=== PATIENT | male | born 1930 | race Caucasian/White ===

== ENCOUNTER 2016-07-01 10:09 | Emergency (ER) | payer OTHER ==
[~2016-07-01] VITALS: Ht 172.7 cm; Wt 114.5 kg
[~2016-07-01 10:09] MED LIST: CALCIUM/MAG/ZINC PO; LISI20TA3 PO; LSX10 PO; OXYC-409 PO; POTA20TA16 PO; TAMS0.4C59 PO; VEGETABLE LAXATIVE PO
[2016-07-01 10:15] VITALS: TEMP 36.6; Ht 172.7 cm; Wt 114.5 kg
[2016-07-01] MEDS ORDERED: FRS/40 PO (10:38)
[2016-07-01] MEDS ORDERED: MULT1CAP16 PO (10:38)
[2016-07-01] MEDS ORDERED: POTA20TA16 PO (10:43)
[2016-07-01] MEDS ORDERED: PRSC1 PO (10:44)
[2016-07-01] MEDS ORDERED: XYLOCAINE 1%/SOD BICARB 20 ML VIAL INFIL ONE (11:00)
[2016-07-01] MEDS ORDERED: DIPHTHERIA/TETANUS/PERTUSSIS 0.5 ML SYR/VIAL IM. ONE (11:45)
[2016-07-01] MEDS ORDERED: CEPHALEXIN MONOHYDRATE 250 MG CAP PO ONE (11:45)
[2016-07-01] MEDS ORDERED: CEPH500C PO (11:51)
--- NOTE | 2016-07-01 11:52 | EMERGENCY ROOM VISIT NOTE ---
ED Visit Note First contact with patient: 10:25 Chief Complaint: LEFT Ring and Pinky Finger Lacerations History of Present Illness: This patient is an 85-year-old male who presents to the Emergency Department with his for evaluation of their LEFT ring and little finger lacerations. Patient sustained the laceration while using a sharp knife to pry apart frozen pieces of chicken. They report a moderate amount of bleeding initially. They deny any numbness or tingling into the distal extremity. They report no decreased range of motion of the affected digit. They have tried nothing for the pain. Patient rates his current discomfort as a 3/10. Patient's Tetanus status is not currently up-to-date. Patient was initially seen at his primary care provider's office and directed to urgent care. He was seen at [facility] and subsequently directed to the emergency Department for laceration repair. Patient does not utilize blood thinners. Medications: Reviewed and discussed with the patient. Allergies: No known allergies. PMH: No pertinent past medical history. SHx: Patient is an 85-year-old male who lives at home with family. ROS: All pertinent positive and negative review of systems are appropriately documented in the History of Present Illness. Physical Exam: VITAL SIGNS - Vital signs and nursing notes were reviewed. GENERAL - 85-year-old male appearing his stated age who is in no acute distress. Communicates well with provider and answers questions appropriately. SKIN - There is a 3.5 cm long laceration noted to the proximal surface of the LEFT 5th digit. The edges gape apart with traction. No foreign bodies appreciated. Upon further examination there are no deep structures including vessel, tendon, or bony structures appreciated. There is moderate active bleeding noted. There is a 2.0 cm laceration noted to the proximal palmar surface of the LEFT fourth digit. Edges minimally gape apart with traction. No foreign bodies appreciated. Upon further examination, there are no deep structures including vessels, tendons, or bony structures appreciated. No active bleeding noted. MUSCULOSKELETAL - Laceration as described above. +5/5 strength appreciated of the affected digits. Full range of motion of the affected digit. NEUROLOGIC - Spinothalamic tract was found to be intact with ability to discriminate sharp versus dull sensation. No sensory defects of the dorsal column were appreciated utilizing light touch for evaluation. VASCULAR - Capillary refill was brisk. ED Course: Patient was seen and evaluated by myself. Costs and benefits of performing primary wound closure versus no repair were discussed with the patient who verbalizes understanding. Verbal consent was obtained prior to performing the procedure. 5.0 cc of 1% buffered lidocaine was used to perform anesthetization of the lacerations. The wound was cleansed and prepped in the typical sterile fashion utilizing normal saline and Betadine. The wound was sterilely draped. Once proper anesthetization was established, the wound was further examined and demonstrated a full-thickness lacerations without disruption of underlying bony structures or tendinous processes. The wound was copiously irrigated with normal saline and Betadine. The LEFT 5th digit wound was closed using 2 simple interrupted 6-0 Vicryl sutures and 9 simple, 5-0 nylon sutures with the wound edges being well approximated. The LEFT 4th digit laceration was repaired using 5 simple interrupted 5-0 nylon sutures with the wound edges being well approximated. Patient tolerated the procedure well. No complications were met. The wound was cleansed and dressed with a Bacitracin dressing. A metal splint was applied to the finger for comfort. Patient received their Adacel vaccination. Patient received initial dose of Keflex prophylactically in the emergency department. Patient educated on worrisome symptoms for return visit to the Emergency Department. Patient discharged to home in good condition. Impression: Laceration to the LEFT 4th and 5th Digits Discharge Instructions: You have received 14 sutures on your LEFT 4th and 5th. These sutures are NOT dissolvable and WILL need to be removed by a health care provider in 10-14 days. You can return to the Emergency Department or contact your Primary Care Provider to have the sutures removed. Please wear the splint for comfort until the sutures are removed. Proper wound care is essential for adequate wound healing and infection prevention. You can shower and clean the wound with soap and water. Do not scour over the wound, pat dry with a towel. Do not submerse the wound (i.e. bathe or dish wash) until the sutures have been removed. You can use an antibiotic ointment with a dressing over the wound for the next 3-4 days. After this time you may leave the wound dry and open to the air. If crust develops over the wound you can use a Q-tip to apply a 1:1 peroxide:water solution to clean the wound. Look for signs of infection of the wound including: increased pain, swelling, foul discharge, streaking, or increased temperature. If any of these are noticed you should return to the Emergency Department for further assessment and treatment. As with any laceration you may have received nerve damage to the surrounding tissues. This damage may or may not be permanent. You should keep the area covered with sunscreen for the first 6 months to 1 year when at risk for exposure to help minimize scarring. You can also use scar reducing creams or Vitamin E oil to help minimize scarring. You were prescribed Keflex to be taken as prescribed. This is an antibiotic. All antibiotics have the potential to cause diarrhea. Stop this medication and contact a medical provider if you were to develop any significant adverse side effects including: wheezing, shortness of breath, passing out, vomiting, or a diffuse rash. Always take antibiotics as directed and COMPLETE the ENTIRE course regardless of the improvement of your symptoms. For pain control, you can use the following soad-cvb-jeomswo medicines (if >12 yo): - Regular strength (325mg/tab) Tylenol (acetaminophen) 2 tabs every 4-6 hours as needed. Do not exceed 12 tablets in a 24 hour period. Avoid taking more than 4 grams (4000 mg) of Tylenol per day. This includes any other sources of acetaminophen you may take on a regular basis. - Regular strength (200 mg/tab) Advil (ibuprofen) 1-2 tabs every 4-6 hours as needed. Do not exceed a dose of 3200 mg per day. Return to the emergency department if your symptoms worsen despite treatment course outlined above. Current/Historical Medications Scheduled Finasteride (Propecia ), 1 MG PO DAILY Furosemide (Lasix), 40 MG PO 2XWK Lisinopril (Prinivil), 20 MG PO DAILY Multiple Vitamins W/ Minerals (Multi Complete), 1 TAB PO DAILY Oxycodone Hcl (Oxycontin), 40 MG PO Q8HR Potassium Ext Rel (Klor-Con), 20 MEQ PO DAILY Potassium Ext Rel (Klor-Con), 20 MEQ PO 2XWK Tamsulosin Hcl (Flomax), 0.4 MG PO HS [Vegetable Laxative], PO DHS Allergies Coded Allergies: No Known Allergies (Unverified , 07/01/16) Vital Signs Date Time Temp Pulse Resp B/P Pulse Ox O2 Delivery O2 Flow Rate FiO2 07/01/16 12:05 57 20 162/93 95 07/01/16 10:15 36.6 69 18 129/77 97 Room Air Medications Administered Medications (Trade) Dose Ordered Sig/Ashish Route Start Time Stop Time Status Last Admin Dose Admin Lidocaine HCl (Buffered Lidocaine 1% Inj) 20 ml ONE ONCE INFIL 07/01/16 11:00 07/01/16 11:01 DC 07/01/16 11:00 20 ML Cephalexin Monohydrate (Keflex Cap) 500 mg NOW ONCE PO 07/01/16 11:45 07/01/16 11:46 DC 07/01/16 11:51 500 MG Diphtheria/ Pertussis/Tetanus Vacc (Adacel Inj) 0.5 ml ONCE ONCE IM. 07/01/16 11:45 07/01/16 11:46 DC 07/01/16 11:52 0.5 ML Departure Information Impression Primary Impression: Laceration of finger of left hand Dispostion Home / Self-Care Condition GOOD Referrals Tani Duval M.D. (PCP) Patient Instructions ED Laceration Hand, [facility] Additional Instructions You have received 14 sutures on your LEFT 4th and 5th. These sutures are NOT dissolvable and WILL need to be removed by a health care provider in 10-14 days. You can return to the Emergency Department or contact your Primary Care Provider to have the sutures removed. Please wear the splint for comfort until the sutures are removed. Proper wound care is essential for adequate wound healing and infection prevention. You can shower and clean the wound with soap and water. Do not scour over the wound, pat dry with a towel. Do not submerse the wound (i.e. bathe or dish wash) until the sutures have been removed. You can use an antibiotic ointment with a dressing over the wound for the next 3-4 days. After this time you may leave the wound dry and open to the air. If crust develops over the wound you can use a Q-tip to apply a 1:1 peroxide:water solution to clean the wound. Look for signs of infection of the wound including: increased pain, swelling, foul discharge, streaking, or increased temperature. If any of these are noticed you should return to the Emergency Department for further assessment and treatment. As with any laceration you may have received nerve damage to the surrounding tissues. This damage may or may not be permanent. You should keep the area covered with sunscreen for the first 6 months to 1 year when at risk for exposure to help minimize scarring. You can also use scar reducing creams or Vitamin E oil to help minimize scarring. You were prescribed Keflex to be taken as prescribed. This is an antibiotic. All antibiotics have the potential to cause diarrhea. Stop this medication and contact a medical provider if you were to develop any significant adverse side effects including: wheezing, shortness of breath, passing out, vomiting, or a diffuse rash. Always take antibiotics as directed and COMPLETE the ENTIRE course regardless of the improvement of your symptoms. For pain control, you can use the following jvoe-rai-afneves medicines (if >12 yo): - Regular strength (325mg/tab) Tylenol (acetaminophen) 2 tabs every 4-6 hours as needed. Do not exceed 12 tablets in a 24 hour period. Avoid taking more than 4 grams (4000 mg) of Tylenol per day. This includes any other sources of acetaminophen you may take on a regular basis. - Regular strength (200 mg/tab) Advil (ibuprofen) 1-2 tabs every 4-6 hours as needed. Do not exceed a dose of 3200 mg per day. Return to the emergency department if your symptoms worsen despite treatment course outlined above. Problem Qualifiers Primary Impression: Laceration of finger of left hand Encounter type: initial encounter Qualified Codes: S61.219A - Laceration without foreign body of unspecified finger without damage to nail, initial encounter
--- NOTE | 2016-07-01 11:54 | EMERGENCY ROOM VISIT NOTE ---
ED Visit Note First contact with patient: 10:25 I have seen and examined this patient with Hilario Jorge and generally agree with the treatment plan as discussed. Current/Historical Medications Scheduled Cephalexin Monohydrate (Keflex), 500 MG PO QID Finasteride (Propecia ), 1 MG PO DAILY Furosemide (Lasix), 40 MG PO 2XWK Lisinopril (Prinivil), 20 MG PO DAILY Multiple Vitamins W/ Minerals (Multi Complete), 1 TAB PO DAILY Oxycodone Hcl (Oxycontin), 40 MG PO Q8HR Potassium Ext Rel (Klor-Con), 20 MEQ PO DAILY Potassium Ext Rel (Klor-Con), 20 MEQ PO 2XWK Tamsulosin Hcl (Flomax), 0.4 MG PO HS [Vegetable Laxative], PO DHS Allergies Coded Allergies: No Known Allergies (Unverified , 07/01/16) Vital Signs Date Time Temp Pulse Resp B/P Pulse Ox O2 Delivery O2 Flow Rate FiO2 07/01/16 10:15 36.6 69 18 129/77 97 Room Air Medications Administered Medications (Trade) Dose Ordered Sig/Ashish Route Start Time Stop Time Status Last Admin Dose Admin Lidocaine HCl (Buffered Lidocaine 1% Inj) 20 ml ONE ONCE INFIL 07/01/16 11:00 07/01/16 11:01 DC 07/01/16 11:00 20 ML Cephalexin Monohydrate (Keflex Cap) 500 mg NOW ONCE PO 07/01/16 11:45 07/01/16 11:46 DC 07/01/16 11:51 500 MG Diphtheria/ Pertussis/Tetanus Vacc (Adacel Inj) 0.5 ml ONCE ONCE IM. 07/01/16 11:45 07/01/16 11:46 DC 07/01/16 11:52 0.5 ML Departure Information Impression Primary Impression: Laceration of finger of left hand Dispostion Home / Self-Care Condition GOOD Prescriptions Cephalexin Monohydrate (Keflex) 500 Mg Cap 500 MG PO QID for 5 Days, #20 CAP Prov: Hilario Jorge, PA-C 07/01/16 Referrals Tani Duval M.D. (PCP) Forms HOME CARE DOCUMENTATION FORM, Work Instructions, IMPORTANT VISIT INFORMATION Patient Instructions [facility], ED Laceration Hand Additional Instructions You have received 14 sutures on your LEFT 4th and 5th. These sutures are NOT dissolvable and WILL need to be removed by a health care provider in 10-14 days. You can return to the Emergency Department or contact your Primary Care Provider to have the sutures removed. Please wear the splint for comfort until the sutures are removed. Proper wound care is essential for adequate wound healing and infection prevention. You can shower and clean the wound with soap and water. Do not scour over the wound, pat dry with a towel. Do not submerse the wound (i.e. bathe or dish wash) until the sutures have been removed. You can use an antibiotic ointment with a dressing over the wound for the next 3-4 days. After this time you may leave the wound dry and open to the air. If crust develops over the wound you can use a Q-tip to apply a 1:1 peroxide:water solution to clean the wound. Look for signs of infection of the wound including: increased pain, swelling, foul discharge, streaking, or increased temperature. If any of these are noticed you should return to the Emergency Department for further assessment and treatment. As with any laceration you may have received nerve damage to the surrounding tissues. This damage may or may not be permanent. You should keep the area covered with sunscreen for the first 6 months to 1 year when at risk for exposure to help minimize scarring. You can also use scar reducing creams or Vitamin E oil to help minimize scarring. You were prescribed Keflex to be taken as prescribed. This is an antibiotic. All antibiotics have the potential to cause diarrhea. Stop this medication and contact a medical provider if you were to develop any significant adverse side effects including: wheezing, shortness of breath, passing out, vomiting, or a diffuse rash. Always take antibiotics as directed and COMPLETE the ENTIRE course regardless of the improvement of your symptoms. For pain control, you can use the following [id number]-[id number] medicines (if >12 yo): - Regular strength (325mg/tab) Tylenol (acetaminophen) 2 tabs every 4-6 hours as needed. Do not exceed 12 tablets in a 24 hour period. Avoid taking more than 4 grams (4000 mg) of Tylenol per day. This includes any other sources of acetaminophen you may take on a regular basis. - Regular strength (200 mg/tab) Advil (ibuprofen) 1-2 tabs every 4-6 hours as needed. Do not exceed a dose of 3200 mg per day. Return to the emergency department if your symptoms worsen despite treatment course outlined above. Problem Qualifiers Primary Impression: Laceration of finger of left hand Encounter type: initial encounter Qualified Codes: S61.219A - Laceration without foreign body of unspecified finger without damage to nail, initial encounter
[2016-07-01 12:05] VITALS: BP 162/93; PULSE 57; O2SAT 95
== END 2016-07-01 12:05 | disposition home or self-care (01) ==
LOC: C.EDB 10:10
DX: S61.217A Laceration without foreign body of left little finger without damage to nail, initial encounter (principal); S61.215A Laceration without foreign body of left ring finger without damage to nail, initial encounter; W26.0XXA Contact with knife, initial encounter; Z23 Encounter for immunization

== ENCOUNTER 2017-05-03 10:50 | Emergency (ER) | payer OTHER ==
[~2017-05-03] VITALS: Ht 180.3 cm; Wt 113.8 kg
[~2017-05-03 10:50] MED LIST changes: -CALCIUM/MAG/ZINC PO; +FRS/40 PO; -LSX10 PO; +MULT1CAP16 PO; +PRSC1 PO
[2017-05-03 10:54] VITALS: TEMP 37; Ht 180.3 cm; Wt 113.8 kg
[2017-05-03] MEDS ORDERED: GABA-113 PO (11:20)
[2017-05-03] MEDS ORDERED: LISI-725 PO (11:20)
[2017-05-03] MEDS ORDERED: PRLSR20 PO (11:20)
[2017-05-03] MEDS ORDERED: OXYC60TA8 PO (11:20)
[2017-05-03] MEDS ORDERED: TAMS0.4C38 PO (11:20)
[2017-05-03] MEDS ORDERED: HYDR-4079 PO (11:20)
[2017-05-03] MEDS ORDERED: FINA5TAB PO (11:20)
[2017-05-03] MEDS ORDERED: POTA10CA28 PO (11:20)
[2017-05-03 11:42] VITALS: O2SAT 95
--- NOTE | 2017-05-03 11:44 | EMERGENCY ROOM VISIT NOTE ---
History Report prepared by Shivani: Patti Maxwell Under the Supervision of: Dr. Bhavik Nettles M.D. First contact with patient: 11:25 Chief Complaint: WEAKNESS Stated Complaint: WEAK History of Present Illness The patient is an 86 year old male who presents to the Emergency Room with complaints of constant weakness that began last night. The patient states that he is feeling better, but is still not back to his baseline state. The patient' s states that last night he was shaking in his sleep, noting he was mumbling and unaware of the situation. She states that he is prescribed oxycodone and hydrocodone, which she gave him last night. His notes that he stopped shaking when he took hydrocodone, falling into an immediate deep sleep right after. The patient states that this morning his neck hurt and he was unable to lift his head. The patient denies any leg swelling, abdominal pain , or urinary symptoms. The patient notes that his feet feel cold, but they are not cold when he touches them. He states that he has been taking the same amount of medication he normally takes. The patient notes he has had a back operation and has had trouble walking since. He states that he uses a walker to mobilize. The patient notes that he takes diuretics. Source of History: patient, spouse/significant other () Onset: last night Position: other (global) Quality: other (weakness) Timing: other (constant) Associated Symptoms: No abdominal pain, No urinary symptoms Review of Systems All systems have been listed, reviewed, and are negative other than those previously mentioned. Please see Additional Medical History Sheet. Past Medical & Surgical Medical Problems: (1) Hypertension (2) Skin problem (3) Stomach problems (4) Ulcer (5) Urinary problem Family History Diabetes mellitus Heart disease Hypertension Social History Smoking Status: Former Smoker Smokeless Tobacco Use: No Alcohol Use: none Marital Status: Housing Status: lives with significant other Current/Historical Medications Scheduled Finasteride (Proscar), 5 MG PO DAILY Gabapentin (Neurontin), 300 MG PO TID Lisinopril (Zestril), 20 MG PO DAILY Oxycodone Hcl (Oxycontin), 60 MG PO Q12 Potassium Chloride (Micro-K Ext Rel), 10 MEQ PO DAILY Tamsulosin Hcl (Flomax), 0.8 MG PO HS Scheduled PRN Hydrocodone/Acetaminophen 10MG/325MG ([place] 10MG/325MG), 1 TAB PO Q4H PRN for Pain Omeprazole (Prilosec), 20 MG PO QAM PRN for HEARTBURN Allergies Coded Allergies: Uncoded Nonscreenable Allergen (Unverified Allergy, Unknown, ELASTIC ON PANTS/UNDERWEAR, 05/03/17) Physical Exam Vital Signs Date Time Temp Pulse Resp B/P (MAP) Pulse Ox O2 Delivery O2 Flow Rate FiO2 05/03/17 14:04 69 18 104/67 94 05/03/17 13:25 78 05/03/17 12:40 66 16 129/61 96 Room Air 05/03/17 11:42 95 Room Air 05/03/17 11:21 70 05/03/17 10:54 37.0 85 17 106/68 95 Room Air Physical Exam GENERAL: Patient awake, alert, oriented x 3. Patient follows commands. Patient does not appear toxic. Patient is adequately hydrated and well- nourished. SKIN: No erythema, pallor, cyanosis or rash HEENT: Scar in right tympanic membrane, mucous membranes are dry. Normal head, pupils equal, reactive to light and accommodation. Neck: Without adenopathy, no neck vein distention. LUNGS: Clear to auscultation. No wheezes, no rales, no rhonchi. HEART: No murmurs. No gallops. No rubs ABDOMEN: Obese. No masses, no rebound, no hepatomegaly or splenomegaly. EXTREMITIES: 3+ nonpitting pretibial edema. No signs of trauma. No calf or thigh tenderness. NEUROLOGIC: Cranial nerves II-XII within normal limits. No gross motor sensory function deficits. Medical Decision & Procedures Laboratory Results 05/03/17 11:22 05/03/17 11:22 Test 05/03/17 11:22 Red Blood Count 3.94 M/uL (4.7-6.1) Mean Corpuscular Volume 93.4 fL (80-100) Mean Corpuscular Hemoglobin 32.0 pg (25-34) Mean Corpuscular Hemoglobin Concent 34.2 g/dl (32-36) RDW Standard Deviation 46.7 fL (36.4-46.3) RDW Coefficient of Variation 13.6 % (11.5-14.5) Mean Platelet Volume 9.6 fL (7.4-10.4) Anion Gap 9.0 mmol/L (3-11) Est Creatinine Clear Calc Drug Dose 44.4 ml/min Estimated GFR () 47.0 Estimated GFR (Non- 40.6 BUN/Creatinine Ratio 26.0 (10-20) Calcium Level 8.7 mg/dl (8.5-10.1) Total Bilirubin 0.4 mg/dl (0.2-1) Aspartate Amino Transf (AST/SGOT) 18 U/L (15-37) Alanine Aminotransferase (ALT/SGPT) 21 U/L (12-78) Alkaline Phosphatase 61 U/L (45-117) Troponin I 0.028 ng/ml (0-0.045) Total Protein 7.2 gm/dl (6.4-8.2) Albumin 3.4 gm/dl (3.4-5.0) Globulin 3.8 gm/dl (2.5-4.0) Albumin/Globulin Ratio 0.9 (0.9-2) Thyroid Stimulating Hormone (TSH) 0.330 uIu/ml (0.300-4.500) Laboratory results as stated above per my review. ECG Indication: weakness Rate (beats per minute): 68 Rhythm: sinus rhythm Findings: no acute ischemic change ED Course 1132: Past medical records reviewed. The patient was evaluated in room C7. A complete history and physical examination was performed. 1345: patient is awake alert and oriented. Patient does not feel weak. The patient was ambulatory to the bathroom without any difficulty. I discussed the test results with the patient and his and I discussed the treatment plan. They verbalized complete understanding and agreement. The patient is ready to go home. Medical Decision Differential diagnosis includes narcotic overmedication, reaction to Gabapentin , metabolic disorder, CVA, TIA. Multiple labs, EKG were obtained. Please see above. The patient's white count is mildly elevated. Patient does not appear to be infected. Electrolytes are unremarkable. The patient has been awake and alert since my first examination. The patient may have had an accidental overdose of his pain medications in combination with gabapentin. The patient has no evidence of CVA/TIA. I do not believe he requires any imaging at this time. The patient is safe to return home but will need follow-up by his family physician. Medication Reconcilliation Current Medication List: was personally reviewed by me Blood Pressure Screening Patient's blood pressure: Normal blood pressure Blood pressure disposition: Did not require urgent referral Impression Primary Impression: Altered mental status Scribe Attestation The scribe's documentation has been prepared under my direction and personally reviewed by me in its entirety. I confirm that the note above accurately reflects all work, treatment, procedures, and medical decision making performed by me. Departure Information Dispostion Home / Self-Care Referrals No Doctor, Assigned (PCP) Forms HOME CARE DOCUMENTATION FORM, IMPORTANT VISIT INFORMATION Patient Instructions My [facility] Additional Instructions Continue all of your current medications as prescribed except gabapentin. Hold gabapentin until you follow-up with your family physician. Follow-up with your family physician within the next 7 days.
[2017-05-03 11:48] LABS: HEMATOCRIT 36.8 % (42-52); MEAN CELL VOLUME 93.4 fL (80-100); MEAN CORPUSCULAR HGB CONC 34.2 g/dl (32-36); MEAN PLATELET VOLUME 9.6 fL (7.4-10.4); PLATELET COUNT 193 K/uL (130-400); RED BLOOD COUNT 3.94 M/uL (4.7-6.1); WHITE BLOOD COUNT 16.34 K/uL (4.8-10.8)
[2017-05-03 11:57] LABS: CALCIUM 8.7 mg/dl (8.5-10.1); CREATININE 1.53 mg/dl (0.60-1.40); POTASSIUM 4.5 mmol/L (3.5-5.1)
[2017-05-03 12:08] LABS: ALB/GLOB RATIO 0.9 (0.9-2); THYROID STIMULATING HORMONE 0.33 uIu/ml (0.300-4.500)
[2017-05-03 14:04] VITALS: BP 104/67; PULSE 69; O2SAT 94
== END 2017-05-03 14:06 | disposition home or self-care (01) ==
LOC: C.EDB 10:51 → C.EDC 14:06
DX: R41.82 Altered mental status, unspecified (principal); I10 Essential (primary) hypertension; Z87.440 Personal history of urinary (tract) infections; Z87.2 Personal history of diseases of the skin and subcutaneous tissue; Z79.899 Other long term (current) drug therapy; Z87.891 Personal history of nicotine dependence; Z83.3 Family history of diabetes mellitus; Z82.49 Family history of ischemic heart disease and other diseases of the circulatory system

== ENCOUNTER 2017-09-28 21:57 | Emergency (ER) | payer OTHER ==
[~2017-09-28] VITALS: Ht 172.7 cm; Wt 111.5 kg
[~2017-09-28 21:57] MED LIST changes: +FINA5TAB PO; -FRS/40 PO; +GABA-113 PO; +HYDR-4079 PO; +LISI-725 PO; -LISI20TA3 PO; -MULT1CAP16 PO; -OXYC-409 PO; +OXYC60TA8 PO; +POTA10CA28 PO; -POTA20TA16 PO; +PRLSR20 PO; -PRSC1 PO; +TAMS0.4C38 PO; -TAMS0.4C59 PO; -VEGETABLE LAXATIVE PO
[2017-09-28 22:02] VITALS: TEMP 36.7; Ht 172.7 cm; Wt 111.5 kg
[2017-09-28] MEDS ORDERED: SODIUM CHLORIDE 0.9% 500ML 500 ML IV STA (22:35)
[2017-09-28] MEDS ORDERED: HYDROmorphone INJ 0.5 MG/0.5 ML SYR IV STA (22:35)
[2017-09-28] MEDS ORDERED: ONDANSETRON INJ 2 MG/ML 2 ML VIAL IV STA (22:35)
--- NOTE | 2017-09-28 22:59 | EMERGENCY ROOM VISIT NOTE ---
History Report prepared by Shivani: Patrizia Moreira Under the Supervision of: Dr. Sharan Fry M.D. First contact with patient: 22:14 Chief Complaint: FLANK PAIN Stated Complaint: R FLANK PAIN History of Present Illness The patient is an 86 year old male who presents to the Emergency Room with complaints of worsening right flank pain starting a few hours ago. The patient states that he was reaching over the counter to grab something and it hit him. He describes the pain as a knife stabbing him in his side. He reports that he could not even stand because the pain was so bad. He currently rates his pain as a 3/10 in severity. The patient denies blood thinners, nausea, vomiting, and diarrhea. Source of History: patient Onset: a few hours ago Position: other (right flank) Symptom Intensity: 3/10 Quality: stabbing (knife) Timing: worsening Associated Symptoms: No nausea, No vomiting, No diarrhea Review of Systems See HPI for pertinent positives & negatives. A total of 10 systems reviewed and were otherwise negative. Past Medical & Surgical Medical Problems: (1) Hypertension (2) Skin problem (3) Stomach problems (4) Ulcer (5) Urinary problem Family History Diabetes mellitus Heart disease Hypertension Social History Smoking Status: Former Smoker Alcohol Use: none Marital Status: Housing Status: lives with significant other Current/Historical Medications Scheduled Cholecalciferol (Vitamin D3), 1,000 UNITS PO DAILY Finasteride (Proscar), 5 MG PO DAILY Furosemide (Lasix), 40 MG PO QAM Lidocaine (Lidocaine), 5 % TD DAILY Lisinopril (Zestril), 20 MG PO DAILY Multivitamin (Multivitamin), 1 TAB PO DAILY Oxycodone Hcl (Oxycontin), 60 MG PO Q12 Potassium Chloride (Micro-K Ext Rel), 10 MEQ PO DAILY Senna (Senokot), 3-4 TAB PO HS Tamsulosin Hcl (Flomax), 0.8 MG PO HS Triamcinolone Acet (Triamcinolone Acetonide), 1 APPLN TOP BID Scheduled PRN Hydrocodone/Acetaminophen 10MG/325MG ([place] 10MG/325MG), 1 TAB PO Q4H PRN for Pain Nystatin (Topical) (Nystatin), 1 APPLN TD TID PRN for AFFECTED AREAS Omeprazole (Prilosec), 20 MG PO QAM PRN for HEARTBURN Oxycodone Immediate Rel Tab (Roxicodone Ir), 1-2 TAB PO Q4H PRN for Severe Pain Allergies Coded Allergies: Uncoded Nonscreenable Allergen (Verified Allergy, Unknown, ELASTIC ON PANTS/UNDERWEAR, 09/28/17) Physical Exam Vital Signs Date Time Temp Pulse Resp B/P (MAP) Pulse Ox O2 Delivery O2 Flow Rate FiO2 09/29/17 03:15 82 18 128/70 98 09/29/17 02:20 58 18 146/76 98 Room Air 09/29/17 00:43 64 20 150/76 98 Room Air 09/28/17 23:20 60 09/28/17 23:18 63 20 156/65 97 Room Air 09/28/17 22:02 36.7 65 20 128/71 96 Room Air Physical Exam GENERAL: Awake, alert, well-appearing, in no acute distress HENT: Normocephalic, atraumatic. Oropharynx unremarkable. EYES: Normal conjunctiva. Sclera non-icteric. NECK: Supple. No nuchal rigidity. FROM. No JVD. RESPIRATORY: Clear to auscultation. CARDIAC: Regular rate, normal rhythm. Extremities warm and well perfused. Pulses equal. ABDOMEN: Soft, non-distended. RLQ tenderness to palpation. No rebound or guarding. No masses. RECTAL: Deferred. MUSCULOSKELETAL: Chest examination reveals no tenderness. The back is symmetrical on inspection without obvious abnormality. There is no CVA tenderness to palpation. No joint edema. LOWER EXTREMITIES: Calves are equal size bilaterally and non-tender. No edema. No discoloration. NEURO: Normal sensorium. No sensory or motor deficits noted. SKIN: No rash or jaundice noted. Medical Decision & Procedures ER Provider Diagnostic Interpretation: Radiology results as stated below per my review and radiologist interpretation: CT ABDOMEN & PELVIS Without Contrast: Irregular lesion at the right and left lower lobe. Consider infectious infiltrates. Tumor is less likely but not exclude. Follow to resolution as these are incompletely imaged. Renal cysts. No obstructive uropathy. Tiny calcified granuloma the spleen. No appendicitis, colitis, diverticulitis, or bowel obstruction. No free air or free fluid. No other acute disease. Radiologist: Kyler Lazar MD Study ready at 23:18 and initial results transmitted at 00:10. Laboratory Results 09/28/17 22:55 Red Blood Count 3.58, Mean Corpuscular Volume 93.0, Mean Corpuscular Hemoglobin 30.4, Mean Corpuscular Hemoglobin Concent 32.7, Mean Platelet Volume 9.4, Neutrophils (%) (Auto) 55.9, Lymphocytes (%) (Auto) 28.2, Monocytes (%) (Auto) 9.1, Eosinophils (%) (Auto) 5.6, Basophils (%) (Auto) 1.0, Neutrophils # (Auto) 2.77, Lymphocytes # (Auto) 1.40, Monocytes # (Auto) 0.45, Eosinophils # (Auto) 0.28, Basophils # (Auto) 0.05 09/28/17 22:55 Test 09/28/17 22:53 09/28/17 22:55 09/28/17 23:30 Bedside Hemoglobin 10.2 g/dl (14.0-18.0) Bedside Hematocrit 30 % (42-52) Bedside Sodium 142 mEq/L (135-144) Bedside Potassium 4.5 mEq/L (3.3-5.0) Bedside Chloride 107 mEq/L (101-112) Bedside Total CO2 24 mEq/l (24-31) Bedside Blood Urea Nitrogen 32 mg/dl (7-18) Bedside Creatinine 1.4 mg/dl (0.6-1.3) Bedside Glucose (other) 119 mg/dl (70-99) Bedside Ionized Calcium (Be) 1.19 mmol/l (1.12-1.32) White Blood Count 4.96 K/uL (4.8-10.8) Red Blood Count 3.58 M/uL (4.7-6.1) Hemoglobin 10.9 g/dL (14.0-18.0) Hematocrit 33.3 % (42-52) Mean Corpuscular Volume 93.0 fL (80-100) Mean Corpuscular Hemoglobin 30.4 pg (25-34) Mean Corpuscular Hemoglobin Concent 32.7 g/dl (32-36) Platelet Count 190 K/uL (130-400) Mean Platelet Volume 9.4 fL (7.4-10.4) Neutrophils (%) (Auto) 55.9 % Lymphocytes (%) (Auto) 28.2 % Monocytes (%) (Auto) 9.1 % Eosinophils (%) (Auto) 5.6 % Basophils (%) (Auto) 1.0 % Neutrophils # (Auto) 2.77 K/uL (1.4-6.5) Lymphocytes # (Auto) 1.40 K/uL (1.2-3.4) Monocytes # (Auto) 0.45 K/uL (0.11-0.59) Eosinophils # (Auto) 0.28 K/uL (0-0.5) Basophils # (Auto) 0.05 K/uL (0-0.2) RDW Standard Deviation 49.7 fL (36.4-46.3) RDW Coefficient of Variation 14.6 % (11.5-14.5) Immature Granulocyte % (Auto) 0.2 % Immature Granulocyte # (Auto) 0.01 K/uL (0.00-0.02) Anion Gap 5.0 mmol/L (3-11) Est Creatinine Clear Calc Drug Dose 48.7 ml/min Estimated GFR () 56.2 Estimated GFR (Non- 48.5 BUN/Creatinine Ratio 24.5 (10-20) Calcium Level 8.6 mg/dl (8.5-10.1) Total Bilirubin 0.2 mg/dl (0.2-1) Direct Bilirubin < 0.1 mg/dl (0-0.2) Aspartate Amino Transf (AST/SGOT) 17 U/L (15-37) Alanine Aminotransferase (ALT/SGPT) 17 U/L (12-78) Alkaline Phosphatase 62 U/L (45-117) Total Protein 7.0 gm/dl (6.4-8.2) Albumin 3.1 gm/dl (3.4-5.0) Lipase 91 U/L (73-393) Urine Color YELLOW Urine Appearance CLEAR (CLEAR) Urine pH 5.0 (4.5-7.5) Urine Specific [place] 1.021 (1.000-1.030) Urine Protein NEG (NEG) Urine Glucose (UA) NEG (NEG) Urine Ketones NEG (NEG) Urine Occult Blood TRACE (NEG) Urine Nitrite NEG (NEG) Urine Bilirubin NEG (NEG) Urine Urobilinogen NEG (NEG) Urine Leukocyte Esterase LARGE (NEG) Urine WBC (Auto) 10-30 /hpf (0-5) Urine RBC (Auto) 0-4 /hpf (0-4) Urine Hyaline Casts (Auto) 1-5 /lpf (0-5) Urine Epithelial Cells (Auto) >30 /lpf (0-5) Urine Bacteria (Auto) NEG (NEG) Labs reviewed by ED physician. Medications Administered Medications (Trade) Dose Ordered Sig/Ashish Route Start Time Stop Time Status Last Admin Dose Admin Sodium Chloride 500 ml @ 999 mls/hr Q31M STAT IV 09/28/17 22:35 09/28/17 23:05 DC 09/28/17 22:35 999 MLS/HR Hydromorphone HCl (Dilaudid Inj) 0.5 mg NOW STAT IV 09/28/17 22:35 09/28/17 22:38 DC 09/28/17 22:54 0.5 MG Ondansetron HCl (Zofran Inj) 4 mg NOW STAT IV 09/28/17 22:35 09/28/17 22:38 DC 09/28/17 22:54 4 MG Hydromorphone HCl (Dilaudid Inj) 0.5 mg NOW STAT IV 09/29/17 00:30 09/29/17 00:32 DC 09/29/17 00:39 0.5 MG Lidocaine (Lidoderm Patch 5%) 1 patch NOW STAT TD 09/29/17 00:30 09/29/17 00:32 DC 09/29/17 00:40 1 PATCH Ketorolac Tromethamine (Toradol Inj) 30 mg NOW STAT IV 09/29/17 00:30 09/29/17 00:32 DC 09/29/17 00:40 30 MG Oxycodone HCl (Roxicodone Immediate Rel 5MG Home Pack) 1 homepack UD STAT PO 09/29/17 03:00 09/29/17 03:01 DC 09/29/17 03:00 1 HOMEPACK ED Course 2232: Past medical records reviewed. The patient was evaluated in room B12B. A complete history and physical examination was performed. 2235: Ordered Zofran Inj 4 mg IV, Dilaudid Inj 0.5 mg IV, NSS 500 ml @ 999 mls/ hr IV. 0025: I reevaluated the patient and he is still in pain. 0030: Ordered Toradol Inj 30 mg IV, Lidocaine 1 patch TD, Dilaudid Inj 0.5 mg IV. 0037: I reevaluated the patient and updated him on his test results. 0111: I reevaluated the patient and he is doing well. Medical Decision Differential diagnosis: Etiologies such as appendicitis, diverticulitis, PUD, biliary pathology, UTI, pancreatitis, obstruction, mesenteric ischemia, aortic pathology, infections, inflammatory bowel disease, renal colic, as well as others were entertained. This is an 86-year-old male who presents emergency department complaining of right-sided flank pain. The pain appears to be muscle skeletal in nature and I will note that it started after the patient was twisting. He is able to reproduce the pain by twisting however he is nontender on examination. Using shared medical decision making with the patient I recommended a CAT scan of the abdomen and pelvis along with laboratory work including CBC renal profile liver profile and lipase. These were all found to be within normal limits. The patient does have a small amount of white blood cells in his urine which will be sent for culture. The patient was made much more comfortable using Dilaudid a Lidoderm patch and Tylenol. Repeat examination revealed improvement the patient's symptoms. the patient was complaining of pain and wanted me to look closer at his back because he felt the pain was radiating from his back. Unfortunately due to a unscheduled CAT scan downtime the patient had a weight an additional 90 minutes to get his lumbar spine images. The patient was made comfortable. I do not see an acute process going on in his lumbar spine I feel he can be safely discharged home. Patient was in agreement with treatment plan. Medication Reconcilliation Current Medication List: was personally reviewed by me Impression Primary Impression: Right flank pain Scribe Attestation The scribe's documentation has been prepared under my direction and personally reviewed by me in its entirety. I confirm that the note above accurately reflects all work, treatment, procedures, and medical decision making performed by me. Departure Information Dispostion Home / Self-Care Prescriptions Lidocaine (Lidocaine) 1 Patch Tdsy 5 % TD DAILY for 30 Days, #30 PATCH Prov: Sharan Fry MD 09/29/17 Oxycodone Immediate Rel Tab (ROXICODONE IR) 5 Mg Tab 1-2 TAB PO Q4H Y for Severe Pain, #14 TAB Prov: Sharan Fry MD 09/29/17 Referrals Tani Duval M.D. (PCP) Patient Instructions [facility]
[2017-09-28] MEDS ORDERED: FRS/40 PO (23:03)
[2017-09-28] MEDS ORDERED: SENN-61 PO (23:03)
[2017-09-28] MEDS ORDERED: CHOL1000 PO (23:03)
[2017-09-28] MEDS ORDERED: MULT-506 PO (23:03)
[2017-09-28] MEDS ORDERED: NYST100033 TD (23:03)
[2017-09-28] MEDS ORDERED: TRMCR515 TOP (23:03)
[2017-09-28 23:06] LABS: ISTAT CREATININE 1.4 mg/dl (0.6-1.3); ISTAT IONIZED CALCIUM 1.19 mmol/l (1.12-1.32); ISTAT POTASSIUM 4.5 mEq/L (3.3-5.0)
[2017-09-28 23:08] LABS: BASO ABS # 0.05 K/uL (0-0.2); EOS % 5.6 %; EOS ABS # 0.28 K/uL (0-0.5); HEMATOCRIT 33.3 % (42-52); HEMOGLOBIN 10.9 g/dL (14.0-18.0); IG# 0.01 K/uL (0.00-0.02); LYMPH % 28.2 %; MEAN CORPUSCULAR HEMOGLOBIN 30.4 pg (25-34); MEAN CORPUSCULAR HGB CONC 32.7 g/dl (32-36); MEAN PLATELET VOLUME 9.4 fL (7.4-10.4); MONO % 9.1 %; MONO ABS # 0.45 K/uL (0.11-0.59); NEUT % 55.9 %; NEUT ABS # 2.77 K/uL (1.4-6.5); PLATELET COUNT 190 K/uL (130-400); RED CELL DISTRIBUTION WIDTH CV 14.6 % (11.5-14.5); RED CELL DISTRIBUTION WIDTH SD 49.7 fL (36.4-46.3); WHITE BLOOD COUNT 4.96 K/uL (4.8-10.8)
[2017-09-28 23:25] LABS: ALBUMIN 3.1 gm/dl (3.4-5.0); ALT/SGPT 17 U/L (12-78); AST/SGOT 17 U/L (15-37); BLOOD UREA NITROGEN 32 mg/dl (7-18); CALCIUM 8.6 mg/dl (8.5-10.1); CARBON DIOXIDE 26 mmol/L (21-32); CREATININE 1.32 mg/dl (0.60-1.40); GLUCOSE 113 mg/dl (70-99); LIPASE 91 U/L (73-393); POTASSIUM 4.5 mmol/L (3.5-5.1); SODIUM 142 mmol/L (136-145)
[2017-09-28 23:28] LABS: ALKALINE PHOSPHATASE 62 U/L (45-117)
[2017-09-29] MEDS ORDERED: HYDROmorphone INJ 0.5 MG/0.5 ML SYR IV STA (00:30)
[2017-09-29] MEDS ORDERED: KETOROLAC TROMETHAMINE 30 MG/ML VIAL IV STA (00:30)
[2017-09-29] MEDS ORDERED: LIDODERM (LIDOCAINE) PATCH 5% TD STA (00:30)
[2017-09-29] MEDS ORDERED: OXYC1TAB3 PO (02:57)
[2017-09-29] MEDS ORDERED: LDDP5 TD (02:57)
[2017-09-29] MEDS ORDERED: OXYCODONE IR HOME PACK PO STA (03:00)
[2017-09-29 03:15] VITALS: BP 128/70; PULSE 82; O2SAT 98
--- NOTE | 2017-09-29 07:08 | DIAGNOSTIC IMAGING REPORT ---
LUMBAR SPINE CT CT DOSE: HISTORY: Pt c/o Rt flank pain TECHNIQUE: Multiaxial CT images of the lumbar spine were performed and reformatted in the sagittal and coronal plane without the use of contrast. A dose lowering technique was utilized adhering to the principles of ALARA. COMPARISON: None. FINDINGS: No fractures within the lumbar spine. Posterior decompression and fusion from L1 through L5. L5 is demonstrated to be a transitional vertebra with partial sacralization on the left. The hardware is intact. Mild periprosthetic lucency surrounding the right L5 pedicle screw. There is a millimeters of anterolisthesis of L4 and L5. Moderate disc space narrowing at T12-L1 and mild disc space narrowing at T11-T12 with associated endplate osteophytes. The visualized sacrum appears intact. Evaluation of the central canal is limited due to the CT technique and metallic artifact. Paraspinal soft tissues are unremarkable. Multilevel bilateral neural foraminal narrowing most pronounced at the L4-L5 level where there is severe neural foraminal narrowing. IMPRESSION: 1. No fractures within the lumbar spine. 2. Posterior decompression and fusion from L1 through L5. The hardware appears intact. Mild periprosthetic lucency surrounding the right L5 pedicle screw. 3. Degenerative changes as described above. Electronically signed by: Santos Barkley M.D. 09/29/2017 7:06 AM Dictated Date/Time: 09/29/2017 7:01 AM
--- NOTE | 2017-09-29 07:39 | DIAGNOSTIC IMAGING REPORT ---
CT SCAN OF THE ABDOMEN AND PELVIS WITHOUT IV CONTRAST CLINICAL HISTORY: Right flank pain. COMPARISON STUDY: No priors. TECHNIQUE: CT scan of the abdomen and pelvis is performed from the lung bases to the proximal femora. Images are reviewed in the axial, sagittal, and coronal planes. IV contrast was not administered for this examination as per the referring clinician. Note that the examination was performed in suboptimal fashion without oral and IV contrast. The examination is also degraded by extensive streak artifact from metallic spinal hardware. A dose lowering technique was utilized adhering to the principles of ALARA. CT DOSE: 1712.81 mGy.cm FINDINGS: Lung bases: The heart is enlarged and without pericardial effusion. Pacemaker leads are noted. There is a small hiatal hernia. There is bibasilar consolidative change. Trace pleural effusions are noted. Liver: The unenhanced liver is normal in size, contour, and attenuation. There is no intrahepatic biliary ductal dilatation. Gallbladder: Unremarkable. Spleen: Normal in size and attenuation. A punctate calcified granuloma is incidentally noted. Pancreas: The unenhanced pancreas is atrophic and grossly unremarkable. Adrenal glands: Unremarkable. Kidneys: The unenhanced kidneys are atrophic and without hydronephrosis. There are no renal calculi identified. There are numerous bilateral renal cysts which measure up to 2.0 cm. Additional subcentimeter cortical hypodensities also likely represent cysts but are too small for definitive characterization. Abdominal vasculature: The abdominal aorta is normal in course and caliber noting advanced atherosclerotic calcification. Bowel: There are scattered colonic diverticula without CT evidence of acute diverticulitis. Moderate colonic fecal retention is observed. No bowel obstruction is seen. The appendix is well-visualized and normal. Peritoneum: There is no intraperitoneal free air or abdominal ascites. There is asymmetric atrophy of the left psoas muscle as compared to the right. Lymphadenopathy: None. Pelvic viscera: The prostate gland is mildly enlarged and heterogeneous, measuring 5.8 cm in transverse diameter. The bladder and seminal vesicles are normal as visualized. Skeletal structures: The skeletal structures are osteopenic. There is advanced lumbosacral spondylosis. 12 mm of anterolisthesis is seen at L4-L5. There are changes from lower neck and posterior fusion from L1 -L5. No lytic or blastic lesions are seen. Arthritic change is seen in the hips and sacral iliac joints. A spinal stimulator device is present in the left lower back. Leads extends towards the posterior elements of the upper lumbar spine. IMPRESSION: 1. There are no acute infectious or inflammatory findings in the abdomen or pelvis. 2. There is bibasilar airspace consolidation as well as trace pleural effusions. This could represent atelectasis versus pneumonia. Neoplasm is considered much less likely. Clinical correlation will be required and radiographic follow-up to resolution is recommended. 3. Moderate constipation. 4. Cardiomegaly. 5. Additional findings as above. Electronically signed by: Warren Page M.D. 09/29/2017 7:38 AM Dictated Date/Time: 09/29/2017 7:30 AM
== END 2017-09-29 03:16 | disposition home or self-care (01) ==
LOC: EDBD 21:57 → C.EDB 21:58
DX: R10.31 Right lower quadrant pain (principal); W22.8XXA Striking against or struck by other objects, initial encounter; I10 Essential (primary) hypertension; Z87.891 Personal history of nicotine dependence; Z83.3 Family history of diabetes mellitus; Z82.49 Family history of ischemic heart disease and other diseases of the circulatory system; Z79.899 Other long term (current) drug therapy; Z91.048 Other nonmedicinal substance allergy status

== ENCOUNTER 2018-09-21 15:25 | Inpatient (IN) ==
[2018-09-21] MEDS ORDERED: fentaNYL citrate 100 MCG/2 ML VIAL IV STA (16:42)
[2018-09-21] MEDS ORDERED: FAMOTIDINE 20MG/5ML IV PUSH IV STA (16:42)
[2018-09-21 16:47] LABS: Basophils # (auto) 0.05 K/uL (0-0.2); Basophils % (auto) 0.7 %; Eosinophils # (auto) 0.21 K/uL (0-0.5); Hematocrit (blood only) 28.9 % (42-52); Hemoglobin 9.3 g/dL (14.0-18.0); Immature Granulocytes # (auto) 0.02 K/uL (0.00-0.02); Immature Granulocytes % (auto) 0.3 %; Lymphocytes # (auto) 0.92 K/uL (1.2-3.4); Lymphocytes % (auto) 13.2 %; Mean Corpuscular Hgb Conc 32.2 g/dL (32-36); Mean Corpuscular Volume 95.1 fL (80-100); Mean Platelet Volume 9.4 fL (7.4-10.4); Monocytes # (auto) 0.79 K/uL (0.11-0.59); Monocytes % (auto) 11.4 %; Neutrophils # (auto) 4.96 K/uL (1.4-6.5); Neutrophils % (auto) 71.4 %; Platelet Count 246 K/uL (130-400); RDW Coefficient of Variation 13.5 % (11.5-14.5); RDW Standard Deviation 47.3 fL (36.4-46.3); Red Blood Count 3.04 M/uL (4.7-6.1); White Blood Count 6.95 K/uL (4.8-10.8)
--- NOTE | 2018-09-21 16:49 | XRay Report ---
XR chest 1V portable CLINICAL HISTORY: Chest Pain pain COMPARISON STUDY: No previous studies for comparison. FINDINGS: Mild cardiomegaly. Diaphragms are smooth. No focal infiltrate. Postoperative changes consis tent with a left shoulder arthroplasty. Severe degenerative change right hip. IMPRESSION: No acute process. The above report was generated using voice recognition software. It may contain grammatical, syntax or spelling errors. Electronically signed by: Tani Qiu M.D. 09/21/2018 4:48 PM
[2018-09-21 17:05] LABS: Alanine Aminotransferase 17 U/L (12-78); Albumin Level 2.8 gm/dl (3.4-5.0); Aspartate Aminotransferase 12 U/L (15-37); BUN Creatinine Ratio 22.1 (10-20); Blood Urea Nitrogen 25 mg/dl (7-18); Calcium 9.3 mg/dl (8.5-10.1); Carbon Dioxide 24 mmol/L (21-32); Chloride 113 mmol/L (98-107); Creatinine Clr Calc Pharmacy 54.6 ml/min; Est GFR (African American) 65.9; Est GFR (Non-African American) 56.9; Glucose 112 mg/dl (70-99); Sodium 143 mmol/L (136-145)
[2018-09-21 17:09] LABS: Albumin Globulin Ratio 0.7 (0.9-2); Alkaline Phosphatase 64 U/L (45-117); Bilirubin,Total 0.2 mg/dl (0.2-1); Globulin 3.9 gm/dl (2.5-4.0); Total Protein 6.7 gm/dl (6.4-8.2); Troponin I < 0.015 ng/ml (0-0.045)
[2018-09-21] MEDS ORDERED: OPTIRAY 320 125ml IV PRN (17:45)
[2018-09-21 17:49] LABS: D Dimer 6640 ug/L FEU (0-500)
--- NOTE | 2018-09-21 17:53 | CT Scan Report ---
CT abd pelvis IV con only CT DOSE: HISTORY: Pain upper abd pain TECHNIQUE: Multiaxial CT images of the abdomen and pelvis were performed following the use of intrave nous contrast. A dose lowering technique was utilized adhering to the principles of ALARA. COMPARISON STUDY: 09/28/2017 FINDINGS: Mild dependent basilar atelectasis. Liver enhances uniformly. Possible trace amount of gall bladder wall edema. Atrophy of the pancreas with chronic prominence of the pancreatic duct. Kidneys negative for hydronephrosis. Moderate renal cortical scarring. Several small renal cysts. Nonobstructive bowel pattern. Mild body wall anasarca. Small joint effusion right hip unchanged in e prior study and presumably degenerative. Stable postoperative changes lumbar spine. IMPRESSION: 1. Slight gallbladder wall edema. 2. Nonobstructive bowel pattern. 3. Slight body wall anasarca. The above report was generated using voice recognition software. It may contain grammatical, syntax or spelling errors. Electronically signed by: Tani Qiu M.D. 09/21/2018 5:52 PM
--- NOTE | 2018-09-21 17:55 | CT Scan Report ---
CT angio chest PE protocol CT DOSE: 2291.28 mGy.cm HISTORY: Pain. Dyspnea. PE TECHNIQUE: Multiaxial CT images of the chest were performed following the intravenous administration of contrast to evaluate the pulmonary arteries. Maximal intensity projection images were also obtaine d. A dose lowering technique was utilized adhering to the principles of ALARA. COMPARISON STUDY: None. FINDINGS: There is a normal caliber thoracic aorta with no evidence for dissection. There is no evide nce for pulmonary embolus. No pleural effusions. No pneumothorax. The liver and spleen are unremarkab le. No mediastinal or hilar lymphadenopathy. The central airways are patent. The lungs are clear. Con siderable degenerative change thoracic spine. IMPRESSION: No evidence for pulmonary embolus. Lungs are clear. The above report was generated using voice recognition software. It may contain grammatical, syntax or spelling errors. Electronically signed by: Tani Qiu M.D. 09/21/2018 5:54 PM
--- NOTE | 2018-09-21 19:18 | Ultrasound Report ---
US gallbladder HISTORY: Pain. Nausea. upper abdominal pain COMPARISON: None. FINDINGS: Normal liver. Combination of small gallstones and sludge within the gallbladder neck. Moderately prema atous appearing gallbladder wall at 5 mm. Common bile duct top normal at 6 mm. Right kidney is negative for hydronephrosis. IMPRESSION: 1. Findings suggestive of acute cholecystitis. 2. Edematous gallbladder wall at 5 mm. 3. Common bile duct 6 mm. The above report was generated using voice recognition software. It may contain grammatical, syntax or spelling errors. Electronically signed by: Tani Qiu M.D. 09/21/2018 7:17 PM
[2018-09-21] MEDS ORDERED: cefOXitin 2,000 MG/60 ML BAG IV STA (19:54)
--- NOTE | 2018-09-21 20:55 | Emergency Department Note ---
Entered by Patrizia Moreira acting as a scribe for History of Present Illness General Chief complaint: Chest Pain Stated complaint: CHEST PAIN Source: patient History of Present Illness Onset (ago): day(s) (yesterday) Location: chest Radiation: other (along rib line) Pain Consistency: + other (persistent) Maximum Pain Intensity: 7 Quality: + sharp Relieved By: + medication (Oxycodone, Hydrocodone) Exacerbated By: + other (cough, deep breathing) Associated symptoms: + denies other symptoms (affecting his sleep, difficulty moving his bowels) and + cough; no loss of appetite, no nausea/vomiting (vomiting) and no shortness of breath The patient is an 87 year old male who presents to the Emergency Room with complaints of persistent chest pain starting yesterday. The patient states that the pain is in the middle of his chest and radiates out along his rib line. He states that it is a sharp pain. He reports that the pain is worse with coughing and deep breathing. He states that he took an Oxycodone and Hydrocodone with mild relief. He notes that he has them for a chronic history of back problems and back surgery. The patient states that he is concerned it is his heart. He states that he called his PCP and they recommended that he come to the ED to be worked up. The patient complains of a cough, but notes that it is not a producti ve cough. He notes that he has had an episode like this once years ago and they did a work up, but it didnt show anything. The patient denies a cardiac history, a history of diabetes, affecting his sleep, trouble breathing, difficulty moving bowels, vomiting, recent travel, recent illness, and loss of appetite. Home Medications Home Medications Medication Instructions Recorded Confirmed Type cholecalciferol (vitamin D3) 1,000 unit PO DAILY 09/21/18 09/21/18 History [Vitamin D3] econazole 1 applic TOPICAL BID PRN 09/21/18 09/21/18 History finasteride [Proscar] 5 mg PO DAILY 09/21/18 09/21/18 History furosemide [Lasix] 40 - 80 mg PO DAILY 09/21/18 09/21/18 History hydrocodone-acetaminophen [Quincy] 1 tab PO Q8H PRN 09/21/18 09/21/18 History lisinopril 2.5 mg PO DAILY 09/21/18 09/21/18 History multivitamin 1 tab PO DAILY 09/21/18 09/21/18 History mupirocin 1 applic TOPICAL TID PRN 09/21/18 09/21/18 History nystatin 1 applic TOPICAL TID PRN 09/21/18 09/21/18 History omeprazole 20 mg PO DAILY PRN 09/21/18 09/21/18 History oxycodone [OxyContin] 60 mg PO Q12H 09/21/18 09/21/18 History potassium chloride 10 meq PO 2XWK 09/21/18 09/21/18 History sennosides [senna] 8.6 mg PO DAILY PRN 09/21/18 09/21/18 History tamsulosin [Flomax] 0.4 mg PO DAILY 09/21/18 09/21/18 History triamcinolone acetonide 1 applic TOPICAL BID PRN 09/21/18 09/21/18 History Allergies Allergy/AdvReac Type Severity Reaction Status Date / Time Uncoded Nonscreenable Allergy Unknown ELASTIC ON Uncoded 09/28/17 22:59 Allergen PANTS/UNDERWEAR Past Med/Surg History Medical History GERD (gastroesophageal reflux disease) (Chronic) BPH (benign prostatic hyperplasia) (Chronic) History of prostate cancer (Chronic) Status post radiation and hormone therapy Hypertension (Chronic) Urinary problem (Resolved) Altered mental status (Acute) Surgical History History of left shoulder replacement (Chronic) History of inguinal hernia repair (Chronic) History of spinal fusion (Chronic) History of dilation of urethra (Chronic) History of prostate biopsy (Chronic) History of back surgery Hx of hernia repair Family History Other Family history non-contributory Social History Preferred Language: Arabic marital status: Current Living Situation: Spouse current occupational status: retired Feels Safe at Home: Yes Smoking Status: Former smoker Review of Systems See HPI for pertinent positives & negatives. and A total of 10 systems reviewed and were otherwise negative Physical Exam Vital Signs Vital Signs - 24 hr 09/21/18 15:28 09/21/18 16:01 09/21/18 16:04 Temperature 36.9 C Temperature Source Oral Sepsis Recent Fever Within 48 Hours No Sepsis New/Unexplained Change in Mental Status No Sepsis Action Taken by Nursing No Action Required Pulse Rate 82 78 74 Pulse Rate from SpO2 Sensor 74 71 Respiratory Rate 18 15 15 Respiratory Effort / Characteristics Non-Labored Respiratory Depth Normal Blood Pressure 161/76 H 102/46 L Blood Pressure Mean 104 64 Blood Pressure Position Sitting Pulse Oximetry 99 94 96 Oxygen Delivery Method Room Air 09/21/18 16:30 09/21/18 17:09 09/21/18 17:30 Temperature Temperature Source Sepsis Recent Fever Within 48 Hours Sepsis New/Unexplained Change in Mental Status Sepsis Action Taken by Nursing Pulse Rate 77 70 66 Pulse Rate from SpO2 Sensor 71 66 Respiratory Rate 17 20 22 Respiratory Effort / Characteristics Respiratory Depth Blood Pressure 141/71 H Blood Pressure Mean 94 Blood Pressure Position Pulse Oximetry 99 97 Oxygen Delivery Method 09/21/18 17:31 09/21/18 18:00 09/21/18 18:30 Temperature Temperature Source Sepsis Recent Fever Within 48 Hours Sepsis New/Unexplained Change in Mental Status Sepsis Action Taken by Nursing Pulse Rate 66 66 70 Pulse Rate from SpO2 Sensor 69 70 Respiratory Rate 22 17 24 Respiratory Effort / Characteristics Respiratory Depth Blood Pressure 126/56 L 139/74 Blood Pressure Mean 79 95 Blood Pressure Position Pulse Oximetry 96 99 Oxygen Delivery Method 09/21/18 19:13 09/21/18 19:30 09/21/18 20:00 Temperature Temperature Source Sepsis Recent Fever Within 48 Hours Sepsis New/Unexplained Change in Mental Status Sepsis Action Taken by Nursing Pulse Rate 85 80 76 Pulse Rate from SpO2 Sensor 75 Respiratory Rate 24 21 17 Respiratory Effort / Characteristics Respiratory Depth Blood Pressure 140/72 Blood Pressure Mean 94 Blood Pressure Position Pulse Oximetry 97 Oxygen Delivery Method 09/21/18 20:30 09/21/18 20:31 Temperature Temperature Source Sepsis Recent Fever Within 48 Hours Sepsis New/Unexplained Change in Mental Status Sepsis Action Taken by Nursing Pulse Rate 71 75 Pulse Rate from SpO2 Sensor 72 75 Respiratory Rate 20 19 Respiratory Effort / Characteristics Respiratory Depth Blood Pressure 126/62 Blood Pressure Mean 83 Blood Pressure Position Pulse Oximetry 96 96 Oxygen Delivery Method GENERAL: Awake, alert, mildly uncomfortable appearing, in no distress HENT: Normocephalic, atraumatic. EYES: Normal conjunctiva. Sclera non-icteric. NECK: Supple. No nuchal rigidity. RESPIRATORY: Clear to auscultation. Normal respiratory effort. CARDIAC: Normal rate. Normal rhythm. Extremities warm and well perfused. GI: Soft, non-distended. Upper abdominal tenderness to palpation with guarding. RECTAL: Deferred. MUSCULOSKELETAL: Atraumatic. Chest examination reveals no tenderness. There is no CVA tenderness to palpation. LOWER EXTREMITIES: Calves are equal size bilaterally and non-tender. 2+ bilateral lower extremity edema NEURO: Normal sensorium. No sensory or motor deficits noted. No facial droop. SKIN: Warm and dry. No rash or jaundice noted. Course 163: The patient was evaluated in room B7. A complete history and physical exam was performed. 1929: I reevaluated the patient and updated the patient on his test results. I discussed the treatment plan with him at this time. He verbally agrees and understands. 1942: I reviewed the patient's case with Dr. Mason Tyler. He recommends antibiotics tonight and they will see him in the morning. 2009: I reviewed the patient's case with Dr. Miya Hayward. He will evaluate the patient for further management. Consultations Consultation #1: I reviewed the patient's case with Dr. Mason Tyler. He recommends antibiotics tonight and they will see him in the morning. Time: 19:43 Consultation #2: I reviewed the patient's case with Dr. Miya [facility]. He will evaluate the patient for further management. Administered Medications Ioversol (Optiray 320 125ml) 120 ml IV ONCE PRN PRN Reason: Interaction Checking Stop: 09/25/18 17:44 Last Admin: 09/21/18 17:45 Dose: 120 ml Documented by: [id number] Discontinued Medications Famotidine (Pepcid 20mg Iv Push) 20 mg IV ONE STA Stop: 09/21/18 16:43 Last Admin: 09/21/18 16:56 Dose: 20 mg Documented by: [id number] Fentanyl Citrate (Fentanyl Citrate) 25 mcg IV NOW STA Stop: 09/21/18 16:43 Last Admin: 09/21/18 16:55 Dose: 25 mcg Documented by: [id number] Cefoxitin Sodium (Mefoxin) 2,000 mg in 60 mls @ 100 mls/hr IV NOW STA Stop: 09/21/18 20:29 Last Admin: 09/21/18 20:34 Dose: 100 mls/hr Documented by: [id number] Medical Decision Making Differential Diagnosis Differential diagnosis: Etiologies such as biliary colic, cholecystitis, hepatitis, pancreatitis, cardiac disease, pancreatitis, gastritis, peptic ulcer disease, appendicitis, cystitis, diverticulitis, mesenteric ischemia, inflammatory bowel disease, ileus, bowel obstruction, testicular torsion, aortic pathology, shingles, musculoskeletal pain, pericarditis, myocarditis, cardiac ischemia, pericardial tamponade, pneumonia, pneumothorax, pleural effusion, hemothorax, pleurisy, aortic pathology, pulmonary embolism, intra-abdominal process, as well as others were considered. Medical Records Attestation: I reviewed the patient's medical records. Home Medications Current Medication List: was personally reviewed by me Laboratory Data Attestation: I reviewed the patient's lab results. Result diagrams: 09/21/18 16:35 09/21/18 16:35 Lab Results 09/21/18 09/21/18 09/21/18 Range/Units 16:35 16:35 16:36 WBC 6.95 (4.8-10.8) K/uL RBC 3.04 L (4.7-6.1) M/uL Hgb 9.3 L (14.0-18.0) g/dL Hct 28.9 L (42-52) % MCV 95.1 (80-100) fL MCH 30.6 (25-34) pg MCHC 32.2 (32-36) g/dL RDW Std Deviation 47.3 H (36.4-46.3) fL RDW Coeff of Maxim 13.5 (11.5-14.5) % Plt Count 246 (130-400) K/uL MPV 9.4 (7.4-10.4) fL Immature Gran % (Auto) 0.3 % Neut % (Auto) 71.4 % Lymph % (Auto) 13.2 % Esmeralda % (Auto) 11.4 % Eos % (Auto) 3.0 % Baso % (Auto) 0.7 % Immature Gran # (Auto) 0.02 (0.00-0.02) K/uL Neut # (Auto) 4.96 (1.4-6.5) K/uL Lymph # (Auto) 0.92 L (1.2-3.4) K/uL Esmeralda # (Auto) 0.79 H (0.11-0.59) K/uL Eos # (Auto) 0.21 (0-0.5) K/uL Baso # (Auto) 0.05 (0-0.2) K/uL D-Dimer 6640 H* (0-500) ug/L FEU Sodium 143 (136-145) mmol/L Potassium 5.0 (3.5-5.1) mmol/L Chloride 113 H (98-107) mmol/L Carbon Dioxide 24 (21-32) mmol/L Anion Gap 6.0 (3-11) BUN 25 H (7-18) mg/dl Creatinine 1.15 (0.6-1.4) mg/dl Est Cr Clr Drug Dosing 54.6 ml/min Est GFR ( Amer) 65.9 Est GFR (Non-Af Amer) 56.9 BUN/Creatinine Ratio 22.1 H (10-20) Glucose 112 H (70-99) mg/dl Calcium 9.3 (8.5-10.1) mg/dl Total Bilirubin 0.2 (0.2-1) mg/dl AST 12 L (15-37) U/L ALT 17 (12-78) U/L Alkaline Phosphatase 64 (45-117) U/L Troponin I < 0.015 (0-0.045) ng/ml Total Protein 6.7 (6.4-8.2) gm/dl Albumin 2.8 L (3.4-5.0) gm/dl Globulin 3.9 (2.5-4.0) gm/dl Albumin/Globulin Ratio 0.7 L (0.9-2) Lipase 459 H (73-393) U/L Imaging Data Radiologist's Impression: Radiology results as stated below per my review and the radiologist's interpretation: XR chest 1V portable CLINICAL HISTORY: Chest Pain pain COMPARISON STUDY: No previous studies for comparison. FINDINGS: Mild cardiomegaly. Diaphragms are smooth. No focal infiltrate. Postoperative changes consistent with a left shoulder arthroplasty. Severe degenerative change right hip. IMPRESSION: No acute process. The above report was generated using voice recognition software. It may contain grammatical, syntax or spelling errors. Electronically signed by: Tani Qiu M.D. 09/21/2018 4:48 PM US gallbladder HISTORY: Pain. Nausea. upper abdominal pain COMPARISON: None. FINDINGS: Normal liver. Combination of small gallstones and sludge within the gallbladder neck. Moderately edematous appearing gallbladder wall at 5 mm. Common bile duct top normal at 6 mm. Right kidney is negative for hydronephrosis. IMPRESSION: 1. Findings suggestive of acute cholecystitis. 2. Edematous gallbladder wall at 5 mm. 3. Common bile duct 6 mm. The above report was generated using voice recognition software. It may contain grammatical, syntax or spelling errors. Electronically signed by: Tani Qiu M.D. 09/21/2018 7:[address] angio chest PE protocol CT DOSE: 2291.28 mGy.cm HISTORY: Pain. Dyspnea. PE TECHNIQUE: Multiaxial CT images of the chest were performed following the intr avenous administration of contrast to evaluate the pulmonary arteries. Maximal intensity projection images were also obtained. A dose lowering technique was utilized adhering to the principles of ALARA. COMPARISON STUDY: None. FINDINGS: There is a normal caliber thoracic aorta with no evidence for dissection. There is no evidence for pulmonary embolus. No pleural effusions. No pneumothorax. The liver and spleen are unremarkable. No mediastinal or hilar lymphadenopathy. The central airways are patent. The lungs are clear. Considerable degenerative change thoracic spine. IMPRESSION: No evidence for pulmonary embolus. Lungs are clear. The above report was generated using voice recognition software. It may contain grammatical, syntax or spelling errors. Electronically signed by: Tani Qiu M.D. 09/21/2018 5:[address] abd pelvis IV con only CT DOSE: HISTORY: Pain upper abd pain TECHNIQUE: Multiaxial CT images of the abdomen and pelvis were performed following the use of intravenous contrast. A dose lowering technique was u tilized adhering to the principles of ALARA. COMPARISON STUDY: 09/28/2017 FINDINGS: Mild dependent basilar atelectasis. Liver enhances uniformly. Possible trace amount of gallbladder wall edema. Atrophy of the pancreas with chronic prominence of the pancreatic duct. Kidneys negative for hydronephrosis. Moderate renal cortical scarring. Several small renal cysts. Nonobstructive bowel pattern. Mild body wall anasarca. Small joint effusion right hip unchanged in the prior study and presumably degenerative. Stable postoperative changes lumbar spine. IMPRESSION: 1. Slight gallbladder wall edema. 2. Nonobstructive bowel pattern. 3. Slight body wall anasarca. The above report was generated using voice recognition software. It may contain grammatical, syntax or spelling errors. Electronically signed by: Tani Qiu M.D. 09/21/2018 5:52 PM ECG Data Attestation: I personally reviewed and interpreted this ECG as follows: Indication: chest pain Rate (beats per minute): 77 Rhythm: normal sinus Findings: + other (normal intervals), + nonspecific-ST abn, + PAC and + PVC; no ST depression and no ST elevation Blood Pressure Blood Pressure Findings: Elevated blood pressure Blood Pressure Disposition: further management by hospitalist MDM Narrative Patient is an 87-year-old gentleman with a history of hypertension presenting today complaining of chest pain. States this and the pelvis chest and hurts when he breathes. Not acutely hypoxic here. Denies trauma. Denies fever. Is in the bilateral upper abdomen as well. EKG is unremarkable and laboratory studies show no evidence of acute hepatitis or pancreatitis lipase just above normal limit. No troponin elevation lower suspicion is acute ACS. CT a of the chest was completed to exclude PE or other pulmonary pathology. Given some fentanyl for pain control here. Chest x-ray shows no acute process in the l ungs. CT shows some mild edema of the gallbladder. No lung pathology. Troponin negative. No leukocytosis or again LFT abnormalities. No evidence of hepatic dysfunction. Ultrasound of the gallbladder was completed given this and his right upper quadrant tenderness which is slightly worsening. Evidence of acute cholecystitis developing. Discussed with surgery. Patient given cefoxitin. Discussed with surgery given that he surreptitiously ate a cinnamon bun while here in the hour the night plan to evaluate him in the morning for cholecystectomy. Patient is a [employer] and declines blood products. Patient was agreeable to stay overnight for antibiotics and discussed with the s reneeeon plans. Hospitalist contacted. Impression & Plan Acute cholecystitis Discharge Plan Visit Data Chief Complaint: Chest Pain Stated Complaint: CHEST PAIN ED Provider: Manuelito Price Discharge Problem: Acute cholecystitis Patient Disposition: Being Evaluated by Hospitalist Forms Stand Alone Forms: [facility] Prescriptions Prescriptions: No Action multivitamin Tablet 1 tab PO DAILY RF: 0 furosemide [Lasix] 40 mg Tablet 40 - 80 mg PO DAILY RF: 0 sennosides [senna] 8.6 mg Tablet 8.6 mg PO DAILY PRN (Reason: Constipation) RF: 0 potassium chloride 10 mEq Tablet Extended Release 10 meq PO 2XWK RF: 0 hydrocodone-acetaminophen [Quincy] 10-325 mg Tablet 1 tab PO Q8H PRN (Reason: Pain) RF: 0 triamcinolone acetonide 0.1 % Cream 1 applic TOPICAL BID PRN (Reason: OUTBREAKS) RF: 0 tamsulosin [Flomax] 0.4 mg Capsule 0.4 mg PO DAILY RF: 0 econazole 1 % Cream 1 applic TOPICAL BID PRN (Reason: groin rash) RF: 0 mupirocin 2 % Ointment 1 applic TOPICAL TID PRN (Reason: FOOT RASH) RF: 0 nystatin 100,000 unit/gram Powder 1 applic TOPICAL TID PRN (Reason: AFFECTED AREA) RF: 0 lisinopril 2.5 mg Tablet 2.5 mg PO DAILY RF: 0 finasteride [Proscar] 5 mg Tablet 5 mg PO DAILY RF: 0 cholecalciferol (vitamin D3) [Vitamin D3] 1,000 unit Tablet 1,000 unit PO DAILY RF: 0 omeprazole 20 mg Tablet,Delayed Release (Dr/Ec) 20 mg PO DAILY PRN (Reason: Heartburn) RF: 0 oxycodone [OxyContin] 60 mg Tablet,Oral Only,Ext.Rel.12 Hr 60 mg PO Q12H RF: 0 Referrals Referrals: Tani Duval MD [Primary Care Provider] - The scribe's documentation has been prepared under my direction and personally reviewed by me in its entirety. I confirm that the note above accurately reflects all work, treatment, procedures, and medical decision making performed by me.
--- NOTE | 2018-09-21 21:56 | History & Physical Report ---
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 In ED initial lab work revealed anemia 9.3 and 28.9, elevated d-dimer 6640, BUN 25, creatinine 1.15, glucose 112, albumin 2.8, lipase 459 Given elevated d-dimer CTA was performed which was negative for PE CT of the abdomen and pelvis revealed gallbladder edema Ultrasound of gallbladder revealed cholecystitis, CBD 6 mm, edematous gallbladder wall at 5 mm Patient did not meet SIRS criteria per CMS guidelines While in ED he received IV cefoxitin, IV famotidine, and IV fentanyl Please refer to attending physicians addendum for further details on assessment and plan (2) Anemia: H/H 9.3 and 28.9 No signs or symptoms of bleeding Hemoglobin has been trending down Would recommend anemia workup (3) Hypertension: Blood pressure stable on lisinopril, Lasix (4) CKD (chronic kidney disease) stage 3, GFR 30-59 ml/min: BUN/creatinine stable at 25 and 1.15 Monitor BMP (5) BPH (benign prostatic hyperplasia): Continue Flomax and finasteride (6) GERD (gastroesophageal reflux disease): Continue omeprazole (7) Chronic pain syndrome: Secondary to failed back syndrome OxyContin 60 mg every 12 hours, hydrocodone/APAP 103 25 every 8 hour as needed Senna 4 tabs at at bedtime for bowel prophylaxis (8) Lower extremity edema: Per outpatient records treated as dependent edema vs possible autonomic neuropathy secondary to lumbar spinal stenosis He takes Lasix 40 mg daily along with KCl supplement He does have low albumin which could be contributing I do not see where patient has ever had bilateral Dopplers or echocardiogram to rule out CHF in epic RAQUEL stockings (9) DVT prophylaxis: Per attending Disposition: To be determined Follow-up: PCP Dr. Duval upon discharge Patient was seen and examined in collaboration with Dr. 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 Patient states pain started yesterday when he developed substernal chest discomfort that would improve with rest. "I thought I was having a heart attack." Symptoms made worse with coughing, sneezing. Symptoms were constant and then radiated to right upper quadrant. Pain became consistent in the right upper quadrant. Currently pain 3/10, described as dull ache, made worse with movement, never had anything in the past. He denies any fever, chills, sweats, lightheadedness, dizziness, nausea, vomiting, diarrhea, coughing, URI symptoms, palpitations, shortness of breath at rest or with exertion, dysuria, hematuria, melena, hematochezia. Patient does state that he is constipated. He has been on chronic narcotics for 30+ years. He takes 4 tablets of senna at bedtime and he has not had a bowel movement today. Appetite has overall been decreased today. Patient states due to his chronic back pain he ambulates with a walker. 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 Allergies Allergy/AdvReac Type Severity Reaction Status Date / Time Uncoded Nonscreenable Allergy Unknown ELASTIC ON Uncoded 09/28/17 22:59 Allergen PANTS/UNDERWEAR Home Medications Home Medications Medication Instructions Recorded Confirmed Type cholecalciferol (vitamin D3) 1,000 unit PO DAILY 09/21/18 09/21/18 History [Vitamin D3] econazole 1 applic TOPICAL BID PRN 09/21/18 09/21/18 History finasteride [Proscar] 5 mg PO DAILY 09/21/18 09/21/18 History furosemide [Lasix] 40 mg PO DAILY 09/21/18 09/21/18 History hydrocodone-acetaminophen [[place]] 1 tab PO Q8H PRN 09/21/18 09/21/18 History lisinopril 20 mg PO DAILY 09/21/18 09/21/18 History multivitamin 1 tab PO DAILY 09/21/18 09/21/18 History mupirocin 1 applic TOPICAL TID PRN 09/21/18 09/21/18 History nystatin 1 applic TOPICAL TID PRN 09/21/18 09/21/18 History omeprazole 20 mg PO DAILY 09/21/18 09/21/18 History oxycodone [OxyContin] 60 mg PO Q12H 09/21/18 09/21/18 History potassium chloride 10 meq PO 2XWK 09/21/18 09/21/18 History sennosides [senna] 4 tab PO DAILY 09/21/18 09/21/18 History tamsulosin [Flomax] 0.8 mg PO DAILY 09/21/18 09/21/18 History triamcinolone acetonide 1 applic TOPICAL BID PRN 09/21/18 09/21/18 History Past Med/Surg History Medical History CKD (chronic kidney disease) stage 3, GFR 30-59 ml/min Chronic pain syndrome (Chronic) Full code status 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 GERD (gastroesophageal reflux disease) (Chronic) BPH (benign prostatic hyperplasia) (Chronic) History of prostate cancer (Chronic) Status post radiation and hormone therapy Hypertension (Chronic) Urinary problem (Resolved) Altered mental status (Acute) Surgical History History of left shoulder replacement (Chronic) History of inguinal hernia repair (Chronic) History of spinal fusion (Chronic) History of dilation of urethra (Chronic) History of prostate biopsy (Chronic) History of back surgery Hx of hernia repair Family History Mother Diabetes Brother Coronary heart disease Social History Preferred Language: Divehi Communication Ability: Effective Beliefs That Will Affect Care: Advent Advent Beliefs: Jehovah witness marital status: Current Living Situation: Spouse current occupational status: retired Other Information That Helps Us Care for You: No Feels Safe at Home: Yes Safety Concerns: Feels Safe At This Time Smoking Status: Former smoker Do You Dip or Chew Tobacco: No Smoking End Date: 1959 Hx Alcohol Use: No Hx Substance Use: No Review of Systems Review of Systems: All systems reviewed & are unremarkable except as noted in HPI & below Physical Exam Vital Signs (Past 24 Hours): Last Vital Signs Temp 36.9 C 09/21/18 15:28 Pulse 75 09/21/18 20:31 Resp 19 09/21/18 20:31 BP 126/62 09/21/18 20:31 Pulse Ox 96 09/21/18 20:31 Physical Exam: Gen: WD/WN, elderly, male, sitting at bedside, NAD, pleasant, conversing easily Head: Normocephalic, Atraumatic Eyes: Sclera normal, no conjunctival injection, PERRLA, EOMI ENT: Gross hearing intact, normal pharynx, mucous membranes moist Neck: supple, no adenopathy, No JVD, no bruit, Resp: Clear to auscultation b/l, no wheeze, rales, rhonchi. 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 Extremities: +2 bilateral lower extremity edema, pitting Skin: warm, moist, no rash, negative turgor, cap refill < 2sec Neuro: Alert and oriented x 3, speech normal, good mood/affect, cran nerve 2-12 intact grossly : deferred Results & Data Laboratory Results Short CBC 09/21/18 Range/Units 16:35 WBC 6.95 (4.8-10.8) K/uL Hgb 9.3 L (14.0-18.0) g/dL Hct 28.9 L (42-52) % Plt Count 246 (130-400) K/uL BMP 09/21/18 16:35 Sodium 143 Potassium 5.0 Chloride 113 H Carbon Dioxide 24 BUN 25 H Creatinine 1.15 Glucose 112 H Calcium 9.3 Cardiac Enzymes 09/21/18 Range/Units 16:35 Troponin I < 0.015 (0-0.045) ng/ml Liver Function 09/21/18 Range/Units 16:35 Total Bilirubin 0.2 (0.2-1) mg/dl AST 12 L (15-37) U/L ALT 17 (12-78) U/L Alkaline Phosphatase 64 (45-117) U/L Albumin 2.8 L (3.4-5.0) gm/dl Diagnostic Findings Gallbladder U/S: IMPRESSION: 1. Findings suggestive of acute cholecystitis. 2. Edematous gallbladder wall at 5 mm. 3. Common bile duct 6 mm. Chest CTA: IMPRESSION: No evidence for pulmonary embolus. Lungs are clear. Abd/Pelvis CT: IMPRESSION: 1. Slight gallbladder wall edema. 2. Nonobstructive bowel pattern. 3. Slight body wall anasarca. CXR: IMPRESSION: No acute process. Medications Administered Ioversol (Optiray 320 125ml) 120 ml IV ONCE PRN PRN Reason: Interaction Checking Stop: 09/25/18 17:44 Last Admin: 09/21/18 17:45 Dose: 120 ml Documented by: [id number] Discontinued Medications Famotidine (Pepcid 20mg Iv Push) 20 mg IV ONE STA Stop: 09/21/18 16:43 Last Admin: 09/21/18 16:56 Dose: 20 mg Documented by: [id number] Fentanyl Citrate (Fentanyl Citrate) 25 mcg IV NOW STA Stop: 09/21/18 16:43 Last Admin: 09/21/18 16:55 Dose: 25 mcg Documented by: [id number] Cefoxitin Sodium (Mefoxin) 2,000 mg in 60 mls @ 100 mls/hr IV NOW STA Stop: 09/21/18 20:29 Last Infusion: 09/21/18 21:08 Dose: 0 mls/hr Documented by: [id number] Admin: 09/21/18 20:34 Dose: 100 mls/hr Documented by: [id number] ECG Rate (beats per minute): 77 Findings: + PVC Code Status & VTE Plan Code Status Full code 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 History obtained from patient and records. Preceding documentation by Ms. Barbie Bermeo PA-C reviewed. 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 Marquez who recommends Cefoxitin in preparation for surgery in a.m.) Analgesia Anemia workup Hold home MARY inhibitor for now given borderline hyperkalemia LE venous Doppler rule out DVT DVT prophylaxis SCDs RE preop Full code Patient's requesting updates from providers. Mrs. Doris Solomon, contact #[phone].
[2018-09-21] MEDS ORDERED: MoRPHine SULFATE 4 MG/ML 1 ML CARP\\VIAL IV PRN (22:45)
[2018-09-21] MEDS ORDERED: SODIUM CHLORIDE 0.45 % 1,000 ML IV SCH (22:45)
[2018-09-21] MEDS ORDERED: PROCHLORPERAZINE 5 MG in SYRINGE 4 ML IV PRN (22:45)
[2018-09-21] MEDS ORDERED: ACETAMINOPHEN 325 MG TAB PO PRN (22:45)
[2018-09-22] MEDS ORDERED: HYDROCODONE/ACETAMINOPHEN 10/325 TAB PO PRN (00:54)
[2018-09-22] MEDS: OXYCODONE HCL 20 MG TABCR (OXYCONTIN) PO SCH ×3 (02:06→17:48)
[2018-09-22] MEDS: SENNA 8.6 MG TAB PO SCH ×2 (03:07→22:03)
[2018-09-22] MEDS: cefOXitin 2,000 MG in DEXTROSE 5% 50 ML IV SCH ×2 (04:18→12:07)
[2018-09-22 06:53] LABS: Basophils # (auto) 0.03 K/uL (0-0.2); Basophils % (auto) 0.5 %; Eosinophils # (auto) 0.32 K/uL (0-0.5); Eosinophils % (auto) 5.4 %; Hematocrit (blood only) 26.3 % (42-52); Hemoglobin 8.4 g/dL (14.0-18.0); Immature Granulocytes # (auto) 0.02 K/uL (0.00-0.02); Immature Granulocytes % (auto) 0.3 %; Lymphocytes # (auto) 1.39 K/uL (1.2-3.4); Lymphocytes % (auto) 23.3 %; Mean Corpuscular Hgb Conc 31.9 g/dL (32-36); Mean Corpuscular Volume 94.6 fL (80-100); Mean Platelet Volume 9.5 fL (7.4-10.4); Monocytes # (auto) 0.76 K/uL (0.11-0.59); Monocytes % (auto) 12.7 %; Neutrophils # (auto) 3.45 K/uL (1.4-6.5); Neutrophils % (auto) 57.8 %; Platelet Count 237 K/uL (130-400); RDW Coefficient of Variation 13.4 % (11.5-14.5); RDW Standard Deviation 46.8 fL (36.4-46.3); Red Blood Count 2.78 M/uL (4.7-6.1); Reticulocyte % 0.8 % (0.5-2.0); Reticulocytes # 0.02 10^6/uL (0.02-0.10); White Blood Count 5.97 K/uL (4.8-10.8)
--- NOTE | 2018-09-22 07:05 | Ultrasound Report ---
ULTRASOUND BILATERAL LOWER EXTREMITY VENOUS CLINICAL HISTORY: Lower extremity edema. COMPARISON STUDY: No priors. TECHNIQUE: Real-time, grayscale, and color Doppler sonography of the deep veins of the right and left lower extremity was performed from the inguinal crease to the calf. Compression and augmentation wer e utilized. FINDINGS: There is no sonographic evidence of deep venous thrombosis identified in the right or left lower extremity. The common femoral, superficial femoral, and popliteal veins are patent and normally compressible bilaterally. The greater saphenous vein and the profunda femoris vein at the junction w ith the common femoral vein are clear in both legs. The visualized calf veins are patent bilaterally. IMPRESSION: There is no sonographic evidence of deep venous thrombosis identified in the right or lef t lower extremity. Electronically signed by: Warren Page M.D. 09/22/2018 7:04 AM
--- NOTE | 2018-09-22 07:14 | Anesthesiology Consultation ---
Date of Service September 22, 2018 Assessment & Plan (1) Encounter for pre-operative examination: Chart Review Chart Review: Acceptable Risk for Surgery and Patient NOT seen in Pre Admission Testing NPO Date Last Intake of Fluids: 09/21/18 Time Last Intake of Fluids: 23:59 Date Last Intake of Solids: 09/21/18 Time Last Intake of Solids: 23:59 History Surgery Operation Date: 09/22/18 14:50 Proposed Procedures p Laparoscopic Cholecystectomy, No Cholangiogram - Luis F Marquez, Height/Weight Height: 6 ft Weight: 96.8 kg Allergies Allergy/AdvReac Type Severity Reaction Status Date / Time Uncoded Nonscreenable Allergy Unknown ELASTIC ON Uncoded 09/28/17 22:59 Allergen PANTS/UNDERWEAR Medications Home Medications Medication Instructions Recorded Confirmed Last Taken cholecalciferol (vitamin D3) 1,000 unit PO DAILY 09/21/18 09/21/18 Unknown [Vitamin D3] econazole 1 applic TOPICAL BID PRN 09/21/18 09/21/18 Unknown finasteride [Proscar] 5 mg PO DAILY 09/21/18 09/21/18 Unknown furosemide [Lasix] 40 mg PO DAILY 09/21/18 09/21/18 Unknown hydrocodone-acetaminophen [[place]] 1 tab PO Q8H PRN 09/21/18 09/21/18 Unknown lisinopril 20 mg PO DAILY 09/21/18 09/21/18 Unknown multivitamin 1 tab PO DAILY 09/21/18 09/21/18 Unknown mupirocin 1 applic TOPICAL TID PRN 09/21/18 09/21/18 Unknown nystatin 1 applic TOPICAL TID PRN 09/21/18 09/21/18 Unknown omeprazole 20 mg PO DAILY 09/21/18 09/21/18 Unknown oxycodone [OxyContin] 60 mg PO Q12H 09/21/18 09/21/18 Unknown potassium chloride 10 meq PO 2XWK 09/21/18 09/21/18 Unknown sennosides [senna] 4 tab PO DAILY 09/21/18 09/21/18 Unknown tamsulosin [Flomax] 0.8 mg PO DAILY 09/21/18 09/21/18 Unknown triamcinolone acetonide 1 applic TOPICAL BID PRN 09/21/18 09/21/18 Unknown Active Medications Generic Name Dose Route Start Last Admin Trade Name Freq PRN Reason Stop Dose Admin Sodium Chloride 1,000 mls @ 60 mls/hr 09/21/18 22:45 09/22/18 01:08 1/2 Nss IV 10/21/18 22:44 60 mls/hr .[id number] PRADIP Administration Cefoxitin Sodium 2,000 mg/ 60 mls @ 120 mls/hr 09/22/18 04:00 09/22/18 04:48 Dextrose IV 10/02/18 03:59 Infused Q8H PRADIP Infusion Oxycodone HCl 60 mg 09/22/18 00:54 09/22/18 02:06 Oxycontin PO 10/06/18 00:53 60 mg Q12 PRADIP Administration Sennosides 34.4 mg 09/22/18 00:54 09/22/18 03:07 Senokot PO 10/22/18 00:53 34.4 mg HS PRADIP Administration Past Medical History Medical History CKD (chronic kidney disease) stage 3, GFR 30-59 ml/min Chronic pain syndrome (Chronic) Full code status Refusal of blood transfusions as patient is Moravian GERD (gastroesophageal reflux disease) (Chronic) BPH (benign prostatic hyperplasia) (Chronic) History of prostate cancer (Chronic) Status post radiation and hormone therapy Hypertension (Chronic) Urinary problem (Resolved) Altered mental status (Acute) Past Family History Family History Mother Diabetes Brother Coronary heart disease Past Surgical History Surgical History History of left shoulder replacement (Chronic) History of inguinal hernia repair (Chronic) History of spinal fusion (Chronic) History of dilation of urethra (Chronic) History of prostate biopsy (Chronic) History of back surgery Hx of hernia repair Social History Smoking Status: Former smoker Do You Dip or Chew Tobacco: No Smoking End Date: 1959 Hx Alcohol Use: No Hx Substance Use: No substance use type: opiates 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
[2018-09-22 07:28] LABS: Albumin Level 2.5 gm/dl (3.4-5.0); BUN Creatinine Ratio 17.7 (10-20); Calcium 8.5 mg/dl (8.5-10.1); Creatinine Clr Calc Pharmacy 50.6 ml/min; Est GFR (African American) 60.2; Est GFR (Non-African American) 51.9; Potassium 4.5 mmol/L (3.5-5.1)
[2018-09-22 07:31] LABS: Albumin Globulin Ratio 0.7 (0.9-2); Bilirubin,Total 0.3 mg/dl (0.2-1); Ferritin 322.4 ng/ml (8-388); Globulin 3.5 gm/dl (2.5-4.0)
[2018-09-22] MEDS: FINASTERIDE 5 MG TAB PO SCH (08:05)
[2018-09-22] MEDS: TAMSULOSIN HCL 0.4 MG CAP PO SCH (08:05)
[2018-09-22] MEDS: MULTIVITAMIN TAB PO SCH (08:06)
[2018-09-22] MEDS: PANTOprazole 40 MG TAB PO SCH (08:06)
[2018-09-22] MEDS ORDERED: [UNRECOGNIZED DRUG - OTHER] PRN (09:00)
[2018-09-22 09:56] LABS: Folate (Folic Acid) 23.19 ng/ml (>5.38)
--- NOTE | 2018-09-22 11:51 | Surgery Consultation ---
Date of Consultation September 22, 2018 Assessment & Plan (1) Abdominal pain: Patient seen and examined with Dr. Cruz. Recent imaging, labwork reviewed. WBC within normal limits. At this time, do not recommend Cholecystectomy. Patient very poor surgical candidate. Abdominal examination benign. Anemia workup per primary team. Dr. Cruz discussed plan with patient and patient's . This is patient's first "gallbladder attack." Dr. Cruz reviewed certain foods to avoid. They are both in agreement with recommendations. If patient continues to experience gallbladder issues, may consider cholecystostomy tube placement. History of Present Illness Reason for Consultation: Acute Cholecystitis Attending Physician: Stephanie Saavedra MD History of Present Illness Mr. Solomon is an 87-year-old male with past medical history significant for hypertension, chronic back pain, prostate CA s/p radiation therapy, chronic kidney disease, GERD, BPH who presented to [facility] ED for evaluation of chest pain. Patient states that the pain began a couple days prior to presenting to ED. In ED, Pt was found to be anemic with Hgb 9.3 and Hct 28.9; WBC within normal limits at 6.95; AST 12; ALT 17; Alk Phos 64. Pt had an elevated d-dimer at 6,640. CTA was negative for PE. CT abdomen/pelvis revealed cholecystitis, edematous gb wall. Patient was admitted for further workup. Of note, patient is a Buddhist. Patient's history obtained from patient and patient's who was present. She states that her and will eat, on occasion, fatty, greasy food. Patient denies that he has post-prandial pain. He denies fever or chills. He reports that he has chronic back pain, but was told that he is too great a risk for back surgery. He is on chronic pain medication for his back pain. He does admit to occasional acid reflux. He reports that he has never had right upper quadrant pain before this hospital visit. Currently, patient reports that his pain that brought him to the ED has resolved. Allergies Allergy/AdvReac Type Severity Reaction Status Date / Time Uncoded Nonscreenable Allergy Unknown ELASTIC ON Uncoded 09/28/17 22:59 Allergen PANTS/UNDERWEAR Home Medications Home Medications Medication Instructions Recorded Confirmed Type cholecalciferol (vitamin D3) 1,000 unit PO DAILY 09/21/18 09/21/18 History [Vitamin D3] econazole 1 applic TOPICAL BID PRN 09/21/18 09/21/18 History finasteride [Proscar] 5 mg PO DAILY 09/21/18 09/21/18 History furosemide [Lasix] 40 mg PO DAILY 09/21/18 09/21/18 History hydrocodone-acetaminophen [[place]] 1 tab PO Q8H PRN 09/21/18 09/21/18 History lisinopril 20 mg PO DAILY 09/21/18 09/21/18 History multivitamin 1 tab PO DAILY 09/21/18 09/21/18 History mupirocin 1 applic TOPICAL TID PRN 09/21/18 09/21/18 History nystatin 1 applic TOPICAL TID PRN 09/21/18 09/21/18 History omeprazole 20 mg PO DAILY 09/21/18 09/21/18 History oxycodone [OxyContin] 60 mg PO Q12H 09/21/18 09/21/18 History potassium chloride 10 meq PO 2XWK 09/21/18 09/21/18 History sennosides [senna] 4 tab PO DAILY 09/21/18 09/21/18 History tamsulosin [Flomax] 0.8 mg PO DAILY 09/21/18 09/21/18 History triamcinolone acetonide 1 applic TOPICAL BID PRN 09/21/18 09/21/18 History Patient History Medical History CKD (chronic kidney disease) stage 3, GFR 30-59 ml/min Chronic pain syndrome (Chronic) Full code status Refusal of blood transfusions as patient is Hindu GERD (gastroesophageal reflux disease) (Chronic) BPH (benign prostatic hyperplasia) (Chronic) History of prostate cancer (Chronic) Status post radiation and hormone therapy Hypertension (Chronic) Urinary problem (Resolved) Altered mental status (Acute) Surgical History History of left shoulder replacement (Chronic) History of inguinal hernia repair (Chronic) History of spinal fusion (Chronic) History of dilation of urethra (Chronic) History of prostate biopsy (Chronic) History of back surgery Hx of hernia repair Family History Mother Diabetes Brother Coronary heart disease Social History Preferred Language: Turkish Communication Ability: Effective Beliefs That Will Affect Care: Yazdanism Yazdanism Beliefs: Myriam mariscal marital status: Current Living Situation: Spouse current occupational status: retired Other Information That Helps Us Care for You: No Feels Safe at Home: Yes Safety Concerns: Feels Safe At This Time Smoking Status: Former smoker Do You Dip or Chew Tobacco: No Smoking End Date: 1959 Hx Alcohol Use: No Hx Substance Use: No Physical Exam Constitutional: comfortable; no acute distress Gastrointestinal (Abdomen): Inspection/Auscultation: abdomen normal to inspection; abdomen not distended Percussion/Palpation: abdomen soft; abdomen nontender, no guarding and abdomen not rigid Results & Data Vital Signs (Past 12 Hours) Vital Signs Temp Pulse Resp BP Pulse Ox 09/22/18 07:12 37.0 C 60 18 143/62 H 96 09/22/18 00:30 37.2 C 66 18 145/70 H 96 09/22/18 00:12 37.2 C 66 18 145/70 H 96
[2018-09-22] MEDS: POLYETHYLENE (MIRALAX) 17 GM PACK PO SCH (14:28)
--- NOTE | 2018-09-22 16:32 | Hospitalist Progress Note ---
Date of Service September 22, 2018 Assessment & Plan (1) Acute cholecystitis: Presented with right upper quadrant pain, Ultrasound of gallbladder revealed cholecystitis, CBD 6 mm, edematous gallbladder wall at 5 mm Symptom has resolved overnight, no nausea vomiting, evaluate by surgery today As patient remains asymptomatic Do not feel patient needs an emergent cholecystectomy,-and multiple comorbidities patient remains a high surgical risk Conservative management, advance diet as tolerated In future if patient gets recurrent cholecystitis, recommend cholecystostomy tube placement Ordered for low fat diet And to discharge home tomorrow if no further episode of right upper quadrant po n, tolerating diet (2) Anemia: Iron study shows iron deficiency anemia No report of dark stool, stool Hemoccult negative, Colonoscopy approximately 4 years ago was negative Order for iron supplement, folic acid B12 level within normal limit Will need repeat CBC check in a week (3) Hypertension: Blood pressure stable on lisinopril, Lasix (4) CKD (chronic kidney disease) stage 3, GFR 30-59 ml/min: BUN/creatinine stable at 25 and 1.15 Monitor BMP (5) BPH (benign prostatic hyperplasia): Continue Flomax and finasteride (6) GERD (gastroesophageal reflux disease): Continue omeprazole (7) Chronic pain syndrome: Secondary to failed back syndrome OxyContin 60 mg every 12 hours, hydrocodone/APAP 103 25 every 8 hour as needed Senna 4 tabs at at bedtime for bowel prophylaxis (8) Lower extremity edema: Per outpatient records treated as dependent edema vs possible autonomic neur opathy secondary to lumbar spinal stenosis He takes Lasix 40 mg daily along with KCl supplement (9) DVT prophylaxis: Per attending Disposition: Plan to discharge home tomorrow Follow-up: PCP Dr. 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: (11) Full code status: Subjective Complaint of abdominal pain or nausea, feels fine, evaluate for surgery today, no plan for cholecystectomy, diet advanced Physical Exam Constitutional: comfortable; no acute distress Eyes: PERRL, conjunctivae normal, anicteric sclerae ENMT: external ear and nose normal, oropharynx normal Neck: trachea midline, no thyromegaly Respiratory: normal respiratory effort, lungs clear to auscultation Cardiovascular: RRR, no murmur, no edema Gastrointestinal (Abdomen): Inspection/Auscultation: abdomen normal to inspection and + abdomen distended Percussion/Palpation: abdomen soft; abdomen nontender No right upper quadrant tenderness Musculoskeletal: no cyanosis or clubbing, extremities motor strength 5/5 Neurologic: PERRL, EOMI, accommodation nl, no face palsy, no dysarthria Psychiatric: A+Ox3, euthymic affect Results & Data Vital Signs (Past 12 Hours) Vital Signs Temp Pulse Resp BP Pulse Ox 09/22/18 15:09 36.6 C 62 18 135/64 94 09/22/18 07:12 37.0 C 60 18 143/62 H 96
[2018-09-22] MEDS ORDERED: Nursing to Pharmacy Communication ONE (17:55)
[2018-09-23] MEDS ORDERED: OXYCODONE HCL 20 MG TABCR (OXYCONTIN) PO SCH (05:00)
[2018-09-23 06:47] LABS: Hematocrit (blood only) 26.8 % (42-52); Hemoglobin 8.5 g/dL (14.0-18.0); Mean Corpuscular Hgb Conc 31.7 g/dL (32-36); Mean Corpuscular Volume 96.4 fL (80-100); Mean Platelet Volume 9.4 fL (7.4-10.4); Platelet Count 236 K/uL (130-400); RDW Coefficient of Variation 13.1 % (11.5-14.5); RDW Standard Deviation 45.5 fL (36.4-46.3); Red Blood Count 2.78 M/uL (4.7-6.1)
[2018-09-23 07:14] LABS: Est GFR (African American) 60.8; Est GFR (Non-African American) 52.5
[2018-09-23] MEDS: PANTOprazole 40 MG TAB PO SCH (08:39)
[2018-09-23] MEDS: MULTIVITAMIN TAB PO SCH (08:39)
[2018-09-23] MEDS: TAMSULOSIN HCL 0.4 MG CAP PO SCH (08:39)
[2018-09-23] MEDS: POLYETHYLENE (MIRALAX) 17 GM PACK PO SCH (08:39)
[2018-09-23] MEDS: FINASTERIDE 5 MG TAB PO SCH (08:39)
[2018-09-23] MEDS ORDERED: FOLIC ACID 400 MCG TAB PO SCH (09:00)
[2018-09-23] MEDS ORDERED: FUROSEMIDE 40 MG TAB PO SCH (09:00)
[2018-09-23] MEDS ORDERED: CHOLECALCIFEROL 1,000 UNITS TAB PO SCH (09:00)
[2018-09-23] MEDS ORDERED: LISINOPRIL 20 MG TAB PO SCH (09:00)
[2018-09-23] MEDS ORDERED: FERROUS FUMARATE/ASCORBIC ACID 65 MG CAPCR PO SCH (09:00)
--- NOTE | 2018-09-27 07:22 | Discharge Summary ---
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 Patient states pain started yesterday when he developed substernal chest discomfort that would improve with rest. "I thought I was having a heart attack." Symptoms made worse with coughing, sneezing. Symptoms were constant and then radiated to right upper quadrant. Pain became consistent in the right upper quadrant. Currently pain 3/10, described as dull ache, made worse with movement, never had anything in the past. He denies any fever, chills, sweats, lightheadedness, dizziness, nausea, vomiting, diarrhea, coughing, URI symptoms, palpitations, shortness of breath at rest or with exertion, dysuria, hematuria, melena, hematochezia. Patient does state that he is constipated. He has been on chronic narcotics for 30+ years. He takes 4 tablets of senna at bedtime and he has not had a bowel movement today. Appetite has overall been decreased today. Patient states due to his chronic back pain he ambulates with a walker. He is also a [employer] and refuses blood or blood products. Principal Diagnosis ACUTE CHOLECYSTITIS /IRON DEFICIENCY ANEMIA Discharge Exam Constitutional comfortable; no acute distress Eyes PERRL, conjunctivae normal, anicteric sclerae ENMT external ear and nose normal, oropharynx normal Neck trachea midline, no thyromegaly Respiratory normal respiratory effort, lungs clear to auscultation Cardiovascular RRR, no murmur, no edema Gastrointestinal (Abdomen) Inspection/Auscultation: abdomen normal to inspection and + abdomen distended Percussion/Palpation: abdomen soft; abdomen nontender Musculoskeletal no cyanosis or clubbing, extremities motor strength 5/5 Neurologic PERRL, EOMI, accommodation nl, no face palsy, no dysarthria Psychiatric A+Ox3, euthymic affect Discharge Data Allergies Allergy/AdvReac Type Severity Reaction Status Date / Time Uncoded Nonscreenable Allergy Unknown ELASTIC ON Uncoded 09/28/17 22:59 Allergen PANTS/UNDERWEAR Consultations 09/21/18 19:55 ED Decision to Admit Stat 09/21/18 21:49 Consult General Surgery Stat Procedures Performed Operation Date: 09/22/18 14:50 <No data on this case meets the specified criteria> Ordered Studies 09/21/18 16:42 CT abd pelvis IV con only Stat 09/21/18 17:33 CT angio chest PE protocol Stat 09/21/18 18:10 US gallbladder Stat 09/21/18 22:45 US venous doppler LE Urgent Hospital Course (1) Acute cholecystitis: Presented with right upper quadrant pain, Ultrasound of gallbladder revealed cholecystitis, CBD 6 mm, edematous gallbladder wall at 5 mm Symptom has resolved overnight, no nausea vomiting, evaluate by surgery today As patient remains asymptomatic Do not feel patient needs an emergent cholecystectomy,-and multiple comorbidities patient remains a high surgical risk Conservative management, advance diet as tolerated In future if patient gets recurrent cholecystitis, recommend cholecystostomy tube placement Ordered for low fat diet tolerating well stable to be discharged home today (2) Anemia: Iron study shows iron deficiency anemia No report of dark stool, stool Hemoccult negative, Colonoscopy approximately 4 years ago was negative Orderd for iron supplement, folic acid B12 level within normal limit need repeat CBC check in a week-lab script given (3) Hypertension: Blood pressure stable on lisinopril, Lasix (4) CKD (chronic kidney disease) stage 3, GFR 30-59 ml/min: BUN/creatinine stable at 25 and 1.15 (5) BPH (benign prostatic hyperplasia): Continue Flomax and finasteride (6) GERD (gastroesophageal reflux disease): Continue omeprazole (7) Chronic pain syndrome: Secondary to failed back syndrome OxyContin 60 mg every 12 hours, hydrocodone/APAP 103 25 every 8 hour as needed Senna 4 tabs at at bedtime for bowel prophylaxis (8) Lower extremity edema: Per outpatient records treated as dependent edema vs possible autonomic neuropathy secondary to lumbar spinal stenosis He takes Lasix 40 mg daily along with KCl supplement (9) DVT prophylaxis: Disposition: stable to be discharged home today Follow-up: PCP Dr. Simin bach (10) Refusal of blood transfusions as patient is [employer]: (11) Full code status: Total Time Total Time Spent Total Time Spent (In Minutes): approx 40 mins Total Time Includes: Examination of the Patient, Discharge Planning, Medication Reconciliation and Communication With Other Providers Discharge Plan Discharge Items Patient Disposition: Home - Self-Care Reason For Visit: CHOLECYSTITIS Discharge Diagnosis: ACUTE CHOLECYSTITIS /IRON DEFICIENCY ANEMIA Discharge Goals: Decrease discomfort Activity: Resume your previous activity Non-emergency contact: Primary Care Provider Call non-emergency contact if: you have any medication questions Follow-up/Referrals: Tani Duval MD [Primary Care Provider] - 09/29/18 11:00 am Diet: Low Fat Other Ambulatory Orders: Complete Blood Count no Diff (Routine) Timeframe: [id number] Location: Determined by Patient Ordered By: Stephanie Mims Provider Instructions: AVOID FAT /SPICY FOOD Prescriptions: New folic acid 400 mcg Tablet 400 mcg PO QAM 30 Days Qty: 30 RF: 0 Emilia-Sequels (iron-vit c) 200 mg (65 mg iron)-25 mg Tablet Extended Release 65 mg PO QAM 30 Days Qty: 30 RF: 3 Continued multivitamin Tablet 1 tab PO DAILY RF: 0 furosemide [Lasix] 40 mg Tablet 40 mg PO DAILY RF: 0 potassium chloride 10 mEq Tablet Extended Release 10 meq PO 2XWK RF: 0 hydrocodone-acetaminophen [[place]] 10-325 mg Tablet 1 tab PO Q8H PRN (Reason: Pain) RF: 0 triamcinolone acetonide 0.1 % Cream 1 applic TOPICAL BID PRN (Reason: OUTBREAKS) RF: 0 tamsulosin [Flomax] 0.4 mg Capsule 0.8 mg PO DAILY RF: 0 econazole 1 % Cream 1 applic TOPICAL BID PRN (Reason: groin rash) RF: 0 mupirocin 2 % Ointment 1 applic TOPICAL TID PRN (Reason: FOOT RASH) RF: 0 nystatin 100,000 unit/gram Powder 1 applic TOPICAL TID PRN (Reason: AFFECTED AREA) RF: 0 finasteride [Proscar] 5 mg Tablet 5 mg PO DAILY RF: 0 cholecalciferol (vitamin D3) [Vitamin D3] 1,000 unit Tablet 1,000 unit PO DAILY RF: 0 omeprazole 20 mg Tablet,Delayed Release (Dr/Ec) 20 mg PO DAILY RF: 0 oxycodone [OxyContin] 60 mg Tablet,Oral Only,Ext.Rel.12 Hr 60 mg PO Q12H RF: 0 sennosides [senna] 8.6 mg Tablet 4 tab PO DAILY RF: 0 lisinopril 20 mg Tablet 20 mg PO DAILY RF: 0 Stand-Alone Forms: [place] [employer]/Other Patient Handouts: Cooking Tips Low Fat, Flavor Add Low Fat Meals, Eating Healthy Go, ED Anemia Iron Deficiency, ED Infec Gallbladder Poss Discharge Orders: Discharge Order (Routine); Ordered 09/23/18 Ordered By: Stephanie Saavedra Admission Data Admit Date/Time: 09/21/18 22:41 Attending Provider: Stephanie Saavedra Admit Provider: Mac Baugh Primary Care Provider: Tani Duval Other Providers: Barbie Bermeo ; Mac Baugh ; Re Han Mallory L. ; Broderick Cruz Service: Surgical Services Other Interventions: Discharge Summary Assessment (RN) Last Done: 09/23/18 13:44 DC Date/Time DO NOT enter until pt leaves facility: 09/23/18 14:35
== END 2018-09-23 14:35 | disposition home or self-care (01) | DRG 446 ==
LOC: ED 15:25 → 3N 22:41
DX: K81.0 Acute cholecystitis; G89.4 Chronic pain syndrome; I12.9 Hypertensive chronic kidney disease with stage 1 through stage 4 chronic kidney disease, or unspecified chronic kidney disease; Z79.899 Other long term (current) drug therapy; M96.1 Postlaminectomy syndrome, not elsewhere classified; R60.0 Localized edema; K21.9 Gastro-esophageal reflux disease without esophagitis; N18.3 Chronic kidney disease, stage 3 (moderate); K59.03 Drug induced constipation; T40.2X5A Adverse effect of other opioids, initial encounter; Z85.46 Personal history of malignant neoplasm of prostate; D50.9 Iron deficiency anemia, unspecified; Z92.3 Personal history of irradiation; Z87.891 Personal history of nicotine dependence; Z79.891 Long term (current) use of opiate analgesic; N40.0 Benign prostatic hyperplasia without lower urinary tract symptoms; R79.1 Abnormal coagulation profile

== ENCOUNTER 2019-06-15 19:19 | Inpatient (IN) ==
--- OUTSIDE RECORDS SUMMARY | 2019-06-15 19:22 | External Medical Summary | Continuity of Care Document ---
:1930 Author Name Moe Cain Address Unavailable Unavailable , Care Team Providers Name Role Phone Florencia JARA Unavailable [email or web address] Juanita HOOVER Unavailable Unavailable Problems Active medical history not documented Allergies and Adverse Reactions Allergy history not documented Medications Medications not documented Procedures Procedures not documented Immunizations Immunizations not documented Plan of Treatment Planned Observations Planned Goals not documented Results No Known Results Results not documented
--- OUTSIDE RECORDS SUMMARY | 2019-06-15 19:22 | External Medical Summary | Continuity of Care Document ---
:1930 Author Name Moe Cain Address Unavailable Unavailable , Care Team Providers Name Role Phone Florencia JARA Unavailable [email or web address] Juanita HOOVER Unavailable Unavailable Problems Active medical history not documented Allergies and Adverse Reactions Allergy history not documented Medications Medications not documented Procedures Procedures not documented Immunizations Immunizations not documented Plan of Treatment Planned Observations Planned Goals not documented Results No Known Results Results not documented
[2019-06-15] MEDS ORDERED: ONDANSETRON INJ 2 MG/ML 2 ML VIAL IV STA (19:31)
[2019-06-15] MEDS ORDERED: SODIUM CHLORIDE 0.9% 500 ML IV SCH (19:45)
--- NOTE | 2019-06-15 20:02 | Emergency Department Note ---
Entered by Ena Oden acting as a scribe for Frankie Valles DO History of Present Illness General Chief complaint: GI Assessment Stated complaint: STOMACH PAINS, POSSIBLE BOWEL BLOCKAGE Time Seen by Provider: 06/15/19 19:26 Source: patient History of Present Illness Provider complaint: abdominal pain Onset (ago): hour(s) (several) Location: abdomen Pain Consistency: + constant Maximum Pain Intensity: 10 Associated symptoms: + nausea/vomiting (+nausea, -vomiting) and + other (- trouble urinating, +constipated) Treatments prior to arrival: other (Oxycontin) The patient is a 88 year old male who presents to the Emergency Room with complaints of constant abdominal pain since this afternoon. He notes that he has nausea, but denies any vomiting. He notes that his last bowel movement was yesterday morning and he has been constipated. He denies any trouble urinating. He states that he has chronic swelling in his legs, but they have been worse than normal. He mentions that he has a history of hernia. He states that he took OxyContin prior to arrival. He denies taking any blood thinners. Home Medications Home Medications Medication Instructions Recorded Confirmed Type docusate sodium 200 mg PO BID 06/15/19 06/15/19 History econazole 1 applic TOPICAL UD PRN 06/15/19 06/15/19 History ferrous fumarate-vitamin C 1 tab PO DAILY 06/15/19 06/15/19 History finasteride [Proscar] 5 mg PO DAILY 06/15/19 06/15/19 History furosemide [Lasix] 80 mg PO BID 06/15/19 06/15/19 History hydrocodone-acetaminophen 1 tab PO Q8 PRN 06/15/19 06/15/19 History multivitamin 1 tab PO DAILY 06/15/19 06/15/19 History nystatin 1 applic TOPICAL TID PRN 06/15/19 06/15/19 History omeprazole 20 mg PO DAILY 06/15/19 06/15/19 History oxycodone [OxyContin] 60 mg PO BID 06/15/19 06/15/19 History polyethylene glycol 3350 [Miralax] 17 g PO DAILY 06/15/19 06/15/19 History sennosides [senna] 17.2 mg PO DAILY 06/15/19 06/15/19 History tamsulosin 0.8 mg PO HS 06/15/19 06/15/19 History Allergies Allergy/AdvReac Type Severity Reaction Status Date / Time Uncoded Nonscreenable Allergy Unknown ELASTIC ON Uncoded 06/15/19 20:20 Allergen PANTS/UNDERWEAR Past Med/Surg History Medical History Altered mental status (Acute) BPH (benign prostatic hyperplasia) (Chronic) Chronic pain syndrome (Chronic) CKD (chronic kidney disease) stage 3, GFR 30-59 ml/min Full code status GERD (gastroesophageal reflux disease) (Chronic) History of prostate cancer (Chronic) Status post radiation and hormone therapy Hypertension (Chronic) Refusal of blood transfusions as patient is [employer] Urinary problem (Resolved) Surgical History History of back surgery History of dilation of urethra (Chronic) History of inguinal hernia repair (Chronic) History of left shoulder replacement (Chronic) History of prostate biopsy (Chronic) History of spinal fusion (Chronic) Hx of hernia repair Family History Mother Diabetes Brother Coronary heart disease Social History Preferred Language: Wolof Communication Ability: Effective Beliefs That Will Affect Care: Anabaptism Anabaptism Beliefs: Dipeshh witness marital status: Current Living Situation: Spouse current occupational status: retired Feels Safe at Home: Yes Smoking Status: Never smoker Hx Alcohol Use: No Hx Substance Use: No Review of Systems See HPI for pertinent positives & negatives. and A total of 10 systems reviewed and were otherwise negative Physical Exam Vital Signs Vital Signs - 24 hr 06/15/19 19:22 06/15/19 21:28 06/15/19 23:18 Temperature 36.8 C Temperature Source Oral Pulse Rate 78 Pulse Rate [Finger] 71 75 Respiratory Rate 20 Respiratory Effort / Characteristics Non-Labored Spontaneous Respiratory Depth Normal Blood Pressure 189/83 H Blood Pressure [Left Arm] 173/83 H 154/67 H Blood Pressure Mean 118 Blood Pressure Mean [Left Arm] 113 96 Pulse Oximetry 100 98 95 Oxygen Delivery Method Room Air Room Air Room Air Sepsis Action Taken by Nursing No Action Required GENERAL: The patient is awake and alert. He is somewhat anxious appearing and appears to be in significant pain. EYES: The conjunctivae are clear. The pupils are round and reactive. EARS, NOSE, MOUTH AND THROAT: The nose is without any evidence of any deformity. Mucous membranes are moist. Tongue is midline. NECK: The neck is nontender and supple. RESPIRATORY: Normal respiratory effort is noted there is no evidence of wheezing rhonchi or rales CARDIOVASCULAR: Irregular rhythm was noted to auscultation. There is no definite murmur. GASTROINTESTINAL: The abdomen is moderately distended and diffusely tender. The abdomen is obese. There are no specific inguinal masses or hernias appreciated. There may be an area in the supraumbilical region which could be consistent with abdominal wall hernia but this is difficult to ascertain given the patien t's abdominal exam. MUSCULOSKELETAL/EXTREMITIES: There is no evidence of gross deformity full range of motion is noted in the hips and shoulders. SKIN: There is no obvious evidence of any rash. Pedal edema was noted bilaterally. NEUROLOGIC: Patient is awake alert and oriented x3. Course Course 1927: The patient was evaluated in room B8, and a complete history and physical examination were performed. 2127: I reevaluated the patient and updated him on his results. 2139: I [facility] the [facility] He will evaluate the patient for further management. Administered Medications Fentanyl Citrate (Fentanyl Citrate) 50 mcg IV Q15M PRN PRN Reason: Pain Stop: 06/29/19 19:30 Last Admin: 06/15/19 21:55 Dose: 50 mcg Documented by: [id number] Admin: 06/15/19 20:07 Dose: 50 mcg Documented by: [id number] Ioversol (Optiray 320 100ml) 93 ml IV ONCE PRN PRN Reason: Interaction Checking Stop: 06/19/19 20:25 Last Admin: 06/15/19 20:26 Dose: 1 ml Documented by: [id number] Discontinued Medications Sodium Chloride (Nss) 500 mls @ 999 mls/hr IV .Q31M PRADIP Stop: 06/15/19 20:15 Last Infusion: 06/15/19 21:02 Dose: 0 mls/hr Documented by: [id number] Admin: 06/15/19 20:07 Dose: 999 mls/hr Documented by: [id number] Ondansetron HCl (Zofran) 4 mg IV NOW STA Stop: 06/15/19 19:32 Last Admin: 06/15/19 20:06 Dose: 4 mg Documented by: [id number] Medical Decision Making Differential Diagnosis Differential diagnosis: Etiologies such as appendicitis, diverticulitis, PUD, biliary pathology, UTI, pancreatitis, obstruction, mesenteric ischemia, aortic pathology, infections, inflammatory bowel disease, renal colic, as well as others were entertained. Medical Records Attestation: I reviewed the patient's medical records. Home Medications Current Medication List: was personally reviewed by nj Laboratory Data Attestation: I reviewed the patient's lab results. Result diagrams: 06/15/19 19:50 06/15/19 19:50 Lab Results 06/15/19 06/15/19 06/15/19 Range/Units 19:50 19:50 19:50 WBC 7.17 (4.8-10.8) K/uL RBC 4.26 L (4.7-6.1) M/uL Hgb 12.8 L (14.0-18.0) g/dL POC Hgb (14.0-18.0) g/dl Hct 38.8 L (42-52) % POC Hct (42-52) % MCV 91.1 (80-100) fL MCH 30.0 (25-34) pg MCHC 33.0 (32-36) g/dL RDW Std Deviation 47.0 H (36.4-46.3) fL RDW Coeff of Maxim 14.1 (11.5-14.5) % Plt Count 247 (130-400) K/uL MPV 9.5 (7.4-10.4) fL Immature Gran % (Auto) 0.3 % Neut % (Auto) 82.7 % Lymph % (Auto) 9.8 % Angelina % (Auto) 6.1 % Eos % (Auto) 0.8 % Baso % (Auto) 0.3 % Immature Gran # (Auto) 0.02 (0.00-0.02) K/uL Neut # (Auto) 5.93 (1.4-6.5) K/uL Lymph # (Auto) 0.70 L (1.2-3.4) K/uL Angelina # (Auto) 0.44 (0.11-0.59) K/uL Eos # (Auto) 0.06 (0-0.5) K/uL Baso # (Auto) 0.02 (0-0.2) K/uL PT 10.8 (9.0-12.0) Seconds INR 1.1 (0.9-1.1) APTT 23.9 (21.0-31.0) Seconds PTT Ratio 0.9 POC Sodium (135-144) mEq/L Sodium 136 (136-145) mmol/L POC Potassium (3.3-5.0) mEq/L Potassium 4.1 (3.5-5.1) mmol/L POC Chloride (101-112) mEq/L Chloride 100 (98-107) mmol/L Carbon Dioxide 27 (21-32) mmol/L POC Total CO2 (24-31) mEq/l Anion Gap 9.0 (3-11) POC Anion Gap (16-25) mmol/L POC BUN (7-18) mg/dl BUN 20 H (7-18) mg/dl Creatinine 1.05 (0.6-1.4) mg/dl POC Creatinine (0.6-1.3) mg/dl Est Cr Clr Drug Dosing Not Reportable Est GFR ( Amer) 73.1 Est GFR (Non-Af Amer) 63.1 BUN/Creatinine Ratio 18.6 (10-20) Glucose 149 H (70-99) mg/dl POC Glucose (other) (70-99) mg/dl Calcium 9.3 (8.5-10.1) mg/dl POC Ioniz Calcium Be (1.12-1.32) mmol/l Total Bilirubin 0.4 (0.2-1) mg/dl AST 20 (15-37) U/L ALT 17 (12-78) U/L Alkaline Phosphatase 79 (45-117) U/L Troponin I < 0.015 (0-0.045) ng/ml Total Protein 7.3 (6.4-8.2) gm/dl Albumin 3.7 (3.4-5.0) gm/dl Globulin 3.6 (2.5-4.0) gm/dl Albumin/Globulin Ratio 1.0 (0.9-2) Lipase 47 L (73-393) U/L Urine Color Urine Appearance (Clear) Urine pH (4.5-7.5) Ur Specific [place] (1.000-1.030) Urine Protein (Negative) Urine Glucose (UA) (Negative) Urine Ketones (Negative) Urine Blood (Negative) Urine Nitrite (Negative) Urine Bilirubin (Negative) Urine Urobilinogen (Negative) Ur Leukocyte Esterase (Negative) Urine WBC (Auto) (0-5) /hpf Urine RBC (Auto) (0-4) /hpf U Hyaline Cast (Auto) (0-5) /lpf U Epithel Cells (Auto) (0-5) /lpf Urine Bacteria (Auto) (Negative) 06/15/19 06/15/19 Range/Units 19:56 21:43 WBC (4.8-10.8) K/uL RBC (4.7-6.1) M/uL Hgb (14.0-18.0) g/dL POC Hgb 12.9 L (14.0-18.0) g/dl Hct (42-52) % POC Hct 38 L (42-52) % MCV (80-100) fL MCH (25-34) pg MCHC (32-36) g/dL RDW Std Deviation (36.4-46.3) fL RDW Coeff of Maxim (11.5-14.5) % Plt Count (130-400) K/uL MPV (7.4-10.4) fL Immature Gran % (Auto) % Neut % (Auto) % Lymph % (Auto) % Angelina % (Auto) % Eos % (Auto) % Baso % (Auto) % Immature Gran # (Auto) (0.00-0.02) K/uL Neut # (Auto) (1.4-6.5) K/uL Lymph # (Auto) (1.2-3.4) K/uL Angelina # (Auto) (0.11-0.59) K/uL Eos # (Auto) (0-0.5) K/uL Baso # (Auto) (0-0.2) K/uL PT (9.0-12.0) Seconds INR (0.9-1.1) APTT (21.0-31.0) Seconds PTT Ratio POC Sodium 136 (135-144) mEq/L Sodium (136-145) mmol/L POC Potassium 3.9 (3.3-5.0) mEq/L Potassium (3.5-5.1) mmol/L POC Chloride 98 L (101-112) mEq/L Chloride (98-107) mmol/L Carbon Dioxide (21-32) mmol/L POC Total CO2 27 (24-31) mEq/l Anion Gap (3-11) POC Anion Gap 16.0 (16-25) mmol/L POC BUN 21 H (7-18) mg/dl BUN (7-18) mg/dl Creatinine (0.6-1.4) mg/dl POC Creatinine 0.9 (0.6-1.3) mg/dl Est Cr Clr Drug Dosing Est GFR ( Amer) Est GFR (Non-Af Amer) BUN/Creatinine Ratio (10-20) Glucose (70-99) mg/dl POC Glucose (other) 155 H (70-99) mg/dl Calcium (8.5-10.1) mg/dl POC Ioniz Calcium Be 1.10 L (1.12-1.32) mmol/l Total Bilirubin (0.2-1) mg/dl AST (15-37) U/L ALT (12-78) U/L Alkaline Phosphatase (45-117) U/L Troponin I (0-0.045) ng/ml Total Protein (6.4-8.2) gm/dl Albumin (3.4-5.0) gm/dl Globulin (2.5-4.0) gm/dl Albumin/Globulin Ratio (0.9-2) Lipase (73-393) U/L Urine Color Yellow Urine Appearance Clear (Clear) Urine pH 5.5 (4.5-7.5) Ur Specific [place] 1.024 (1.000-1.030) Urine Protein Negative (Negative) Urine Glucose (UA) Negative (Negative) Urine Ketones Negative (Negative) Urine Blood 1+ H (Negative) Urine Nitrite Negative (Negative) Urine Bilirubin Negative (Negative) Urine Urobilinogen Negative (Negative) Ur Leukocyte Esterase Trace H (Negative) Urine WBC (Auto) 5-10 H (0-5) /hpf Urine RBC (Auto) 0-4 (0-4) /hpf U Hyaline Cast (Auto) 1-5 (0-5) /lpf U Epithel Cells (Auto) 10-20 H (0-5) /lpf Urine Bacteria (Auto) Negative (Negative) Imaging Data Radiologist's Impression: Radiology results as stated below per my review and the radiologist's interpretation: CT OF THE ABDOMEN AND PELVIS WITH CONTRAST CLINICAL HISTORY: Right upper quadrant abdominal pain. COMPARISON STUDY: CT of the abdomen and pelvis and right upper quadrant ultrasound September 21, 2018. TECHNIQUE: Following IV administration of 89 mL of Optiray-320, axial images of the abdomen and pelvis were obtained from the lung bases to the proximal femurs. Images were reviewed in the axial, sagittal, and coronal planes. IV contrast was administered without complication. Automated exposure control was utilized for the study. A dose lowering technique was utilized adhering to the principles of ALARA. CT DOSE: 1042.58 mGycm FINDINGS: Imaged portions of the lower chest partially visualize a moderate right pleural effusion. There is moderate dilatation of the main pancreatic duct with possible caliber change within the pancreatic head. A well-defined mass is not identified. A small amount of ascites is noted. There is no biliary ductal dilatation. Water attenuation bilateral renal lesions reflect cysts. The stomach is distended and fluid-filled. The proximal to mid small bowel is also distended and fluid-filled with small bowel feces sign in transition point within the right lower quadrant on axial image 288 of 486. Mild rectal wall thickening is noted. Prostate is moderately enlarged. Right trochanteric bursa is distended. This is unchanged. IMPRESSION: 1. Findings consistent with a moderate grade small bowel obstruction with transition point within the right lower quadrant. Trace ascites. 2. Moderate dilatation of the main pancreatic duct with possible caliber change within the pancreatic head. No well-defined mass by CT. A nonemergent MRI of the pancreas is recommended to exclude a mass. 3. Moderate right pleural effusion. 4. Mild rectal wall thickening with adjacent infiltration. ACT 112: Negative or not required by law. Electronically signed by: Rosendo Vega M.D. 06/15/2019 9:06 PM ECG Data Attestation: I personally reviewed and interpreted this ECG as follows: Indication: + abdominal pain Rate (beats per minute): 64 Rhythm: + normal sinus ECG Findings: + Other (No ST segmentation ); no PACs and no PVCs Comparison ECG Date: from (09/21/18) Change: no significant change (resolution of pvc) Blood Pressure Blood Pressure Findings: Elevated blood pressure Blood Pressure Disposition: further management by hospitalist MDM Narrative The patient is an 88-year-old male who presented to the emergency department for an evaluation of abdominal pain. The patient had noticed worsening abdominal pain as well as constipation. His history and physical exam appear to be consistent with very severe abdominal tenderness so further laboratory and radiographic studies were obtained. The patient was reevaluated multiple times. He was treated with IV fluids and IV pain medication. His symptoms significantly improved on reevaluation. I discussed the patient's laboratory and radiographic studies with him and his family members. He was found to have signs of a bowel obstruction on CAT scan. NG tube was ordered. I discussed t his case with the on-call [facility] hospitalist group. They have agreed to evaluate the patient in the emergency department for further management and disposition. Impression & Plan Small bowel obstruction, Abdominal pain Discharge Plan Visit Data Chief Complaint: GI Assessment Stated Complaint: STOMACH PAINS, POSSIBLE BOWEL BLOCKAGE ED Provider: Frankie Valles Discharge Problem: Small bowel obstruction, Abdominal pain Patient Disposition: Being Evaluated by Hospitalist Forms Stand Alone Forms: My [facility] Prescriptions Prescriptions: No Action multivitamin Tablet 1 tab PO DAILY RF: 0 sennosides [senna] 8.6 mg Tablet 17.2 mg PO DAILY RF: 0 polyethylene glycol 3350 [Miralax] 17 gram Powder In Packet 17 g PO DAILY RF: 0 hydrocodone-acetaminophen 10-325 mg tablet 1 tab PO Q8 PRN (Reason: Pain) RF: 0 tamsulosin 0.4 mg capsule 0.8 mg PO HS RF: 0 econazole 1 % cream 1 applic TOPICAL UD PRN (Reason: FLARE UPS) RF: 0 docusate sodium 100 mg Capsule 200 mg PO BID RF: 0 nystatin 100,000 unit/gram powder 1 applic TOPICAL TID PRN (Reason: IRRITATION) RF: 0 omeprazole 20 mg Tablet,Delayed Release (Dr/Ec) 20 mg PO DAILY RF: 0 oxycodone [OxyContin] 60 mg tablet,oral only,ext.rel.12 hr 60 mg PO BID RF: 0 ferrous fumarate-vitamin C 200 mg (65 mg iron)-25 mg Tablet Extended Release 1 tab PO DAILY RF: 0 furosemide [Lasix] 40 mg Tablet 80 mg PO BID RF: 0 finasteride [Proscar] 5 mg Tablet 5 mg PO DAILY RF: 0 Referrals Referrals: Tani Duval MD [Primary Care Provider] - Discharge Problem: Abdominal pain Qualifiers: Abdominal location: generalized Qualified Code(s): R10.84 - Generalized abdomi nal pain The scribe's documentation has been prepared under my direction and personally r eviewed by me in its entirety. I confirm that the note above accurately reflects all work, treatment, procedures, and medical decision making performed by me.
[2019-06-15 20:04] LABS: Hematocrit (blood only) 38.8 % (42-52); Hemoglobin 12.8 g/dL (14.0-18.0); Mean Corpuscular Volume 91.1 fL (80-100); Mean Platelet Volume 9.5 fL (7.4-10.4); Platelet Count 247 K/uL (130-400); RDW Coefficient of Variation 14.1 % (11.5-14.5); Red Blood Count 4.26 M/uL (4.7-6.1); White Blood Count 7.17 K/uL (4.8-10.8)
[2019-06-15] MEDS: fentaNYL citrate 100 MCG/2 ML VIAL IV PRN ×2 (20:07→21:55)
[2019-06-15 20:14] LABS: INR 1.1 (0.9-1.1); Prothrombin Time 10.8 Seconds (9.0-12.0)
[2019-06-15 20:17] LABS: iSTAT Creatinine 0.9 mg/dl (0.6-1.3); iSTAT Hemoglobin 12.9 g/dl (14.0-18.0); iSTAT Ionized Calcium 1.1 mmol/l (1.12-1.32); iSTAT Potassium 3.9 mEq/L (3.3-5.0)
[2019-06-15 20:22] LABS: Alanine Aminotransferase 17 U/L (12-78); Albumin Level 3.7 gm/dl (3.4-5.0); Aspartate Aminotransferase 20 U/L (15-37); BUN Creatinine Ratio 18.6 (10-20); Blood Urea Nitrogen 20 mg/dl (7-18); Calcium 9.3 mg/dl (8.5-10.1); Carbon Dioxide 27 mmol/L (21-32); Chloride 100 mmol/L (98-107); Est GFR (African American) 73.1; Est GFR (Non-African American) 63.1; Glucose 149 mg/dl (70-99); Lipase 47 U/L (73-393); Potassium 4.1 mmol/L (3.5-5.1); Sodium 136 mmol/L (136-145)
[2019-06-15 20:24] LABS: Partial Thromboplastin Ratio 0.9; Partial Thromboplastin Time 23.9 Seconds (21.0-31.0)
[2019-06-15] MEDS ORDERED: IOVERSOL 100ml IV PRN (20:26)
[2019-06-15 20:27] LABS: Alkaline Phosphatase 79 U/L (45-117); Bilirubin,Total 0.4 mg/dl (0.2-1); Globulin 3.6 gm/dl (2.5-4.0); Total Protein 7.3 gm/dl (6.4-8.2); Troponin I < 0.015 ng/ml (0-0.045)
[2019-06-15 20:33] LABS: Basophils # (auto) 0.02 K/uL (0-0.2); Basophils % (auto) 0.3 %; Eosinophils # (auto) 0.06 K/uL (0-0.5); Eosinophils % (auto) 0.8 %; Immature Granulocytes # (auto) 0.02 K/uL (0.00-0.02); Immature Granulocytes % (auto) 0.3 %; Lymphocytes % (auto) 9.8 %; Monocytes # (auto) 0.44 K/uL (0.11-0.59); Monocytes % (auto) 6.1 %; Neutrophils # (auto) 5.93 K/uL (1.4-6.5); Neutrophils % (auto) 82.7 %
--- NOTE | 2019-06-15 21:07 | CT Scan Report ---
CT OF THE ABDOMEN AND PELVIS WITH CONTRAST CLINICAL HISTORY: Right upper quadrant abdominal pain. COMPARISON STUDY: CT of the abdomen and pelvis and right upper quadrant ultrasound September 21, 2018. TECHNIQUE: Following IV administration of 89 mL of Optiray-320, axial images of the abdomen and pelvi s were obtained from the lung bases to the proximal femurs. Images were reviewed in the axial, sagitt al, and coronal planes. IV contrast was administered without complication. Automated exposure contro l was utilized for the study. A dose lowering technique was utilized adhering to the principles of A FLORECITA. CT DOSE: 1042.58 mGycm FINDINGS: Imaged portions of the lower chest partially visualize a moderate right pleural effusion. T here is moderate dilatation of the main pancreatic duct with possible caliber change within the pancr eatic head. A well-defined mass is not identified. A small amount of ascites is noted. There is no bi liary ductal dilatation. Water attenuation bilateral renal lesions reflect cysts. The stomach is dist ended and fluid-filled. The proximal to mid small bowel is also distended and fluid-filled with small bowel feces sign in transition point within the right lower quadrant on axial image 288 of 486. Mild rectal wall thickening is noted. Prostate is moderately enlarged. Right trochanteric bursa is disten ded. This is unchanged. IMPRESSION: 1. Findings consistent with a moderate grade small bowel obstruction with transition point within the right lower quadrant. Trace ascites. 2. Moderate dilatation of the main pancreatic duct with possible caliber change within the pancreatic head. No well-defined mass by CT. A nonemergent MRI of the pancreas is recommended to exclude a mass . 3. Moderate right pleural effusion. 4. Mild rectal wall thickening with adjacent infiltration. ACT 112: Negative or not required by law. Electronically signed by: Rosendo Vega M.D. 06/15/2019 9:06 PM
[2019-06-15 21:54] LABS: Appearance Urine Clear (Clear); Bacteria Urine Automated Negative (Negative); Bilirubin Urine Negative (Negative); Blood Urine 1+ (Negative); Color Urine Yellow; Glucose Urine UA Negative (Negative); Ketones Urine Negative (Negative); Leukocyte Esterase Urine Trace (Negative); Nitrite Urine Negative (Negative); Protein Urine Negative (Negative); RBC Urine Automated 0-4 /hpf (0-4); Specific Gravity Urine 1.024 (1.000-1.030); Urobilinogen Urine Negative (Negative); pH Urine 5.5 (4.5-7.5)
[2019-06-15] MEDS ORDERED: D5W AND NSS 1,000 ML IV SCH (23:35)
[2019-06-15] MEDS ORDERED: ONDANSETRON INJ 2 MG/ML 2 ML VIAL IV PRN (23:35)
[2019-06-15] MEDS ORDERED: NYSTATIN POWDER 15GM BTL EXT PRN (23:35)
[2019-06-16] MEDS: HYDROmorphone INJ 0.5 MG/0.5 ML SYR IV PRN ×4 (00:13→08:47)
--- NOTE | 2019-06-16 02:21 | History and Physical Report ---
DATE OF ADMISSION: 06/15/2019 CHIEF COMPLAINT: Abdominal pain. HISTORY OF PRESENT ILLNESS: This is an 88-year-old male with past medical history significant for hypertension, reflux esophagitis, chronic kidney disease stage III, history of prostate cancer, spinal stenosis of lumbar region with neurogenic claudication, failed back surgical syndrome, malfunction of neurostimulator lead, dependent edema, ambulatory dysfunction, cervical spinal stenosis, who lives with his , walks with the help of a walker and cane. Presents with abdominal pain. The patient said the pain started in the morning, then by the evening it got worse, felt nauseous but no vomiting. Last bowel movement was a couple of days ago. He has had chronic constipation. He is on chronic pain medications. He stated he had a back pain since 30 years. Also has swelling in the lower extremities for which he takes Lasix. Currently on NG tube, drained a lot of greenish fluid from the NG tube and he is feeling better now. Not passing gas. Denies any headache, no blurred vision, no earaches, no sore throat, no dysphagia, no odynophagia. Appetite is okay otherwise. No chest pain, no shortness of breath, no cough, no fever, no chills. No blood in stools or black stools. He says he always has problems with micturating and is taking medications for this. No blood in the urine. Currently resting comfortably and hemodynamically stable. ALLERGIES: LATEX. PAST MEDICAL HISTORY: As mentioned above. PAST SURGICAL HISTORY: Ear surgery, urethral stricture dilatation, cystolitholapaxy, left shoulder replacement, prostate needle punch biopsy, radiation treatment for pelvis, inguinal hernia repair, spinal fusion surgery. MEDICATIONS: The patient is on Proscar 5 mg p.o. daily, Colace 200 mg p.o. b.i.d., MiraLax 17 grams daily, hydrocodone/acetaminophen 10/325 mg 1 tablet every 8 hours p.r.n., OxyContin 60 mg p.o. b.i.d., Flomax 0.8 mg p.o. at bedtime, Lasix 80 mg p.o. b.i.d., ascorbic acid 1000 mg p.o. daily, ferrous fumarate, vitamin C 1 tablet daily, omeprazole 20 mg p.o. daily, Senna 2 tablets daily, multivitamins 1 tablet daily. FAMILY HISTORY: Significant for brother had cancer, mother had diabetes, brother had CAD with stents. SOCIAL HISTORY: and lives with his . Former smoker, quit in 1959. Alcohol occasional. No drug use. REVIEW OF SYSTEMS: As per HPI. Rest of review of systems negative. PHYSICAL EXAMINATION: GENERAL: The patient is old and frail, not in acute distress. VITAL SIGNS: Temperature 36.8, pulse 71, respiratory rate 20, blood pressure 173/83, oxygen 98% on room air. HEENT: No pallor, no icterus. Right pupil is somewhat large, reactive to light. NECK: No JVD, no neck masses, no carotid bruits. CARDIOVASCULAR: S1, S2 heard, regular rate and rhythm, no murmur, no gallop. RESPIRATORY SYSTEM: Normal AP diameter. No accessory muscle use. No wheezing, no crackles. ABDOMEN: Soft, bowel sounds sluggish, mild abdominal discomfort. No guarding, no rigidity. No distention. CENTRAL NERVOUS SYSTEM: Cranial nerve II-XII grossly intact, nonfocal. EXTREMITIES: Bilateral lower extremity gross edema present. LABORATORY DATA: WBC 7.1, hemoglobin 12.8, hematocrit 38.8, platelets 247. PT 10.8, INR 1.1, PTT 23.9. Sodium 136, potassium 4.1, chloride 100, bicarbonate 27, BUN 20, creatinine 1.05, serum glucose 149, calcium 9.3, total bilirubin 0.4, AST 20, ALT 17, alkaline phosphatase 79. Troponin I less than 0.015. Lipase 147. Urinalysis, trace leukocyte esterase. EKG: Normal sinus rhythm with a rate of 64, no acute ST changes seen. IMAGING DATA: CT of abdomen and pelvis with contrast showed finding consistent with moderate grade small-bowel obstruction with transition point within the right lower quadrant, trace ascites, moderate dilatation of the main pancreatic duct with possible caliber change within the pancreatic head. No well-defined mass by CT and nonemergent MRI of the pancreas is recommended to exclude a mass. Moderate right pleural effusion. Mild rectal wall thickening with adjacent infiltration. ASSESSMENT AND PLAN: This is an 88-year-old male who presents with abdominal pain and found to have small-bowel obstruction. 1. Small-bowel obstruction. CAT scan showed moderate grade small-bowel obstruction. The patient is status post NG tube in the ER. As per records patient had inguinal hernia repair. Drained a lot of fluid from the NG tube. Currently symptoms are improved. We will continue NG tube. We will place him on n.p.o., gentle IV fluids, IV pain medications p.r.n. Consult surgery in the a.m. and repeat KUB in the a.m. and closely monitor in the medical floor. 2. Failed back surgical syndrome, chronic pain. The patient is on significant pain medication with OxyContin 60 mg p.o. b.i.d. and hydrocodone/acetaminophen 10/325 mg p.o. q. 8 hours p.r.n. He will continue OxyContin 60 mg b.i.d. and placed him on IV Dilaudid p.r.n. If he is not able to take the OxyContin p.o., we will need to watch for any withdrawal symptoms. 3. History of prostate cancer status post radiation treatment. Continue his Proscar and Flomax. Monitor for any urinary retention. 4. Lower extremity edema thought to be from dependent edema versus possible neuropathy secondary to lumbar spinal stenosis. On Lasix 80 mg b.i.d., which is currently held. Getting fluids. Monitor for volume overload. 5. Gastroesophageal reflux disease, we will place on IV Pepcid. 6. Chronic kidney disease stage III, We will follow the labs. 7. History of iron deficiency anemia, on iron supplement which is on hold. Hemoglobin stable at 12.8. 8. Ambulatory dysfunction. The patient uses a walker and cane at home. PT and OT prior to discharge. 9. History of hypertension, not on any medications. Holding diuretics. We will monitor the blood pressure. 10. Pancreatic ductal dilatation on the CAT scan and also mild rectal wall thickening on the CAT scan. We will have GI consult when patient is more stable. Also await surgical input. 11. Moderate right pleural effusion, currently asymptomatic. We will follow the chest x-ray. As patient's Lasix was held, monitor for any worsening. 12. Deep venous thrombosis prophylaxis, sequential compression devices. DISPOSITION: Closely monitor in the medical floor. Level 1 full code as per my discussion with the patient. PT and OT prior to discharge. Social service to help with discharge planning. [facility]STERMandy
[2019-06-16] MEDS ORDERED: HYDROmorphone INJ 0.5 MG/0.5 ML SYR IV STA (05:23)
[2019-06-16 05:36] LABS: Basophils # (auto) 0.02 K/uL (0-0.2); Basophils % (auto) 0.3 %; Eosinophils # (auto) 0.05 K/uL (0-0.5); Eosinophils % (auto) 0.8 %; Hematocrit (blood only) 35.8 % (42-52); Hemoglobin 11.8 g/dL (14.0-18.0); Immature Granulocytes # (auto) 0.01 K/uL (0.00-0.02); Immature Granulocytes % (auto) 0.2 %; Lymphocytes # (auto) 1.15 K/uL (1.2-3.4); Lymphocytes % (auto) 17.7 %; Mean Corpuscular Volume 91.1 fL (80-100); Monocytes % (auto) 10.8 %; Neutrophils # (auto) 4.55 K/uL (1.4-6.5); Neutrophils % (auto) 70.2 %; Platelet Count 221 K/uL (130-400); RDW Coefficient of Variation 14.1 % (11.5-14.5); RDW Standard Deviation 46.9 fL (36.4-46.3); Red Blood Count 3.93 M/uL (4.7-6.1); White Blood Count 6.48 K/uL (4.8-10.8)
[2019-06-16 06:23] LABS: BUN Creatinine Ratio 18.3 (10-20); Calcium 8.9 mg/dl (8.5-10.1); Creatinine Clr Calc Pharmacy 56.1 ml/min; Est GFR (African American) 83.6; Est GFR (Non-African American) 72.1; Magnesium 2.2 mg/dl (1.8-2.4); Potassium 3.4 mmol/L (3.5-5.1)
--- NOTE | 2019-06-16 07:43 | XRay Report ---
XR chest 1V portable CLINICAL HISTORY: 88 years-old Male presenting with pleural effusion. TECHNIQUE: Portable upright AP view of the chest was obtained. COMPARISON: 09/21/2018. FINDINGS: Atherosclerosis of the aortic arch. Cardiac silhouette enlarged. Implanted director of medical review projects ov er the cardiac silhouette. No focal opacity. No large effusion or pneumothorax. Degenerative changes of the thoracic spine. Scoliotic curvature of the spine. Advanced degenerative changes of the shoulde rs. Reversed total left shoulder arthroplasty. Nasogastric tube has been placed, terminus not well vi sualized though evident on contemporaneous abdominal radiograph in the region of the gastroesophageal junction/hiatal hernia. IMPRESSION: 1. Nasogastric tube best visualized on abdominal radiograph the region of the gastroesophageal junct ion/hiatal hernia. Please see separately dictated abdominal radiograph. 2. Cardiomegaly. 3. No large effusion. ACT 112: Negative or not required by law. Electronically signed by: Vineet Palm M.D. 06/16/2019 7:42 AM
--- NOTE | 2019-06-16 07:46 | XRay Report ---
KUB HISTORY: Small bowel obstruction. Follow-up. COMPARISON: Abdomen and pelvis CT 06/15/2019. FINDINGS: Contrast within the bladder due to the recent CT examination. Moderate degenerative changes within the bilateral hips. Extensive posterior fusion hardware seen within the lumbar spine. The corrie g bases are clear. Dilated loops of small bowel are again noted within the midabdomen measuring up to 4.6 cm in diameter. This is consistent with the patient's known small bowel obstruction. Tip of a na sogastric tube terminates at the gastroesophageal junction. This should be advanced by approximately 5 to 10 cm. No renal calculi. No ureteral calculi. No pneumoperitoneum or pneumatosis. IMPRESSION: 1. The tip of the nasogastric tube terminates at the gastroesophageal junction. This should be advanc ed by approximately 5 to 10 cm. 2. Dilated loops of small bowel consistent the patient's known small bowel obstruction. 3. These findings were called/faxed to the referring physician following dictation. ACT 112: Negative or not required by law. Electronically signed by: Santos Barkley M.D. 06/16/2019 7:44 AM
--- NOTE | 2019-06-16 08:06 | Surgery Consultation ---
Date of Consultation June 16, 2019 Assessment & Plan (1) Small bowel obstruction: Patient with what appears to be a partial small bowel obstruction with mild dilatation of his small bowel. I do not think he requires urgent surgical intervention and would continue with NG decompression. We will be sure his Phos and magnesium are normal monitor his electrolytes. His narcotic use could Be a source of ileus. Pending on his progress we may consider contrast study via his NG tube. I will continue to follow the patient History of Present Illness Attending Physician: Prashanth Francisco MD History of Present Illness Patient is an 88-year-old male admitted overnight to the emergency room with a history of abdominal pain But no vomiting. He underwent a CAT scan which showed some dilated small bowel with possible distal transition point gastric distention. He had an NG tube placed with significant output some improvement of his pain. He has not had any prior surgery on his abdomen. White blood cell count is normal. He has a history of right pleural effusion, chronic pain on OxyContin, and history of a dilated pancreatic duct Allergies Allergy/AdvReac Type Severity Reaction Status Date / Time Uncoded Nonscreenable Allergy Unknown ELASTIC ON Uncoded 06/15/19 20:20 Allergen PANTS/UNDERWEAR Home Medications Home Medications Medication Instructions Recorded Confirmed Type docusate sodium 200 mg PO BID 06/15/19 06/15/19 History econazole 1 applic TOPICAL UD PRN 06/15/19 06/15/19 History ferrous fumarate-vitamin C 1 tab PO DAILY 06/15/19 06/15/19 History finasteride [Proscar] 5 mg PO DAILY 06/15/19 06/15/19 History furosemide [Lasix] 80 mg PO BID 06/15/19 06/15/19 History hydrocodone-acetaminophen 1 tab PO Q8 PRN 06/15/19 06/15/19 History multivitamin 1 tab PO DAILY 06/15/19 06/15/19 History nystatin 1 applic TOPICAL TID PRN 06/15/19 06/15/19 History omeprazole 20 mg PO DAILY 06/15/19 06/15/19 History oxycodone [OxyContin] 60 mg PO BID 06/15/19 06/15/19 History polyethylene glycol 3350 [Miralax] 17 g PO DAILY 06/15/19 06/15/19 History sennosides [senna] 17.2 mg PO DAILY 06/15/19 06/15/19 History tamsulosin 0.8 mg PO HS 06/15/19 06/15/19 History Patient History Medical History Altered mental status (Acute) BPH (benign prostatic hyperplasia) (Chronic) Chronic pain syndrome (Chronic) CKD (chronic kidney disease) stage 3, GFR 30-59 ml/min Full code status GERD (gastroesophageal reflux disease) (Chronic) History of prostate cancer (Chronic) Status post radiation and hormone therapy Hypertension (Chronic) Refusal of blood transfusions as patient is Oriental orthodox Urinary problem (Resolved) Surgical History History of back surgery History of dilation of urethra (Chronic) History of inguinal hernia repair (Chronic) History of left shoulder replacement (Chronic) History of prostate biopsy (Chronic) History of spinal fusion (Chronic) Hx of hernia repair Family History Mother Diabetes Brother Coronary heart disease Social History Preferred Language: Kiswahili Communication Ability: Effective Assistant Statistician Required: No Beliefs That Will Affect Care: Hinduism Hinduism Beliefs: Oriental orthodox, NO BLOOD TRANSFUSIONS marital status: Current Living Situation: Spouse current occupational status: retired Other Information That Helps Us Care for You: No Feels Safe at Home: Yes Safety Concerns: Feels Safe At This Time Smoking Status: Former smoker Do You Dip or Chew Tobacco: No ; Second Hand Exposure: No ; Hx Alcohol Use: Yes Alcohol type: hard liquor Alcohol Intake Frequency: Rarely Hx Substance Use: No Review of Systems Review of Systems: All systems reviewed & are unremarkable except as noted in HPI & below Physical Exam Constitutional: well developed and well nourished; no acute distress Eyes: no scleral abnormality Respiratory: normal respiratory effort; no respiratory distress Cardiovascular: Rate/Rhythm: regular rate Gastrointestinal (Abdomen): Currently his abdomen is very mildly distended and is nontender He has decreased bowel sounds Skin: no rashes, warm and dry Neurologic: awake Psychiatric: Orientation: alert Results & Data Vital Signs (Past 12 Hours) Vital Signs Temp Pulse Pulse Resp BP BP Pulse Ox 01/10/20 07:49 36.9 C 66 19 150/76 H 94 06/16/19 01:31 177/73 H 06/16/19 01:07 37.0 C 67 16 177/76 H 97 06/15/19 23:35 37.0 C 67 16 177/76 H 97 06/15/19 23:18 75 154/67 H 95 06/15/19 21:28 71 173/83 H 98 I did review his CAT scan PG Care Time/CCT Total # of Minutes Spent Total Time Spent with Patient: Total time spent is greater than 50% in coordination of care (as documented) at patient's floor/unit and/or counseling patient:
[2019-06-16] MEDS: FAMOTIDINE 20 MG in SYRINGE 3 ML IV SCH ×2 (08:36→20:28)
[2019-06-16] MEDS: POTASSIUM CHLORIDE / WTR 10 MEQ/100 ML PLCT IV SCH ×2 (08:40→09:53)
[2019-06-16] MEDS ORDERED: OXYCODONE HCL 20 MG TABCR (OXYCONTIN) PO SCH (09:00)
--- NOTE | 2019-06-16 09:41 | XRay Report ---
XR chest 2V PA/lateral HISTORY: check NG tube positioning COMPARISON: Chest 06/16/2019. FINDINGS: The NG tube is been advanced and now terminates in the stomach. No pneumothorax. Small bila teral pleural effusions. Left shoulder prosthesis. No focal lung consolidations to suggest pneumonia. No evidence for pulmonary edema. Right basilar linear densities favor subsegmental atelectasis. Lumb ar spinal fusion hardware is again noted. The heart is normal in size. IMPRESSION: 1. The NG tube has been advanced and now resides within the stomach. 2. Small bilateral pleural effusions. 3. Right basilar linear densities favor subsegmental atelectasis. ACT 112: Negative or not required by law. Electronically signed by: Santos Barkley M.D. 06/16/2019 9:40 AM
--- NOTE | 2019-06-16 09:43 | XRay Report ---
XR KUB/Abdomen 1 view CLINICAL HISTORY: 88 years-old Male presenting with check NG tube positioning. TECHNIQUE: Single supine view of the abdomen was obtained. COMPARISON: 06/16/2019 at 7:33 AM. FINDINGS: Nasogastric tube terminates at the gastric fundus with sidehole at the gastroesophageal junction, sli ghtly advanced from prior exam. A stimulator device projects over the epigastrium. Gaseous distention of small bowel with an apparent maximal diameter of over 5 cm though this is likel y affected by magnification. Moderate stool burden in the right colon. No gross pneumoperitoneum. Allowing for bowel gas and stool, no calcifications to suggest nephrolithiasis. Excreted contrast not ed in the urinary collecting systems with bladder distention obscuring visualization of the central p laurence. Degenerative changes of the spine. Posterior lumbar fusion hardware. Lung bases clear. IMPRESSION: 1. Slight advancement of the nasogastric tube, which terminates in the fundus. The sidehole may be a t the GE junction; further advancement of at least 5 cm to be considered. 2. Gaseous distention of small bowel with an obstructive pattern as on prior. ACT 112: Negative or not required by law. Electronically signed by: Vineet Palm M.D. 06/16/2019 9:41 AM
--- NOTE | 2019-06-16 10:12 | Hospitalist Progress Note ---
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 continue bowel rest -discussed with patient that chronic opioid use for history of back pain contributes to bowel obstruction/ileus -patient agrees to short acting oxycodone for now if pain and to avoid scheduled long acting narcotics for now. will monitor patient closely in case of any opioid withdrawal -IV fluids to be switched to D5 1/2 normal to give glucose nutrition and calories while NPO -general surgery consult is following the patient Hypokalemia -replete serum potassium to 3.5 to 4 to avoid hypokalemia from NG tube suctioning -monitor electrolytes Pancreatic ductal dilatation on the CAT scan and also mild rectal wall thickening on the CAT scan -consider gastroenterology consult or outpatient assessment after patient's bowel obstruction resolves chronic Lower extremity edema Hypertension Moderate right pleural effusion -switch home dose Lasix of 80 mg BID to IV Lasix 40 mg daily for now -no respiratory distress History of prostate cancer status post radiation treatment. -Continue Proscar and Flomax. Chronic kidney disease stage III -monitor renal function Gastroesophageal reflux disease -IV Pepcid. History of iron deficiency anemia -hold home oral iron supplement which is on hold. Ambulatory dysfunction. -The patient uses a walker and cane at home. -PT and OT prior to discharge. Deep venous thrombosis prophylaxis, sequential compression devices. Subjective Patient seen and examined with NG tube suctioning. abdominal exam is nontender to palpation which is a significant improvement compared to initial presentation. no vomiting today. no fevers. no chest pain. no shortness of breath. no dizziness. no headache. Review of Systems Review of Systems: All systems reviewed & are unremarkable except as noted in HPI & below Physical Exam Constitutional: comfortable Eyes: PERRL, conjunctivae normal, anicteric sclerae EOM intact bilaterally ENMT: external ear and nose normal, oropharynx normal Neck: normal visual inspection Respiratory: normal respiratory effort, lungs clear to auscultation Cardiovascular: Rate/Rhythm: regular rate and regular rhythm Gastrointestinal (Abdomen): normal bowel sounds, soft, nontender, no hepatosplenomegaly Musculoskeletal: Head/Neck/Chest: normocephalic and head atraumatic Neurologic: PERRL, EOMI, accommodation nl, no face palsy, no dysarthria Psychiatric: A+Ox3, euthymic affect Results & Data Vital Signs (Past 12 Hours) Vital Signs Temp Pulse Pulse Resp BP BP Pulse Ox 06/16/19 07:49 36.9 C 66 19 150/76 H 94 06/16/19 01:31 177/73 H 06/16/19 01:07 37.0 C 67 16 177/76 H 97 06/15/19 23:35 37.0 C 67 16 177/76 H 97 06/15/19 23:18 75 154/67 H 95
[2019-06-16] MEDS: DOCUSATE SODIUM 100 MG CAP PO SCH ×2 (10:19→20:27)
[2019-06-16] MEDS: FINASTERIDE 5 MG TAB PO SCH (10:20)
[2019-06-16] MEDS: FUROSEMIDE 40 MG in SYRINGE 0 ML IV SCH (10:58)
[2019-06-16] MEDS: D5W AND 1/2NSS 1,000 ML IV SCH (11:28)
--- NOTE | 2019-06-16 12:32 | Electrocardiogram Report ---
Test Reason : Blood Pressure : / mmHG Vent. Rate : 064 BPM Atrial Rate : 064 BPM P-R Int : 196 ms QRS Dur : 100 ms QT Int : 430 ms P-R-T Axes : 042 -06 020 degrees QTc Int : 443 ms Normal sinus rhythm Nonspecific T wave abnormality Abnormal ECG When compared with ECG of 21-SEP-2018 15:39, Premature ventricular complexes are no longer Present Premature atrial complexes are no longer Present Confirmed by Frankie Avilez ([id number]) on 06/16/2019 12:32:43 PM Referred By: REFERRED SELF Confirmed By:Frankie Avilez
[2019-06-16] MEDS: OXYCODONE HCL IR 5 MG TAB (IMMEDIATE RELEASE) PO PRN (12:48)
[2019-06-16] MEDS ORDERED: OXYCODONE HCL 15 MG TABCR (OXYCONTIN) PO STA (16:22)
[2019-06-16] MEDS: TAMSULOSIN HCL 0.4 MG CAP PO SCH (20:27)
[2019-06-17] MEDS: D5W AND 1/2NSS 1,000 ML IV SCH (02:08)
[2019-06-17] MEDS: OXYCODONE HCL IR 5 MG TAB (IMMEDIATE RELEASE) PO PRN ×3 (05:20→21:02)
--- NOTE | 2019-06-17 06:16 | Surgery Progress Note ---
Date of Service June 17, 2019 Subjective awake, alert, hungry NG clamped- min output +flatus, small bm will d/c NG, try clears, encourage walking in hallway check labs Results & Data Vital Signs (Past 12 Hours) Vital Signs Temp Pulse Resp BP Pulse Ox 06/16/19 23:05 37 C 57 L 18 149/70 H 96 PG Care Time/CCT Total # of Minutes Spent Total Time Spent with Patient: Total time spent is greater than 50% in coordination of care (as documented) at patient's floor/unit and/or counseling patient:
[2019-06-17] MEDS: DOCUSATE SODIUM 100 MG CAP PO SCH ×2 (08:56→21:03)
[2019-06-17] MEDS: FINASTERIDE 5 MG TAB PO SCH (08:56)
[2019-06-17] MEDS: FUROSEMIDE 40 MG in SYRINGE 0 ML IV SCH (08:56)
[2019-06-17] MEDS: FAMOTIDINE 20 MG in SYRINGE 3 ML IV SCH (08:58)
[2019-06-17 09:16] LABS: Albumin Level 3.1 gm/dl (3.4-5.0); Calcium 9.1 mg/dl (8.5-10.1); Creatinine Clr Calc Pharmacy 59.9 ml/min; Est GFR (African American) 88.9; Est GFR (Non-African American) 76.7; Magnesium 2.2 mg/dl (1.8-2.4); Potassium 3.5 mmol/L (3.5-5.1)
[2019-06-17 09:18] LABS: Albumin Globulin Ratio 0.9 (0.9-2); Bilirubin,Total 0.6 mg/dl (0.2-1); Globulin 3.6 gm/dl (2.5-4.0); Phosphorus 2.8 mg/dl (2.5-4.9); Total Protein 6.7 gm/dl (6.4-8.2)
[2019-06-17] MEDS ORDERED: MAGNESIUM HYDROXIDE SUSP 30 ML UDC PO ONE (09:48)
--- NOTE | 2019-06-17 10:09 | Hospitalist Progress Note ---
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 Yesterday night, patient reported bowel movements. general surgery had removed NG tube. clear liquid diet started. additional bowel regimen of Miralax and milk of magnesia ordered with current senna. monitor in hospital for now Hypokalemia -repleted serum potassium to 3.5 avoid hypokalemia from NG tube suctioning -NG tube removed on 06/17/2019 abd serum potassium last checked is 3.5 Pancreatic ductal dilatation on the CAT scan and also mild rectal wall thickening on the CAT scan -consider gastroenterology consult or outpatient assessment after patient's bowel obstruction resolves chronic Lower extremity edema Hypertension Moderate right pleural effusion -resume home dose Lasix of 80 mg BID from IV Lasix -no respiratory distress History of prostate cancer status post radiation treatment. -Continue Proscar and Flomax. Chronic kidney disease stage III -monitor renal function Gastroesophageal reflux disease -IV Pepcid. History of iron deficiency anemia -hold home oral iron supplement Ambulatory dysfunction. -The patient uses a walker and cane at home. -PT and OT prior to discharge. Deep venous thrombosis prophylaxis, sequential compression devices. Subjective Patient seen and examined at bedside. Yesterday night, patient reported bowel movements. general surgery had removed NG tube. clear liquid diet started. patient breathing on room air. no shortness of breath. no chest pain. no abdominal; pain. no vomiting. no dizziness. no lightheadedness. no distress Review of Systems Review of Systems: All systems reviewed & are unremarkable except as noted in HPI & below Physical Exam Constitutional: comfortable Eyes: PERRL, conjunctivae normal, anicteric sclerae EOM intact bilaterally ENMT: external ear and nose normal, oropharynx normal Neck: normal visual inspection Respiratory: normal respiratory effort, lungs clear to auscultation Cardiovascular: Rate/Rhythm: regular rate and regular rhythm Gastrointestinal (Abdomen): normal bowel sounds, soft, nontender, no hepatosplenomegaly Musculoskeletal: Head/Neck/Chest: normocephalic and head atraumatic Neurologic: PERRL, EOMI, accommodation nl, no face palsy, no dysarthria Psychiatric: A+Ox3, euthymic affect Results & Data Vital Signs (Past 12 Hours) Vital Signs Temp Pulse Resp BP BP Pulse Ox 06/17/19 07:50 37 C 68 19 133/79 91 06/16/19 23:05 37 C 57 L 18 149/70 H 96
[2019-06-17] MEDS: POLYETHYLENE (MIRALAX) 17 GM PACK PO SCH (10:23)
[2019-06-17] MEDS: FUROSEMIDE 80 MG TAB PO SCH (16:45)
[2019-06-17] MEDS: POTASSIUM CHLORIDE / WTR 10 MEQ/100 ML PLCT IV SCH ×2 (18:03→19:46)
[2019-06-17] MEDS: TAMSULOSIN HCL 0.4 MG CAP PO SCH (21:03)
[2019-06-18] MEDS: OXYCODONE HCL IR 5 MG TAB (IMMEDIATE RELEASE) PO PRN (03:25)
--- NOTE | 2019-06-18 06:26 | Surgery Progress Note ---
Date of Service June 18, 2019 Assessment & Plan (1) Small bowel obstruction: pt seems to be doing well source of ileus likely narcotics ok to d/c from surgical standpoint Subjective awake, alert, sitting in chair- feeling well +flatus, bm Physical Exam Physical Exam: abd soft Constitutional: well developed and well nourished; no acute distress Respiratory: normal respiratory effort; no respiratory distress Cardiovascular: Rate/Rhythm: regular rate and regular rhythm Skin: no rashes, warm and dry Neurologic: awake Psychiatric: Orientation: alert Results & Data Vital Signs (Past 12 Hours) Vital Signs Temp Pulse Resp BP Pulse Ox 06/17/19 23:58 36.8 C 70 18 146/66 H 96 PG Care Time/CCT Total # of Minutes Spent Total Time Spent with Patient: Total time spent is greater than 50% in coordination of care (as documented) at patient's floor/unit and/or counseling patient:
[2019-06-18 06:29] LABS: BUN Creatinine Ratio 12.1 (10-20); Calcium 9.2 mg/dl (8.5-10.1); Creatinine Clr Calc Pharmacy 57.3 ml/min; Est GFR (African American) 85.8; Potassium 3.6 mmol/L (3.5-5.1)
[2019-06-18] MEDS: FINASTERIDE 5 MG TAB PO SCH (08:53)
[2019-06-18] MEDS: POLYETHYLENE (MIRALAX) 17 GM PACK PO SCH (08:53)
[2019-06-18] MEDS: FUROSEMIDE 80 MG TAB PO SCH (08:53)
[2019-06-18] MEDS: DOCUSATE SODIUM 100 MG CAP PO SCH (08:53)
[2019-06-18] MEDS ORDERED: PANTOprazole 40 MG TAB PO SCH (09:00)
--- NOTE | 2019-06-18 09:06 | XRay Report ---
XR KUB/Abdomen 1 view CLINICAL HISTORY: follow bowel obstruction COMPARISON STUDY: 06/16/2019 FINDINGS: Postsurgical changes are present within the lumbar spine. There is elevation/eventration of the right hemidiaphragm. There is a lumbar stimulator device. There is gas present within nondilated colon. There is diminished small bowel dilatation with no pathologically enlarged small bowel loops identified. The nasogastric tube has been removed. IMPRESSION: 1. Interval removal of the nasogastric tube 2. Resolution of the previously described small bowel dilatation ACT 112: Negative or not required by law. Electronically signed by: Catarino Blanchard M.D. 06/18/2019 9:04 AM
--- NOTE | 2019-06-18 10:09 | Hospitalist Progress Note ---
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 Patient was not in opioid withdrawal nor was he having any pain. -HAVE ADVISED PATIENT AND HIS FAMILY TO GO TO FOLLOW UP WITH PRIMARY CARE DOCTOR TO COORDINATE PLANS TO DE-ESCALATE OPIOID MEDICATION. PATIENT MAY TAKE 60 MG ONCE A DAY OF OXYCONTIN OR CUT TABLET IN HALF 30 MG TWICE A DAY FOR NOW TO PREVENT OPIOID WITHDRAWAL -Follow up appointments 06/30/2019 9:20 AM Provider Tani Duval MD Department [facility] 07/18/2019 2:00 PM Provider Deepali Pedraza RN Department [facility] 08/25/2019 10:00 AM Provider Praful Bernal MD Department Nephrology, [facility] Hypokalemia -repleted serum potassium to 3.5 avoid hypokalemia from NG tube suctioning -NG tube removed on 06/17/2019 and serum potassium last checked is 3.6 Moderate dilatation of the main pancreatic duct -also on admission CT scan of abdomen on 06/15/2019: there is : Moderate dilatation of the main pancreatic duct with possible caliber change within the pancreatic head. No well-defined mass by CT. A nonemergent MRI of the pancreas is recommended to exclude a mass. (This can be done as outpatient) chronic Lower extremity edema Hypertension Moderate right pleural effusion -also on admission CT scan of abdomen on 06/15/2019: Moderate right pleural effusion. (Patient has been breathing on room air and no respiratory distress. The pleural effusion is not very apparent on subsequent inpatient chest X ray. Patient should continue home diuretics of Lasix and and have follow up lung imaging as outpatient) History of prostate cancer status post radiation treatment. -Continue Proscar and Flomax. Chronic kidney disease stage III -stable Gastroesophageal reflux disease -IV Pepcid. History of iron deficiency anemia -hold home oral iron supplement Ambulatory dysfunction. -The patient uses a walker and cane at home. -patient has not had acute walking problems during hospital stay; PT evaluation not needed Discharge Diagnosis: Small bowel obstruction, Chronic alf opioid/narcotic use, Gastroesophageal reflux disease, Moderate right pleural effusion, Moderate dilatation of the main pancreatic duct Subjective Patient made bowel movements. no acute pain. no vomiting. no shortness of breath. breathing on room air. discharge plans discussed at length with patient and his Review of Systems Review of Systems: All systems reviewed & are unremarkable except as noted in HPI & below Physical Exam Constitutional: comfortable Eyes: PERRL, conjunctivae normal, anicteric sclerae EOM intact bilaterally ENMT: external ear and nose normal, oropharynx normal Neck: normal visual inspection Respiratory: normal respiratory effort, lungs clear to auscultation Cardiovascular: Rate/Rhythm: regular rate and regular rhythm Gastrointestinal (Abdomen): normal bowel sounds, soft, nontender, no hepatosplenomegaly Musculoskeletal: Head/Neck/Chest: normocephalic and head atraumatic Neurologic: PERRL, EOMI, accommodation nl, no face palsy, no dysarthria Psychiatric: A+Ox3, euthymic affect Results & Data Vital Signs (Past 12 Hours) Vital Signs Temp Pulse Pulse Resp BP BP Pulse Ox 06/18/19 07:30 36.7 C 75 18 124/62 96 06/17/19 23:58 36.8 C 70 18 146/66 H 96
--- NOTE | 2019-06-18 10:15 | Discharge Summary ---
Date of Service June 18, 2019 Admission HPI Per Admitting Provider DATE OF ADMISSION: 06/15/2019 CHIEF COMPLAINT: Abdominal pain. HISTORY OF PRESENT ILLNESS: This is an 88-year-old male with past medical history significant for hypertension, reflux esophagitis, chronic kidney disease stage III, history of prostate cancer, spinal stenosis of lumbar region with neurogenic claudication, failed back surgical syndrome, malfunction of neurostimulator lead, dependent edema, ambulatory dysfunction, cervical spinal stenosis, who lives with his , walks with the help of a walker and cane. Presents with abdominal pain. The patient said the pain started in the morning, then by the evening it got worse, felt nauseous but no vomiting. Last bowel movement was a couple of days ago. He has had chronic constipation. He is on chronic pain medications. He stated he had a back pain since 30 years. Also has swelling in the lower extremities for which he takes Lasix. Currently on NG tube, drained a lot of greenish fluid from the NG tube and he is feeling better now. Not passing gas. Denies any headache, no blurred vision, no earaches, no sore throat, no dysphagia, no odynophagia. Appetite is okay otherwise. No chest pain, no shortness of breath, no cough, no fever, no chills. No blood in stools or black stools. He says he always has problems with micturating and is taking medications for this. No blood in the urine. Currently resting comfortably and hemodynamically stable. ALLERGIES: LATEX. PAST MEDICAL HISTORY: As mentioned above. PAST SURGICAL HISTORY: Ear surgery, urethral stricture dilatation, cystolitholapaxy, left shoulder replacement, prostate needle punch biopsy, radiation treatment for pelvis, inguinal hernia repair, spinal fusion surgery. MEDICATIONS: The patient is on Proscar 5 mg p.o. daily, Colace 200 mg p.o. b.i.d., MiraLax 17 grams daily, hydrocodone/acetaminophen 10/325 mg 1 tablet every 8 hours p.r.n., OxyContin 60 mg p.o. b.i.d., Flomax 0.8 mg p.o. at bedtime, Lasix 80 mg p.o. b.i.d., ascorbic acid 1000 mg p.o. daily, ferrous fumarate, vitamin C 1 tablet daily, omeprazole 20 mg p.o. daily, Senna 2 tablets daily, multivitamins 1 tablet daily. FAMILY HISTORY: Significant for brother had cancer, mother had diabetes, brother had CAD with stents. SOCIAL HISTORY: and lives with his . Former smoker, quit in 1959. Alcohol occasional. No drug use. REVIEW OF SYSTEMS: As per HPI. Rest of review of systems negative. Admission Exam Per Admitting Provider GENERAL: The patient is old and frail, not in acute distress. VITAL SIGNS: Temperature 36.8, pulse 71, respiratory rate 20, blood pressure 173/83, oxygen 98% on room air. HEENT: No pallor, no icterus. Right pupil is somewhat large, reactive to light. NECK: No JVD, no neck masses, no carotid bruits. CARDIOVASCULAR: S1, S2 heard, regular rate and rhythm, no murmur, no gallop. RESPIRATORY SYSTEM: Normal AP diameter. No accessory muscle use. No wheezing, no crackles. ABDOMEN: Soft, bowel sounds sluggish, mild abdominal discomfort. No guarding, no rigidity. No distention. CENTRAL NERVOUS SYSTEM: Cranial nerve II-XII grossly intact, nonfocal. EXTREMITIES: Bilateral lower extremity gross edema present. Principal Diagnosis Small bowel obstruction, Chronic correction opioid/narcotic use, Gastroesophageal reflux disease, Moderate right pleural effusion, Moderate dilatation of the main pancreatic duct Discharge Exam Constitutional comfortable Eyes PERRL, conjunctivae normal, anicteric sclerae EOM intact bilaterally ENMT external ear and nose normal, oropharynx normal Neck normal visual inspection Respiratory normal respiratory effort, lungs clear to auscultation Cardiovascular Rate/Rhythm: regular rate and regular rhythm Gastrointestinal (Abdomen) normal bowel sounds, soft, nontender, no hepatosplenomegaly Musculoskeletal Head/Neck/Chest: normocephalic and head atraumatic Neurologic PERRL, EOMI, accommodation nl, no face palsy, no dysarthria Psychiatric A+Ox3, euthymic affect Discharge Data Allergies Allergy/AdvReac Type Severity Reaction Status Date / Time Uncoded Nonscreenable Allergy Unknown ELASTIC ON Uncoded 06/15/19 20:20 Allergen PANTS/UNDERWEAR Consultations 06/15/19 21:29 ED Decision to Admit Stat 06/15/19 23:35 Consult Case Management - Discharge Planning Routine 06/16/19 08:00 Consult General Surgery Routine Ordered Studies 06/15/19 19:31 CT abd pelvis IV con only Stat Hospital Course (1) Small bowel obstruction: 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 Patient was not in opioid withdrawal nor was he having any pain. -HAVE ADVISED PATIENT AND HIS FAMILY TO GO TO FOLLOW UP WITH PRIMARY CARE DOCTOR TO COORDINATE PLANS TO DE-ESCALATE OPIOID MEDICATION. PATIENT MAY TAKE 60 MG ONCE A DAY OF OXYCONTIN OR CUT TABLET IN HALF 30 MG TWICE A DAY FOR NOW TO PREVENT OPIOID WITHDRAWAL -Follow up appointments 06/30/2019 9:20 AM Provider Tani Duval MD Department [facility] 07/18/2019 2:00 PM Provider Deepali Pedraza RN Department [facility] 08/25/2019 10:00 AM Provider Praful Bernal MD Department Nephrology, [facility] Hypokalemia -repleted serum potassium to 3.5 avoid hypokalemia from NG tube suctioning -NG tube removed on 06/17/2019 and serum potassium last checked is 3.6 Moderate dilatation of the main pancreatic duct -also on admission CT scan of abdomen on 06/15/2019: there is : Moderate dilatat ion of the main pancreatic duct with possible caliber change within the pancreatic head. No well-defined mass by CT. A nonemergent MRI of the pancreas is recommended to exclude a mass. (This can be done as outpatient) chronic Lower extremity edema Hypertension Moderate right pleural effusion -also on admission CT scan of abdomen on 06/15/2019: Moderate right pleural effusion. (Patient has been breathing on room air and no respiratory distress. The pleural effusion is not very apparent on subsequent inpatient chest X ray. Patient should continue home diuretics of Lasix and and have follow up lung imaging as outpatient) History of prostate cancer status post radiation treatment. -Continue Proscar and Flomax. Chronic kidney disease stage III -stable Gastroesophageal reflux disease -IV Pepcid. History of iron deficiency anemia -hold home oral iron supplement Ambulatory dysfunction. -The patient uses a walker and cane at home. 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, Gastroesophageal reflux disease, Moderate right pleural effusion, Moderate dilatation of the main pancreatic duct Total Time Total Time Spent Total Time Spent (In Minutes): 40 minutes Total Time Includes: Examination of the Patient, Discharge Planning, Medication Reconciliation and Communication With Other Providers Discharge Plan Discharge Items Patient Disposition: Home - Self-Care Reason For Visit: ABDOMINAL PAIN Discharge Diagnosis: Small bowel obstruction, Chronic correction opioid/narcotic use, Gastroesophageal reflux disease, Moderate right pleural effusion, Moderate dilatation of the main pancreatic duct Condition on Discharge: Good Activity: Resume your previous activity Non-emergency contact: Primary Care Provider Call non-emergency contact if: you have any medication questions Follow-up/Referrals: Tani Duval MD [Primary Care Provider] - Diet: Low Fat Addtl Attending Provider Instructions: admission CT scan of abdomen on 06/15/2019: moderate grade small bowel obstruction with transition point within the right lower quadrant patient had NG tube and discussions to limit chronic long acting opioids to shorting narcotics for now in lower dosing Patient had bowel movements and general surgery removed NG tube on 06/17/2019 KUB 06/18/2019 shows resolution of bowel obstruction During this hospital stay, scheduled home dose long acting oxycodone 60 mg twice was avoided in the hospital. Patient was not in opioid withdrawal nor was he having any pain. HAVE ADVISED PATIENT AND HIS FAMILY TO GO TO FOLLOW UP WITH PRIMARY CARE DOCTOR TO COORDINATE PLANS TO DE-ESCALATE OPIOID MEDICATION. PATIENT MAY TAKE 60 MG ONCE A DAY OF OXYCONTIN OR CUT TABLET IN HALF 30 MG TWICE A DAY FOR NOW TO PREVENT OPIOID WITHDRAWAL Follow up appointments 06/30/2019 9:20 AM Provider Tani Duval MD Department [facility] 07/18/2019 2:00 PM Provider Deepali Pedraza RN Department [facility] 08/25/2019 10:00 AM Provider Praful Bernal MD Department Nephrology, [facility] Add Delivery Room Clerk Provider Instructions: also on admission CT scan of abdomen on 06/15/2019: there is : Moderate dilatation of the main pancreatic duct with possible caliber change within the pancreatic head. No well-defined mass by CT. A nonemergent MRI of the pancreas is recommended to exclude a mass. (This can be done as outpatient) also on admission CT scan of abdomen on 06/15/2019: Moderate right pleural effusion. (Patient has been breathing on room air and no respiratory distress. The pleural effusion is not very apparent on subsequent inpatient chest X ray. Patient should continue home diuretics of Lasix and and have follow up lung imaging as outpatient) Pending Studies at Discharge: No Stand-Alone Forms: [facility], Smoking Cessation Medications and DC Order Prescriptions: Continued multivitamin Tablet 1 tab PO DAILY RF: 0 sennosides [senna] 8.6 mg Tablet 17.2 mg PO DAILY RF: 0 polyethylene glycol 3350 [Miralax] 17 gram Powder In Packet 17 g PO DAILY RF: 0 hydrocodone-acetaminophen 10-325 mg tablet 1 tab PO Q8 PRN (Reason: Pain) RF: 0 tamsulosin 0.4 mg capsule 0.8 mg PO HS RF: 0 econazole 1 % cream 1 applic TOPICAL UD PRN (Reason: FLARE UPS) RF: 0 docusate sodium 100 mg Capsule 200 mg PO BID RF: 0 nystatin 100,000 unit/gram powder 1 applic TOPICAL TID PRN (Reason: IRRITATION) RF: 0 omeprazole 20 mg Tablet,Delayed Release (Dr/Ec) 20 mg PO DAILY RF: 0 furosemide [Lasix] 40 mg Tablet 80 mg PO BID RF: 0 finasteride [Proscar] 5 mg Tablet 5 mg PO DAILY RF: 0 Discontinued oxycodone [OxyContin] 60 mg tablet,oral only,ext.rel.12 hr 60 mg PO BID RF: 0 ferrous fumarate-vitamin C 200 mg (65 mg iron)-25 mg Tablet Extended Release 1 tab PO DAILY RF: 0 Discharge Orders: Discharge Order (Routine); Ordered 06/18/19 Ordered By: Prashanth Francisco Admission Data Admit Date/Time: 06/15/19 22:46 Attending Provider: Prashanth Francisco Admit Provider: Juan Francisco Dominguez Primary Care Provider: Tani Duval Other Providers: Juan Francisco Dominguez ; Tani Hodges
== END 2019-06-18 11:14 | disposition home or self-care (01) | DRG 389 ==
LOC: ED 19:19 → 3W 22:46

== ENCOUNTER 2019-06-20 08:38 | Inpatient (IN) ==
[2019-06-20] MEDS ORDERED: SODIUM CHLORIDE 0.9% 500 ML IV ONE (09:16)
[2019-06-20] MEDS ORDERED: PROCHLORPERAZINE 1 ML IV ONE (09:18)
[2019-06-20] MEDS ORDERED: FAMOTIDINE 20MG IV PUSH 20 MG/5 ML SYR IV STA (09:18)
[2019-06-20] MEDS ORDERED: ACETAMINOPHEN 1,000 MG/100 ML VIAL IV STA (09:19)
[2019-06-20 09:57] LABS: Basophils # (auto) 0.03 K/uL (0-0.2); Basophils % (auto) 0.3 %; Eosinophils # (auto) 0.02 K/uL (0-0.5); Eosinophils % (auto) 0.2 %; Hematocrit (blood only) 39.6 % (42-52); Hemoglobin 13.1 g/dL (14.0-18.0); Immature Granulocytes # (auto) 0.02 K/uL (0.00-0.02); Immature Granulocytes % (auto) 0.2 %; Lymphocytes # (auto) 0.93 K/uL (1.2-3.4); Lymphocytes % (auto) 9.9 %; Mean Corpuscular Hemoglobin 30.4 pg (25-34); Mean Corpuscular Hgb Conc 33.1 g/dL (32-36); Mean Corpuscular Volume 91.9 fL (80-100); Mean Platelet Volume 9.3 fL (7.4-10.4); Monocytes # (auto) 0.73 K/uL (0.11-0.59); Monocytes % (auto) 7.8 %; Neutrophils # (auto) 7.66 K/uL (1.4-6.5); Neutrophils % (auto) 81.6 %; Platelet Count 244 K/uL (130-400); RDW Coefficient of Variation 14.2 % (11.5-14.5); RDW Standard Deviation 47.9 fL (36.4-46.3); Red Blood Count 4.31 M/uL (4.7-6.1); White Blood Count 9.39 K/uL (4.8-10.8)
[2019-06-20 10:19] LABS: Alanine Aminotransferase 18 U/L (12-78); Albumin Level 3.4 gm/dl (3.4-5.0); Aspartate Aminotransferase 16 U/L (15-37); BUN Creatinine Ratio 19.2 (10-20); Blood Urea Nitrogen 22 mg/dl (7-18); Calcium 9.1 mg/dl (8.5-10.1); Carbon Dioxide 30 mmol/L (21-32); Chloride 104 mmol/L (98-107); Est GFR (African American) 64.8; Est GFR (Non-African American) 55.9; Glucose 115 mg/dl (70-99); Magnesium 2.3 mg/dl (1.8-2.4); Potassium 3.8 mmol/L (3.5-5.1); Sodium 138 mmol/L (136-145)
--- NOTE | 2019-06-20 10:19 | XRay Report ---
XR chest 1V portable HISTORY: 88 years-old Male Chest Pain acute atypical chest pain COMPARISON: Chest radiograph 06/16/2019 TECHNIQUE: Portable AP view of the chest FINDINGS: Reverse left shoulder total joint arthroplasty. Degenerative changes of the shoulders and spine. Card iac silhouette is mildly enlarged, unchanged. Calcific plaque of the thoracic aortic arch. Eventratio n of the right hemidiaphragm. Chronic interstitial coarsening of the lung bases. Trace pleural effusi ons. No pneumothorax or overt pulmonary edema. Partially imaged battery pack projects over the centra l lower chest/epigastric region. Status post removal of the enteric tube. IMPRESSION: 1. Trace pleural effusions with persistent bibasilar opacities suggestive of atelectasis. 2. Mild cardiomegaly. ACT 112: Negative or not required by law. The above report was generated using voice recognition software. It may contain grammatical, syntax o r spelling errors. Electronically signed by: Shorty Greenwood M.D. 06/20/2019 10:18 AM
[2019-06-20 10:25] LABS: Albumin Globulin Ratio 0.9 (0.9-2); Alkaline Phosphatase 77 U/L (45-117); Bilirubin,Total 0.6 mg/dl (0.2-1); Globulin 3.9 gm/dl (2.5-4.0); Lipase 52 U/L (73-393); Phosphorus 4.2 mg/dl (2.5-4.9); Total Protein 7.3 gm/dl (6.4-8.2); Troponin I 0.016 ng/ml (0-0.045)
[2019-06-20] MEDS ORDERED: IOVERSOL 100ml IV PRN (10:39)
--- NOTE | 2019-06-20 10:45 | Electrocardiogram Report ---
Test Reason : Blood Pressure : / mmHG Vent. Rate : 075 BPM Atrial Rate : 075 BPM P-R Int : 000 ms QRS Dur : 088 ms QT Int : 396 ms P-R-T Axes : 000 -04 019 degrees QTc Int : 442 ms Sinus rhythm with premature ventricular or aberrantly conducted complexes with frequent Premature atr ial complexes Abnormal ECG When compared with ECG of 15-JUN-2019 20:21, Premature atrial complexes are now Present Confirmed by Tyshawn Jmaa ([id number]) on 06/20/2019 10:45:23 AM Referred By: REFERRED SELF Confirmed By:Tyshawn Jama
--- NOTE | 2019-06-20 10:55 | CT Scan Report ---
CT abd pelvis IV con only CLINICAL HISTORY: Abdominal pain, constipation, history of small bowel obstruction. COMPARISON STUDY: 06/15/2019 TECHNIQUE: The patient was scanned in a dynamic helical fashion during intravenous administration of 92 cc of Optiray 320. A dose lowering technique was utilized adhering to the principles of ALARA. CT DOSE: 1003.28 mGy.cm FINDINGS: Lower chest: There is a small to moderate right pleural effusion. There are coronary artery calcifica tions. There is a generator from a spinal stimulator within the soft tissues at the left posterior in ferior back. There is a small amount of pericardial fluid present. Liver: The contrast-enhanced liver is normal in size, contour, and attenuation. There is no intrahepa tic biliary ductal dilatation. The hepatic veins and portal veins are patent. Gallbladder: Mildly distended. No calculi identified. Spleen: Normal in size and attenuation. Pancreas: There is persistent pancreatic ductal dilatation. There is an apparent caliber change at th e level of pancreatic head. A discrete mass is not visualized on CT imaging. An MRI or endoscopic ult rasound should be considered in follow-up. Adrenal glands: Unremarkable. Kidneys: There are bilateral renal cortical cysts. No solid renal masses are visualized. Bowel: There are fluid-filled small bowel loops minimally diminished in diameter when compared the pr eceding study. The distal small bowel is of normal caliber. The findings are again consistent with a partial small bowel obstruction. Peritoneum: There is no free air. There is increasing low volume ascites. Vasculature: The abdominal aorta is normal in course and caliber. Adenopathy: None. Pelvic viscera: The prostate is mildly enlarged Skeletal structures: Postsurgical changes are present within the cervical spine IMPRESSION: 1. Continued evidence for a partial small bowel obstruction with a distal ileal transition zone 2. Slight increase in the low volume ascites 3. No evidence of free intraperitoneal air 4. Persistent right pleural effusion 5. Persistent pancreatic ductal dilatation. Caliber change at the level of the pancreatic head. ACT 112: Negative or not required by law. Electronically signed by: Catarino Blanchard M.D. 06/20/2019 10:53 AM
[2019-06-20] MEDS ORDERED: MoRPHine SULFATE 2 MG/ML CARP IV STA (13:14)
--- NOTE | 2019-06-20 14:01 | History & Physical Report ---
Date of Service June 20, 2019 Assessment & Plan (1) Partial bowel obstruction: This is a 88yo M with a PMH of chronic pain syndrome with opioid/narcotic dependence, CKD III, chronic lower extremity edema, h/o prostate cancer s/p radiation treatment and other medical problems listed below who presents with constipation and abdominal pain x 2 days and was found to have continued evidence for a partial small bowel obstruction. -Recently admitted to our service for moderate SBO with transition point within the right lower quadrant in setting of chronic opioid use -Was seen by general surgery and treated conservatively with bowel rest and NG tube. Also advised to decrease chronic long acting opioids to decrease likelihood of recurrence -Last BM was 06/17/19 prior to discharge. Since return home, has been passing flatus but no BM. One episode of N/V and recurring central abd pain, so returned -NPO with ice chips and meds, gentle IV fluids, bowel regimen with tap water enema, miralax and milk of mag PRN -KUB in AM (2) Abdominal pain: Continue limited narcotics, bowel regimen. Expect resolution once able to move bowels (3) Urinary tract infection symptoms: Endorsing cloudy urine for past few days. No change to frequency/urgency or hematuria. UA with reflex culture pending (4) Chronic pain syndrome: NARCOTIC DEPENDENCY Previously on oxycodone 60mg BID with hydrocodone 10-325 Q8H PRN for breakthrough pain -Discharged home on oxycodone 30mg BID in attempt to decrease dependence while avoiding withdrawal - and patient agreeable to plan. Continue to monitor for s/sx of withdrawal (5) CKD (chronic kidney disease) stage 3, GFR 30-59 ml/min: Kidney function at baseline (6) Lower extremity edema: Continue home lasix dose DVT Ppx: SQ heparin Code status: FULL PCP: [facility] Dispo: Admitted to [facility]. Plan to return home once medically stable. Patient seen in collaboration with Dr. Francisco. Please see addendum. History of Present Illness Chief Complaint: constipation, abd pain Primary Care Provider: Tani Duval MD This is a 88yo M with a PMH of chronic pain syndrome with opioid/narcotic dependence, CKD III, chronic lower extremity edema, h/o prostate cancer s/p radiation treatment and other medical problems listed below who presents with constipation and abdominal pain x 2 days. Patient was recently admitted to our service for moderate SBO with transition point within the right lower quadrant in setting of chronic opioid use and was treated conservatively with bowel rest and NG tube. Was also advised to decrease chronic long acting opioids to decrease likelihood of recurrence. Patient had bowel movements on 06/17/19 and general surgery service removed NG tube. KUB 06/18/2019 showed resolution of bowel obstruction and patient was discharged home on reduced oxycodone dose to 30mg BID. Since discharge home on 06/18/19, patient felt much improved and was tolerating diet without issue. Last evening, he developed central abdominal discomfort associated with one episode of nausea and vomiting. Has been passing flatus but no BM since 06/17/19. When abdominal pain continued to persist and worsen, brought patient back to ED for further evaluation. Currently, patient endorses 6/10 central abdominal pain. Denies fever, chills, lightheadedness, chest pain, SOB, nausea or vomiting. Endorses cloudy urine over the past few days. No increased frequency/urgency or hematuria. Allergies Allergy/AdvReac Type Severity Reaction Status Date / Time Uncoded Nonscreenable Allergy Unknown ELASTIC ON Uncoded 06/15/19 20:20 Allergen PANTS/UNDERWEAR Home Medications Home Medications Medication Instructions Recorded Confirmed Type docusate sodium 200 mg PO BID 06/15/19 06/20/19 History econazole 1 applic TOPICAL UD PRN 06/15/19 06/20/19 History finasteride [Proscar] 5 mg PO QAM 06/15/19 06/20/19 History furosemide [Lasix] 80 mg PO BID 06/15/19 06/20/19 History hydrocodone-acetaminophen 1 tab PO Q8 PRN 06/15/19 06/20/19 History multivitamin 1 tab PO QAM 06/15/19 06/20/19 History nystatin 1 applic TOPICAL TID PRN 06/15/19 06/20/19 History omeprazole 20 mg PO DAILY PRN 06/15/19 06/20/19 History polyethylene glycol 3350 [Miralax] 17 g PO QAM 06/15/19 06/20/19 History sennosides [senna] 17.2 mg PO QAM 06/15/19 06/20/19 History tamsulosin 0.8 mg PO HS 06/15/19 06/20/19 History oxycodone 30 mg PO BID PRN 06/20/19 06/20/19 History Past Med/Surg History Medical History (Updated 06/20/19 @ 15:07 by Flora Chairez PA-C) BPH (benign prostatic hyperplasia) (Chronic) Chronic pain syndrome (Chronic) CKD (chronic kidney disease) stage 3, GFR 30-59 ml/min GERD (gastroesophageal reflux disease) (Chronic) History of prostate cancer (Chronic) Status post radiation and hormone therapy Hypertension (Chronic) Refusal of blood transfusions as patient is Jewish Urinary problem (Resolved) Surgical History History of back surgery History of dilation of urethra (Chronic) History of inguinal hernia repair (Chronic) History of left shoulder replacement (Chronic) History of prostate biopsy (Chronic) History of spinal fusion (Chronic) Hx of hernia repair Family History Mother Diabetes Brother Coronary heart disease Social History Preferred Language: [place] Communication Ability: Effective Office Service Coordinator Required: No Beliefs That Will Affect Care: Faith Faith Beliefs: Jehovah Witness, no blood transfusions marital status: Current Living Situation: Spouse current occupational status: retired Other Information That Helps Us Care for You: No Feels Safe at Home: Yes Safety Concerns: Feels Safe At This Time Smoking Status: Former smoker Do You Dip or Chew Tobacco: No ; Second Hand Exposure: No ; Tobacco Cessation Education Requested by Patient: No Hx Alcohol Use: Yes Alcohol type: hard liquor Alcohol Intake Frequency: Rarely Hx Substance Use: No Review of Systems Review of Systems: At least ten systems reviewed and negative except as noted in the HPI. Physical Exam Physical Exam: General Appearance: WD/WN, vitals as above, NAD, sitting up in bed, conversing easily Head: normocephalic, atraumatic Eyes: normal inspection, PERRL, conjunctivae normal, anicteric sclerae ENT: external ear and nose normal, oropharynx normal Neck: trachea midline, no thyromegaly normal visual inspection Respiratory: lungs clear to auscultation, no wheeze, rales, rhonchi. Normal insp/exp effort, no accessory muscle use Cardiovascular: regular rate, rhythm, no murmur, normal peripheral pulses, Chest: normal inspection of chest Abdomen/GI: normal bowel sounds, soft, central/RLQ pain, no hepatosplenomegaly Extremities/Musculoskelatal: no cyanosis or clubbing, extremities motor strength 5/5 Neurologic: PERRL, EOMI, accommodation nl, no face palsy, no dysarthria, CN's II-XI intact bilaterally and moves all extremities Psychiatric: A+Ox3, euthymic affect Skin: no rashes, normal color, warm/dry Results & Data Vital Signs (Past 12 Hours) Vital Signs Temp Pulse Pulse Resp BP BP Pulse Ox 06/20/19 13:34 70 18 168/76 H 96 06/20/19 13:00 70 18 140/70 96 06/20/19 12:30 74 20 145/71 H 97 06/20/19 12:00 66 17 127/69 97 06/20/19 11:30 74 18 143/80 H 99 06/20/19 11:00 67 18 154/88 H 94 06/20/19 10:52 68 20 146/73 H 96 06/20/19 08:39 36.8 C 75 18 159/72 H 96 Laboratory Results Short CBC 06/20/19 Range/Units 09:50 WBC 9.39 (4.8-10.8) K/uL Hgb 13.1 L (14.0-18.0) g/dL Hct 39.6 L (42-52) % Plt Count 244 (130-400) K/uL BMP 06/20/19 09:50 Sodium 138 Potassium 3.8 Chloride 104 Carbon Dioxide 30 BUN 22 H Creatinine 1.16 Glucose 115 H Calcium 9.1 Cardiac Enzymes 06/20/19 Range/Units 09:50 Troponin I 0.016 (0-0.045) ng/ml Liver Function 06/20/19 Range/Units 09:50 Total Bilirubin 0.6 (0.2-1) mg/dl AST 16 (15-37) U/L ALT 18 (12-78) U/L Alkaline Phosphatase 77 (45-117) U/L Albumin 3.4 (3.4-5.0) gm/dl Diagnostic Findings CXR: IMPRESSION: 1. Trace pleural effusions with persistent bibasilar opacities suggestive of atelectasis. 2. Mild cardiomegaly. CT abd/pelvis: IMPRESSION: 1. Continued evidence for a partial small bowel obstruction with a distal ileal transition zone 2. Slight increase in the low volume ascites 3. No evidence of free intraperitoneal air 4. Persistent right pleural effusion 5. Persistent pancreatic ductal dilatation. Caliber change at the level of the pancreatic head. Supervising Physician Co-Signing Physician Notes I have seen and examined the patient with physician embalmer assistant and agree with the assessment and plan as above and would like to comment that on exam General/abdomen. no acute distress, but patient has tenderness on palpation of abdomen Lungs: clear to auscultation bilaterally Heart: regular rate, regular rhythm Extremities: no edema Partial small bowel obstruction with Abdominal pain and Constipation Chronic Pain syndrome with Narcotic Dependency Chronic Kidney Disease stage 3 -This is a patient known to me and was recently discharged from hospital after treatment for partial small bowel obstruction (during that stay patient had NG tube, senior care oxycontin of 60 mg BID was restricted from scheduled dosing, and patient generally adhered to short acting opioids prn schedules alone without severe back pain and without opioid withdrawal, and also with holding iron supplements. patient had bowel movements resumed fairly quickly with bowel regimen and restricting medications known to increase risk of constipation or ileus. patient was then discharged with discharge recommendations of cutting down the oxycontin to half of home dose to avoid opioiod withdrawal at home and advised to go to primary care doctor to formulate terminal make up operator plans on narcotic weaning) -Unfortunately, since being discharged from the hospital and with patient did not have bowel movement and returned with abdominal pain -at this time, will try to manage conservatively without NG tube - orders to give bowel regimen orally and rectal enema and suppository to stimulate bowels -general surgery consult does not be needed at this time although if patient's condition gets worse then NG tube and general surgery consult should be considered -will again stick to plans to avoid long acting narcotic as scheduled medication; although consideration can be made to give patient intermittent oxycontin if he is in withdrawal or if he has a lot of anxiety of being off the oxycontin which may be seen as a symptom of potential withdrawal; will generally have short acting narcotics prn on medication schedule -monitor renal function as patient to have bowel rest, hydration and nutrition with IV fluids with dextrose -monitor outputs and KUB imaging for 04/21/2020 -patient and patient's agree to this plan -agree with other assessment and plans as documented by physician embalmer assistant (1) Partial bowel obstruction Intestinal obstruction type: unspecified Qualified Code(s): K56.600 - Partial intestinal obstruction, unspecified as to cause (2) Abdominal pain Abdominal location: generalized Qualified Code(s): R10.84 - Generalized abdominal pain
[2019-06-20] MEDS ORDERED: ONDANSETRON INJ 2 MG/ML 2 ML VIAL IV PRN (15:32)
[2019-06-20] MEDS ORDERED: ECONAZOLE NITRATE 1% CRM 15 GM TUBE TOP PRN (15:32)
[2019-06-20] MEDS ORDERED: PANTOprazole 40 MG TAB PO PRN (15:32)
[2019-06-20] MEDS ORDERED: ACETAMINOPHEN 1,000 MG/100 ML VIAL IV PRN (15:32)
[2019-06-20] MEDS ORDERED: NYSTATIN POWDER 15GM BTL EXT PRN (15:32)
[2019-06-20] MEDS ORDERED: MAGNESIUM HYDROXIDE SUSP 30 ML UDC PO PRN (15:32)
[2019-06-20] MEDS ORDERED: OXYCODONE HCL IR 5 MG TAB (IMMEDIATE RELEASE) PO PRN (15:32)
[2019-06-20] MEDS: D5W AND 1/2NSS 1,000 ML IV SCH (16:24)
[2019-06-20 16:46] LABS: Appearance Urine Turbid (Clear); Bacteria Urine Automated 2+ (Negative); Bilirubin Urine Negative (Negative); Blood Urine 3+ (Negative); Cast Urine Automated 0 /lpf (0-5); Color Urine Yellow; Glucose Urine UA Negative (Negative); Ketones Urine Negative (Negative); Leukocyte Esterase Urine 3+ (Negative); Nitrite Urine Positive (Negative); Protein Urine Negative (Negative); Specific Gravity Urine 1.041 (1.000-1.030); Urobilinogen Urine Negative (Negative); WBC Urine Automated >30 /hpf (0-5)
[2019-06-20] MEDS: FUROSEMIDE 80 MG TAB PO SCH (17:22)
--- NOTE | 2019-06-20 17:36 | Emergency Department Note ---
Entered by Falguni West acting as a scribe for Hawk Hickman MD History of Present Illness General Chief complaint: Constipation Stated complaint: BOWEL OBSTRUCTION - PAINFUL Time Seen by Provider: 06/20/19 08:52 Source: patient History of Present Illness Onset (ago): day(s) 1 Location: abdomen (constipated) Severity: similar to prior episodes Pain Consistency: + other (persistent) Maximum Pain Intensity: 10 Quality: + other (cramping) Exacerbated By: + medication (narcotics) Associated symptoms: + nausea/vomiting and + other (constipation, abdominal pain); no fever/chills The patient is an 88 year old male presenting to the Emergency Department complaining of persistent constipation starting 1 day ago. The patient reports that he is constipated. He states that he has upper abdominal pain that he describes as a cramping sensation. 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 He notes that he has experienced these symptoms before as he was just discharged from the hospital on 06/18/2019 from being admitted for constipation. He adds that he hasnt had a bowel movement since getting home from the hospital. The patient reports that he normally takes narcotics for chronic back pain which he believes is worsening his symptoms so he has been trying to ween off of them. The patient denies fevers and chills. Home Medications Home Medications Medication Instructions Recorded Confirmed Type docusate sodium 200 mg PO BID 06/15/19 06/20/19 History econazole 1 applic TOPICAL UD PRN 06/15/19 06/20/19 History finasteride [Proscar] 5 mg PO QAM 06/15/19 06/20/19 History furosemide [Lasix] 80 mg PO BID 06/15/19 06/20/19 History hydrocodone-acetaminophen 1 tab PO Q8 PRN 06/15/19 06/20/19 History multivitamin 1 tab PO QAM 06/15/19 06/20/19 History nystatin 1 applic TOPICAL TID PRN 06/15/19 06/20/19 History omeprazole 20 mg PO DAILY PRN 06/15/19 06/20/19 History polyethylene glycol 3350 [Miralax] 17 g PO QAM 06/15/19 06/20/19 History sennosides [senna] 17.2 mg PO QAM 06/15/19 06/20/19 History tamsulosin 0.8 mg PO HS 06/15/19 06/20/19 History oxycodone 30 mg PO BID PRN 06/20/19 06/20/19 History Allergies Allergy/AdvReac Type Severity Reaction Status Date / Time Uncoded Nonscreenable Allergy Unknown ELASTIC ON Uncoded 06/15/19 20:20 Allergen PANTS/UNDERWEAR Past Med/Surg History Medical History BPH (benign prostatic hyperplasia) (Chronic) Chronic pain syndrome (Chronic) CKD (chronic kidney disease) stage 3, GFR 30-59 ml/min GERD (gastroesophageal reflux disease) (Chronic) History of prostate cancer (Chronic) Status post radiation and hormone therapy Hypertension (Chronic) Refusal of blood transfusions as patient is [place] Urinary problem (Resolved) Surgical History History of back surgery History of dilation of urethra (Chronic) History of inguinal hernia repair (Chronic) History of left shoulder replacement (Chronic) History of prostate biopsy (Chronic) History of spinal fusion (Chronic) Hx of hernia repair Family History Mother Diabetes Brother Coronary heart disease Social History Preferred Language: Telugu Communication Ability: Effective 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 Beliefs That Will Affect Care: Denominational Denominational Beliefs: Jehovah Witness, no blood transfusions marital status: Current Living Situation: Spouse current occupational status: retired Other Information That Helps Us Care for You: No Feels Safe at Home: Yes Safety Concerns: Feels Safe At This Time Smoking Status: Former smoker Do You Dip or Chew Tobacco: No ; Second Hand Exposure: No ; Tobacco Cessation Education Requested by Patient: No Hx Alcohol Use: Yes Alcohol type: hard liquor Alcohol Intake Frequency: Rarely Hx Substance Use: No Review of Systems See HPI for pertinent positives & negatives. and A total of 10 systems reviewed and were otherwise negative Physical Exam Vital Signs Vital Signs - 24 hr 06/20/19 08:39 06/20/19 09:36 06/20/19 10:52 Temperature 36.8 C Temperature Source Oral Pulse Rate 75 Pulse Rate [Left Finger] 68 Pulse Rate from SpO2 Sensor Respiratory Rate 18 20 Respiratory Effort / Characteristics Non-Labored Respiratory Depth Normal Blood Pressure 159/72 H Blood Pressure [Left Arm] 146/73 H Blood Pressure Mean 101 Blood Pressure Mean [Left Arm] 97 Pulse Oximetry 96 96 Oxygen Delivery Method Room Air Room Air Room Air Sepsis Recent Fever Within 48 Hours No Sepsis New/Unexplained Change in Mental Status No Sepsis Action Taken by Nursing No Action Required 06/20/19 11:00 06/20/19 11:30 06/20/19 12:00 Temperature Temperature Source Pulse Rate 67 74 66 Pulse Rate [Left Finger] Pulse Rate from SpO2 Sensor 64 68 67 Respiratory Rate 18 18 17 Respiratory Effort / Characteristics Respiratory Depth Blood Pressure 154/88 H 143/80 H 127/69 Blood Pressure [Left Arm] Blood Pressure Mean 112 112 94 Blood Pressure Mean [Left Arm] Pulse Oximetry 94 99 97 Oxygen Delivery Method Sepsis Recent Fever Within 48 Hours Sepsis New/Unexplained Change in Mental Status Sepsis Action Taken by Nursing 06/20/19 12:30 06/20/19 13:00 06/20/19 13:34 Temperature Temperature Source Pulse Rate 74 70 70 Pulse Rate [Left Finger] Pulse Rate from SpO2 Sensor 72 60 71 Respiratory Rate 20 18 18 Respiratory Effort / Characteristics Respiratory Depth Blood Pressure 145/71 H 140/70 168/76 H Blood Pressure [Left Arm] Blood Pressure Mean 122 97 125 Blood Pressure Mean [Left Arm] Pulse Oximetry 97 96 96 Oxygen Delivery Method Sepsis Recent Fever Within 48 Hours Sepsis New/Unexplained Change in Mental Status Sepsis Action Taken by Nursing GENERAL: Patient appears fatigued. Awake, alert, in no distress HENT: Normocephalic, atraumatic. Oropharynx with dry mucous membranes and otherwise unremarkable. EYES: Normal conjunctiva. Sclera non-icteric. NECK: Supple. No nuchal rigidity. FROM. No JVD. RESPIRATORY: CTAB. CARDIAC: Regular rate, normal rhythm. Extremities warm and well perfused. Pulses equal. ABDOMEN: Generalized abdominal tenderness. Soft, non-distended. No rebound or guarding. No masses. RECTAL: Deferred. MUSCULOSKELETAL: Chest examination reveals no tenderness. The back is symmetrical on inspection without obvious abnormality. There is no CVA tende rness to palpation. No joint edema. LOWER EXTREMITIES: Calves are equal size bilaterally and non-tender. No edema. No discoloration. NEURO: Normal sensorium. No sensory or motor deficits noted. SKIN: No rash or jaundice noted. Course Course 914: The patient was evaluated in room B7, and a complete history and physical examination were performed. 1244: I reevaluated the patient at this time. 1311: I discussed the patients case with Flora Chairez PA-C. Dr. [facility] hospitalist will evaluate the patient for further management. Administered Medications Furosemide (Lasix) 80 mg PO [id number] PRADIP Stop: 07/20/19 16:59 Last Admin: 06/20/19 17:22 Dose: 80 mg Documented by: [id number] Dextrose/Sodium Chloride (D5w And 1/2nss) 1,000 mls @ 60 mls/hr IV .[id number] PARDIP Stop: 07/20/19 15:59 Last Admin: 06/20/19 16:24 Dose: 60 mls/hr Documented by: [id number] Discontinued Medications Sodium Chloride (Nss) 500 mls @ 999 mls/hr IV .Q31M ONE Stop: 06/20/19 09:46 Last Infusion: 06/20/19 11:12 Dose: 0 mls/hr Documented by: [id number] Admin: 06/20/19 10:34 Dose: 999 mls/hr Documented by: [id number] Famotidine (Pepcid 20mg Iv Push) 20 mg in 5 mls @ 2.5 mls/min IV NOW STA Stop: 06/20/19 09:19 Last Admin: 06/20/19 10:34 Dose: 2.5 mls/min Documented by: [id number] Prochlorperazine (Compazine) 1 mls @ 1 mls/min IV ONE ONE Stop: 06/20/19 09:19 Last Admin: 06/20/19 10:34 Dose: 1 mls/min Documented by: [id number] Acetaminophen (Ofirmev) 1,000 mg in 100 mls @ 400 mls/hr IV NOW STA Stop: 06/20/19 09:33 Last Infusion: 06/20/19 11:11 Dose: 0 mls/hr Documented by: [id number] Admin: 06/20/19 10:51 Dose: 400 mls/hr Documented by: [id number] Ioversol (Optiray 320 100ml) 92 ml IV ONCE PRN PRN Reason: Interaction Checking Stop: 06/24/19 10:38 Last Admin: 06/20/19 10:41 Dose: 92 ml Documented by: [id number] Morphine Sulfate (Morphine Sulfate) 2 mg IV NOW STA Stop: 06/20/19 13:15 Last Admin: 06/20/19 13:34 Dose: 2 mg Documented by: [id number] Medical Decision Making Differential Diagnosis Differential diagnoses includes but is not limited to gastritis, peptic ulcer disease, GERD, gallbladder disease, pancreatitis, small bowel obstruction, acute coronary syndrome, pericarditis, ischemic bowel, irritable bowel disease, irritable bowel syndrome, appendicitis, diverticulitis, malignancy, hernia, urinary tract infection, torsion, perforation, trauma, infectious. Medical Records Attestation: I reviewed the patient's medical records. Home Medications Current Medication List: was personally reviewed by me Laboratory Data Attestation: I reviewed the patient's lab results. Result diagrams: 06/20/19 09:50 06/20/19 09:50 Lab Results 06/20/19 06/20/19 Range/Units 09:50 09:50 WBC 9.39 (4.8-10.8) K/uL RBC 4.31 L (4.7-6.1) M/uL Hgb 13.1 L (14.0-18.0) g/dL Hct 39.6 L (42-52) % MCV 91.9 (80-100) fL MCH 30.4 (25-34) pg MCHC 33.1 (32-36) g/dL RDW Std Deviation 47.9 H (36.4-46.3) fL RDW Coeff of Maxim 14.2 (11.5-14.5) % Plt Count 244 (130-400) K/uL MPV 9.3 (7.4-10.4) fL Immature Gran % (Auto) 0.2 % Neut % (Auto) 81.6 % Lymph % (Auto) 9.9 % [place] % (Auto) 7.8 % Eos % (Auto) 0.2 % Baso % (Auto) 0.3 % Immature Gran # (Auto) 0.02 (0.00-0.02) K/uL Neut # (Auto) 7.66 H (1.4-6.5) K/uL Lymph # (Auto) 0.93 L (1.2-3.4) K/uL [place] # (Auto) 0.73 H (0.11-0.59) K/uL Eos # (Auto) 0.02 (0-0.5) K/uL Baso # (Auto) 0.03 (0-0.2) K/uL Sodium 138 (136-145) mmol/L Potassium 3.8 (3.5-5.1) mmol/L Chloride 104 (98-107) mmol/L Carbon Dioxide 30 (21-32) mmol/L Anion Gap 4.0 (3-11) BUN 22 H (7-18) mg/dl Creatinine 1.16 (0.6-1.4) mg/dl Est Cr Clr Drug Dosing Not Reportable Est GFR ( Amer) 64.8 Est GFR (Non-Af Amer) 55.9 BUN/Creatinine Ratio 19.2 (10-20) Glucose 115 H (70-99) mg/dl Calcium 9.1 (8.5-10.1) mg/dl Phosphorus 4.2 (2.5-4.9) mg/dl Magnesium 2.3 (1.8-2.4) mg/dl Total Bilirubin 0.6 (0.2-1) mg/dl AST 16 (15-37) U/L ALT 18 (12-78) U/L Alkaline Phosphatase 77 (45-117) U/L Troponin I 0.016 (0-0.045) ng/ml Total Protein 7.3 (6.4-8.2) gm/dl Albumin 3.4 (3.4-5.0) gm/dl Globulin 3.9 (2.5-4.0) gm/dl Albumin/Globulin Ratio 0.9 (0.9-2) Lipase 52 L (73-393) U/L Imaging Data Radiologist's Impression: Radiology results as stated below per my review and t he radiologist's interpretation: CT abd pelvis IV con only CLINICAL HISTORY: Abdominal pain, constipation, history of small bowel obstruction. COMPARISON STUDY: 06/15/2019 TECHNIQUE: The patient was scanned in a dynamic helical fashion during intravenous administration of 92 cc of Optiray 320. A dose lowering technique was utilized adhering to the principles of ALARA. CT DOSE: 1003.28 mGy.cm FINDINGS: Lower chest: There is a small to moderate right pleural effusion. There are coronary artery calcifications. There is a generator from a spinal stimulator within the soft tissues at the left posterior inferior back. There is a small amount of pericardial fluid present. Liver: The contrast-enhanced liver is normal in size, contour, and attenuation. There is no intrahepatic biliary ductal dilatation. The hepatic veins and portal veins are patent. Gallbladder: Mildly distended. No calculi identified. Spleen: Normal in size and attenuation. Pancreas: There is persistent pancreatic ductal dilatation. There is an apparent caliber change at the level of pancreatic head. A discrete mass is not visualized on CT imaging. An MRI or endoscopic ultrasound should be considered in follow-up. Adrenal glands: Unremarkable. Kidneys: There are bilateral renal cortical cysts. No solid renal masses are visualized. Bowel: There are fluid-filled small bowel loops minimally diminished in diameter when compared the preceding study. The distal small bowel is of normal caliber. The findings are again consistent with a partial small bowel obstruction. Peritoneum: There is no free air. There is increasing low volume ascites. Vasculature: The abdominal aorta is normal in course and caliber. Adenopathy: None. Pelvic viscera: The prostate is mildly enlarged Skeletal structures: Postsurgical changes are present within the cervical spine IMPRESSION: 1. Continued evidence for a partial small bowel obstruction with a distal ileal transition zone 2. Slight increase in the low volume ascites 3. No evidence of free intraperitoneal air 4. Persistent right pleural effusion 5. Persistent pancreatic ductal dilatation. Caliber change at the level of the pancreatic head. ACT 112: Negative or not required by law. Electronically signed by: Catarino Blanchard M.D. 06/20/2019 10:53 AM XR chest 1V portable HISTORY: 88 years-old Male Chest Pain acute atypical chest pain COMPARISON: Chest radiograph 06/16/2019 TECHNIQUE: Portable AP view of the chest FINDINGS: Reverse left shoulder total joint arthroplasty. Degenerative changes of the shoulders and spine. Cardiac silhouette is mildly enlarged, unchanged. Calcific plaque of the thoracic aortic arch. Eventration of the right hemidiaphragm. Chronic interstitial coarsening of the lung bases. Trace pleural effusions. No pneumothorax or overt pulmonary edema. Partially imaged battery pack projects over the central lower chest/epigastric region. Status post removal of the enteric tube. IMPRESSION: 1. Trace pleural effusions with persistent bibasilar opacities suggestive of atelectasis. 2. Mild cardiomegaly. ACT 112: Negative or not required by law. The above report was generated using voice recognition software. It may contain grammatical, syntax or spelling errors. Electronically signed by: Shorty Greenwood M.D. 06/20/2019 10:18 AM ECG Data Attestation: I personally reviewed and interpreted this ECG as follows: Indication: + abdominal pain (constipation) Rate (beats per minute): 75 Rhythm: + sinus rhythm ECG ST segments: no ST depression and no ST elevation ECG Findings: + PACs (frequent PACs), + PVCs and + Other (QT-c 442. ) Blood Pressure Blood Pressure Findings: Elevated blood pressure Blood Pressure Disposition: further management by hospitalist GLENYS Soto The patient is a pleasant 88-year-old gentleman with a past medical history of chronic back pain/chronic pain syndrome on chronic narcotics, GERD, hypertension, CKD who presents emergency department with recurrence of abdominal pain with nausea and vomiting and constipation in setting of being admitted to the hospital discharged several days ago after being admitted for SBO managed conservatively with NG tube and bowel rest. On arrival the patient is uncomfortable but no acute distress, afebrile stable vital signs. On exam patient has general abdominal tenderness without guarding or rebound. EKG without overt acute ischemia. Chest x-ray negative for acute process but with previous identified pleural effusion on the right.. WBC within normal limits. Platelets within normal limits. H/H 13.1/39.6 increased from recent admission likely related to a component of hemoconcentration in setting of the patient's clinically dry appearance. Chemistry without acidosis. Electrolytes and LFTs unremarkable. Troponin within normal limits. UA pending. The abdomen pelvis demonstrates continued evidence for partial bowel obstruction with distal ileal transition zone. Slight increase in low volume ascites. And persistent pancreatic ductal dilatation. Patient was reevaluated and reporting his pain was largely resolved after receiving Compazine, Pepcid, IV Tylenol and IV fluid hydration. However at this point he was feeling restless as he had not taken his [place] since last night. Given the patient's presenting symptoms with certainly could be consistent with recurrence of his bowel obstruction reasonable to admit the patient for further observation and management. Given his pain and nausea is currently resolved no indication for NG tube. Patient was given a low-dose of morphine given he is currently n.p.o. Case was discussed with Flora Contreras, [facility] PA-C, who evaluate the patient for admission. Impression & Plan Partial bowel obstruction, Chronic narcotic use, Dehydration, Abdominal pain Discharge Plan Visit Data *Final* Discharge Date/Time: 06/20/19 14:54 Chief Complaint: Constipation Stated Complaint: BOWEL OBSTRUCTION - PAINFUL ED Provider: Hawk Hickman Discharge Problem: Partial bowel obstruction, Chronic narcotic use, Dehydration, Abdominal pain Patient Disposition: Admitted As Inpatient Discharge Instructions Interventions: ED Discharge Assessment Last Done: 06/20/19 14:54 Discharge Problem: Partial bowel obstruction Qualifiers: Intestinal obstruction type: unspecified Qualified Code(s): K56.600 - Partial intestinal obstruction, unspecified as to cause The scribe's documentation has been prepared under my direction and personally reviewed by me in its entirety. I confirm that the note above accurately reflects all work, treatment, procedures, and medical decision making performed by me.
[2019-06-20] MEDS: DOCUSATE SODIUM 100 MG CAP PO SCH (20:36)
[2019-06-20] MEDS: TAMSULOSIN HCL 0.4 MG CAP PO SCH (20:36)
[2019-06-20] MEDS: POLYETHYLENE (MIRALAX) 17 GM PACK PO PRN (20:37)
[2019-06-20] MEDS: HEPARIN SOD 5,000 UNIT/0.5 ML VIAL SQ SCH (20:38)
[2019-06-21] MEDS: HEPARIN SOD 5,000 UNIT/0.5 ML VIAL SQ SCH ×3 (05:40→20:39)
[2019-06-21] MEDS: D5W AND 1/2NSS 1,000 ML IV SCH ×2 (07:29→23:14)
[2019-06-21] MEDS: FINASTERIDE 5 MG TAB PO SCH (07:32)
[2019-06-21] MEDS: FUROSEMIDE 80 MG TAB PO SCH ×2 (07:33→16:13)
[2019-06-21] MEDS: DOCUSATE SODIUM 100 MG CAP PO SCH ×2 (07:33→20:41)
[2019-06-21] MEDS: MULTIVITAMIN TAB PO SCH (07:34)
[2019-06-21 07:49] LABS: Hematocrit (blood only) 39.4 % (42-52); Mean Corpuscular Hemoglobin 30.3 pg (25-34); Mean Corpuscular Volume 91.8 fL (80-100); Mean Platelet Volume 9.8 fL (7.4-10.4); Platelet Count 278 K/uL (130-400); RDW Coefficient of Variation 14.2 % (11.5-14.5); RDW Standard Deviation 47.6 fL (36.4-46.3); Red Blood Count 4.29 M/uL (4.7-6.1); White Blood Count 8.81 K/uL (4.8-10.8)
[2019-06-21 08:04] LABS: BUN Creatinine Ratio 17.9 (10-20); Calcium 9.2 mg/dl (8.5-10.1); Creatinine Clr Calc Pharmacy 48.4 ml/min; Est GFR (African American) 75.7; Est GFR (Non-African American) 65.3; Potassium 3.3 mmol/L (3.5-5.1)
[2019-06-21] MEDS: POLYETHYLENE (MIRALAX) 17 GM PACK PO PRN (09:26)
[2019-06-21] MEDS: POTASSIUM CHLORIDE 20 MEQ TABCR PO SCH (09:28)
--- NOTE | 2019-06-21 13:24 | Surgery Consultation ---
Date of Consultation June 21, 2019 Assessment & Plan (1) Partial bowel obstruction: This is an 88y M with a PMH of chronic narcotic use due to back pain and history of inguinal hernia repairs who presents to the [facility] with abdominal pain & vomiting. Of note, the pt was recently admitted from 06/15-06/18 with partial SBO that was managed conservatively. Since this admission patient's abdominal pain is much improved. He still endorses some intermittent abd. cramping, but is overall much better. He currently denies nausea/vomiting. He had a large BM today and is passing flatus. Abdomen is soft and non distended. Would consider a trial of clear liquids today. Would advance diet slowly given recent re- admission. Patient seems aware that his chronic narcotic use may be contributing to these symptoms. Would continue to limit narcotics and wean as able. No indication for NGT at this time, but would consider should patient start having bouts of emesis. Agree with another trial of conservative management. We will continue to follow along. History of Present Illness Attending Physician: Katarina Pratt, History of Present Illness This is an 88yM with a PMH of chronic narcotic use related to back pain, prostate ca, and history of inguinal hernia repairs who presents to [facility] ED on 06/20/19 with abdominal pain and vomiting. Of significance the patient was recently admitted (06/15-06/18) for partial bowel obstruction, managed conservatively with NGT and bowel rest. On the day of discharge patient was tolerating a diet and having bowel function. Since discharge patient reports experiencing intermittent abdominal cramping and on the evening of 06/19 was not interested in eating dinner and ultimately vomited multiple times, prompting him to be re-evaluated in the ED. Patient denies passing flatus or having a BM once he was home. In the ED patient underwent a repeat CT a/p that showed evidence for a continued partial small bowel obstruction with a distal ileal transition zone. Patient was admitted under medicine service and made NPO with IVF. Today surgery was consulted for concern of persistent SBO. Allergies Allergy/AdvReac Type Severity Reaction Status Date / Time Uncoded Nonscreenable Allergy Unknown ELASTIC ON Uncoded 06/15/19 20:20 Allergen PANTS/UNDERWEAR Home Medications Home Medications Medication Instructions Recorded Confirmed Type docusate sodium 200 mg PO BID 06/15/19 06/20/19 History econazole 1 applic TOPICAL UD PRN 06/15/19 06/20/19 History finasteride [Proscar] 5 mg PO QAM 06/15/19 06/20/19 History furosemide [Lasix] 80 mg PO BID 06/15/19 06/20/19 History hydrocodone-acetaminophen 1 tab PO Q8 PRN 06/15/19 06/20/19 History multivitamin 1 tab PO QAM 06/15/19 06/20/19 History nystatin 1 applic TOPICAL TID PRN 06/15/19 06/20/19 History omeprazole 20 mg PO DAILY PRN 06/15/19 06/20/19 History polyethylene glycol 3350 [Miralax] 17 g PO QAM 06/15/19 06/20/19 History sennosides [senna] 17.2 mg PO QAM 06/15/19 06/20/19 History tamsulosin 0.8 mg PO HS 06/15/19 06/20/19 History oxycodone 30 mg PO BID PRN 06/20/19 06/20/19 History Patient History Medical History BPH (benign prostatic hyperplasia) (Chronic) Chronic pain syndrome (Chronic) CKD (chronic kidney disease) stage 3, GFR 30-59 ml/min GERD (gastroesophageal reflux disease) (Chronic) History of prostate cancer (Chronic) Status post radiation and hormone therapy Hypertension (Chronic) Refusal of blood transfusions as patient is Buddhism Urinary problem (Resolved) Surgical History History of back surgery History of dilation of urethra (Chronic) History of inguinal hernia repair (Chronic) History of left shoulder replacement (Chronic) History of prostate biopsy (Chronic) History of spinal fusion (Chronic) Hx of hernia repair Family History Mother Diabetes Brother Coronary heart disease Social History Preferred Language: Bolivian Communication Ability: Effective Knot Tier Required: No Beliefs That Will Affect Care: Druze Druze Beliefs: Jehovah Witness, no blood transfusions marital status: Current Living Situation: Spouse current occupational status: retired Other Information That Helps Us Care for You: No Feels Safe at Home: Yes Safety Concerns: Feels Safe At This Time Smoking Status: Former smoker Do You Dip or Chew Tobacco: No ; Second Hand Ex posure: No ; Tobacco Cessation Education Requested by Patient: No Hx Alcohol Use: Yes Alcohol type: hard liquor Alcohol Intake Frequency: Rarely Hx Substance Use: No Review of Systems Cardiovascular: no chest pain Gastrointestinal: + abdominal pain (intermittent cramping abd. pain), + vomiting and + constipation vomiting day prior to admission Physical Exam Physical Exam: awake/alert Respiratory: normal respiratory effort Gastrointestinal (Abdomen): Inspection/Auscultation: abdomen not distended Percussion/Palpation: + abdomen tender (mildly to palpation in central abdomen) and abdomen soft Results & Data Vital Signs (Past 12 Hours) Vital Signs Temp Pulse Pulse Resp BP BP Pulse Ox 06/21/19 11:00 37.0 C 20 138/76 98 06/21/19 08:50 109 H 06/21/19 07:04 36.7 C 67 18 150/74 H 96 06/21/19 04:13 37.0 C 65 19 143/[address] abd pelvis IV con only CLINICAL HISTORY: Abdominal pain, constipation, history of small bowel obstruction. COMPARISON STUDY: 06/15/2019 TECHNIQUE: The patient was scanned in a dynamic helical fashion during intravenous administration of 92 cc of Optiray 320. A dose lowering technique was utilized adhering to the principles of ALARA. CT DOSE: 1003.28 mGy.cm FINDINGS: Lower chest: There is a small to moderate right pleural effusion. There are coronary artery calcifications. There is a generator from a spinal stimulator within the soft tissues at the left posterior inferior back. There is a small amount of pericardial fluid present. Liver: The contrast-enhanced liver is normal in size, contour, and attenuation. There is no intrahepatic biliary ductal dilatation. The hepatic veins and portal veins are patent. Gallbladder: Mildly distended. No calculi identified. Spleen: Normal in size and attenuation. Pancreas: There is persistent pancreatic ductal dilatation. There is an apparent caliber change at the level of pancreatic head. A discrete mass is not visualized on CT imaging. An MRI or endoscopic ultrasound should be considered in follow-up. Adrenal glands: Unremarkable. Kidneys: There are bilateral renal cortical cysts. No solid renal masses are visualized. Bowel: There are fluid-filled small bowel loops minimally diminished in diameter when compared the preceding study. The distal small bowel is of normal caliber. The findings are again consistent with a partial small bowel obstruction. Peritoneum: There is no free air. There is increasing low volume ascites. Vasculature: The abdominal aorta is normal in course and caliber. Adenopathy: None. Pelvic viscera: The prostate is mildly enlarged Skeletal structures: Postsurgical changes are present within the cervical spine IMPRESSION: 1. Continued evidence for a partial small bowel obstruction with a distal ileal transition zone 2. Slight increase in the low volume ascites 3. No evidence of free intraperitoneal air 4. Persistent right pleural effusion 5. Persistent pancreatic ductal dilatation. Caliber change at the level of the pancreatic head. ACT 112: Negative or not required by law. Electronically signed by: Catarino Blanchard M.D. 06/20/2019 10:53 AM PG Care Time/CCT Total # of Minutes Spent Total Time Spent with Patient: Total time spent is greater than 50% in coordination of care (as documented) at patient's floor/unit and/or counseling patient: (1) Partial bowel obstruction Intestinal obstruction type: unspecified Qualified Code(s): K56.600 - Partial intestinal obstruction, unspecified as to cause
[2019-06-21] MEDS: HYDROCODONE/ACETAMINOPHEN 10/325 TAB PO PRN (20:39)
[2019-06-21] MEDS: TAMSULOSIN HCL 0.4 MG CAP PO SCH (20:39)
[2019-06-22] MEDS: HYDROCODONE/ACETAMINOPHEN 10/325 TAB PO PRN ×2 (03:25→15:36)
[2019-06-22] MEDS: HEPARIN SOD 5,000 UNIT/0.5 ML VIAL SQ SCH ×3 (05:09→21:17)
[2019-06-22 05:58] LABS: Hematocrit (blood only) 34.1 % (42-52); Hemoglobin 11.6 g/dL (14.0-18.0); Mean Corpuscular Hemoglobin 31.1 pg (25-34); Mean Corpuscular Volume 91.4 fL (80-100); Mean Platelet Volume 9.4 fL (7.4-10.4); Platelet Count 208 K/uL (130-400); RDW Standard Deviation 46.7 fL (36.4-46.3); Red Blood Count 3.73 M/uL (4.7-6.1); White Blood Count 6.54 K/uL (4.8-10.8)
[2019-06-22 06:34] LABS: BUN Creatinine Ratio 16.2 (10-20); Calcium 8.6 mg/dl (8.5-10.1); Est GFR (African American) 82.5; Est GFR (Non-African American) 71.2
--- NOTE | 2019-06-22 08:31 | Surgery Progress Note ---
Date of Service June 22, 2019 Assessment & Plan (1) Partial bowel obstruction: okay to adv diet as manpreet Supervising Physician Co-Signing Physician Notes Patient seen and examined, labs and imaging reviewed, agree with above. History of possible partial small bowel obstruction versus slow GI transit secondary to narcotics, readmitted with abdominal pain 2 days ago. He is now having bowel movements, passing gas, has no abdominal pain. He is tolerating a regular diet. Okay to advance diet as tolerated, may discharge if doing well. Subjective Patient says he is doing well. Having large BM's and passing Physical Exam Constitutional: WD/WN, vitals as above Gastrointestinal (Abdomen): normal bowel sounds, soft, nontender, no hepatosplenomegaly Results & Data Vital Signs (Past 12 Hours) Vital Signs Temp Pulse Resp BP Pulse Ox 06/22/19 07:54 36.5 C 80 16 153/67 H 97 06/21/19 23:20 36.9 C 65 16 144/81 H 96 PG Care Time/CCT Total # of Minutes Spent Total Time Spent with Patient: Total time spent is greater than 50% in coordination of care (as documented) at patient's floor/unit and/or counseling patient: (1) Partial bowel obstruction Intestinal obstruction type: unspecified Qualified Code(s): K56.600 - Partial intestinal obstruction, unspecified as to cause
[2019-06-22] MEDS: MULTIVITAMIN TAB PO SCH (09:07)
[2019-06-22] MEDS: FUROSEMIDE 80 MG TAB PO SCH ×2 (09:07→18:18)
[2019-06-22] MEDS: FINASTERIDE 5 MG TAB PO SCH (09:07)
[2019-06-22] MEDS: POTASSIUM CHLORIDE 20 MEQ TABCR PO SCH ×4 (09:08→21:16)
[2019-06-22] MEDS: DOCUSATE SODIUM 100 MG CAP PO SCH ×2 (09:11→21:25)
[2019-06-22] MEDS: cefTRIAXone SODIUM 1,000 MG in DEXTROSE 5% 50 ML IV SCH (10:29)
--- NOTE | 2019-06-22 17:18 | Hospitalist Progress Note ---
Date of Service June 22, 2019 Assessment & Plan (1) Partial bowel obstruction: chronic narcotic dependence, now off scheduled oxycodone and doing well. Will not continue this at discharge. He is eating and obstruction clinically appears resolved as he is passing flatus. Will plan for KUB in am and likely home after that. (2) Acute cystitis: Asymptomatic. Recently found pansensitive pseudomonas on prior hospitalization, however, this was not treated with abx. Repeat urine culture pending. Rocephin pending this result. (3) Chronic pain syndrome: off long acting narcotics this admission and doing well with minimal to no pain. (4) CKD (chronic kidney disease) stage 3, GFR 30-59 ml/min: Kidney function at baseline. Cont to monitor renal function intermittently and avoid nephrotoxic substances. (5) DVT prophylaxis: heparin Full Dispo- to home in am. Katarina Pratt DO [facility] Hospitalist Subjective Doing well, some loose stool today but starting to normalize. Tolerating food. Denies UTI symptoms but reports never having had any abx for a previously known positive culture. Review of Systems Review of Systems: All systems reviewed & are unremarkable except as noted in HPI & below Physical Exam Physical Exam: CONSTITUTIONAL: WNWD, vitals as above, generally well- appearing EYES: PERRL, normal conjunctivae ENT: MMM RESPIRATORY: clear to auscultation bilaterally, no crackles, rales or wheezes, normal respiratory effort CARDIOVASCULAR: regular rate and rhythm, S1 and 2 heard without murmurs, gallops or rubs, no JVD, no peripheral edema GASTROINTESTINAL: normal bowel sounds, soft, nontender, nondistended MUSCULOSKELETAL: strength 5/5 throughout, head is normocephalic and atraumatic SKIN: warm and dry NEUROLOGIC: CN 2-12 grossly intact, normal cognition. No gross focal deficits. PSYCHIATRIC: alert cooperative and oriented to person, place and time. Results & Data Vital Signs (Past 12 Hours) Vital Signs Temp Pulse Resp BP Pulse Ox 06/22/19 15:23 36.6 C 83 17 155/78 H 96 06/22/19 07:54 36.5 C 80 16 153/67 H 97 Laboratory Results Short CBC 06/22/19 Range/Units 05:42 WBC 6.54 (4.8-10.8) K/uL Hgb 11.6 L (14.0-18.0) g/dL Hct 34.1 L (42-52) % Plt Count 208 (130-400) K/uL BMP 06/22/19 05:42 Sodium 140 Potassium 3.0 L Chloride 108 H Carbon Dioxide 30 BUN 15 Creatinine 0.95 Glucose 103 H Calcium 8.6 Medications Administered Current Inpatient Medications Hydrocodone Bitart/Acetaminophen (Model 10/325) 1 tab PO Q8 PRN PRN Reason: Pain Stop: 07/04/19 15:31 Last Admin: 06/22/19 03:25 Dose: 1 tab Documented by: Docusate Sodium (Colace) 200 mg PO BID [facility]1983 Stop: 07/20/19 20:59 Last Admin: 06/22/19 09:11 Dose: 200 mg Documented by: Econazole Nitrate (Spectazole 1%) 1 appln TOP DAILY PRN PRN Reason: FLARE UPS Stop: 07/20/19 15:31 Finasteride (Proscar) 5 mg PO QAM [facility], [facility]1983 Stop: 07/21/19 08:59 Last Admin: 06/22/19 09:07 Dose: 5 mg Documented by: Furosemide (Lasix) 80 mg PO BID17 [facility], [facility]1983 Stop: 07/20/19 16:59 Last Admin: 06/22/19 09:07 Dose: 80 mg Documented by: Heparin Sodium (Porcine) (Heparin Sodium (Porcine)) 5,000 units SQ Q8 PRADIP Stop: 07/20/19 21:59 Last Admin: 06/22/19 14:06 Dose: 5,000 units Documented by: Acetaminophen (Ofirmev) 1,000 mg in 100 mls @ 400 mls/hr IV Q8H PRN PRN Reason: Pain Stop: 06/23/19 15:31 Ceftriaxone Sodium 1,000 mg/ (Dextrose) 50 mls @ 100 mls/hr IV Q24H [facility], [facility]1983; Protocol Stop: 06/27/19 09:44 Last Infusion: 06/22/19 11:05 Dose: Infused Documented by: Magnesium Hydroxide (Milk Of Magnesia) 30 ml PO Q6H PRN PRN Reason: Constipation Stop: 07/20/19 15:31 Multivitamins (Multivitamin Tab) 1 tab PO QAM [facility] Stop: 07/21/19 08:59 Last Admin: 06/22/19 09:07 Dose: 1 tab Documented by: Nystatin (Mycostatin) 1 appln EXT TID PRN PRN Reason: IRRITATION Stop: 07/20/19 15:31 Ondansetron HCl (Zofran) 4 mg IV Q6H PRN PRN Reason: Nausea Stop: 07/20/19 15:31 Pantoprazole Sodium (Protonix) 40 mg PO DAILY PRN PRN Reason: Acid Reflux Stop: 07/18/19 15:31 Polyethylene Glycol (Miralax Powder Packet) 17 gm PO Q12 PRN PRN Reason: Constipation Stop: 07/20/19 15:31 Last Admin: 06/21/19 09:26 Dose: 17 gm Documented by: Potassium Chloride (Klor-Con M20) 40 meq PO DAILY PRADIP Stop: 07/21/19 08:59 Last Admin: 06/22/19 09:08 Dose: 40 meq Documented by: Potassium Chloride (Klor-Con M20) 40 meq PO Q6H PRADIP Stop: 06/22/19 22:01 Last Admin: 06/22/19 15:38 Dose: 40 meq Documented by: Tamsulosin HCl (Flomax) 0.8 mg PO HS PRADIP Stop: 07/20/19 20:59 Last Admin: 06/21/19 20:39 Dose: 0.8 mg Documented by: (1) Partial bowel obstruction Intestinal obstruction type: unspecified Qualified Code(s): K56.600 - Partial intestinal obstruction, unspecified as to cause
--- NOTE | 2019-06-22 18:50 | Hospitalist Progress Note ---
Date of Service June 21, 2019 Assessment & Plan (1) Partial bowel obstruction: chronic narcotic dependence, now off scheduled oxycodone and doing well. Will not continue this at discharge. BM today, will start clears now and advance slowly. (2) Chronic pain syndrome: off long acting narcotics this admission and doing well with minimal to no pain. (3) CKD (chronic kidney disease) stage 3, GFR 30-59 ml/min: Kidney function at baseline. Cont to monitor renal function intermittently and avoid nephrotoxic substances. (4) DVT prophylaxis: heparin Full Dispo- to home when medically stable. Katarina Pratt, [facility] Subjective donig well today. Passing BM and abdominal pain resolved. Not started a diet yet. Doing well off long acting oxycodone. present at bedside. Review of Systems Review of Systems: All systems reviewed & are unremarkable except as noted in HPI & below Physical Exam Physical Exam: CONSTITUTIONAL: WNWD, vitals as above, generally well- appearing EYES: PERRL, normal conjunctivae ENT: MMM RESPIRATORY: clear to auscultation bilaterally, no crackles, rales or wheezes, normal respiratory effort CARDIOVASCULAR: regular rate and rhythm, S1 and 2 heard without murmurs, gallops or rubs, no JVD, no peripheral edema GASTROINTESTINAL: normal bowel sounds, soft, nontender, nondistended MUSCULOSKELETAL: strength 5/5 throughout, head is normocephalic and atraumatic SKIN: warm and dry NEUROLOGIC: CN 2-12 grossly intact, normal cognition. No gross focal deficits. PSYCHIATRIC: alert cooperative and oriented to person, place and time. Results & Data Vital Signs (Past 12 Hours) Vital Signs Temp Pulse Resp BP Pulse Ox 06/22/19 15:23 36.6 C 83 17 155/78 H 96 06/22/19 07:54 36.5 C 80 16 153/67 H 97 (1) Partial bowel obstruction Intestinal obstruction type: unspecified Qualified Code(s): K56.600 - Partial intestinal obstruction, unspecified as to cause
[2019-06-22] MEDS: TAMSULOSIN HCL 0.4 MG CAP PO SCH (21:15)
[2019-06-23] MEDS: HYDROCODONE/ACETAMINOPHEN 10/325 TAB PO PRN ×2 (01:16→14:06)
[2019-06-23] MEDS: HEPARIN SOD 5,000 UNIT/0.5 ML VIAL SQ SCH ×2 (05:21→14:01)
--- NOTE | 2019-06-23 07:20 | XRay Report ---
XR KUB/Abdomen 1 view CLINICAL HISTORY: track resolution of SBO COMPARISON STUDY: 06/18/2019 FINDINGS: There are postsurgical changes present within the lumbar spine. There is a spinal fusion. T he left spinal slime is fractured. There is a lumbar stimulator device present. There is gas within mil dly prominent small bowel loops measuring up to 37 mm in diameter. IMPRESSION: Borderline small bowel dilatation with bowel loops measuring up to 37 mm in diameter. ACT 112: Negative or not required by law. Electronically signed by: Catarino Blanchard M.D. 06/23/2019 7:19 AM
[2019-06-23] MEDS ORDERED: POTASSIUM CHLORIDE 20 MEQ TABCR PO SCH (09:00)
[2019-06-23] MEDS: FUROSEMIDE 80 MG TAB PO SCH (09:42)
[2019-06-23] MEDS: POTASSIUM CHLORIDE 20 MEQ TABCR PO SCH (09:43)
[2019-06-23] MEDS: MULTIVITAMIN TAB PO SCH (09:43)
[2019-06-23] MEDS: FINASTERIDE 5 MG TAB PO SCH (09:43)
[2019-06-23] MEDS: DOCUSATE SODIUM 100 MG CAP PO SCH (09:46)
[2019-06-23] MEDS: cefTRIAXone SODIUM 1,000 MG in DEXTROSE 5% 50 ML IV SCH (09:48)
--- NOTE | 2019-06-23 12:11 | Discharge Summary ---
Date of Service June 23, 2019 Admission HPI Per Admitting Provider This is a 88yo M with a PMH of chronic pain syndrome with opioid/narcotic dependence, CKD III, chronic lower extremity edema, h/o prostate cancer s/p radiation treatment and other medical problems listed below who presents with constipation and abdominal pain x 2 days. Patient was recently admitted to our service for moderate SBO with transition point within the right lower quadrant in setting of chronic opioid use and was treated conservatively with bowel rest and NG tube. Was also advised to decrease chronic long acting opioids to decrease likelihood of recurrence. Patient had bowel movements on 06/17/19 and general surgery service removed NG tube. KUB 06/18/2019 showed resolution of bowel obstruction and patient was discharged home on reduced oxycodone dose to 30mg BID. Since discharge home on 06/18/19, patient felt much improved and was tolerating diet without issue. Last evening, he developed central abdominal discomfort associated with one episode of nausea and vomiting. Has been passing flatus but no BM since 06/17/19. When abdominal pain continued to persist and worsen, brought patient back to ED for further evaluation. Currently, patient endorses 6/10 central abdominal pain. Denies fever, chills, lightheadedness, chest pain, SOB, nausea or vomiting. Endorses cloudy urine over the past few days. No increased frequency/urgency or hematuria. Discharge Data Allergies Allergy/AdvReac Type Severity Reaction Status Date / Time Uncoded Nonscreenable Allergy Unknown ELASTIC ON Uncoded 06/15/19 20:20 Allergen PANTS/UNDERWEAR Consultations 06/20/19 13:16 ED Decision to Admit Stat 06/21/19 12:13 Consult General Surgery Routine Ordered Studies 06/20/19 09:16 CT abd pelvis IV con only Stat Hospital Course (1) Partial bowel obstruction: chronic narcotic dependence, now off scheduled oxycodone and doing well. Will not continue this at discharge. BM today, will start clears now and advanc e slowly. (2) Chronic pain syndrome: off long acting narcotics this admission and doing well with minimal to no pain. (3) CKD (chronic kidney disease) stage 3, GFR 30-59 ml/min: Kidney function at baseline. Cont to monitor renal function intermittently and avoid nephrotoxic substances. (4) DVT prophylaxis: heparin Full Dispo- to home when medically stable. [facility] Dis[facility] Discharge Items Patient Disposition: Home - Self-Care Reason For Visit: CONSTIPATION,PARTIAL SBO,ABD PAIN Discharge Diagnosis: partial SBO chronic narcotic use opioid induced constipation Pseudomonas UTI Condition on Discharge: Good Activity: Resume your previous activity Non-emergency contact: Primary Care Provider Call non-emergency contact if: you have any medication questions, your symptoms worsen, your pain is not controlled, your pain is worsening, your pain is unusual for you, your pain is concerning for you and you have a fever Follow-up/Referrals: Tani Duval MD [Primary Care Provider] - 06/30/19 10:45 am Diet: Low Fiber Addtl Attending Provider Instructions: Please take all medications as instructed on discharge list below. Please note the discontinuation of many medications including narcotics and stool softeners/laxatives. You have the follow-up hospital discharge appointment: 06/30/2019 11:00 AM Tani Duval MD [facility] This visit is to ensure that your bowels are continuing to normalize, your pain remains controlled, you are having no issues with the antibiotic or urine infection, and to discuss the possibility of an MRI of your pancreas to further look into an abnormality seen on imaging performed in the hospital. It was a pleasure taking care of you! Please call if you have any questions or problems. You can reach a [facility] hospitalist on duty at [facility] 24 hours a day by calling [phone]. Take care of yourself. Katarina Pratt DO [facility] Pending Studies at Discharge: No Stand-Alone Forms: My [facility], Smoking Cessation Medications and DC Order Prescriptions: New ciprofloxacin HCl 500 mg tablet 500 mg PO BID Qty: 10 RF: 0 Continued multivitamin Tablet 1 tab PO QAM RF: 0 polyethylene glycol 3350 [Miralax] 17 gram Powder In Packet 17 g PO QAM RF: 0 hydrocodone-acetaminophen 10-325 mg tablet 1 tab PO Q8 PRN (Reason: Pain) RF: 0 tamsulosin 0.4 mg capsule 0.8 mg PO HS RF: 0 econazole 1 % cream 1 applic TOPICAL UD PRN (Reason: FLARE UPS) RF: 0 nystatin 100,000 unit/gram powder 1 applic TOPICAL TID PRN (Reason: IRRITATION) RF: 0 omeprazole 20 mg Tablet,Delayed Release (Dr/Ec) 20 mg PO DAILY PRN (Reason: Acid Reflux) RF: 0 furosemide [Lasix] 40 mg Tablet 80 mg PO BID RF: 0 finasteride [Proscar] 5 mg Tablet 5 mg PO QAM RF: 0 potassium chloride 10 meq PO DAILY RF: 0 Discontinued sennosides [senna] 8.6 mg Tablet 17.2 mg PO QAM RF: 0 docusate sodium 100 mg Capsule 200 mg PO BID RF: 0 oxycodone 60 mg tablet,oral only,ext.rel.12 hr 30 mg PO BID PRN (Reason: Pain) RF: 0 Discharge Orders: Discharge Order (Routine); Ordered 06/23/19 Ordered By: Katarina Gar/Adriana Patient Handouts: UTI Admission Data Admit Date/Time: 06/20/19 14:00 Attending Provider: Katarina Pratt Admit Provider: Prashanth Francisco Primary Care Provider: Tani Duval Other Providers: Prashanth Francisco ; Mohsen Sullivan Other Interventions: Discharge Summary Assessment (RN) Last Done: 06/23/19 13:54 DC Date/Time DO NOT enter until pt leaves facility: 06/23/19 16:49
--- NOTE | 2019-06-23 12:38 | Surgery Progress Note ---
Date of Service June 23, 2019 Assessment & Plan (1) Partial bowel obstruction: Patient here with readmission for partial small bowel obstruction Clinically he is doing much better from admission Abdominal pain improved, no nausea/vomiting, having bowel function and tolerating a diet KUB this AM revealed borderline dilated small bowel loops; may be chronic for him has he has been on [facility] narcotics which are being weaned off Okay to discharge from surgical standpoint. Would give patient some literature on a low fiber diet to follow while at home Subjective Patient states he is doing well. He is having bowel movements. Tolerating a low fiber diet. He still has some mild intermittent soreness to abdomen that is otherwise much improved. Denies nausea/vomiting. Physical Exam Physical Exam: awake/alert Respiratory: normal respiratory effort Gastrointestinal (Abdomen): Inspection/Auscultation: abdomen not distended Percussion/Palpation: abdomen soft; abdomen nontender Results & Data Vital Signs (Past 12 Hours) Vital Signs Temp Pulse Resp BP Pulse Ox 06/23/19 07:28 36.9 C 82 19 143/70 H 100 XR KUB/Abdomen 1 view CLINICAL HISTORY: track resolution of SBO COMPARISON STUDY: 06/18/2019 FINDINGS: There are postsurgical changes present within the lumbar spine. There is a spinal fusion. The left spinal slime is fractured. There is a lumbar stimulator device present. There is gas within mildly prominent small bowel loops measuring up to 37 mm in diameter. IMPRESSION: Borderline small bowel dilatation with bowel loops measuring up to 37 mm in diameter. ACT 112: Negative or not required by law. Electronically signed by: Catarino Blanchard M.D. 06/23/2019 7:19 AM PG Care Time/CCT Total # of Minutes Spent Total Time Spent with Patient: Total time spent is greater than 50% in coordination of care (as documented) at patient's floor/unit and/or counseling patient: (1) Partial bowel obstruction Intestinal obstruction type: unspecified Qualified Code(s): K56.600 - Partial intestinal obstruction, unspecified as to cause
== END 2019-06-23 16:49 | disposition home or self-care (01) | DRG 389 ==
LOC: ED 08:38 → 2W 14:00 → SUATTDRO 14:00 → 2W 14:54 → 3W 06-21 22:26

== ENCOUNTER 2019-06-28 16:20 | Inpatient (IN) ==
[2019-06-28] MEDS ORDERED: SODIUM CHLORIDE 0.9% 500 ML IV ONE (17:41)
[2019-06-28 18:00] LABS: Basophils # (auto) 0.05 K/uL (0-0.2); Basophils % (auto) 0.5 %; Eosinophils # (auto) 0.09 K/uL (0-0.5); Eosinophils % (auto) 0.8 %; Hematocrit (blood only) 39.6 % (42-52); Hemoglobin 13.2 g/dL (14.0-18.0); Immature Granulocytes # (auto) 0.02 K/uL (0.00-0.02); Immature Granulocytes % (auto) 0.2 %; Lymphocytes # (auto) 1.24 K/uL (1.2-3.4); Lymphocytes % (auto) 11.2 %; Mean Corpuscular Hemoglobin 30.4 pg (25-34); Mean Corpuscular Hgb Conc 33.3 g/dL (32-36); Mean Corpuscular Volume 91.2 fL (80-100); Mean Platelet Volume 9.4 fL (7.4-10.4); Monocytes # (auto) 1.06 K/uL (0.11-0.59); Monocytes % (auto) 9.6 %; Neutrophils # (auto) 8.57 K/uL (1.4-6.5); Neutrophils % (auto) 77.7 %; Platelet Count 311 K/uL (130-400); RDW Coefficient of Variation 14.2 % (11.5-14.5); RDW Standard Deviation 47.6 fL (36.4-46.3); Red Blood Count 4.34 M/uL (4.7-6.1); White Blood Count 11.03 K/uL (4.8-10.8)
--- NOTE | 2019-06-28 18:05 | XRay Report ---
XR chest 1V portable CLINICAL HISTORY: 88 years-old Male presenting with Chest Pain. TECHNIQUE: Portable upright AP view of the chest was obtained. COMPARISON: 06/20/2019. FINDINGS: Implanted medical accounts receivable specialist projects over the epigastrium and cardiac silhouette. Atherosclerosis of the aortic arch. Cardiac silhouette borderline enlarged. No focal opacity. No pneumothorax. Persistent b lunting of the right costophrenic angle may indicate trace pleural effusion. Degenerative changes of the thoracic spine. Severe degenerative changes of the right shoulder with chronic rotator cuff tear. Reverse total left shoulder arthroplasty. Upper abdomen normal. IMPRESSION: 1. Trace right pleural effusion as on prior exam. 2. Borderline cardiomegaly. No volume overload or congestive change. 3. No other evidence of acute cardiopulmonary disease. ACT 112: Negative or not required by law. Electronically signed by: Vineet Palm M.D. 06/28/2019 6:03 PM
[2019-06-28 18:14] LABS: Alanine Aminotransferase 26 U/L (12-78); Albumin Level 3.5 gm/dl (3.4-5.0); Aspartate Aminotransferase 21 U/L (15-37); BUN Creatinine Ratio 20.5 (10-20); Blood Urea Nitrogen 29 mg/dl (7-18); Calcium 9.3 mg/dl (8.5-10.1); Carbon Dioxide 24 mmol/L (21-32); Chloride 102 mmol/L (98-107); Est GFR (African American) 50.3; Est GFR (Non-African American) 43.4; Glucose 128 mg/dl (70-99); Lipase 90 U/L (73-393); Magnesium 2.4 mg/dl (1.8-2.4); Potassium 3.9 mmol/L (3.5-5.1); Sodium 135 mmol/L (136-145)
[2019-06-28 18:25] LABS: Alkaline Phosphatase 65 U/L (45-117); Bilirubin,Total 0.5 mg/dl (0.2-1); Globulin 3.7 gm/dl (2.5-4.0); Phosphorus 3.7 mg/dl (2.5-4.9); Total Protein 7.2 gm/dl (6.4-8.2); Troponin I 0.017 ng/ml (0-0.045)
[2019-06-28 19:29] LABS: Appearance Urine Cloudy (Clear); Bacteria Urine Automated Negative (Negative); Bilirubin Urine Negative (Negative); Blood Urine Trace (Negative); Color Urine Yellow; Epithelial Cell Urine Auto 20-30 /lpf (0-5); Glucose Urine UA Negative (Negative); Ketones Urine Negative (Negative); Leukocyte Esterase Urine Trace (Negative); Nitrite Urine Negative (Negative); Protein Urine Negative (Negative); RBC Urine Automated 0-4 /hpf (0-4); Specific Gravity Urine 1.013 (1.000-1.030); Urobilinogen Urine Negative (Negative); WBC Urine Automated >30 /hpf (0-5)
[2019-06-28] MEDS ORDERED: IOVERSOL 100ml IV PRN (20:22)
--- NOTE | 2019-06-28 20:55 | CT Scan Report ---
CT abd pelvis oral and IV con CLINICAL HISTORY: 88 years-old Male presenting with abd pain ?SBO. TECHNIQUE: Multidetector CT of the abdomen and pelvis was performed after the administration of oral and intravenous contrast. IV contrast: 90 mL of Optiray 320. One or more dose lowering techniques wer e used consistent with the principles of ALARA (as low as reasonably achievable), including automatic exposure control, mA or kV adjustment to individual patient size, and/or use of iterative reconstruc tion. COMPARISON: 06/20/2019. CT DOSE (mGy.cm): The estimated cumulative dose is 1453.43 mGy.cm. FINDINGS: Mailroom Clerk topogram: Dilated small bowel. Lung bases: Normal heart size. Coronary artery and aortic valve calcification. Small right pleural ef fusion. Minimal dependent changes in the right lung likely atelectasis. Liver: Macronodular contour. Trace perihepatic ascites. Mild periportal edema may be present. No foca l lesion. Patent hepatic vasculature. Biliary: No intrahepatic or extrahepatic biliary ductal dilatation. The gallbladder is likely physiol ogically distended. No gallbladder wall thickening or pericholecystic fluid or inflammatory change. Pancreas: Moderate parenchymal atrophy of the pancreas with significant pancreatic ductal dilatation measuring up to 9 mm at the level of the pancreatic head. This is unchanged from prior. No gross evid ence of a pancreatic head mass. Spleen: Normal. Adrenal glands: Normal. Kidneys and ureters: Multiple cysts bilaterally, which are simple appearing. Parenchymal atrophy may be present to a mild degree. No nephrolithiasis or hydronephrosis. Ureters nondistended. Bladder: The urinary bladder is distended. Pelvic organs: Prostate enlargement likely secondary to benign prostatic hyperplasia. Bowel: Significant dilation of small bowel to the level of the distal ileum. The terminal ileum is de compressed. There is a focal transition point in the right mid abdomen (series 3 image 193). There is no mass or other abnormality at this site, which suggests underlying adhesions. Feces noted in the s mall bowel at this site up stream. Small bowel is a dilated up to 4.5 cm. No pneumatosis. Trace slidi ng type hiatal hernia suggested. Peritoneal cavity: Small volume of abdominopelvic ascites. No free intraperitoneal gas. Lymph nodes: No enlarged lymph nodes in the abdomen or pelvis. Vasculature: Atherosclerosis of the normal caliber abdominal aorta. IVC patent. Abdominal wall: Gynecomastia. Musculoskeletal: Degenerative changes of the spine. Degenerative changes of the bilateral hips. Poste rior lumbar fusion hardware with laminectomy defects. Partially visualized internal fixation of the l eft humerus. Spinal device with 2 catheters or leads in place. IMPRESSION: 1. Complete small bowel obstruction with a transition point in the right mid abdomen at the level of the distal ileum. This appears to be due to adhesions. 2. Small volume ascites. 3. Small right pleural effusion. 4. Chronic pancreatic ductal dilatation. No obstructing mass or calculus. May be due to a benign str icture. This is unchanged. ACT 112: Negative or not required by law. Electronically signed by: Vineet Palm M.D. 06/28/2019 8:53 PM
--- NOTE | 2019-06-28 22:36 | Emergency Department Note ---
Entered by Ena Oden acting as a scribe for Hawk Hickman MD History of Present Illness General Chief complaint: GI Assessment Stated complaint: STOMACH PAIN, BOWEL BLOCKAGE Time Seen by Provider: 06/28/19 17:19 Source: patient History of Present Illness Provider complaint: constipation Onset (ago): day(s) 6 Severity: similar to prior episodes Pain Consistency: + constant Maximum Pain Intensity: 2 Relieved By: + none Exacerbated By: + none Associated symptoms: + weakness and + other (-congestion); no cough, no fever/chills and no nausea/vomiting The patient is a 88 year old male who presents to the Emergency Room with complaints of constipation for the past 6 days. The patient reports that he was in the ED on the for constipation and states that he was discharged home without having a bowel movement. He notes that his symptoms have not resolved since then. He states that he has constant abdominal pain. He denies any nausea, vomiting, fever, cough, or congestion. He reports that he has been weak. Home Medications Home Medications Medication Instructions Recorded Confirmed Type econazole 1 applic TOPICAL UD PRN 06/15/19 06/28/19 History finasteride [Proscar] 5 mg PO QAM 06/15/19 06/28/19 History furosemide [Lasix] 80 mg PO BID 06/15/19 06/28/19 History hydrocodone-acetaminophen 1 tab PO Q8 PRN 06/15/19 06/28/19 History multivitamin 1 tab PO QAM 06/15/19 06/28/19 History nystatin 1 applic TOPICAL TID PRN 06/15/19 06/28/19 History omeprazole 20 mg PO DAILY PRN 06/15/19 06/28/19 History polyethylene glycol 3350 [Miralax] 17 g PO QAM 06/15/19 06/28/19 History tamsulosin 0.8 mg PO HS 06/15/19 06/28/19 History ciprofloxacin HCl 500 mg PO BID #10 tab 06/23/19 06/28/19 Rx potassium chloride 10 meq PO DAILY 06/28/19 06/28/19 History Allergies Allergy/AdvReac Type Severity Reaction Status Date / Time Uncoded Nonscreenable Allergy Unknown ELASTIC ON Uncoded 06/28/19 17:54 Allergen PANTS/UNDERWEAR Past Med/Surg History Medical History BPH (benign prostatic hyperplasia) (Chronic) Chronic pain syndrome (Chronic) CKD (chronic kidney disease) stage 3, GFR 30-59 ml/min GERD (gastroesophageal reflux disease) (Chronic) History of prostate cancer (Chronic) Status post radiation and hormone therapy Hypertension (Chronic) Refusal of blood transfusions as patient is Jainism Urinary problem (Resolved) Surgical History History of back surgery History of dilation of urethra (Chronic) History of inguinal hernia repair (Chronic) History of left shoulder replacement (Chronic) History of prostate biopsy (Chronic) History of spinal fusion (Chronic) Hx of hernia repair Family History Mother Diabetes Brother Coronary heart disease Social History Preferred Language: Wolof Communication Ability: Effective Lathe Spotter Required: No Beliefs That Will Affect Care: Sabianism Sabianism Beliefs: Jehovah Witness, no blood transfusions marital status: Current Living Situation: Spouse current occupational status: retired Feels Safe at Home: Yes Smoking Status: Former smoker Second Hand Exposure: No ; Hx Alcohol Use: Yes Alcohol type: hard liquor Alcohol Intake Frequency: Rarely Hx Substance Use: No Review of Systems See HPI for pertinent positives & negatives. and A total of 10 systems reviewed and were otherwise negative Physical Exam Vital Signs Vital Signs - 24 hr 06/28/19 16:45 06/28/19 18:31 06/28/19 18:32 Temperature 37.1 C Temperature Source Oral Pulse Rate 82 81 84 Pulse Rate [Apical] Pulse Rate from SpO2 Sensor 77 83 Respiratory Rate 20 21 23 Respiratory Effort / Characteristics Non-Labored Respiratory Depth Normal Blood Pressure 140/68 142/84 H Blood Pressure [Right Arm] Blood Pressure Mean 92 118 Blood Pressure Mean [Right Arm] Pulse Oximetry 98 98 97 Oxygen Delivery Method Room Air Sepsis Recent Fever Within 48 Hours No Sepsis Action Taken by Nursing No Action Required 06/28/19 19:15 06/28/19 21:19 Temperature Temperature Source Pulse Rate Pulse Rate [Apical] 80 82 Pulse Rate from SpO2 Sensor Respiratory Rate 18 18 Respiratory Effort / Characteristics Respiratory Depth Blood Pressure Blood Pressure [Right Arm] 134/75 118/75 Blood Pressure Mean Blood Pressure Mean [Right Arm] 94 89 Pulse Oximetry 99 98 Oxygen Delivery Method Room Air Room Air Sepsis Recent Fever Within 48 Hours Sepsis Action Taken by Nursing GENERAL: Awake, alert, well-appearing, in no distress HENT: Normocephalic, atraumatic. Oropharynx with dry mucous membranes and otherwise unremarkable. . EYES: Normal conjunctiva. Sclera non-icteric. NECK: Supple. No nuchal rigidity. FROM. No JVD. RESPIRATORY: CTAB CARDIAC: Regular rate, normal rhythm. Extremities warm and well perfused. Pulses equal. ABDOMEN: Soft, non-distended. Generalized abdominal discomfort without discrete tenderness to palpation. No rebound or guarding. No masses. RECTAL: Deferred. MUSCULOSKELETAL: Chest examination reveals no tenderness. The back is sy mmetrical on inspection without obvious abnormality. There is no CVA tenderness to palpation. No joint edema. LOWER EXTREMITIES: Calves are equal size bilaterally and non-tender. No edema. No discoloration. NEURO: Normal sensorium. No sensory or motor deficits noted. SKIN: No rash or jaundice noted. Course Course 1733: The patient was evaluated in room C7, and a complete history and physical examination were performed. Administered Medications Ioversol (Optiray 320 100ml) 90 ml IV ONCE PRN PRN Reason: Interaction Checking Stop: 07/02/19 20:21 Last Admin: 06/28/19 20:22 Dose: 90 ml Documented by: [id number] Discontinued Medications Sodium Chloride (Nss) 500 mls @ 999 mls/hr IV .Q31M ONE Stop: 06/28/19 18:11 Last Infusion: 06/28/19 18:31 Dose: 0 mls/hr Documented by: [id number] Admin: 06/28/19 18:00 Dose: 999 mls/hr Documented by: [id number] Medical Decision Making Differential Diagnosis Differential diagnosis: Etiologies such as appendicitis, diverticulitis, PUD, biliary pathology, UTI, pancreatitis, obstruction, mesenteric ischemia, aortic pathology, infections, inflammatory bowel disease, renal colic, as well as other s were entertained. Medical Records Attestation: I reviewed the patient's medical records. Home Medications Current Medication List: was personally reviewed by me Laboratory Data Attestation: I reviewed the patient's lab results. Result diagrams: 06/28/19 17:50 06/28/19 17:50 Lab Results 06/28/19 06/28/19 06/28/19 Range/Units 17:50 17:50 19:16 WBC 11.03 H (4.8-10.8) K/uL RBC 4.34 L (4.7-6.1) M/uL Hgb 13.2 L (14.0-18.0) g/dL Hct 39.6 L (42-52) % MCV 91.2 (80-100) fL MCH 30.4 (25-34) pg MCHC 33.3 (32-36) g/dL RDW Std Deviation 47.6 H (36.4-46.3) fL RDW Coeff of Maxim 14.2 (11.5-14.5) % Plt Count 311 (130-400) K/uL MPV 9.4 (7.4-10.4) fL Immature Gran % (Auto) 0.2 % Neut % (Auto) 77.7 % Lymph % (Auto) 11.2 % Emery % (Auto) 9.6 % Eos % (Auto) 0.8 % Baso % (Auto) 0.5 % Immature Gran # (Auto) 0.02 (0.00-0.02) K/uL Neut # (Auto) 8.57 H (1.4-6.5) K/uL Lymph # (Auto) 1.24 (1.2-3.4) K/uL Emery # (Auto) 1.06 H (0.11-0.59) K/uL Eos # (Auto) 0.09 (0-0.5) K/uL Baso # (Auto) 0.05 (0-0.2) K/uL Sodium 135 L (136-145) mmol/L Potassium 3.9 (3.5-5.1) mmol/L Chloride 102 (98-107) mmol/L Carbon Dioxide 24 (21-32) mmol/L Anion Gap 8.0 (3-11) BUN 29 H (7-18) mg/dl Creatinine 1.43 H (0.6-1.4) mg/dl Est Cr Clr Drug Dosing Not Reportable Est GFR ( Amer) 50.3 Est GFR (Non-Af Amer) 43.4 BUN/Creatinine Ratio 20.5 H (10-20) Glucose 128 H (70-99) mg/dl Calcium 9.3 (8.5-10.1) mg/dl Phosphorus 3.7 (2.5-4.9) mg/dl Magnesium 2.4 (1.8-2.4) mg/dl Total Bilirubin 0.5 (0.2-1) mg/dl AST 21 (15-37) U/L ALT 26 (12-78) U/L Alkaline Phosphatase 65 (45-117) U/L Troponin I 0.017 (0-0.045) ng/ml Total Protein 7.2 (6.4-8.2) gm/dl Albumin 3.5 (3.4-5.0) gm/dl Globulin 3.7 (2.5-4.0) gm/dl Albumin/Globulin Ratio 1.0 (0.9-2) Lipase 90 (73-393) U/L TSH 1.500 (0.300-4.500) uIu/ml Urine Color Yellow Urine Appearance Cloudy A (Clear) Urine pH 5.0 (4.5-7.5) Ur Specific [place] 1.013 (1.000-1.030) Urine Protein Negative (Negative) Urine Glucose (UA) Negative (Negative) Urine Ketones Negative (Negative) Urine Blood Trace H (Negative) Urine Nitrite Negative (Negative) Urine Bilirubin Negative (Negative) Urine Urobilinogen Negative (Negative) Ur Leukocyte Esterase Trace H (Negative) Urine WBC (Auto) >30 H (0-5) /hpf Urine RBC (Auto) 0-4 (0-4) /hpf U Hyaline Cast (Auto) 5-10 H (0-5) /lpf U Epithel Cells (Auto) 20-30 H (0-5) /lpf Urine Bacteria (Auto) Negative (Negative) ECG Data Attestation: I personally reviewed and interpreted this ECG as follows: Indication: + abdominal pain Rate (beats per minute): 73 Rhythm: + sinus rhythm ECG Intervals/blocks: + Normal QRS (100) and + Normal QT-c (440) ECG Semora: + Normal ECG ST segments: no ST depression and no ST elevation Blood Pressure Blood Pressure Findings: Elevated blood pressure MDM Narrative The patient is a pleasant 88-year-old gentleman with a past medical history of recurrent partial small bowel obstructions, history of CKD, hypertension, Jainism who presents emergency department with worsening abdominal pain and report of no bowel movements since his recent discharge on 06/23 in the setting of having an admission on 06/16 and again on 06/20 for similar symptoms of abdominal pain with associated nausea and vomiting per HPI. On patient's prior admissions his first admission was much more severe where he required NG tube for decompression and subsequently had improvement in symptoms thereafter. The patient's second visit his symptoms were less severe and did not require NG tube decompression and improved with bowel rest. Today he presents with abdominal pain only which had essentially resolved upon arrival and did not report any vomiting with this episode but again is concerned that he had not have a bowel movement. On arrival the patient is in no acute distress, afebrile stable vital signs. The patient is relatively well-appearing. He appears clinically dry. Abdomen has generalized abdominal discomfort without discrete tenderness to palpation and without guarding or rebound. WBC 11, nonspecific. H/H 13.2/39.6 approximate 2 prior range of values. Platelets within normal limits. Chemistry without acidosis. Creatinine 1.4 increased from recent however similar to prior values in the setting of a history of CKD. Electrolytes no FTs otherwise unremarkable. Troponin within normal limits at 0.017. Lipase within normal limits. UA with WBCs however with epithelial cells. Patient recently completed course of ciprofloxacin on his last admission after growing pansensitive Pseudomonas in his urine. No bacteria present today will defer treatment awaiting urine culture. Today, a CT abdomen pelvis with IV and oral contrast was performed to further clarify the patient's recurrent symptoms and evidence of SBO. Results were interpreted as complete bowel obstruction with transition point in the right mid abdomen at the level of the distal ileum. However the patient certainly appears much better than his prior presentations. I did review the CT findings with general surgery on-call, Dr. Moody, and given that the patient does not appear particularly symptomatic at this time agrees with admission to medicine service and consultation with general surgery in the morning with either Dr. Pineda or Dr. Sullivan who had evaluated the patient on prior admissions. Pains were reviewed with the patient as well as with the patient's over the phone and emphasized that given the patient was well- appearing is not clear if surgery will be required. However will depend on surgery's input tomorrow morning. Case was discussed with Dr. Dominguez, [facility] hospitalist, who evaluate the patient for admission. Impression & Plan SBO (small bowel obstruction), Chronic pain syndrome, Chronic narcotic use, CKD (chronic kidney disease) Discharge Plan Visit Data Chief Complaint: GI Assessment Stated Complaint: STOMACH PAIN, BOWEL BLOCKAGE ED Provider: Hawk Hickman Discharge Problem: SBO (small bowel obstruction), Chronic pain syndrome, Chronic narcotic use, CKD (chronic kidney disease) Forms Stand Alone Forms: My [facility] Prescriptions Prescriptions: No Action multivitamin Tablet 1 tab PO QAM RF: 0 polyethylene glycol 3350 [Miralax] 17 gram Powder In Packet 17 g PO QAM RF: 0 hydrocodone-acetaminophen 10-325 mg tablet 1 tab PO Q8 PRN (Reason: Pain) RF: 0 tamsulosin 0.4 mg capsule 0.8 mg PO HS RF: 0 econazole 1 % cream 1 applic TOPICAL UD PRN (Reason: FLARE UPS) RF: 0 nystatin 100,000 unit/gram powder 1 applic TOPICAL TID PRN (Reason: IRRITATION) RF: 0 omeprazole 20 mg Tablet,Delayed Release (Dr/Ec) 20 mg PO DAILY PRN (Reason: Acid Reflux) RF: 0 furosemide [Lasix] 40 mg Tablet 80 mg PO BID RF: 0 finasteride [Proscar] 5 mg Tablet 5 mg PO QAM RF: 0 ciprofloxacin HCl 500 mg tablet 500 mg PO BID Qty: 10 RF: 0 potassium chloride 10 mEq tablet,ER particles/crystals 10 meq PO DAILY RF: 0 The scribe's documentation has been prepared under my direction and personally reviewed by me in its entirety. I confirm that the note above accurately reflects all work, treatment, procedures, and medical decision making performed by me.
[2019-06-28] MEDS ORDERED: ECONAZOLE NITRATE 1% CRM 15 GM TUBE TOP PRN (23:39)
[2019-06-28] MEDS ORDERED: ONDANSETRON INJ 2 MG/ML 2 ML VIAL IV PRN (23:39)
[2019-06-28] MEDS ORDERED: CIPROFLOXACIN 400 MG/200 ML BAG IV ONE (23:39)
[2019-06-28] MEDS ORDERED: NYSTATIN POWDER 15GM BTL EXT PRN (23:39)
[2019-06-28] MEDS ORDERED: PATIENT'S HEIGHT AND/OR WEIGHT NEEDED SCH (23:45)
[2019-06-29] MEDS ORDERED: CIPROFLOXACIN CONSULT ACTIVE PRN (00:08)
--- NOTE | 2019-06-29 00:09 | History and Physical Report ---
DATE OF ADMISSION: 06/28/2019 CHIEF COMPLAINT: Abdominal pain. HISTORY OF PRESENT ILLNESS: This is an 88-year-old male with past medical history significant for hypertension, reflux esophagitis, chronic kidney disease stage III, history of prostate cancer, spinal stenosis of lumbar region with neurogenic claudication, failed back surgical syndrome, malfunction of neurostimulator lead, dependent edema, ambulatory dysfunction, cervical spinal stenosis, who lives with the , walks with help of walker and cane but lately has become more weak. This is third admission in this month for small-bowel obstruction. The patient was discharged on 06/23/2019, at that time with significant bowel obstruction resolved conservatively. He was on chronic pain medication, initially on OxyContin 60 mg b.i.d. which was at first admission cut back to 30 mg b.i.d., but last admission, he was completely stopped and placed on hydrocodone/acetaminophen 10/325 mg one tablet t.i.d. p.r.n. pain. He says he is doing fine. He is not getting any withdrawal symptoms. He is taking 2 or 3 tablets every day.But since he has got discharged from the hospital, he still was only drinking juice and his bowels are not moving, he is not moving any gas and has some epigastric abdominal pain, which brought him to the hospital today. Currently resting comfortably and hemodynamically stable. Denies any nausea, vomiting. CAT scan with oral and IV contrast was done today which was showing complete small-bowel obstruction with transition point in the right mid abdomen at the level of distal ileum. This likely is due to adhesions. The patient denies any chest pain, no shortness of breath, no fever, no chills, no headache, no blurred visions. Hard of hearing. No runny nose, no sore throat, no cough. Normal bladder movements. Has chronic swelling in the lower extremity. ALLERGIES: ELASTIC ON PANTS AND UNDERWEAR. PAST MEDICAL HISTORY: As mentioned above. PAST SURGICAL HISTORY: Ear surgery, urethral stricture dilatation, cystolitholapaxy, left shoulder replacement, prostate needle punch biopsy, radiation treatment for pelvis, repair of inguinal hernia, spinal fusion surgery. MEDICATIONS: Currently the patient is on Proscar 5 mg p.o. daily, Cipro 500 mg p.o. b.i.d., miconazole topical p.r.n., Lasix 80 mg p.o. b.i.d., hydrocodone/acetaminophen 10 mg 1 tablet p.o. q. 8 hours p.r.n., multivitamin 1 tablet daily, nystatin topical t.i.d. p.r.n., omeprazole 20 mg p.o. daily p.r.n., MiraLax 17 grams p.o. daily, potassium chloride 10 mEq p.o. daily, Flomax 0.8 mg p.o. at bedtime. FAMILY HISTORY: Significant for brother had cancer, mother had diabetes. Brother had CAD with stents. SOCIAL HISTORY: and lives with his . Former smoker, quit in 1960s, smoked 1 pack a day for 15 years. Alcohol occasional. No drug use. REVIEW OF SYMPTOMS: As per HPI. Rest of review of systems negative. PHYSICAL EXAMINATION: GENERAL: The patient is of moderate build, not in acute distress. VITAL SIGNS: Temperature 37.1, pulse 82, respiratory rate 18, blood pressure 118/72, oxygen 98% room air. HEENT: No pallor, no icterus. Right pupil has somewhat sluggish reaction to light which seems to be chronic. NECK: No JVD, no neck masses, no carotid bruits. CARDIOVASCULAR: S1, S2 heard, regular rate and rhythm, no murmur, no gallop. RESPIRATORY SYSTEM: Normal AP diameter. No accessory muscle use. No wheezing, no crackles. ABDOMEN: Soft, bowel sounds absent, mild distention. Mild epigastric tenderness, no guarding, no rigidity. CENTRAL NERVOUS SYSTEM: Cranial nerves II-XII grossly intact. Nonfocal. EXTREMITIES: Bilateral lower extremity edema present, no erythema seen. LABORATORIES DATA: WBC is 11, hemoglobin 13.2, hematocrit 39.6, platelets 311. Sodium 135, potassium 3.9, chloride 102, bicarbonate 24, BUN 29, creatinine 1.4, serum glucose 198, calcium 9.3, phosphorus 3.7, magnesium 2.4, total bilirubin 0.5, AST 21, ALT 26, alkaline phosphatase 64. Troponin I 0.017. Lipase 90. TSH 1.5. Urinalysis, trace leukocyte esterase. Chest x-ray: Trace right pleural effusion, borderline cardiomegaly, no volume overload or congestive change. EKG, poor quality undetermined rhythm. CT of abdomen and pelvis shows complete small-bowel obstruction with transition point in the right mid abdomen at the level of distal ileum, this appears to be due to adhesions, small volume ascites, small right pleural effusion, chronic pancreatic dilatation, no obstructing mass or calculus may be due to benign stricture. This is unchanged. ASSESSMENT AND PLAN: This is an 88-year-old male who presents with recurrent small-bowel obstruction. 1. Recurrent small-bowel obstruction. This is third admission in this month possibly from the adhesions, history of surgery in the past for inguinal hernia. Currently, the patient has no nausea, vomiting. Surgery notified by the ER physician, planned for conservative management for now and to be seen by surgery in am.. We will keep the patient n.p.o., IV fluids, IV pain medicine p.r.n. Admit to medical floor. Consult surgery. 2. History of chronic pain. Currently, he is only on short acting pain medications as needed. currently placed on iv Dilaudid prn. We will monitor. 3. Recent urinary tract infection with pseudomonas. We will continue IV Cipro and follow the cultures . If cultures negative will stop antibiotics. 4. Acute kidney injury on chronic kidney disease stage III, baseline creatinine was around 1, presented with creatinine of 1.43. Fluids as above. We will follow the labs in a.m. 5. Benign prostatic hypertrophy, currently n.p.o. At home on Proscar and Flomax. We will monitor for any urinary retention. 6. History of prostate cancer status post radiation treatment. 7. Ambulatory dysfunction. The patient is walking at home. PT and OT prior to discharge. 8. History of hypertension, on diuretics which is on hold currently , we will monitor blood pressure. 9. Pancreatic dilatation on CAT scan, seems to be chronic. Needs to follow up as outpatient. 10. Lower extremity edema chronic. Holding Lasix. On iv fluids. Will monitor. 11. Deep venous thrombosis devices, sequential compression devices for now. DISPOSITION: Admit to medical floor. Level 1 full code as per my discussion with the patient. PT and OT prior to discharge. Social Service to help with discharge planning. Addendum: Patinet having urinary retention and not able to do straight cath or place storey. Consulted and notified Urology. MANI
[2019-06-29] MEDS: HYDROmorphone INJ 0.5 MG/0.5 ML SYR IV PRN ×8 (00:21→20:27)
[2019-06-29] MEDS: D5W AND NSS 1,000 ML IV SCH ×2 (00:21→11:02)
[2019-06-29] MEDS: FAMOTIDINE 20 MG in SYRINGE 3 ML IV SCH ×3 (00:21→22:25)
[2019-06-29] MEDS ORDERED: HYDROmorphone INJ 0.5 MG/0.5 ML SYR IV STA (03:43)
[2019-06-29 05:31] LABS: Basophils # (auto) 0.06 K/uL (0-0.2); Basophils % (auto) 0.8 %; Eosinophils # (auto) 0.12 K/uL (0-0.5); Eosinophils % (auto) 1.5 %; Hemoglobin 11.5 g/dL (14.0-18.0); Immature Granulocytes # (auto) 0.02 K/uL (0.00-0.02); Immature Granulocytes % (auto) 0.3 %; Lymphocytes # (auto) 1.12 K/uL (1.2-3.4); Lymphocytes % (auto) 14.1 %; Mean Corpuscular Hemoglobin 29.9 pg (25-34); Mean Corpuscular Hgb Conc 32.9 g/dL (32-36); Mean Corpuscular Volume 90.9 fL (80-100); Mean Platelet Volume 9.5 fL (7.4-10.4); Monocytes # (auto) 0.87 K/uL (0.11-0.59); Neutrophils # (auto) 5.73 K/uL (1.4-6.5); Neutrophils % (auto) 72.3 %; Platelet Count 278 K/uL (130-400); RDW Coefficient of Variation 14.2 % (11.5-14.5); RDW Standard Deviation 46.9 fL (36.4-46.3); Red Blood Count 3.85 M/uL (4.7-6.1); White Blood Count 7.92 K/uL (4.8-10.8)
[2019-06-29 06:07] LABS: BUN Creatinine Ratio 19.7 (10-20); Calcium 8.7 mg/dl (8.5-10.1); Creatinine Clr Calc Pharmacy 43.4 ml/min; Est GFR (Non-African American) 49.2; Magnesium 2.3 mg/dl (1.8-2.4); Potassium 3.7 mmol/L (3.5-5.1)
[2019-06-29] MEDS ORDERED: LIDOCAINE 2% JELLY 5 ML TUBE ONE (08:07)
[2019-06-29] MEDS ORDERED: LIDOCAINE 2% JELLY 5 ML TUBE EXT STA (08:08)
[2019-06-29] MEDS ORDERED: LIDOCAINE 2% JELLY 5 ML TUBE EXT ONE (08:16)
--- NOTE | 2019-06-29 08:27 | Urology Consultation ---
Date of Consultation June 29, 2019 Assessment & Plan (1) Urinary tract infection symptoms: 88yo M admitted with SBO, hx recurrent UTIs, urinary retention with tight phimosis Pt evaluated by Dr. Diego at bedside. 18fr coude placed using sterile technique, pt tolerated well. >500cc clear yellow urine immediately. Will send for UC&S. Plan to continue storey catheter until outpatient followup. Pt will likely require formal circumcision once acute issues resolve. Thank you for allowing us to participate in the acute care of Mr. Solomon. Please reconsult us with additional questions, concerns or changes in patient status. History of Present Illness Reason for Consultation: unable to place catheter Requesting Physician: Dr. Francisco Attending Physician: Prashanth Francisco MD History of Present Illness 88yo M admitted via [facility] for recurrent small bowel obstruction. We were consulted urgently due to unsuccessful attempt to straight cath pt x2 by nursing. Bladder scan for >600cc. Pt evaluated at bedside today by myself and Dr. Diego. Pt is uncircumcised, has not been able to retract foreskin for many years. Has never previously been evaluated by urology. Baseline LUTS not bothersome. Nocturia x1 No BPH meds Allergies Allergy/AdvReac Type Severity Reaction Status Date / Time Uncoded Nonscreenable Allergy Unknown ELASTIC ON Uncoded 06/28/19 17:54 Allergen PANTS/UNDERWEAR Home Medications Home Medications Medication Instructions Recorded Confirmed Type econazole 1 applic TOPICAL UD PRN 06/15/19 06/28/19 History finasteride [Proscar] 5 mg PO QAM 06/15/19 06/28/19 History furosemide [Lasix] 80 mg PO BID 06/15/19 06/28/19 History hydrocodone-acetaminophen 1 tab PO Q8 PRN 06/15/19 06/28/19 History multivitamin 1 tab PO QAM 06/15/19 06/28/19 History nystatin 1 applic TOPICAL TID PRN 06/15/19 06/28/19 History omeprazole 20 mg PO DAILY PRN 06/15/19 06/28/19 History polyethylene glycol 3350 [Miralax] 17 g PO QAM 06/15/19 06/28/19 History tamsulosin 0.8 mg PO HS 06/15/19 06/28/19 History ciprofloxacin HCl 500 mg PO BID #10 tab 06/23/19 06/28/19 Rx potassium chloride 10 meq PO DAILY 06/28/19 06/28/19 History Patient History Medical History BPH (benign prostatic hyperplasia) (Chronic) Chronic pain syndrome (Chronic) CKD (chronic kidney disease) stage 3, GFR 30-59 ml/min GERD (gastroesophageal reflux disease) (Chronic) History of prostate cancer (Chronic) Status post radiation and hormone therapy Hypertension (Chronic) Refusal of blood transfusions as patient is [place] Urinary problem (Resolved) Surgical History History of back surgery History of dilation of urethra (Chronic) History of inguinal hernia repair (Chronic) History of left shoulder replacement (Chronic) History of prostate biopsy (Chronic) History of spinal fusion (Chronic) Hx of hernia repair Family History Mother Diabetes Brother Coronary heart disease Social History Preferred Language: Welsh Communication Ability: Effective Sex Crimes Detective Required: No Beliefs That Will Affect Care: Alevism Alevism Beliefs: [place] Witness marital status: Current Living Situation: Spouse current occupational status: retired Other Information That Helps Us Care for You: No Feels Safe at Home: Yes Safety Concerns: Feels Safe At This Time Smoking Status: Never smoker Second Hand Exposure: No ; Hx Alcohol Use: Yes Alcohol type: beer Alcohol Intake Frequency: Rarely Hx Substance Use: No Review of Systems Review of Systems: All systems reviewed & are unremarkable except as noted in HPI & below Physical Exam Constitutional: no acute distress and not ill appearing Eyes: no nystagmus ENMT: Ears: no hearing impairment Neck: trachea midline Respiratory: no respiratory distress and no cough Cardiovascular: Vessels: no JVD Chest (Breasts): Chest: normal inspection of chest Gastrointestinal (Abdomen): Inspection/Auscultation: abdomen not distended and no abdominal edema Percussion/Palpation: abdomen soft; abdomen nontender Musculoskeletal: Head/Neck/Chest: normocephalic and head atraumatic Skin: no rashes, warm and dry Neurologic: awake; not confused and not obtunded Psychiatric: Orientation: alert and oriented x 3 Eye Contact: good eye contact Affect: no depressed affect Genitourinary: bladder normal to inspection; no CVA tenderness and no meatal discharge Tight phimosis. Unable to visualize urethra. scrotum unremarkable Lymphatic: no lymphadenopathy and no lymphedema Results & Data Vital Signs (Past 12 Hours) Vital Signs Temp Pulse Resp BP BP Pulse Ox 06/29/19 07:52 36.5 C 16 148/65 H 94 06/29/19 05:04 129/65 06/28/19 23:45 36.7 C 88 18 169/80 H 100 06/28/19 22:48 83 18 122/84 98 06/28/19 21:19 82 18 118/75 98 PG Care Time/CCT Total # of Minutes Spent Total Time Spent with Patient: Total time spent is greater than 50% in coordination of care (as documented) at patient's floor/unit and/or counseling patient:
[2019-06-29] MEDS ORDERED: bisacodyL 10 MG SUPP PR ONE (10:28)
[2019-06-29] MEDS ORDERED: D5W AND 1/2NSS 1,000 ML IV SCH (10:30)
[2019-06-29] MEDS: POLYETHYLENE (MIRALAX) 17 GM PACK PO SCH (10:59)
[2019-06-29] MEDS ORDERED: CIPROFLOXACIN 400 MG/200 ML BAG IV SCH (12:00)
--- NOTE | 2019-06-29 12:53 | XRay Report ---
KUB HISTORY: Eval small bowel obstruction, contrast advanced to colon? COMPARISON: Abdomen and pelvis CT 06/28/2019. FINDINGS: There are again noted multiple dilated loops of small bowel seen throughout the abdomen con sistent with a small bowel obstruction. These measure up to 6 cm in diameter. The degree of distentio n is similar to the prior study. The oral contrast is located within the distended loops of distal sm all bowel within the pelvis. A Alvares catheter appears in good position. Spinal fusion hardware is aga in noted as well as a left upper quadrant spinal stimulator. No renal calculi. No ureteral calculi. No pneumoperitoneum or pneumatosis. IMPRESSION: No significant change in the high-grade small bowel obstruction. The oral contrast located within the dilated small bowel within the deep pelvis. No definite oral contrast identified within the colon at this time. ACT 112: Negative or not required by law. Electronically signed by: Santos Barkley M.D. 06/29/2019 12:51 PM
--- NOTE | 2019-06-29 15:44 | History & Physical Bridge Note ---
Date of Service June 29, 2019 History & Physical Bridge Note I have examined the patient, reviewed the History & Physical and in the interval since the performance of the History & Physical I have noted the following changes of clinical significance: no changes noted, I reviewed pt's H/P labs, CT scan and KUB, with pt, his and his daughter, the KUB showed still high grade SBO, no contrast in the colon, I recommend to do exploratory laparotomy, possible bowel resection, stoma, D/W benefits, risks and alternatives of the surgery, the risks - infection, bleeding, OH, anastomotic leak, , they understood, they agree with the surgery, I answered all questions,
[2019-06-29] MEDS ORDERED: CEFAZOLIN 2000MG 2,000 MG/15 ML SYR IV ONE (15:50)
--- NOTE | 2019-06-29 15:50 | Hospitalist Progress Note ---
Date of Service June 29, 2019 Assessment & Plan (1) SBO (small bowel obstruction): Recurrent small-bowel obstruction -This is third admission in this month possibly from the adhesions, history of surgery in the past for inguinal hernia. -06/29/2019: Medical doctor initially deferred NG tube this AM and medical doctor ordered Miralax with tap water enema and Dulcolax to promote GI motility. Medical doctor returned to see that patient has been assessed by general surgery service and patient has NG suctioning a lot of dark liquids and patient reports he is awaiting general surgery service to take him to operating room because of the bowel obstruction. Pancreatic dilatation on CAT scan -seen on previous scans in recent admissions, no acute interventions needed at this time for this issue History of chronic opioid narcotic pain medication use -previous 2 hospital admissions has allowed patient to be weaned off of assisted use of OxyContin as attempts to prevent bowel obstruction -he was previously on OxyContin 60 mg BID for chronic back pain indication -since patient will go get surgery for lysis of adhesions or strictures, he may need additional pain medications post-operatively Recent urinary tract infection with pseudomonas. Urinary retention History of prostate cancer status post radiation treatment in the past -patient has storey -would avoid Fluoroquinolone in elderly patient. stopped IV ciprofloxacin as started by admitting hospitalist -if antibiotics are to be needed, then can consider IV Zosyn -when patient can take oral medications, then can consider resuming Proscar and Flomax Acute kidney injury on chronic kidney disease stage III -baseline creatinine was around 1, presented with creatinine of 1.43. -IV fluids given -monitor creatinine function Hypertension -hold diuretics for now, monitor blood pressure Deep venous thrombosis devices, sequential compression devices for now Subjective Medical doctor initially deferred NG tube this AM and medical doctor ordered Miralax with tap water enema and Dulcolax to promote GI motility. Medical doctor returned to see that patient has been assessed by general surgery service and patient has NG suctioning a lot of dark liquids and patient reports he is await ing general surgery service to take him to operating room because of the bowel obstruction. Patient appears comfortably. no acute distress. no chest pain. no acute abdomen pain. no vomiting. no dizziness. no lightheadedness Review of Systems Review of Systems: All systems reviewed & are unremarkable except as noted in HPI & below Physical Exam Constitutional: comfortable Eyes: PERRL, conjunctivae normal, anicteric sclerae EOM intact bilaterally ENMT: has NG tube Neck: normal visual inspection Respiratory: normal respiratory effort, lungs clear to auscultation Cardiovascular: Rate/Rhythm: regular rate and regular rhythm Gastrointestinal (Abdomen): Percussion/Palpation: abdomen soft Musculoskeletal: Head/Neck/Chest: normocephalic and head atraumatic Neurologic: PERRL, EOMI, accommodation nl, no face palsy, no dysarthria CN's II-XI intact bilaterally Results & Data Vital Signs (Past 12 Hours) Vital Signs Temp Pulse Resp BP Pulse Ox 06/29/19 15:23 36.8 C 69 18 154/64 H 96 06/29/19 07:52 36.5 C 16 148/65 H 94 06/29/19 05:04 129/65
--- NOTE | 2019-06-29 16:14 | Anesthesiology Consultation ---
Date of Service June 29, 2019 Assessment & Plan (1) Encounter for pre-operative examination: Chart Review Chart Review: Acceptable Risk for Surgery and Patient NOT seen in Pre Admission Testing Consults Requested none ASA ASA3 Proposed Anesthesia Anesthesia Type: General Risk / Benefits Reviewed With: PT / POA / Parent / Guardian, Accepts Plan and Informed Consent Obtained History Surgery Operation Date: 06/29/19 14:40 Proposed Procedures p Exploratory Laparotomy, Possible Small Bowel Obstruction - Michelle Moody MD Height/Weight Height: 5 ft 8 in Weight: 91.4 kg Allergies Allergy/AdvReac Type Severity Reaction Status Date / Time Uncoded Nonscreenable Allergy Unknown ELASTIC ON Uncoded 06/28/19 17:54 Allergen PANTS/UNDERWEAR Medications Home Medications Medication Instructions Recorded Confirmed Last Taken econazole 1 applic TOPICAL UD PRN 06/15/19 06/28/19 Unknown finasteride [Proscar] 5 mg PO QAM 06/15/19 06/28/19 06/28/19 furosemide [Lasix] 80 mg PO BID 06/15/19 06/28/19 06/28/19 hydrocodone-acetaminophen 1 tab PO Q8 PRN 06/15/19 06/28/19 Unknown multivitamin 1 tab PO QAM 06/15/19 06/28/19 06/28/19 nystatin 1 applic TOPICAL TID PRN 06/15/19 06/28/19 Unknown omeprazole 20 mg PO DAILY PRN 06/15/19 06/28/19 Unknown polyethylene glycol 3350 [Miralax] 17 g PO QAM 06/15/19 06/28/19 06/28/19 tamsulosin 0.8 mg PO HS 06/15/19 06/28/19 06/27/19 ciprofloxacin HCl 500 mg PO BID #10 tab 06/23/19 06/28/19 06/28/19 08:00 LAST DOSE OF COURSE potassium chloride 10 meq PO DAILY 06/28/19 06/28/19 06/28/19 Active Medications Generic Name Dose Route Start Last Admin Trade Name Freq PRN Reason Stop Dose Admin Hydromorphone HCl 0.5 mg 06/28/19 23:39 06/29/19 15:12 Dilaudid IV 07/12/19 23:38 0.5 mg Q4H PRN Administration Pain Famotidine 20 mg/ Syringe 5 mls @ 2.5 mls/min 06/28/19 23:39 06/29/19 10:41 IV 07/28/19 23:38 2.5 mls/min BID PRADIP Administration Dextrose/Sodium Chloride 1,000 mls @ 60 mls/hr 06/29/19 10:30 06/29/19 11:02 D5w And 1/2nss IV 07/29/19 10:29 60 mls/hr .[id number] PRADIP Administration Polyethylene Glycol 17 gm 06/29/19 10:30 06/29/19 10:59 Miralax Powder Packet PO 07/29/19 10:29 17 gm BID PRADIP Administration NPO Date Last Intake of Fluids: 06/28/19 Date Last Intake of Solids: 06/28/19 Past Medical History Medical History BPH (benign prostatic hyperplasia) (Chronic) Chronic pain syndrome (Chronic) CKD (chronic kidney disease) stage 3, GFR 30-59 ml/min GERD (gastroesophageal reflux disease) (Chronic) History of prostate cancer (Chronic) Status post radiation and hormone therapy Hypertension (Chronic) Refusal of blood transfusions as patient is S[place] Urinary problem (Resolved) Exercise / Class Metabolic Activity III < 4 Walking/Shop/Light housework Past Family History Family History Mother Diabetes Brother Coronary heart disease Past Surgical History Surgical History History of back surgery History of dilation of urethra (Chronic) History of inguinal hernia repair (Chronic) History of left shoulder replacement (Chronic) History of prostate biopsy (Chronic) History of spinal fusion (Chronic) Hx of hernia repair Past Anesthesia History No Hx of Anesthesia Complications History of PONV No Hx of PONV and No Hx of Motion Sickness Social History Smoking Status: Never smoker Hx Alcohol Use: Yes Alcohol type: beer alcohol intake frequency: holidays/special occasions only Hx Substance Use: No substance use type: does not use Substance Use Type Other:: On chronic opioid therapy for 30 years Review of Systems NG tube in place - pt sx improved since placement Physical Exam Vital Signs Last Vital Signs Temp 37.7 C H 06/29/19 17:19 Pulse 74 06/29/19 17:19 Resp 18 06/29/19 17:19 BP 137/72 06/29/19 17:19 Pulse Ox 96 06/29/19 17:19 Constitutional not obese ENMT Mouth: + edentulous (Upper); no TMJ abnormality and oral opening not small Thyromental Distance: < 3.5 Finger Breadths Mallampati Class: III Neck normal visual inspection; neck extension not limited Respiratory normal respiratory effort Auscultation: lungs clear to auscultation bilaterally Cardiovascular Rate/Rhythm: regular rate and regular rhythm Heart Sounds: no murmur Neurologic moves all extremities Psychiatric Orientation: alert and oriented x 3 Testing Laboratory Results 06/29/19 04:48 06/29/19 04:48 Urine Color Yellow 06/28/19 19:16 Urine Appearance Cloudy (Clear) A 06/28/19 19:16 Urine pH 5.0 (4.5-7.5) 06/28/19 19:16 Ur Specific [place] 1.013 (1.000-1.030) 06/28/19 19:16 Urine Protein Negative (Negative) 06/28/19 19:16 Urine Glucose (UA) Negative (Negative) 06/28/19 19:16 Urine Ketones Negative (Negative) 06/28/19 19:16 Urine Nitrite Negative (Negative) 06/28/19 19:16 Ur Leukocyte Esterase Trace (Negative) H 06/28/19 19:16 Urine WBC (Auto) >30 /hpf (0-5) H 06/28/19 19:16 Urine RBC (Auto) 0-4 /hpf (0-4) 06/28/19 19:16 U Hyaline Cast (Auto) 5-10 /lpf (0-5) H 06/28/19 19:16 U Epithel Cells (Auto) 20-30 /lpf (0-5) H 06/28/19 19:16 Urine Bacteria (Auto) Negative (Negative) 06/28/19 19:16 06/28/19 19:16 Urine Culture - Preliminary Urine,Clean Catch No growth - Less than 1,000 colonies/mL, Final report to follow. Electrocardiogram Date: 06/28/19 Findings: + NSR @ (73)
--- NOTE | 2019-06-29 17:13 | Surgery Consultation ---
Date of Consultation June 29, 2019 Assessment & Plan (1) SBO (small bowel obstruction): pt is a 88 year-old male who was admitted to hospital for SBO, this 3 rd time for hospitalization for SBO for this month, conservative treatment failured IMP: SBO, plan, I recommend to do exploratory laparotomy, possible bowel resection or stoma, D/W benefits, risk and alternatives of the surgery, the risks - infection, bleeding, HI, anastomotic leak, , pt and his , daughter understood, they agree with the surgery, I answered all questions, History of Present Illness Attending Physician: Prashanth Francisco MD CHIEF COMPLAINT: Abdominal pain. HISTORY OF PRESENT ILLNESS: This is an 88-year-old male with past medical history significant for hypertension, reflux esophagitis, chronic kidney disease stage III, history of prostate cancer, spinal stenosis of lumbar region with neurogenic claudication, failed back surgical syndrome, malfunction of neurostimulator lead, dependent edema, ambulatory dysfunction, cervical spinal stenosis, who lives with the , walks with help of walker and cane but lately has become more weak. This is third admission in this month for small-bowel obstruction. The patient was discharged on 06/23/2019, at that time with significant bowel obstruction resolved conservatively. He was on chronic pain medication, initially on OxyContin 60 mg b.i.d. which was at first admission cut back to 30 mg b.i.d., but last admission, he was completely stopped and placed on hydrocodone/acetaminophen 10/325 mg one tablet t.i.d. p.r.n. pain. He says he is doing fine. He is not getting any withdrawal symptoms. He is taking 2 or 3 tablets every day.But since he has got discharged from the hospital, he still was only drinking juice and his bowels are not moving, he is not moving any gas and has some epigastric abdominal pain, which brought him to the hospital today. Currently resting comfortably and hemodynamically stable. Denies any nausea, vomiting. CAT scan with oral and IV contrast was done today which was showing complete small-bowel obstruction with transition point in the right mid abdomen at the level of distal ileum. This likely is due to adhesions. The patient denies any chest pain, no shortness of breath, no fever, no chills, no headache, no blurred visions. Hard of hearing. No runny nose, no sore throat, no cough. Normal bladder movements. Has chronic swelling in the lower extremity. I ( Michelle Moody MD) reviewed pt's H/P , labs, CT scan, KUB with pt and his and his daughter . ALLERGIES: ELASTIC ON PANTS AND UNDERWEAR. PAST MEDICAL HISTORY: As mentioned above. PAST SURGICAL HISTORY: Ear surgery, urethral stricture dilatation, cystolitholapaxy, left shoulder replacement, prostate needle punch biopsy, radiation treatment for pelvis, repair of inguinal hernia, spinal fusion surgery. MEDICATIONS: Currently the patient is on Proscar 5 mg p.o. daily, Cipro 500 mg p.o. b.i.d., miconazole topical p.r.n., Lasix 80 mg p.o. b.i.d., hydrocodone/acetaminophen 10 mg 1 tablet p.o. q. 8 hours p.r.n., multivitamin 1 tablet daily, nystatin topical t.i.d. p.r.n., omeprazole 20 mg p.o. daily p.r.n., MiraLax 17 grams p.o. daily, potassium chloride 10 mEq p.o. daily, Flomax 0.8 mg p.o. at bedtime. FAMILY HISTORY: Significant for brother had cancer, mother had diabetes. Brother had CAD with stents. SOCIAL HISTORY: and lives with his . Former smoker, quit in 1960s, smoked 1 pack a day for 15 years. Alcohol occasional. No drug use. REVIEW OF SYMPTOMS: As per HPI. Rest of review of systems negative. Allergies Allergy/AdvReac Type Severity Reaction Status Date / Time Uncoded Nonscreenable Allergy Unknown ELASTIC ON Uncoded 06/28/19 17:54 Allergen PANTS/UNDERWEAR Home Medications Home Medications Medication Instructions Recorded Confirmed Type econazole 1 applic TOPICAL UD PRN 06/15/19 06/28/19 History finasteride [Proscar] 5 mg PO QAM 06/15/19 06/28/19 History furosemide [Lasix] 80 mg PO BID 06/15/19 06/28/19 History hydrocodone-acetaminophen 1 tab PO Q8 PRN 06/15/19 06/28/19 History multivitamin 1 tab PO QAM 06/15/19 06/28/19 History nystatin 1 applic TOPICAL TID PRN 06/15/19 06/28/19 History omeprazole 20 mg PO DAILY PRN 06/15/19 06/28/19 History polyethylene glycol 3350 [Miralax] 17 g PO QAM 06/15/19 06/28/19 History tamsulosin 0.8 mg PO HS 06/15/19 06/28/19 History ciprofloxacin HCl 500 mg PO BID #10 tab 06/23/19 06/28/19 Rx potassium chloride 10 meq PO DAILY 06/28/19 06/28/19 History Patient History Medical History BPH (benign prostatic hyperplasia) (Chronic) Chronic pain syndrome (Chronic) CKD (chronic kidney disease) stage 3, GFR 30-59 ml/min GERD (gastroesophageal reflux disease) (Chronic) History of prostate cancer (Chronic) Status post radiation and hormone therapy Hypertension (Chronic) Refusal of blood transfusions as patient is Hoahaoism Urinary problem (Resolved) Surgical History History of back surgery History of dilation of urethra (Chronic) History of inguinal hernia repair (Chronic) History of left shoulder replacement (Chronic) History of prostate biopsy (Chronic) History of spinal fusion (Chronic) Hx of hernia repair Family History Mother Diabetes Brother Coronary heart disease Social History Preferred Language: Latvian Communication Ability: Effective 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: No Beliefs That Will Affect Care: Moravian Moravian Beliefs: Jehovah Witness marital status: Current Living Situation: Spouse current occupational status: retired Other Information That Helps Us Care for You: No Feels Safe at Home: Yes Safety Concerns: Feels Safe At This Time Smoking Status: Never smoker Second Hand Exposure: No ; Hx Alcohol Use: Yes Alcohol type: beer Alcohol Intake Frequency: Rarely Hx Substance Use: No Physical Exam Constitutional: WD/WN, vitals as above well developed and well nourished ENMT: external ear and nose normal, oropharynx normal Ears: + hearing impairment Neck: trachea midline, no thyromegaly Respiratory: normal respiratory effort, lungs clear to auscultation normal respiratory effort Cardiovascular: RRR, no murmur, no edema Rate/Rhythm: regular rate Heart Sounds: normal S2 Gastrointestinal (Abdomen): normal bowel sounds, soft, nontender, no hepatosplenomegaly Inspection/Auscultation: + abdomen distended Percussion/Palpation: abdomen soft mild tenderness at middle abdomen, no rebound pain, BS + Musculoskeletal: no cyanosis or clubbing, extremities motor strength 5/5 Skin: no rashes, warm and dry Neurologic: patellar DTR's 2+ bilat, sensation intact Psychiatric: Orientation: alert and oriented x 3 Results & Data Vital Signs (Past 12 Hours) Vital Signs Temp Pulse Resp BP Pulse Ox 06/29/19 15:23 36.8 C 69 18 154/64 H 96 06/29/19 07:52 36.5 C 16 148/65 H 94 Laboratory Results Abnormal lab results 06/28/19 06/28/19 06/28/19 Range/Units 17:50 17:50 19:16 WBC 11.03 H (4.8-10.8) K/uL RBC 4.34 L (4.7-6.1) M/uL Hgb 13.2 L (14.0-18.0) g/dL Hct 39.6 L (42-52) % RDW Std Deviation 47.6 H (36.4-46.3) fL Neut # (Auto) 8.57 H (1.4-6.5) K/uL Lymph # (Auto) (1.2-3.4) K/uL Mcdowell # (Auto) 1.06 H (0.11-0.59) K/uL Sodium 135 L (136-145) mmol/L BUN 29 H (7-18) mg/dl Creatinine 1.43 H (0.6-1.4) mg/dl BUN/Creatinine Ratio 20.5 H (10-20) Glucose 128 H (70-99) mg/dl Urine Appearance Cloudy A (Clear) Urine Blood Trace H (Negative) Ur Leukocyte Esterase Trace H (Negative) Urine WBC (Auto) >30 H (0-5) /hpf U Hyaline Cast (Auto) 5-10 H (0-5) /lpf U Epithel Cells (Auto) 20-30 H (0-5) /lpf 06/29/19 06/29/19 Range/Units 04:48 04:48 WBC (4.8-10.8) K/uL RBC 3.85 L (4.7-6.1) M/uL Hgb 11.5 L (14.0-18.0) g/dL Hct 35.0 L (42-52) % RDW Std Deviation 46.9 H (36.4-46.3) fL Neut # (Auto) (1.4-6.5) K/uL Lymph # (Auto) 1.12 L (1.2-3.4) K/uL Mcdowell # (Auto) 0.87 H (0.11-0.59) K/uL Sodium (136-145) mmol/L BUN 25 H (7-18) mg/dl Creatinine (0.6-1.4) mg/dl BUN/Creatinine Ratio (10-20) Glucose 116 H (70-99) mg/dl Urine Appearance (Clear) Urine Blood (Negative) Ur Leukocyte Esterase (Negative) Urine WBC (Auto) (0-5) /hpf U Hyaline Cast (Auto) (0-5) /lpf U Epithel Cells (Auto) (0-5) /lpf Diagnostic Findings KUB HISTORY: Eval small bowel obstruction, contrast advanced to colon? COMPARISON: Abdomen and pelvis CT 06/28/2019. FINDINGS: There are again noted multiple dilated loops of small bowel seen throughout the abdomen consistent with a small bowel obstruction. These measure up to 6 cm in diameter. The degree of distention is similar to the prior study. The oral contrast is located within the distended loops of distal small bowel within the pelvis. A Alvares catheter appears in good position. Spinal fusion hardware is again noted as well as a left upper quadrant spinal stimulator. No renal calculi. No ureteral calculi. No pneumoperitoneum or pneumatosis. IMPRESSION: No significant change in the high-grade small bowel obstruction. The oral contrast located within the dilated small bowel within the deep pelvis. No definite oral contrast identified within the colon at this time. CT abd pelvis oral and IV con CLINICAL HISTORY: 88 years-old Male presenting with abd pain ?SBO. TECHNIQUE: Multidetector CT of the abdomen and pelvis was performed after the administration of oral and intravenous contrast. IV contrast: 90 mL of Optiray 320. One or more dose lowering techniques were used consistent with the principles of ALARA (as low as reasonably achievable), including automatic exposure control, mA or kV adjustment to individual patient size, and/or use of iterative reconstruction. COMPARISON: 06/20/2019. CT DOSE (mGy.cm): The estimated cumulative dose is 1453.43 mGy.cm. FINDINGS: Slot Editor topogram: Dilated small bowel. Lung bases: Normal heart size. Coronary artery and aortic valve calcification. Small right pleural effusion. Minimal dependent changes in the right lung likely atelectasis. Liver: Macronodular contour. Trace perihepatic ascites. Mild periportal edema may be present. No focal lesion. Patent hepatic vasculature. Biliary: No intrahepatic or extrahepatic biliary ductal dilatation. The gallbladder is likely physiologically distended. No gallbladder wall thickening or pericholecystic fluid or inflammatory change. Pancreas: Moderate parenchymal atrophy of the pancreas with significant pancreatic ductal dilatation measuring up to 9 mm at the level of the pancreatic head. This is unchanged from prior. No gross evidence of a pancreatic head mass. Spleen: Normal. Adrenal glands: Normal. Kidneys and ureters: Multiple cysts bilaterally, which are simple appearing. Parenchymal atrophy may be present to a mild degree. No nephrolithiasis or hydronephrosis. Ureters nondistended. Bladder: The urinary bladder is distended. Pelvic organs: Prostate enlargement likely secondary to benign prostatic hyperplasia. Bowel: Significant dilation of small bowel to the level of the distal ileum. The terminal ileum is decompressed. There is a focal transition point in the right mid abdomen (series 3 image 193). There is no mass or other abnormality at this site, which suggests underlying adhesions. Feces noted in the small bowel at this site up stream. Small bowel is a dilated up to 4.5 cm. No pneumatosis. Trace sliding type hiatal hernia suggested. Peritoneal cavity: Small volume of abdominopelvic ascites. No free intraperitoneal gas. Lymph nodes: No enlarged lymph nodes in the abdomen or pelvis. Vasculature: Atherosclerosis of the normal caliber abdominal aorta. IVC patent. Abdominal wall: Gynecomastia. Musculoskeletal: Degenerative changes of the spine. Degenerative changes of the bilateral hips. Posterior lumbar fusion hardware with laminectomy defects. Partially visualized internal fixation of the left humerus. Spinal device with 2 catheters or leads in place. IMPRESSION: 1. Complete small bowel obstruction with a transition point in the right mid abdomen at the level of the distal ileum. This appears to be due to adhesions. 2. Small volume ascites. 3. Small right pleural effusion. 4. Chronic pancreatic ductal dilatation. No obstructing mass or calculus. May be due to a benign stricture. This is unchanged.
[2019-06-29] MEDS ORDERED: BACITRACIN OINT 15 GM TUBE ONE (17:15)
[2019-06-29] MEDS ORDERED: LIDOCAINE HCL 1% 20 ML VIAL ONE (17:15)
[2019-06-29] MEDS ORDERED: BUPIVACAINE 0.5 % 5 MG/1 ML MPF 30ML VIAL ONE (17:15)
[2019-06-29] MEDS ORDERED: fentaNYL citrate 100 MCG/2 ML VIAL ONE (17:33)
[2019-06-29] MEDS ORDERED: LARYING-O-JET KIT (LTA) ONE (17:33)
[2019-06-29] MEDS ORDERED: ONDANSETRON INJ 2 MG/ML 2 ML VIAL ONE (17:33)
[2019-06-29] MEDS ORDERED: GLYCOPYRROLATE 0.2 MG/ML VIAL ONE (17:33)
[2019-06-29] MEDS ORDERED: LIDOCAINE HCL 2% 2 ML VIAL/AMP(20MG/ML) INFIL ONE (17:33)
[2019-06-29] MEDS ORDERED: PHENYLEPHRINE 100MCG/ML 5ML SYR ONE ×2 (17:33→18:25)
[2019-06-29] MEDS ORDERED: DEXAMETHASONE SOD INJ 4 MG/ML VIAL ONE (17:33)
[2019-06-29] MEDS ORDERED: ROCURONIUM BROMIDE 10 MG/ML 5 ML VIAL ONE ×2 (17:33→18:26)
[2019-06-29] MEDS ORDERED: ePHEDrine sulfate 50 MG/ML SYR ONE (17:33)
[2019-06-29] MEDS ORDERED: NEOSTIGMINE METHYLSULFATE 5 MG/5 ML SYR ONE (17:33)
[2019-06-29] MEDS ORDERED: PROPOFOL IV EMULSION 10 MG/ML 20 ML VIAL IV ONE (17:33)
[2019-06-29] MEDS ORDERED: CEFAZOLIN 2,000 MG/15 ML IV PUSH IV ONE (17:53)
[2019-06-29] MEDS ORDERED: ePHEDrine sulfate 50 MG/ML AMP IV PRN (17:55)
[2019-06-29] MEDS ORDERED: ATROPINE SULFATE 0.1 MG/ML 10ML SYR IV PRN (17:55)
[2019-06-29] MEDS ORDERED: ONDANSETRON INJ 2 MG/ML 2 ML VIAL IV PRN (17:55)
[2019-06-29] MEDS ORDERED: HYDROmorphone INJ 1 MG/ML SYRINGE IV PRN ×2 (17:55→19:59)
[2019-06-29] MEDS ORDERED: SUCCINYLCHOLINE CHLORIDE 20 MG/ML 10 ML VIAL ONE (18:36)
--- NOTE | 2019-06-29 19:37 | Post Operative Brief Note ---
Immediate Post Op Note v1 Date of Surgery June 29, 2019 Pre & Post Diagnosis Operation Date: 06/29/19 14:40 Pre-Op Diagnosis: Small bowel obstruction Post-Op Diagnosis: Small bowel obstruction, 2 small bowel structure I identified the patient and participated in the time-out.: Yes Procedure Operation Date: 06/29/19 14:40 Actual Procedures p Exploratory Laparotomy, Small Bowel Resection x2, biopsy mensentery nodule(Not Applicable) - Michelle Moody MD Surgeon Michelle Moody MD Mercerizer surgical assistant Estimated Blood Loss 20 Findings Consistent with Post-Op Diagnosis 2 small structure, 50cm apart, mensentery nodule Fluids 1200ml Specimens 2 piece small bowel, mensentery nodule, peritoneal fluid Drains Storey Catheter (storey in place prior to admission to OR room, dark yellow urine noted. Anesthesia to monitor urine output during surgery) Anesthesia Type General Complications none Disposition Accompanied Patient To Recovery: Yes Disposition: Recovery Room Overlapping Procedure I was immediately available: during the entire case.
[2019-06-29] MEDS: fentaNYL citrate 100 MCG/2 ML VIAL IV PRN ×2 (19:51→19:56)
[2019-06-29] MEDS ORDERED: HYDROmorphone INJ 2 MG/ML SYR/VIAL IV PRN (20:23)
--- NOTE | 2019-06-29 20:34 | Anesthesiology Progress Note ---
Date of Service June 29, 2019 Anesthesia Post Procedure Vital Signs Vital Signs: Temp Pulse Pulse Resp BP BP Pulse Ox 06/29/19 20:30 65 20 178/70 H 96 06/29/19 20:20 65 20 180/70 H 98 06/29/19 20:10 67 20 180/77 H 98 06/29/19 20:00 67 20 182/83 H 99 06/29/19 19:50 67 20 197/93 H 99 06/29/19 19:44 36.3 C L 68 20 194/89 H 99 06/29/19 17:19 37.7 C H 74 18 137/72 96 06/29/19 15:23 36.8 C 69 18 154/64 H 96 06/29/19 07:52 36.5 C 16 148/65 H 94 06/29/19 05:04 129/65 06/28/19 23:45 36.7 C 88 18 169/80 H 100 06/28/19 22:48 83 18 122/84 98 06/28/19 21:19 82 18 118/75 98 Pain Intensity Medial Abdomen: Pain Intensity: 7 Transfer of Care Handoff Completed per policy Notes Mental Status: alert / awake / arousable and participated in evaluation Patient Amnestic to Procedure: Yes Nausea / Vomiting: adequately controlled Pain: adequately controlled Airway Patency, RR, SpO2: stable & adequate BP & HR: stable & adequate Hydration State: stable & adequate Anesthetic Complications: no major complications apparent and Pt Satisfied with anesthetic care
[2019-06-29] MEDS ORDERED: CIPROFLOXACIN 500 MG TAB PO SCH (21:08)
[2019-06-29] MEDS ORDERED: TAMSULOSIN HCL 0.4 MG CAP PO SCH (21:08)
[2019-06-29] MEDS ORDERED: PANTOprazole 40 MG TAB PO PRN (21:08)
[2019-06-29] MEDS ORDERED: FUROSEMIDE 80 MG TAB PO SCH (21:08)
[2019-06-29] MEDS: D5W AND 1/2NSS + 20MEQ KCL 20 MEQ/1,000 ML BAG IV SCH (21:43)
--- NOTE | 2019-06-29 22:18 | Electrocardiogram Report ---
Test Reason : Blood Pressure : / mmHG Vent. Rate : 073 BPM Atrial Rate : 073 BPM P-R Int : 154 ms QRS Dur : 100 ms QT Int : 400 ms P-R-T Axes : 030 -10 031 degrees QTc Int : 440 ms Poor data quality, interpretation may be adversely affected Normal sinus rhythm When compared with ECG of 20-JUN-2019 09:30, Premature ventricular complexes are no longer Present Confirmed by Gary Bustamante ([id number]) on 06/29/2019 10:19:07 PM Referred By: REFERRED SELF Confirmed By:Gary Bustamante
[2019-06-29 22:34] LABS: Appearance Peritoneal Fluid BLOODY; Basophils, Fluid 0 %; Color Peritoneal Fluid RED; Eosinophils, Fluid 2 %; Lymphocytes, Fluid 26 %; Mono,Macrophage,Mesothelial 42 %; Neutrophils, Fluid 30 %; RBC Peritoneal Fluid (A) 68000 /uL; WBC Peritoneal Fluid (A) 632 /ul (0-300)
[2019-06-30] MEDS: POLYETHYLENE (MIRALAX) 17 GM PACK PO SCH ×3 (00:23→21:16)
[2019-06-30] MEDS ORDERED: CEFAZOLIN 1000MG 1,000 MG/7.5 ML SYR IV SCH (02:00)
[2019-06-30] MEDS: HYDROmorphone INJ 0.5 MG/0.5 ML SYR IV PRN ×3 (02:06→12:02)
--- NOTE | 2019-06-30 02:49 | Operative Report ---
DATE OF OPERATION: 06/29/2019 PREOPERATIVE DIAGNOSIS: Small-bowel obstruction. POSTOPERATIVE DIAGNOSES: Small-bowel obstruction, two small bowel strictures, mesenteric nodule. OPERATION: Exploratory laparotomy, resection of small bowel x2, biopsy of mesenteric nodule x2. SURGEON: Michelle Moody MD ANESTHESIA: General. ESTIMATED BLOOD LOSS: About 20 mL. FINDINGS: Two small bowel strictures, caused complete small-bowel obstruction, mesenteric nodule, peritoneal fluid collection for cell count looking for any tumor cell. COMPLICATIONS: None. INDICATIONS FOR THE PROCEDURE: This is an 88-year-old gentleman who was admitted to hospital for a third time for small-bowel obstruction only this month, and the patient had a CT scan and KUB that showed a complete small-bowel obstruction. I recommended to do the exploratory laparotomy, possible bowel resection, possible stoma. I did talk to the patient and patient's and the patient's daughter about the benefits, risks, and alternate procedures. I indicated the risks may include, but not limited, such as bleeding, infection, myocardial infarction, sepsis, anastomosis leak, even , recurrence of small-bowel obstruction. They understand. They signed informed consent and I answered all questions. DETAILS OF PROCEDURE: We brought in the patient to the OR, put the patient in the supine position. The patient received SCDs on bilateral legs to prevent DVT. Also patient received 2 grams Ancef IV for prophylactic antibiotic. The patient received general anesthesia without difficulty. Also patient had a Alvares catheter insertion and NG tube before coming to the OR. The abdomen was prepped and draped in routine sterile fashion. After timeout, I made a midline incision about 12 cm long, opened subcutaneous layer, reached the fascial layer, opened the fascial layer, opened the peritoneum, and got into the abdomen without difficulty. There was some free peritoneal fluid. We sent some free peritoneal fluid for cell count. Then we found the patient has a significant dilated small bowel and then once we explored the small bowel, we found the patient had two small bowel strictures about 50 cm apart each other. The #1 small bowel stricture located about 20 cm from cecum. The structure is completely causing small-bowel obstruction. The distal small bowel is completed decompressed and proximal small bowel has significant dilatation, diameter about 5 cm, distention. The cause of the small bowel stricture, possible tumor or inflammation. At this moment, we treated it like small bowel tumor. We decided to do the small bowel resection. Then I made the window on the mesentery about 8 cm from the stricture distally and proximally same thing 8 cm from stricture. Made a window on the mesentery and then I passed the 80 mm Endo-ERICA staple for transection on the distal small bowel and another 80 ERICA transection of the proximal small bowel and then rechecked the staple line, intact, and no leak, no active bleeding. Then I used an endovascular takedown of the mesentery, rechecked, no active bleeding. So we removed the small bowel, length about 2 to 16 cm. Now we created a small bowel [id number] anastomosis. I made the opening on the small bowel using the Bovie and proximal small bowel also made the opening using Bovie, passed 80 mm Endo-ERICA stapler to create anastomosis. Once we created anastomosis, we used 60 mm ERICA staple, closed the mall bowel opening, rechecked the staple line, intact, no active bleeding. I used 0 Vicryl and reinforced the anastomosis. Then I closed the mesenteric defect by using 3-0 Vicryl interruptedly and hemostasis obtained. Then we moved to another small bowel stricture. This was about 50 cm apart of from other the small bowel. There was also other small bowel stricture. The small-bowel obstruction was not 100% obstruction, but near 90% obstruction. At this moment, we decided to do resection of this part of small bowel because of the almost complete obstruction. In order to prevent later cause the complete obstruction, we decided to remove this part of the small bowel too. Again, we made mesenteric opening and passed the 80 mm Endo-ERICA staple transection of the small bowel about 5 cm from stricture. Another opening on the mesentery and passed the 80 mm ERICA staple transection on another side of the small bowel, about 5 cm, rechecked the staple line, intact, no active bleeding. Then we used the endovascular for takedown of the mesentery. We rechecked, no active bleeding from the mesentery, staple line. Then we created these 2 small bowel anastomosis. At this moment, we removed the small bowel specimen. The small bowel specimen length was about 10 cm length. Then we created 2 small bowel [id number] anastomosis. We used the Bovie to make opening on the two sides of small bowel, passed 80 mm Endo-ERICA staple to create anastomosis and then we used the 60 mm TIA staple, closed the small bowel opening. Rechecked the staple line, intact, no active bleeding. Then I used 3-0 Vicryl, reinforced the anastomosis interruptedly, closed the mesenteric defect by using 3-0 Vicryl interruptedly. We reexamined the whole small bowel, no more stricture. The two anastomosis are patent. Also we found the patient had several nodules on the mesentery. In order to rule out the tumor, we did biopsy of mesenteric nodule x2, sent to pathology. Also we collected some peritoneal fluid, sent to pathology for the tumor cell count. Then the hemostasis obtained. I used warm normal saline to flush the abdomen and suctioned all the fluid out. We checked the liver, there was no mass on the liver. NG tube deep in the stomach. Then I closed the abdomen, fascial layer by using PDS continuous running, subcutaneous layer by using 2-0 Vicryl continuous running, closed skin by using staple. Then we put the dressing on. The patient tolerated the procedure well. All the instrument, needle, and sponge count were correct x2 at the end of the case. The patient transferred to recovery room in stable condition. All the specimen sent to pathology. After procedure, I did talk to the patient and family member about the OR finding and procedure we did, they understand. I attest to the content of the Intraoperative Record and any orders documented therein. Any exceptions are noted below. MANI
[2019-06-30 05:24] LABS: Basophils # (auto) 0.03 K/uL (0-0.2); Basophils % (auto) 0.2 %; Hematocrit (blood only) 36.8 % (42-52); Hemoglobin 12.1 g/dL (14.0-18.0); Immature Granulocytes # (auto) 0.03 K/uL (0.00-0.02); Immature Granulocytes % (auto) 0.2 %; Lymphocytes # (auto) 0.48 K/uL (1.2-3.4); Lymphocytes % (auto) 3.7 %; Mean Corpuscular Hemoglobin 30.1 pg (25-34); Mean Corpuscular Hgb Conc 32.9 g/dL (32-36); Mean Corpuscular Volume 91.5 fL (80-100); Mean Platelet Volume 9.6 fL (7.4-10.4); Monocytes # (auto) 0.87 K/uL (0.11-0.59); Monocytes % (auto) 6.7 %; Neutrophils # (auto) 11.48 K/uL (1.4-6.5); Neutrophils % (auto) 89.2 %; Platelet Count 293 K/uL (130-400); RDW Coefficient of Variation 14.2 % (11.5-14.5); RDW Standard Deviation 47.6 fL (36.4-46.3); Red Blood Count 4.02 M/uL (4.7-6.1); White Blood Count 12.89 K/uL (4.8-10.8)
[2019-06-30] MEDS: D5W AND 1/2NSS + 20MEQ KCL 20 MEQ/1,000 ML BAG IV SCH (05:58)
[2019-06-30 06:04] LABS: Albumin Globulin Ratio 0.8 (0.9-2); Albumin Level 2.6 gm/dl (3.4-5.0); BUN Creatinine Ratio 15.6 (10-20); Bilirubin,Total 0.6 mg/dl (0.2-1); Creatinine Clr Calc Pharmacy 55.5 ml/min; Est GFR (African American) 76.6; Est GFR (Non-African American) 66.1; Globulin 3.3 gm/dl (2.5-4.0); Potassium 3.8 mmol/L (3.5-5.1); Total Protein 5.9 gm/dl (6.4-8.2)
[2019-06-30] MEDS ORDERED: PIPERACILL/TAZOBAC CONSULT ACTIVE PRN (07:33)
[2019-06-30] MEDS ORDERED: PIPERACILLIN/TAZOBACTAM 3.375 GM in DEXTROSE 5% 100 ML IV ONE (08:00)
--- NOTE | 2019-06-30 08:09 | Anesthesiology Progress Note ---
Date of Service June 30, 2019 Anesthesia Post Procedure Vital Signs Vital Signs: Temp Pulse Pulse Resp BP Pulse Ox 06/30/19 06:55 36.7 C 75 16 148/70 H 94 06/30/19 04:01 95 06/30/19 03:43 36.6 C 76 18 151/67 H 96 06/30/19 00:03 36.7 C 73 18 155/62 H 97 06/29/19 23:20 36.3 C L 74 20 173/67 H 98 06/29/19 22:00 36.7 C 65 18 162/67 H 97 06/29/19 21:36 36.5 C 67 18 152/66 H 96 06/29/19 21:00 36.8 C 67 16 165/70 H 96 06/29/19 20:40 36.9 C 60 20 162/66 H 96 06/29/19 20:30 65 20 178/70 H 96 06/29/19 20:20 65 20 180/70 H 98 06/29/19 20:10 67 20 180/77 H 98 06/29/19 20:00 67 20 182/83 H 99 06/29/19 19:50 67 20 197/93 H 99 06/29/19 19:44 36.3 C L 68 20 194/89 H 99 06/29/19 17:19 37.7 C H 74 18 137/72 96 06/29/19 15:23 36.8 C 69 18 154/64 H 96 Pain Intensity Medial Abdomen: Pain Intensity: 4 Notes Mental Status: alert / awake / arousable and participated in evaluation Patient Amnestic to Procedure: Yes Nausea / Vomiting: adequately controlled Pain: adequately controlled Airway Patency, RR, SpO2: stable & adequate BP & HR: stable & adequate Hydration State: stable & adequate Anesthetic Complications: no major complications apparent and Pt Satisfied with anesthetic care
--- NOTE | 2019-06-30 08:41 | Hospitalist Progress Note ---
Date of Service June 30, 2019 Assessment & Plan (1) SBO (small bowel obstruction): Recurrent small-bowel obstruction s/p exploratory laparotomy and small bowel resection -This is third admission in this month possibly from the adhesions, history of surgery in the past for inguinal hernia. -06/29/2019: Medical doctor initially deferred NG tube this AM and medical doctor ordered Miralax with tap water enema and Dulcolax to promote GI motility. Medical doctor returned to see that patient has been assessed by general surgery service and patient has NG suctioning a lot of dark liquids and patient reports he is awaiting general surgery service to take him to operating room because of the bowel obstruction. -06/29/2019: Exploratory laparotomy, resection of small bowel x2, biopsy of mesenteric nodule x2. -06/30/2019: surgery service had ordered cefazolin and oral ciprofloxacin post-op but patient will be better optimized with Zosyn if any concern for infection, blood cultures also ordered on 06/30/2019 and Zosyn to be start in place of cefazolin. will keep NG tube for now, fluids as D5 1/2 normal saline until NG tube can be removed to give hydration and calories Pancreatic dilatation on CAT scan -seen on previous scans in recent admissions, no acute interventions needed at this time for this issue History of chronic opioid narcotic pain medication use -previous 2 hospital admissions has allowed patient to be weaned off of superintendent container terminal use of OxyContin as attempts to prevent bowel obstruction -he was previously on OxyContin 60 mg BID for chronic back pain indication -no further superintendent container terminal narcotics -currently on prn short acting pain medications Recent urinary tract infection with pseudomonas. Urinary retention History of prostate cancer status post radiation treatment in the past -storey to be removed on 06/30/2019 for trial of void -can resume Proscar and Flomax when NG tube is removed Acute kidney injury on chronic kidney disease stage III -baseline creatinine was around 1, presented with creatinine of 1.43. -IV fluids given and acute kidney function is resolved -creatinine is at baseline as of 06/30/2019 Hypertension -hold diuretics for now, monitor blood pressure Deep venous thrombosis devices, sequential compression devices for now Subjective Patient has NG tube, has storey. abdomen dressing over surgical site. patient denies acute abdomen pain. appears comfortable. no distress. breathing on room air. no chest pain. no palpitations. no headache. no dizziness. Review of Systems Review of Systems: All systems reviewed & are unremarkable except as noted in HPI & below Physical Exam Constitutional: comfortable Eyes: PERRL, conjunctivae normal, anicteric sclerae EOM intact bilaterally ENMT: NG tube Neck: normal visual inspection Respiratory: normal respiratory effort, lungs clear to auscultation Cardiovascular: Rate/Rhythm: regular rate and regular rhythm Gastrointestinal (Abdomen): Percussion/Palpation: abdomen soft abdomen with dressing Musculoskeletal: Head/Neck/Chest: normocephalic and head atraumatic Neurologic: PERRL, EOMI, accommodation nl, no face palsy, no dysarthria CN's II-XI intact bilaterally Genitourinary: storey Results & Data Vital Signs (Past 12 Hours) Vital Signs Temp Pulse Pulse Resp BP Pulse Ox 06/30/19 06:55 36.7 C 75 16 148/70 H 94 06/30/19 04:01 95 06/30/19 03:43 36.6 C 76 18 151/67 H 96 06/30/19 00:03 36.7 C 73 18 155/62 H 97 06/29/19 23:20 36.3 C L 74 20 173/67 H 98 06/29/19 22:00 36.7 C 65 18 162/67 H 97 06/29/19 21:36 36.5 C 67 18 152/66 H 96 06/29/19 21:00 36.8 C 67 16 165/70 H 96 06/29/19 20:40 36.9 C 60 20 162/66 H 96
[2019-06-30] MEDS: HYDROCODONE/ACETAMINOPHEN 10/325 TAB PO PRN ×2 (08:50→17:59)
[2019-06-30] MEDS ORDERED: ACETAMINOPHEN 1,000 MG/100 ML VIAL IV PRN (08:51)
[2019-06-30] MEDS: FAMOTIDINE 20 MG in SYRINGE 3 ML IV SCH ×2 (08:53→21:16)
[2019-06-30] MEDS ORDERED: POLYETHYLENE (MIRALAX) 17 GM PACK ONE (08:59)
[2019-06-30] MEDS ORDERED: POLYETHYLENE (MIRALAX) 17 GM PACK PO SCH (09:00)
[2019-06-30] MEDS ORDERED: POTASSIUM CHLORIDE 10 MEQ TABCR PO SCH (09:00)
[2019-06-30] MEDS ORDERED: FINASTERIDE 5 MG TAB PO SCH (09:00)
[2019-06-30] MEDS ORDERED: MULTIVITAMIN TAB PO SCH (09:00)
[2019-06-30] MEDS: D5W AND 1/2NSS 1,000 ML IV SCH ×2 (09:25→23:38)
--- NOTE | 2019-06-30 09:59 | Surgery Progress Note ---
Date of Service June 30, 2019 Assessment & Plan (1) SBO (small bowel obstruction): POD # 1 s/p ex lap, small bowel resection x 2 and mesenteric nodule biopsy -vitals stable, afebrile - mild leukocytosis today (likely postoperative) - no n/v - 100 cc NGT output - no return of bowel function - adequate urine output Plan: Continue IV Tylenol and Dilaudid prn pain. Continue oral hydrocodone prn pain as well Continue NGT to LIS until passing flatus, may clamp to ambulate Continue IV fluids Continue home meds, clamp NGT for 2 hours after. Continue SCDs for DVT prophylaxis Continue Alvares catheter. To be kept until outpatient per urology recommendations PT/OT/ case management consults Incentive spirometry continue medical management repeat am labs while npo Once patient's diet advanced would recommend boost/ensure supplementation BID in between meals given low albumin and weakness Advance diet to low fiber diet Will start Lovenox daily for DVT prophylaxis Dr. Sullivan covering this weekend. Subjective feeling good this morning sitting up in chair mild pain at abdominal incision some back pain no n/v no chest pain, SOB, dizziness, lightheadedness + burping no flatus Physical Exam Constitutional: WD/WN, vitals as above no acute distress Respiratory: normal respiratory effort; no respiratory distress Gastrointestinal (Abdomen): Inspection/Auscultation: abdomen normal to inspection; abdomen not distended and + abnormal bowel sounds Percussion/Palpation: + abdomen tender (mild at incision site) and abdomen soft; no guarding and abdomen not rigid Skin: no rashes, warm and dry + incision (clean/dry/intact, rekha present) Psychiatric: A+Ox3, euthymic affect Results & Data Vital Signs (Past 12 Hours) Vital Signs Temp Pulse Pulse Resp BP Pulse Ox 06/30/19 06:55 36.7 C 75 16 148/70 H 94 06/30/19 04:01 95 06/30/19 03:43 36.6 C 76 18 151/67 H 96 06/30/19 00:03 36.7 C 73 18 155/62 H 97 06/29/19 23:20 36.3 C L 74 20 173/67 H 98 06/29/19 22:00 36.7 C 65 18 162/67 H 97 Laboratory Results 06/30/19 06/30/19 06/29/19 Range/Units 04:30 04:30 Unknown WBC 12.89 H (4.8-10.8) K/uL RBC 4.02 L (4.7-6.1) M/uL Hgb 12.1 L (14.0-18.0) g/dL Hct 36.8 L (42-52) % MCV 91.5 (80-100) fL MCH 30.1 (25-34) pg MCHC 32.9 (32-36) g/dL RDW Std Deviation 47.6 H (36.4-46.3) fL RDW Coeff of Maxim 14.2 (11.5-14.5) % Plt Count 293 (130-400) K/uL MPV 9.6 (7.4-10.4) fL Immature Gran % (Auto) 0.2 % Neut % (Auto) 89.2 % Lymph % (Auto) 3.7 % Hodgeman % (Auto) 6.7 % Eos % (Auto) 0.0 % Baso % (Auto) 0.2 % Immature Gran # (Auto) 0.03 H (0.00-0.02) K/uL Neut # (Auto) 11.48 H (1.4-6.5) K/uL Lymph # (Auto) 0.48 L (1.2-3.4) K/uL Hodgeman # (Auto) 0.87 H (0.11-0.59) K/uL Eos # (Auto) 0.00 (0-0.5) K/uL Baso # (Auto) 0.03 (0-0.2) K/uL Sodium 137 (136-145) mmol/L Potassium 3.8 (3.5-5.1) mmol/L Chloride 104 (98-107) mmol/L Carbon Dioxide 27 (21-32) mmol/L Anion Gap 6.0 (3-11) BUN 16 (7-18) mg/dl Creatinine 1.01 (0.6-1.4) mg/dl Est Cr Clr Drug Dosing 55.5 ml/min Est GFR ( Amer) 76.6 Est GFR (Non-Af Amer) 66.1 BUN/Creatinine Ratio 15.6 (10-20) Glucose 137 H (70-99) mg/dl Calcium 8.0 L (8.5-10.1) mg/dl Total Bilirubin 0.6 (0.2-1) mg/dl AST 21 (15-37) U/L ALT 20 (12-78) U/L Alkaline Phosphatase 58 (45-117) U/L Total Protein 5.9 L (6.4-8.2) gm/dl Albumin 2.6 L (3.4-5.0) gm/dl Globulin 3.3 (2.5-4.0) gm/dl Albumin/Globulin Ratio 0.8 L (0.9-2) Fluid Neutrophils % 30 % Fluid Lymphocytes % 26 % Fluid Eosinophils % 2 % Fluid Basophils % 0 % Fluid Meso/Macro/Hodgeman % 42 % Peritoneal Color RED Peritoneal Appearance BLOODY Peritoneal WBC 632 H (0-300) /ul Peritoneal RBC 32562 /uL
[2019-06-30] MEDS: ENOXAPARIN INJ 40 MG/0.4 ML SYR SQ SCH (12:00)
[2019-06-30] MEDS: FINASTERIDE 5 MG TAB PO SCH (12:00)
[2019-06-30] MEDS: PIPERACILLIN/TAZOBACTAM 3.375 GM in DEXTROSE 5% 100 ML IV SCH ×2 (14:10→21:16)
[2019-06-30] MEDS: TAMSULOSIN HCL 0.4 MG CAP PO SCH (21:16)
[2019-07-01] MEDS: HYDROmorphone INJ 0.5 MG/0.5 ML SYR IV PRN ×3 (02:02→15:54)
[2019-07-01] MEDS: PIPERACILLIN/TAZOBACTAM 3.375 GM in DEXTROSE 5% 100 ML IV SCH ×3 (05:14→21:11)
[2019-07-01 05:43] LABS: Basophils # (auto) 0.04 K/uL (0-0.2); Basophils % (auto) 0.5 %; Eosinophils # (auto) 0.07 K/uL (0-0.5); Eosinophils % (auto) 0.8 %; Hematocrit (blood only) 33.5 % (42-52); Hemoglobin 11.1 g/dL (14.0-18.0); Immature Granulocytes # (auto) 0.02 K/uL (0.00-0.02); Immature Granulocytes % (auto) 0.2 %; Lymphocytes # (auto) 0.88 K/uL (1.2-3.4); Lymphocytes % (auto) 10.5 %; Mean Corpuscular Hemoglobin 30.2 pg (25-34); Mean Corpuscular Hgb Conc 33.1 g/dL (32-36); Mean Corpuscular Volume 91.3 fL (80-100); Mean Platelet Volume 9.5 fL (7.4-10.4); Monocytes # (auto) 0.83 K/uL (0.11-0.59); Monocytes % (auto) 9.9 %; Neutrophils # (auto) 6.55 K/uL (1.4-6.5); Neutrophils % (auto) 78.1 %; Platelet Count 270 K/uL (130-400); RDW Coefficient of Variation 14.2 % (11.5-14.5); RDW Standard Deviation 47.2 fL (36.4-46.3); Red Blood Count 3.67 M/uL (4.7-6.1); White Blood Count 8.39 K/uL (4.8-10.8)
[2019-07-01 06:02] LABS: Albumin Level 2.3 gm/dl (3.4-5.0); Calcium 8.2 mg/dl (8.5-10.1); Creatinine Clr Calc Pharmacy 67.5 ml/min; Est GFR (African American) 91.1; Est GFR (Non-African American) 78.6; Magnesium 2.1 mg/dl (1.8-2.4); Potassium 3.2 mmol/L (3.5-5.1)
[2019-07-01 06:20] LABS: Albumin Globulin Ratio 0.7 (0.9-2); Bilirubin,Total 0.7 mg/dl (0.2-1); Globulin 3.1 gm/dl (2.5-4.0); Phosphorus 2.1 mg/dl (2.5-4.9); Total Protein 5.4 gm/dl (6.4-8.2)
[2019-07-01] MEDS: POTASSIUM CHLORIDE / WTR 10 MEQ/100 ML PLCT IV SCH ×2 (08:06→09:12)
[2019-07-01] MEDS: ENOXAPARIN INJ 40 MG/0.4 ML SYR SQ SCH (08:08)
[2019-07-01] MEDS: POLYETHYLENE (MIRALAX) 17 GM PACK PO SCH ×2 (09:12→21:05)
[2019-07-01] MEDS: FAMOTIDINE 20 MG in SYRINGE 3 ML IV SCH ×2 (09:12→21:11)
[2019-07-01] MEDS: FINASTERIDE 5 MG TAB PO SCH (09:12)
--- NOTE | 2019-07-01 09:15 | Hospitalist Progress Note ---
Date of Service July 01, 2019 Assessment & Plan (1) SBO (small bowel obstruction): Recurrent small-bowel obstruction s/p exploratory laparotomy and small bowel resection -This is third admission in this month possibly from the adhesions, history of surgery in the past for inguinal hernia. -06/29/2019: Medical doctor initially deferred NG tube this AM and medical doctor ordered Miralax with tap water enema and Dulcolax to promote GI motility. Medical doctor returned to see that patient has been assessed by general surgery service and patient has NG suctioning a lot of dark liquids and patient reports he is awaiting general surgery service to take him to operating room because of the bowel obstruction. -06/29/2019: Exploratory laparotomy, resection of small bowel x2, biopsy of mesenteric nodule x2. -06/30/2019: surgery service had ordered cefazolin and oral ciprofloxacin post-op but patient will be better optimized with Zosyn if any concern for infection, blood cultures also ordered on 06/30/2019 and Zosyn to be start in place of cefazolin. will keep NG tube for now, fluids as D5 1/2 normal saline until NG tube can be removed to give hydration and calories. Miralax can be given when NG tube is clamped -07/01/2019: no bowel movements yet, continue NG tube Hypokalemia Hypophosphatemia -supplement potassium and phosphorous due to GI losses of potassium and phosphorous from NG tube suctioning, trend labs Pancreatic dilatation on CAT scan -seen on previous scans in recent admissions, no acute interventions needed at this time for this issue History of chronic opioid narcotic pain medication use -previous 2 hospital admissions has allowed patient to be weaned off of intermediate teacher use of OxyContin as attempts to prevent bowel obstruction -he was previously on OxyContin 60 mg BID for chronic back pain indication -no further intermediate teacher narcotics -currently on prn short acting pain medications and prn acetaminophen Recent urinary tract infection with pseudomonas. Urinary retention History of prostate cancer status post radiation treatment in the past -maintain storey as per urology service -is on scheduled Proscar and Flomax when NG tube is clamped Acute kidney injury on chronic kidney disease stage III -baseline creatinine was around 1, presented with creatinine of 1.43. -IV fluids given and acute kidney function is resolved -creatinine is at baseline as of 06/30/2019 Hypertension -hold diuretics for now, monitor blood pressure Deep venous thrombosis devices: Lovenox Subjective patient continues to have NG tube. NG tube is suctioning. dressing over abdomen. has storey. patient denies acute abdomen pain. he denies of passing the gas. he denies of passing the bowel movement. mental baseline and answers questions appropriately. no distress Review of Systems Review of Systems: All systems reviewed & are unremarkable except as noted in HPI & below Physical Exam Constitutional: comfortable Eyes: PERRL, conjunctivae normal, anicteric sclerae EOM intact bilaterally ENMT: has NG tube with suction Neck: normal visual inspection Respiratory: normal respiratory effort, lungs clear to auscultation Cardiovascular: Rate/Rhythm: regular rate and regular rhythm Gastrointestinal (Abdomen): Percussion/Palpation: abdomen soft dressing over surgical incission site Musculoskeletal: Head/Neck/Chest: normocephalic and head atraumatic Neurologic: PERRL, EOMI, accommodation nl, no face palsy, no dysarthria CN's II-XI intact bilaterally Psychiatric: A+Ox3, euthymic affect Genitourinary: + penis abnormality (has storey) Results & Data Vital Signs (Past 12 Hours) Vital Signs Temp Pulse Resp BP BP Pulse Ox 07/01/19 07:30 37 C 66 18 136/55 L 93 07/01/19 00:49 80 06/30/19 23:28 36.7 C 102 H 18 146/65 H 95
[2019-07-01] MEDS ORDERED: POTASSIUM PHOS 3 MMOL/1 ML INFUSION IV STA (09:17)
--- NOTE | 2019-07-01 09:43 | Surgery Progress Note ---
Date of Service July 01, 2019 Assessment & Plan (1) S/P small bowel resection: POD#2 ex-lap, small bowel resection. No flatus continue NG tube to LIWS until return of bowel function storey per urology given history encourage IS, ambulation, OOBTC Subjective POD#2 ex-lap, small bowel resection and nodule biopsy for recurrent de alfredo sbo. Doing well, pain controlled, feels weak when walking. No flatus. Physical Exam Constitutional: WD/WN, vitals as above Gastrointestinal (Abdomen): Inspection/Auscultation: + abdominal surgical incision (with rekha, dressing in place, c/d/i, no e/o infection) Percussion/Palpation: + abdomen tender (appropriately ttp) and abdomen soft; no guarding and abdomen not rigid Results & Data Vital Signs (Past 12 Hours) Vital Signs Temp Pulse Resp BP BP Pulse Ox 07/01/19 07:30 37 C 66 18 136/55 L 93 07/01/19 00:49 80 06/30/19 23:28 36.7 C 102 H 18 146/65 H 95 PG Care Time/CCT Total # of Minutes Spent Total Time Spent with Patient: Total time spent is greater than 50% in coordination of care (as documented) at patient's floor/unit and/or counseling patient: Coding Level of Care Code 00701 Inpt Consult Level 3 Diagnoses S/P small bowel resection Z90.49
[2019-07-01] MEDS ORDERED: POTASSIUM PHOSPHATE 21 MMOL in SODIUM CHLORIDE 0.9% 500 ML IV ONE (09:45)
[2019-07-01 13:24] LABS: BUN Creatinine Ratio 14.2 (10-20); Calcium 8.2 mg/dl (8.5-10.1); Est GFR (African American) 88.5; Est GFR (Non-African American) 76.3; Potassium 3.6 mmol/L (3.5-5.1)
[2019-07-01 13:34] LABS: Phosphorus 2.7 mg/dl (2.5-4.9)
[2019-07-01] MEDS: D5W AND 1/2NSS 1,000 ML IV SCH (15:55)
[2019-07-01] MEDS: TAMSULOSIN HCL 0.4 MG CAP PO SCH (21:05)
[2019-07-02] MEDS: HYDROmorphone INJ 0.5 MG/0.5 ML SYR IV PRN (00:33)
[2019-07-02] MEDS: PIPERACILLIN/TAZOBACTAM 3.375 GM in DEXTROSE 5% 100 ML IV SCH (05:10)
[2019-07-02] MEDS: D5W AND 1/2NSS 1,000 ML IV SCH (06:11)
--- NOTE | 2019-07-02 07:10 | XRay Report ---
KUB HISTORY: Follow up study in a patient with small bowel obstruction follow bowel obstruction gases COMPARISON: KUB 06/29/2019, CT 06/28/2019 FINDINGS: Anterior midline skin rekha are noted. A catheter projects over the midline pelvis. Persi stent yet decreased small bowel distention of the central abdomen with small bowel loops measuring up to approximately 5.5 cm, previously 5.9 cm. Surgical suture material projects over the left midabdom en. Indeterminate linear radiodense 4.5 cm structure overlies the abdominal left upper quadrant. Joan abdoul pack projects over the lower chest. Mild right hemidiaphragmatic elevation. Enteric contrast is n oted within the large bowel. No renal calculi. No ureteral calculi. No pneumoperitoneum or pneumatosi s. Degenerative changes of the spine, pelvis and hips with extensive spinal fusion hardware. No fract ure. IMPRESSION: Persistent small bowel distention, decreased from comparison. There is now enteric contrast present w ithin the large bowel suggestive of partial small bowel obstruction. Continued follow-up recommended. ACT 112: Negative or not required by law. The above report was generated using voice recognition software. It may contain grammatical, syntax o r spelling errors. Electronically signed by: Shorty Greenwood M.D. 07/02/2019 7:09 AM
--- NOTE | 2019-07-02 07:55 | Hospitalist Progress Note ---
Date of Service July 02, 2019 Assessment & Plan (1) SBO (small bowel obstruction): Recurrent small-bowel obstruction s/p exploratory laparotomy and small bowel resection -This is third admission in this month possibly from the adhesions, history of surgery in the past for inguinal hernia. -06/29/2019: Medical doctor initially deferred NG tube this AM and medical doctor ordered Miralax with tap water enema and Dulcolax to promote GI motility. Medical doctor returned to see that patient has been assessed by general surgery service and patient has NG suctioning a lot of dark liquids and patient reports he is awaiting general surgery service to take him to operating room because of the bowel obstruction. -06/29/2019: Exploratory laparotomy, resection of small bowel x2, biopsy of mesenteric nodule x2. -06/30/2019: surgery service had ordered cefazolin and oral ciprofloxacin post-op but patient will be better optimized with Zosyn if any concern for infection, blood cultures also ordered on 06/30/2019 and Zosyn to be start in place of cefazolin. will keep NG tube for now, fluids as D5 1/2 normal saline until NG tube can be removed to give hydration and calories. Miralax can be given when NG tube is clamped -07/01/2019: no bowel movements yet, continue NG tube -07/02/2019: Patient and nurse corroborated that patient had 1 bowel movement and KUB on 07/02/2019 with some improvements in terms of bowel obstruction. Patient wishes to have NG tube removed today. Hospital doctor has ordered NG tube to be removed as per patient's wishes and because of clinical and radiographic improvements. Stop the IV fluids with dextrose and give clear liquid diet. 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 Urinary retention History of prostate cancer status post radiation treatment in the past -maintain storey as per urology service -is on scheduled Proscar and Flomax Acute kidney injury on chronic kidney disease stage III -baseline creatinine was around 1, presented with creatinine of 1.43. -IV fluids given and acute kidney function is resolved -creatinine is at baseline as of 06/30/2019 Hypertension -hold diuretics for now, monitor blood pressure Deep venous thrombosis devices: Lovenox Subjective Patient and nurse corroborated that patient had 1 bowel movement and KUB on 07/02/2019 with some improvements in terms of bowel obstruction. Patient wishes to have NG tube removed today. Hospital doctor has ordered NG tube to be removed as per patient's wishes and because of clinical and radiographic improvements. Stop the IV fluids with dextrose and give clear liquid diet. no vomiting. no abdomen pain. no chest pain. no shortness of breath. breathing on room air. no dizziness. no lightheadedness Review of Systems Review of Systems: All systems reviewed & are unremarkable except as noted in HPI & below Physical Exam Constitutional: comfortable Eyes: PERRL, conjunctivae normal, anicteric sclerae EOM intact bilaterally ENMT: has NG tube Neck: normal visual inspection Respiratory: normal respiratory effort, lungs clear to auscultation Cardiovascular: Rate/Rhythm: regular rate and regular rhythm Gastrointestinal (Abdomen): Percussion/Palpation: abdomen soft Musculoskeletal: Head/Neck/Chest: normocephalic and head atraumatic Neurologic: PERRL, EOMI, accommodation nl, no face palsy, no dysarthria CN's II-XI intact bilaterally Psychiatric: A+Ox3, euthymic affect Genitourinary: + penis abnormality (has storey) Results & Data Vital Signs (Past 12 Hours) Vital Signs Temp Pulse Resp BP Pulse Ox 07/02/19 07:32 36.5 C 87 18 144/62 H 96 07/01/19 23:31 36.9 C 69 17 138/65 96
[2019-07-02 08:11] LABS: Albumin Level 2.5 gm/dl (3.4-5.0); Calcium 8.6 mg/dl (8.5-10.1); Creatinine Clr Calc Pharmacy 75.7 ml/min; Est GFR (African American) 95.5; Est GFR (Non-African American) 82.4; Magnesium 2.1 mg/dl (1.8-2.4); Potassium 3.3 mmol/L (3.5-5.1)
[2019-07-02 08:38] LABS: Albumin Globulin Ratio 0.7 (0.9-2); Bilirubin,Total 0.6 mg/dl (0.2-1); Globulin 3.7 gm/dl (2.5-4.0); Phosphorus 1.9 mg/dl (2.5-4.9); Total Protein 6.2 gm/dl (6.4-8.2)
[2019-07-02] MEDS ORDERED: POTASSIUM PHOS 3 MMOL/1 ML INFUSION IV STA (08:43)
[2019-07-02] MEDS: POLYETHYLENE (MIRALAX) 17 GM PACK PO SCH ×2 (08:58→20:19)
[2019-07-02] MEDS: HYDROCODONE/ACETAMINOPHEN 10/325 TAB PO PRN ×2 (08:59→20:20)
[2019-07-02] MEDS: FINASTERIDE 5 MG TAB PO SCH (08:59)
[2019-07-02] MEDS: ENOXAPARIN INJ 40 MG/0.4 ML SYR SQ SCH (08:59)
[2019-07-02] MEDS: FAMOTIDINE 20 MG in SYRINGE 3 ML IV SCH ×2 (09:00→20:21)
[2019-07-02] MEDS ORDERED: POTASSIUM PHOSPHATE 21 MMOL in SODIUM CHLORIDE 0.9% 500 ML IV ONE (09:15)
--- NOTE | 2019-07-02 09:33 | Surgery Progress Note ---
Date of Service July 02, 2019 Assessment & Plan (1) S/P small bowel resection: POD 3 ex lap bowel function returning can start clear liquids ambulate seen with Dr. Sullivan Supervising Physician Co-Signing Physician Notes S&E, agree with above. POD#3 ex-lap with SBR for stricture. Passed flatus and had bm, ng tube d/c'ed, getting clears. Pain controlled. KUB with slightly less dilated bowel and contrast in colon. Continue clear liquids, may advance to low fiber starting tomorrow after Dr. Moody's return. Subjective NG removed this AM, passing flatus and had BM Physical Exam Gastrointestinal (Abdomen): Inspection/Auscultation: + abdominal surgical incision (clean, dry, no erythema); abdomen not distended Percussion/Palpation: abdomen soft Results & Data Vital Signs (Past 12 Hours) Vital Signs Temp Pulse Resp BP Pulse Ox 07/02/19 07:32 36.5 C 87 18 144/62 H 96 07/01/19 23:31 36.9 C 69 17 138/65 96 PG Care Time/CCT Total # of Minutes Spent Total Time Spent with Patient: Total time spent is greater than 50% in clinic office coordinator rdination of care (as documented) at patient's floor/unit and/or counseling patient: Coding Level of Care Code None Diagnoses S/P small bowel resection Z90.49
[2019-07-02] MEDS: POTASSIUM CHLORIDE / WTR 10 MEQ/100 ML PLCT IV SCH ×2 (12:52→14:18)
[2019-07-02] MEDS ORDERED: MAGNESIUM HYDROXIDE SUSP 30 ML UDC PO ONE (16:26)
[2019-07-02 17:13] LABS: BUN Creatinine Ratio 12.8 (10-20); Calcium 8.1 mg/dl (8.5-10.1); Creatinine Clr Calc Pharmacy 71.9 ml/min; Est GFR (African American) 93.4; Est GFR (Non-African American) 80.6; Phosphorus 2.4 mg/dl (2.5-4.9); Potassium 3.7 mmol/L (3.5-5.1)
[2019-07-02] MEDS: TAMSULOSIN HCL 0.4 MG CAP PO SCH (20:18)
[2019-07-03 06:26] LABS: BUN Creatinine Ratio 12.3 (10-20); Calcium 8.3 mg/dl (8.5-10.1); Creatinine Clr Calc Pharmacy 76.8 ml/min; Est GFR (Non-African American) 82.8; Phosphorus 1.9 mg/dl (2.5-4.9); Potassium 3.4 mmol/L (3.5-5.1)
--- NOTE | 2019-07-03 07:36 | Surgery Progress Note ---
Date of Service doing better, passed BM X2 yesterday, pt tolerated clear diet, no abdominal pain, no nausea, no vomiting, no fever. July 03, 2019 Assessment & Plan (1) SBO (small bowel obstruction): POD # 1 s/p ex lap, small bowel resection x 2 and mesenteric nodule biopsy -vitals stable, afebrile - mild leukocytosis today (likely postoperative) - no n/v - 100 cc NGT output - no return of bowel function - adequate urine output Plan: Continue IV Tylenol and Dilaudid prn pain. Continue oral hydrocodone prn pain as well Continue NGT to LIS until passing flatus, may clamp to ambulate Continue IV fluids Continue home meds, clamp NGT for 2 hours after. Continue SCDs for DVT prophylaxis Continue Alvares catheter. To be kept until outpatient per urology recommendations PT/OT/ case management consults Incentive spirometry continue medical management repeat am labs while npo Once patient's diet advanced would recommend boost/ensure supplementation BID in between meals given low albumin and weakness Advance diet to low fiber diet Will start Lovenox daily for DVT prophylaxis Dr. Sullivan covering this weekend. 07/03/2019 7:35am doing fine, passed BM, tolerated clear diet, possible go home today, if pt tolerated full liquid diet Subjective NG removed this AM, passing flatus and had BM Physical Exam Constitutional: WD/WN, vitals as above well nourished Neck: trachea midline, no thyromegaly Respiratory: normal respiratory effort, lungs clear to auscultation normal respiratory effort Cardiovascular: RRR, no murmur, no edema Rate/Rhythm: regular rate and regular rhythm Gastrointestinal (Abdomen): normal bowel sounds, soft, nontender, no hepatosplenomegaly Percussion/Palpation: abdomen soft NT, ND, incision intact, no redness, Musculoskeletal: Head/Neck/Chest: neck supple Skin: no rashes, warm and dry Neurologic: patellar DTR's 2+ bilat, sensation intact awake Psychiatric: Orientation: alert and oriented x 3 Results & Data Vital Signs (Past 12 Hours) Vital Signs Temp Pulse Resp BP Pulse Ox 07/03/19 07:17 36.8 C 71 16 160/65 H 97 07/02/19 23:15 36.7 C 74 16 129/58 L 98 Laboratory Results Abnormal lab results 07/02/19 07/02/19 07/03/19 Range/Units 07:38 16:50 05:15 Potassium 3.3 L 3.4 L (3.5-5.1) mmol/L Chloride 108 H (98-107) mmol/L Glucose 108 H 108 H (70-99) mg/dl Calcium 8.1 L 8.3 L (8.5-10.1) mg/dl Phosphorus 1.9 L 2.4 L 1.9 L (2.5-4.9) mg/dl AST 13 L (15-37) U/L Total Protein 6.2 L (6.4-8.2) gm/dl Albumin 2.5 L (3.4-5.0) gm/dl Albumin/Globulin Ratio 0.7 L (0.9-2)
[2019-07-03] MEDS ORDERED: POTASSIUM PHOS 3 MMOL/1 ML INFUSION IV STA (07:45)
[2019-07-03] MEDS ORDERED: MAGNESIUM HYDROXIDE SUSP 30 ML UDC PO ONE (07:46)
[2019-07-03] MEDS: HYDROCODONE/ACETAMINOPHEN 10/325 TAB PO PRN (07:48)
[2019-07-03] MEDS ORDERED: POTASSIUM PHOSPHATE 21 MMOL in SODIUM CHLORIDE 0.9% 500 ML IV ONE (08:00)
[2019-07-03] MEDS: FINASTERIDE 5 MG TAB PO SCH (08:48)
[2019-07-03] MEDS: POLYETHYLENE (MIRALAX) 17 GM PACK PO SCH (08:48)
[2019-07-03] MEDS: ENOXAPARIN INJ 40 MG/0.4 ML SYR SQ SCH (08:49)
[2019-07-03] MEDS: FAMOTIDINE 20 MG in SYRINGE 3 ML IV SCH (09:39)
--- NOTE | 2019-07-03 10:07 | XRay Report ---
KUB CLINICAL HISTORY: Follow up bowel obstruction. COMPARISON STUDY: CT of the abdomen and pelvis June 28, 2019. KUB July 02, 2019. FINDINGS: Persistent moderate small bowel dilatation is noted. A catheter within the bladder is noted . Small amount of contrast within the colon is noted. This is decreased compared to prior exam. Posto perative findings within the spine are present. The left slime is fractured. IMPRESSION: Persistent small bowel dilatation. This suggests a persistent small bowel obstruction. ACT 112: Negative or not required by law. Electronically signed by: Rosendo Vega M.D. 07/03/2019 10:06 AM
--- NOTE | 2019-07-03 15:10 | Hospitalist Progress Note ---
Date of Service July 03, 2019 Assessment & Plan (1) SBO (small bowel obstruction): Recurrent small-bowel obstruction s/p exploratory laparotomy and small bowel resection -This is third admission in this month possibly from the adhesions, history of surgery in the past for inguinal hernia. -06/29/2019: Medical doctor initially deferred NG tube this AM and medical doctor ordered Miralax with tap water enema and Dulcolax to promote GI motility. Medical doctor returned to see that patient has been assessed by general surgery service and patient has NG suctioning a lot of dark liquids and patient reports he is awaiting general surgery service to take him to operating room because of the bowel obstruction. -06/29/2019: Exploratory laparotomy, resection of small bowel x2, biopsy of mesenteric nodule x2. -06/30/2019: surgery service had ordered cefazolin and oral ciprofloxacin post-op but patient will be better optimized with Zosyn if any concern for infection, blood cultures also ordered on 06/30/2019 and Zosyn to be start in place of cefazolin. will keep NG tube for now, fluids as D5 1/2 normal saline until NG tube can be removed to give hydration and calories. Miralax can be given when NG tube is clamped -07/01/2019: no bowel movements yet, continue NG tube -07/02/2019: Patient and nurse corroborated that patient had 1 bowel movement and KUB on 07/02/2019 with some improvements in terms of bowel obstruction. Patient wishes to have NG tube removed today. Hospital doctor has ordered NG tube to be removed as per patient's wishes and because of clinical and radiographic improvements. Stop the IV fluids with dextrose and give clear liquid diet. -07/03/2019: (patient is making bowel movements on liquid diet. KUB on 07/03/2019 shows Persistent moderate small bowel dilatation but this is likely going to be chronic given patient's age. he was advised to stay 1 to 2 days furthers by hospital doctor but he prefers to go home. discharge to home and take liquid or low fiber solid diet. Patient should follow up with Follow-up in surgical office in 1-2 weeks after discharge. Please call office at [phone] to make an appointment. patient should avoid colace for now as general sugery advising low fiber diet patient should take senna daily. patient can take Miralax daily as needed if no bowel movement) Hypokalemia Hypophosphatemia -supplement potassium and phosphorous due to GI losses of potassium and phosphorous from NG tube suctioning with improvements on labs in afternoon of 07/01/2019 -patient had low serum phosphate because of Nasogastric tube suctioning in the hospital and reduced diet. serum phosphate 1.9 on 07/03/2019 and patient got IV potassium phosphate. Patient should take oral potassium phosphate 1000 mg daily for 7 days and have follow up electrolyte lab testing by primary care doctor or [facility]. Patient should not take home potassium chloride supplements for now. The furosemide at home is to be resumed at a lower dose of 40 mg daily for now to prevent dehydration. 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 Urinary retention History of prostate cancer status post radiation treatment in the past -maintain storey as per urology service -is on scheduled Proscar and Flomax -Patient will go home on storey which was started on this admission for urinary retention. Patient will need to follow up with [facility] for further management of the storey. Patient should call [phone] for appointment ([facility] [address] [place] [address]) Acute kidney injury on chronic kidney disease stage III -baseline creatinine was around 1, presented with creatinine of 1.43. -IV fluids given and acute kidney function is resolved -creatinine is at baseline as of 06/30/2019 Hypertension -may resume furosemide as low dose 40 mg daily on discharge Discharge Diagnosis: Recurrent small-bowel obstruction s/p exploratory laparotomy and small bowel resection (with biopsy also done) Hypokalemia Hypophosphatemia Urinary retention Acute kidney injury (resolved) on chronic kidney disease stage III Subjective patient is making bowel movements on liquid diet. KUB on 07/03/2019 shows Persistent moderate small bowel dilatation but this is likely going to be chronic given patient's age. he was advised to stay 1 to 2 days furthers by hospital doctor but he prefers to go home. no vomiting. no abdominal pain. no chest pain. no shortness of breath. breathing on room air. no dizziness. no headache. no distress. continues to have storey Review of Systems Review of Systems: All systems reviewed & are unremarkable except as noted in HPI & below Physical Exam Constitutional: comfortable Eyes: PERRL, conjunctivae normal, anicteric sclerae EOM intact bilaterally Neck: normal visual inspection Respiratory: normal respiratory effort, lungs clear to auscultation Cardiovascular: Rate/Rhythm: regular rate and regular rhythm Gastrointestinal (Abdomen): Percussion/Palpation: abdomen soft Musculoskeletal: Head/Neck/Chest: normocephalic and head atraumatic Neurologic: PERRL, EOMI, accommodation nl, no face palsy, no dysarthria CN's II-XI intact bilaterally Psychiatric: A+Ox3, euthymic affect Genitourinary: + penis abnormality (has storey) Results & Data Vital Signs (Past 12 Hours) Vital Signs Temp Pulse Resp BP Pulse Ox 07/03/19 07:17 36.8 C 71 16 160/65 H 97
--- NOTE | 2019-07-03 15:16 | Discharge Summary ---
Date of Service July 03, 2019 Admission HPI Per Admitting Provider DATE OF ADMISSION: 06/28/2019 CHIEF COMPLAINT: Abdominal pain. HISTORY OF PRESENT ILLNESS: This is an 88-year-old male with past medical history significant for hypertension, reflux esophagitis, chronic kidney disease stage III, history of prostate cancer, spinal stenosis of lumbar region with neurogenic claudication, failed back surgical syndrome, malfunction of neurostimulator lead, dependent edema, ambulatory dysfunction, cervical spinal stenosis, who lives with the , walks with help of walker and cane but lately has become more weak. This is third admission in this month for small-bowel obstruction. The patient was discharged on 06/23/2019, at that time with significant bowel obstruction resolved conservatively. He was on chronic pain medication, initially on OxyContin 60 mg b.i.d. which was at first admission cut back to 30 mg b.i.d., but last admission, he was completely stopped and placed on hydrocodone/acetaminophen 10/325 mg one tablet t.i.d. p.r.n. pain. He says he is doing fine. He is not getting any withdrawal symptoms. He is taking 2 or 3 tablets every day.But since he has got discharged from the hospital, he still was only drinking juice and his bowels are not moving, he is not moving any gas and has some epigastric abdominal pain, which brought him to the hospital today. Currently resting comfortably and hemodynamically stable. Denies any nausea, vomiting. CAT scan with oral and IV contrast was done today which was showing complete small-bowel obstruction with transition point in the right mid abdomen at the level of distal ileum. This likely is due to adhesions. The patient denies any chest pain, no shortness of breath, no fever, no chills, no headache, no blurred visions. Hard of hearing. No runny nose, no sore throat, no cough. Normal bladder movements. Has chronic swelling in the lower extremity. ALLERGIES: ELASTIC ON PANTS AND UNDERWEAR. PAST MEDICAL HISTORY: As mentioned above. PAST SURGICAL HISTORY: Ear surgery, urethral stricture dilatation, cystolitholapaxy, left shoulder replacement, prostate needle punch biopsy, radiation treatment for pelvis, repair of inguinal hernia, spinal fusion surgery. MEDICATIONS: Currently the patient is on Proscar 5 mg p.o. daily, Cipro 500 mg p.o. b.i.d., miconazole topical p.r.n., Lasix 80 mg p.o. b.i.d., hydrocodone/acetaminophen 10 mg 1 tablet p.o. q. 8 hours p.r.n., multivitamin 1 tablet daily, nystatin topical t.i.d. p.r.n., omeprazole 20 mg p.o. daily p.r.n., MiraLax 17 grams p.o. daily, potassium chloride 10 mEq p.o. daily, Flomax 0.8 mg p.o. at bedtime. FAMILY HISTORY: Significant for brother had cancer, mother had diabetes. Brother had CAD with stents. SOCIAL HISTORY: and lives with his . Former smoker, quit in 1960s, smoked 1 pack a day for 15 years. Alcohol occasional. No drug use. REVIEW OF SYMPTOMS: As per HPI. Rest of review of systems negative. Admission Exam Per Admitting Provider GENERAL: The patient is of moderate build, not in acute distress. VITAL SIGNS: Temperature 37.1, pulse 82, respiratory rate 18, blood pressure 118/72, oxygen 98% room air. HEENT: No pallor, no icterus. Right pupil has somewhat sluggish reaction to light which seems to be chronic. NECK: No JVD, no neck masses, no carotid bruits. CARDIOVASCULAR: S1, S2 heard, regular rate and rhythm, no murmur, no gallop. RESPIRATORY SYSTEM: Normal AP diameter. No accessory muscle use. No wheezing, no crackles. ABDOMEN: Soft, bowel sounds absent, mild distention. Mild epigastric tenderness, no guarding, no rigidity. CENTRAL NERVOUS SYSTEM: Cranial nerves II-XII grossly intact. Nonfocal. EXTREMITIES: Bilateral lower extremity edema present, no erythema seen. Principal Diagnosis Recurrent small-bowel obstruction s/p exploratory laparotomy and small bowel resection (with biopsy also done) Hypokalemia Hypophosphatemia Urinary retention Acute kidney injury (resolved) on chronic kidney disease stage III Discharge Exam Constitutional comfortable Eyes PERRL, conjunctivae normal, anicteric sclerae EOM intact bilaterally Neck normal visual inspection Respiratory normal respiratory effort, lungs clear to auscultation Cardiovascular Rate/Rhythm: regular rate and regular rhythm Gastrointestinal (Abdomen) Percussion/Palpation: abdomen soft Musculoskeletal Head/Neck/Chest: normocephalic and head atraumatic Neurologic PERRL, EOMI, accommodation nl, no face palsy, no dysarthria CN's II-XI intact bilaterally Psychiatric A+Ox3, euthymic affect Genitourinary + penis abnormality (has storey) Discharge Data Allergies Allergy/AdvReac Type Severity Reaction Status Date / Time Uncoded Nonscreenable Allergy Unknown ELASTIC ON Uncoded 06/28/19 17:54 Allergen PANTS/UNDERWEAR Consultations 06/28/19 21:10 ED Decision to Admit Stat 06/28/19 23:39 Consult Case Management - Discharge Planning Routine 06/29/19 06:49 Consult Urology Stat 06/29/19 08:00 Consult General Surgery Routine 06/30/19 09:51 Consult Case Management - Discharge Planning Routine Procedures Performed Operation Date: 06/29/19 14:40 Actual Procedures p Exploratory Laparotomy, Small Bowel Resection(Not Applicable) - Michelle Moody MD Ordered Studies 06/28/19 17:39 CT abd pelvis oral and IV con Stat Hospital Course (1) SBO (small bowel obstruction): Recurrent small-bowel obstruction s/p exploratory laparotomy and small bowel resection -This is third admission in this month possibly from the adhesions, history of surgery in the past for inguinal hernia. -06/29/2019: Medical doctor initially deferred NG tube this AM and medical doctor ordered Miralax with tap water enema and Dulcolax to promote GI motility. Medical doctor returned to see that patient has been assessed by general surgery service and patient has NG suctioning a lot of dark liquids and patient reports he is awaiting general surgery service to take him to operating room because of the bowel obstruction. -06/29/2019: Exploratory laparotomy, resection of small bowel x2, biopsy of mesenteric nodule x2. -06/30/2019: surgery service had ordered cefazolin and oral ciprofloxacin post-op but patient will be better optimized with Zosyn if any concern for infection, blood cultures also ordered on 06/30/2019 and Zosyn to be start in place of cefazolin. will keep NG tube for now, fluids as D5 1/2 normal saline until NG tube can be removed to give hydration and calories. Miralax can be given when NG tube is clamped -07/01/2019: no bowel movements yet, continue NG tube -07/02/2019: Patient and nurse corroborated that patient had 1 bowel movement and KUB on 07/02/2019 with some improvements in terms of bowel obstruction. Patient wishes to have NG tube removed today. Hospital doctor has ordered NG tube to be removed as per patient's wishes and because of clinical and radiographic improvements. Stop the IV fluids with dextrose and give clear liquid diet. -07/03/2019: (patient is making bowel movements on liquid diet. KUB on 07/03/2019 shows Persistent moderate small bowel dilatation but this is likely going to be chronic given patient's age. he was advised to stay 1 to 2 days furthers by hospital doctor but he prefers to go home. discharge to home and take liquid or low fiber solid diet. Patient should follow up with Follow-up in surgical office in 1-2 weeks after discharge. Please call office at [phone] to make an appointment. patient should avoid colace for now as general sugery advising low fiber diet patient should take senna daily. patient can take Miralax daily as needed if no bowel movement) Hypokalemia Hypophosphatemia -supplement potassium and phosphorous due to GI losses of potassium and phosphorous from NG tube suctioning with improvements on labs in afternoon of 07/01/2019 -patient had low serum phosphate because of Nasogastric tube suctioning in the hospital and reduced diet. serum phosphate 1.9 on 07/03/2019 and patient got IV potassium phosphate. Patient should take oral potassium phosphate 1000 mg daily for 7 days and have follow up electrolyte lab testing by primary care doctor or [facility]. Patient should not take home potassium chloride supplements for now. The furosemide at home is to be resumed at a lower dose of 40 mg daily for now to prevent dehydration. Adjustments of furosemide in the future as per primary care doctor Pancreatic dilatation on CAT scan -seen on previous scans in recent admissions, no acute interventions needed at this time for this issue History of chronic opioid narcotic pain medication use -previous 2 hospital admissions has allowed patient to be weaned off of mcc use of OxyContin as attempts to prevent bowel obstruction -he was previously on OxyContin 60 mg BID for chronic back pain indication -no further mcc narcotics -currently on prn short acting pain medications and prn acetaminophen Recent urinary tract infection with pseudomonas. Urinary retention History of prostate cancer status post radiation treatment in the past -maintain storey as per urology service -is on scheduled Proscar and Flomax -Patient will go home on storey which was started on this admission for urinary retention. Patient will need to follow up with [facility] for further management of the storey. Patient should call [phone] for appointment ([facility] [address] [place] [address]) Acute kidney injury on chronic kidney disease stage III -baseline creatinine was around 1, presented with creatinine of 1.43. -IV fluids given and acute kidney function is resolved -creatinine is at baseline as of 06/30/2019 Hypertension -may resume furosemide as low dose 40 mg daily on discharge Discharge Diagnosis: Recurrent small-bowel obstruction s/p exploratory laparotomy and small bowel resection (with biopsy also done) Hypokalemia Hypophosphatemia Urinary retention Acute kidney injury (resolved) on chronic kidney disease stage III Total Time Total Time Spent Total Time Spent (In Minutes): 40 minutes Total Time Includes: Examination of the Patient, Discharge Planning, Medication Reconciliation and Communication With Other Providers Discharge Plan Discharge Items Patient Disposition: Home - Home Health Services Reason For Visit: SBO Discharge Diagnosis: Recurrent small-bowel obstruction s/p exploratory laparotomy and small bowel resection (with biopsy also done) Hypokalemia Hypophosphatemia Urinary retention Acute kidney injury (resolved) on chronic kidney disease stage III Condition on Discharge: Good Activity: Per Instructions section Non-emergency contact: Primary Care Provider and Surgeon Call non-emergency contact if: you have any medication questions Follow-up/Referrals: Tani Duval MD [Primary Care Provider] - Diet: Full liquid and Low Fiber Addtl Attending Provider Instructions: patient is making bowel movements on liquid diet. KUB on 07/03/2019 shows Persistent moderate small bowel dilatation but this is likely going to be chronic given patient's age. he was advised to stay 1 to 2 days furthers by hospital doctor but he prefers to go home. 07/03/2019 discharge to home and take liquid or low fiber solid diet. Patient should follow up with Follow-up in surgical office in 1-2 weeks after discharge. Please call office at [phone] to make an appointment. patient should avoid colace for now as general sugery advising low fiber diet patient should take senna daily. patient can take Miralax daily as needed if no bowel movement patient had low serum phosphate because of Nasogastric tube suctioning in the hospital and reduced diet. serum phosphate 1.9 on 07/03/2019 and patient got IV potassium phosphate. Patient should take oral potassium phosphate 1000 mg daily for 7 days and have follow up electrolyte lab testing by primary care doctor or [facility]. Patient should not take home potassium chloride supplements for now. The furosemide at home is to be resumed at a lower dose of 40 mg daily for now to prevent dehydration. Adjustments of furosemide in the future as per primary care doctor Patient will go home on storey which was started on this admission for urinary retention. Patient will need to follow up with [facility] for further management of the storey. Patient should call [phone] for appointment ([place] [address]) Scheduled appointments 07/05/2019 10:00 AM Provider Deepali Pedraza RN [facility] 07/07/2019 11:00 AM Provider Tani Duval MD Department [facility] 07/18/2019 2:00 PM Provider Deep[facility] Pedraza RN [facility] 08/25/2019 10:00 AM Provider Praful eBrnal MD Department Nephrology, [facility] Provider Instructions: SURGICAL DISCHARGE INSTRUCTIONS: -No heavy lifting over 10 pounds for at least 6 weeks - no strenuous activity until cleared by surgeon - No driving while you are still having pain or taking pain medication - You may shower. Allow soap and water to run over incision and pat dry -Surgical rekha will be removed in office - Continue your narcotic pain medication as needed for pain - Recommend low fiber diet for 4 weeks - Follow-up in surgical office in 1-2 weeks after discharge. Please call office at [phone] to make an appointment. Pending Studies at Discharge: Yes Studies:: biopsy of mesenteric nodule x2 from bowels are pending Stand-Alone Forms: My [facility], Smoking Cessation Medications and DC Order Prescriptions: New furosemide 40 mg tablet 40 mg PO DAILY 30 Days Qty: 30 RF: 0 polyethylene glycol 3350 [Miralax] 17 gram Powder In Packet 17 g PO DAILY PRN (Reason: constipation) 30 Days Qty: 30 RF: 0 senna 8.6 mg capsule 8.6 mg PO DAILY 30 Days Qty: 30 RF: 0 potassium phosphate, monobasic 500 mg tablet,soluble 1,000 mg PO DAILY 7 Days Qty: 14 RF: 0 Continued multivitamin Tablet 1 tab PO QAM RF: 0 hydrocodone-acetaminophen 10-325 mg tablet 1 tab PO Q8 PRN (Reason: Pain) RF: 0 tamsulosin 0.4 mg capsule 0.8 mg PO HS RF: 0 econazole 1 % cream 1 applic TOPICAL UD PRN (Reason: FLARE UPS) RF: 0 nystatin 100,000 unit/gram powder 1 applic TOPICAL TID PRN (Reason: IRRITATION) RF: 0 omeprazole 20 mg Tablet,Delayed Release (Dr/Ec) 20 mg PO DAILY PRN (Reason: Acid Reflux) RF: 0 finasteride [Proscar] 5 mg Tablet 5 mg PO QAM RF: 0 Discontinued polyethylene glycol 3350 [Miralax] 17 gram Powder In Packet 17 g PO QAM RF: 0 furosemide [Lasix] 40 mg Tablet 80 mg PO BID RF: 0 ciprofloxacin HCl 500 mg tablet 500 mg PO BID Qty: 10 RF: 0 potassium chloride 10 mEq tablet,ER particles/crystals 10 meq PO DAILY RF: 0 Discharge Orders: Discharge Order (Routine); Ordered 07/03/19 Ordered By: Prashanth Gar/Other Patient Handouts: Polyethylene Glycol 3350 Oral solution, Sennosides Oral tablet, Potassium Phosphate Oral tablet, Furosemide Oral tablet Admission Data Admit Date/Time: 06/28/19 22:25 Attending Provider: Prashanth Francisco Admit Provider: Juan Francisco Dominguez Primary Care Provider: Tani Duval Other Providers: Juan Francisco Dominguez ; Matthew Norman ; Mohsen Sullivan ; [facility]
== END 2019-07-03 19:10 | disposition home health service (06) | DRG 336 ==
LOC: ED 16:20 → 3W 22:25

== ENCOUNTER 2019-09-05 13:27 | Inpatient (IN) ==
[2019-09-05] MEDS ORDERED: ONDANSETRON INJ 2 MG/ML 2 ML VIAL IV STA (14:00)
[2019-09-05] MEDS ORDERED: SODIUM CHLORIDE 0.9% 500 ML IV SCH (14:00)
[2019-09-05] MEDS ORDERED: ACETAMINOPHEN 1,000 MG/100 ML VIAL IV STA (14:02)
--- NOTE | 2019-09-05 14:13 | Emergency Department Note ---
Impression & Plan Febrile illness, acute, Vomiting ED Provider Note NAME: MARIO GIL AGE: 88 SEX: M ARRIVES VIA: Walk-In INFORMANT: [Patient] ED PROVIDER(S): Dillon Zarco MD CHIEF COMPLAINT: Vomiting PLAN: Disposition: Admitted Condition: [Good] MEDICAL DECISION MAKING: The patient is an 88-year-old presented to the emergency department complaining of nausea and vomiting. He also was febrile. He noted a chronic cough but on multiple occasions stated was no different than usual and only has production of some white sputum. He states that is chronic for him. He had blood work obtained. He was given IV normal saline and Tylenol for his symptoms. He was also given Zofran. This did control his fever and his vomiting. The patient underwent CT imaging which did show air in his urinary bladder. He notes he self catheterized several days ago but not in the last 2 days. The patient had blood on urine sample. CT imaging did not show any other acute intra-abdominal pathology. Radiology questioned some bibasilar opacities but again the patient denied any shortness of breath or new respiratory symptoms. Given the nausea, vomiting, fever and possible urinary source I discussed treatment in the hospital and the patient was in agreement. He was given IV Rocephin. I did contact the [facility] hospitalist service. They noted an appointment for this afternoon scheduled at the outpatient clinic for novel coronavirus testing. The patient was put in isolation. He was screened at triage and there was no positive questions. I did asked the patient numerous times about new respiratory symptoms, shortness of breath, and sick contacts, which she denied. He states he has not had any sick contacts and has not traveled. He has basically been at home during this pandemic. Flu testing was performed and was negative. A bio fire swab was sent. The patient was admitted. Triage Nursing notes reviewed and agree them. Vital Signs: reviewed and remarkable for fever and hypertension Differential diagnosis: Small bowel obstruction, foodborne illness, viral syndrome, otitis, pharyngitis, pneumonia, influenza, meningitis, urinary tract infection, sepsis, bacteremia, as well as other pathologies. ER treatment provided: Normal saline hydration IV Tylenol IV Zofran IV ceftriaxone Diagnostics interpreted by me: ECG: Rate: 91 Rhythm:Normal sinus [place]:Normal QRS:Normal ST segements:No elevation or depression Other: PACs present. No PVCs. Cardiac Monitoring: Cardiac monitoring ordered by me: The patient was placed on continuous cardiac monitoring and observed. It revealed a normal sinus rhythm at 88 beats per minute without evidence of dysrhythmia. PACs noted. Laboratory studies: [See below] mild leukocytosis and anemia on CBC. Chemistry panel was unremarkable. Flu testing negative. Urinalysis revealed hematuria. Imaging studies: Chest x-ray revealed chronic changes. Atelectasis in the bases. [See below] Consultation(s): Application made with the [facility]ist service, Carolyn Cleary PA-C. The patient will be admitted under Dr. Pratt. HPI: The patient is a 88 yea old male who presents to the Emergency Room with complaints of vomiting. This started 2 days ago and is not improving. The patient also notes the following associated symptoms, nausea and fever. The patient has found no relieving factors. Current pain is rated as 0/10. Patient does have a history of SBO. He denies any bloating. He has had some loose stool. Last bowel movement was yesterday. Patient denies any sick or ill contacts. He has not traveled. No risk factors for normal coronavirus. Pt denies LOC, headache, chills, diaphoresis, visual changes, neck pain, chest pain, breathing difficulties, abdominal pain, back pain, melena, hematochezia, urinary symptoms, numbness, weakness, lymphadenopathy, rash, or other complaints. ROS: See above HPI for pertinent positives & negatives. A total of [10] systems reviewed and were otherwise negative. PAST MEDICAL HISTORY:[See Below] reviewed in EMR. SBO. PAST SURGICAL HISTORY:[See Below] FAMILY HISTORY:[See Below] SOCIAL HISTORY:[See Below] lives with family HOME MEDICATIONS:[See Below] ALLERGIES:[See Below] VITALS:[See Below] PHYSICAL EXAMINATION: GENERAL: Awake, alert, uncomfortable-appearing, in no distress HENT: Normocephalic, atraumatic. Oropharynx unremarkable. EYES: Normal conjunctiva. Sclera non-icteric. NECK: Inspection normal. Non-tender. Supple. No nuchal rigidity. FROM. No masses. RESPIRATORY: Clear to auscultation. No wheezes. No rales. Normal respiratory effort. CARDIAC: Normal rate. Normal rhythm. No murmurs. No rubs. Extremities warm and well perfused. Pulses equal. No JVD. GI: Soft, non-distended. No tenderness to palpation. No rebound or guarding. No masses. RECTAL: Deferred. MUSCULOSKELETAL: Atraumatic. Chest examination reveals no tenderness. The back is symmetrical on inspection without obvious abnormality. There is no CVA tenderness to palpation. No joint edema. LOWER EXTREMITIES: Calves are equal size bilaterally and non-tender. 1+ lower edema. No discoloration. NEURO: Normal sensorium. No sensory or motor deficits noted. SKIN: No rash or jaundice noted. ED COURSE: Procedures: [none] [Critical Care:] [None] Dillon Zarco MD Past Med/Surg History Social History Preferred Language: Palauan Communication Ability: Effective Curriculum Assistant Required: No Beliefs That Will Affect Care: Anabaptism Anabaptism Beliefs: Jehovah Witness marital status: Current Living Situation: Spouse current occupational status: retired Feels Safe at Home: Yes Smoking Status: Former smoker Second Hand Exposure: No ; Hx Alcohol Use: Yes Alcohol type: beer Alcohol Intake Frequency: Rarely Hx Substance Use: No Allergies Allergies Allergy/AdvReac Type Severity Reaction Status Date / Time No Known Allergies Allergy Verified 09/05/19 14:12 Home Meds Home Medications Medication Instructions Recorded Confirmed econazole 1 applic TOPICAL UD PRN 06/15/19 09/05/19 hydrocodone-acetaminophen 1 tab PO Q8 PRN 06/15/19 09/05/19 multivitamin 1 tab PO QAM 06/15/19 09/05/19 nystatin 1 applic TOPICAL TID PRN 06/15/19 09/05/19 omeprazole 20 mg PO DAILY PRN 06/15/19 09/05/19 potassium chloride 10 meq PO DAILY 09/05/19 09/05/19 Previous Rx's Medication Instructions Recorded lidocaine HCl 2 ml TOP TID PRN #60 ml 07/09/19 nystatin 1 appln TOP TID #15 gm 07/09/19 Results & Data (ED) Vital Signs Vital Signs - 24 hr 09/05/19 13:47 09/05/19 14:01 09/05/19 14:30 Temperature 39.5 C H Temperature Source Oral Pulse Rate 103 H 87 85 Pulse Rate from SpO2 Sensor Pulse Rhythm Regular Pulse Strength Normal Respiratory Rate 20 22 18 Respiratory Effort / Characteristics Non-Labored Respiratory Depth Normal Respiratory Pattern Regular Blood Pressure 118/55 L Blood Pressure Mean 76 Pulse Oximetry 95 Oxygen Delivery Method Room Air Sepsis Recent Fever Within 48 Hours Yes Sepsis New/Unexplained Change in Mental Status No Sepsis Action Taken by Nursing No Action Required 09/05/19 15:00 09/05/19 15:01 09/05/19 15:03 Temperature Temperature Source Pulse Rate 83 80 86 Pulse Rate from SpO2 Sensor 80 82 Pulse Rhythm Pulse Strength Respiratory Rate 22 22 24 Respiratory Effort / Characteristics Respiratory Depth Respiratory Pattern Blood Pressure 126/48 L 126/48 L Blood Pressure Mean 74 75 Pulse Oximetry 97 95 94 Oxygen Delivery Method Room Air Sepsis Recent Fever Within 48 Hours Sepsis New/Unexplained Change in Mental Status Sepsis Action Taken by Nursing 09/05/19 15:04 09/05/19 15:30 09/05/19 15:45 Temperature 37.4 C Temperature Source Oral Pulse Rate 105 H 85 Pulse Rate from SpO2 Sensor 107 H 82 Pulse Rhythm Pulse Strength Respiratory Rate 22 20 Respiratory Effort / Characteristics Respiratory Depth Respiratory Pattern Blood Pressure 106/62 106/62 Blood Pressure Mean 83 76 Pulse Oximetry 95 96 Oxygen Delivery Method Room Air Sepsis Recent Fever Within 48 Hours Sepsis New/Unexplained Change in Mental Status Sepsis Action Taken by Nursing 09/05/19 16:00 Temperature Temperature Source Pulse Rate 78 Pulse Rate from SpO2 Sensor 77 Pulse Rhythm Pulse Strength Respiratory Rate 18 Respiratory Effort / Characteristics Respiratory Depth Respiratory Pattern Blood Pressure 116/61 Blood Pressure Mean 77 Pulse Oximetry 95 Oxygen Delivery Method Room Air Sepsis Recent Fever Within 48 Hours Sepsis New/Unexplained Change in Mental Status Sepsis Action Taken by Nursing Laboratory Data Result diagrams: 09/05/19 14:12 09/05/19 14:12 Lab Results 09/05/19 09/05/19 09/05/19 Range/Units 14:12 14:12 14:28 WBC 14.01 H (4.8-10.8) K/uL RBC 3.89 L (4.7-6.1) M/uL Hgb 11.4 L (14.0-18.0) g/dL Hct 35.3 L (42-52) % MCV 90.7 (80-100) fL MCH 29.3 (25-34) pg MCHC 32.3 (32-36) g/dL RDW Std Deviation 53.3 H (36.4-46.3) fL RDW Coeff of Maxim 16.1 H (11.5-14.5) % Plt Count 236 (130-400) K/uL MPV 9.5 (7.4-10.4) fL Immature Gran % (Auto) 0.2 % Neut % (Auto) 90.3 % Lymph % (Auto) 3.0 % [place] % (Auto) 6.4 % Eos % (Auto) 0.0 % Baso % (Auto) 0.1 % Immature Gran # (Auto) 0.03 H (0.00-0.02) K/uL Neut # (Auto) 12.65 H (1.4-6.5) K/uL Lymph # (Auto) 0.42 L (1.2-3.4) K/uL [place] # (Auto) 0.89 H (0.11-0.59) K/uL Eos # (Auto) 0.00 (0-0.5) K/uL Baso # (Auto) 0.02 (0-0.2) K/uL Sodium 135 L (136-145) mmol/L Potassium 3.8 (3.5-5.1) mmol/L Chloride 105 (98-107) mmol/L Carbon Dioxide 24 (21-32) mmol/L Anion Gap 6.0 (3-11) BUN 23 H (7-18) mg/dl Creatinine 1.08 (0.6-1.4) mg/dl Est Cr Clr Drug Dosing 53.1 ml/min Est GFR ( Amer) 70.6 Est GFR (Non-Af Amer) 61.0 BUN/Creatinine Ratio 21.5 H (10-20) Glucose 113 H (70-99) mg/dl Calcium 9.1 (8.5-10.1) mg/dl Total Bilirubin 0.5 (0.2-1) mg/dl AST 17 (15-37) U/L ALT 15 (12-78) U/L Alkaline Phosphatase 79 (45-117) U/L Troponin I 0.018 (0-0.045) ng/ml Total Protein 7.7 (6.4-8.2) gm/dl Albumin 2.8 L (3.4-5.0) gm/dl Globulin 4.9 H (2.5-4.0) gm/dl Albumin/Globulin Ratio 0.6 L (0.9-2) Lipase 48 L (73-393) U/L Urine Color Urine Appearance (Clear) Urine pH (4.5-7.5) Ur Specific [place] (1.000-1.030) Urine Protein (Negative) Urine Glucose (UA) (Negative) Urine Ketones (Negative) Urine Blood (Negative) Urine Nitrite (Negative) Urine Bilirubin (Negative) Urine Urobilinogen (Negative) Ur Leukocyte Esterase (Negative) Urine WBC (Auto) (0-5) /hpf Urine RBC (Auto) (0-4) /hpf U Hyaline Cast (Auto) (0-5) /lpf U Epithel Cells (Auto) (0-5) /lpf Urine Bacteria (Auto) (Negative) Influenza Type A (PCR) Neg for Influ A (Neg) Influenza Type B (PCR) Neg for Influ B (Neg) 09/05/19 Range/Units 15:31 WBC (4.8-10.8) K/uL RBC (4.7-6.1) M/uL Hgb (14.0-18.0) g/dL Hct (42-52) % MCV (80-100) fL MCH (25-34) pg MCHC (32-36) g/dL RDW Std Deviation (36.4-46.3) fL RDW Coeff of Maxim (11.5-14.5) % Plt Count (130-400) K/uL MPV (7.4-10.4) fL Immature Gran % (Auto) % Neut % (Auto) % Lymph % (Auto) % [place] % (Auto) % Eos % (Auto) % Baso % (Auto) % Immature Gran # (Auto) (0.00-0.02) K/uL Neut # (Auto) (1.4-6.5) K/uL Lymph # (Auto) (1.2-3.4) K/uL [place] # (Auto) (0.11-0.59) K/uL Eos # (Auto) (0-0.5) K/uL Baso # (Auto) (0-0.2) K/uL Sodium (136-145) mmol/L Potassium (3.5-5.1) mmol/L Chloride (98-107) mmol/L Carbon Dioxide (21-32) mmol/L Anion Gap (3-11) BUN (7-18) mg/dl Creatinine (0.6-1.4) mg/dl Est Cr Clr Drug Dosing ml/min Est GFR ( Amer) Est GFR (Non-Af Amer) BUN/Creatinine Ratio (10-20) Glucose (70-99) mg/dl Calcium (8.5-10.1) mg/dl Total Bilirubin (0.2-1) mg/dl AST (15-37) U/L ALT (12-78) U/L Alkaline Phosphatase (45-117) U/L Troponin I (0-0.045) ng/ml Total Protein (6.4-8.2) gm/dl Albumin (3.4-5.0) gm/dl Globulin (2.5-4.0) gm/dl Albumin/Globulin Ratio (0.9-2) Lipase (73-393) U/L Urine Color Dark Yellow Urine Appearance Clear (Clear) Urine pH 5.0 (4.5-7.5) Ur Specific [place] 1.020 (1.000-1.030) Urine Protein Trace H (Negative) Urine Glucose (UA) Negative (Negative) Urine Ketones Negative (Negative) Urine Blood 3+ H (Negative) Urine Nitrite Negative (Negative) Urine Bilirubin Negative (Negative) Urine Urobilinogen Negative (Negative) Ur Leukocyte Esterase Trace H (Negative) Urine WBC (Auto) 1-5 (0-5) /hpf Urine RBC (Auto) >30 H (0-4) /hpf U Hyaline Cast (Auto) 1-5 (0-5) /lpf U Epithel Cells (Auto) 5-10 H (0-5) /lpf Urine Bacteria (Auto) Negative (Negative) Influenza Type A (PCR) (Neg) Influenza Type B (PCR) (Neg) Administered Medications Discontinued Medications Sodium Chloride (Nss) 500 mls @ 999 mls/hr IV .Q31M PRADIP Stop: 09/05/19 14:30 Last Infusion: 09/05/19 15:01 Dose: 0 mls/hr Documented by: [id number] Admin: 09/05/19 14:29 Dose: 999 mls/hr Documented by: [id number] Acetaminophen (Ofirmev) 1,000 mg in 100 mls @ 400 mls/hr IV NOW STA Stop: 09/05/19 14:16 Last Infusion: 09/05/19 15:01 Dose: 0 mls/hr Documented by: [id number] Admin: 09/05/19 14:32 Dose: 400 mls/hr Documented by: [id number] Ondansetron HCl (Zofran) 4 mg IV NOW STA Stop: 09/05/19 14:01 Last Admin: 09/05/19 14:29 Dose: 4 mg Documented by: [id number] Imaging Data Attestation: I personally reviewed and interpreted this imaging study as follows: Radiologist's Impression: ABDOMEN AND PELVIS CT WITHOUT CONTRAST CT DOSE: 969.49 mGy.cm HISTORY: vomiting, fever TECHNIQUE: Multiaxial CT images of the abdomen and pelvis were performed without contrast. A dose lowering technique was utilized adhering to the principles of ALARA. COMPARISON STUDY: Abdomen and pelvis CT 06/28/2019. FINDINGS: There is 9 mm nodule within the base of the right lower lobe on image 18. This was not present on the prior study and is therefore likely benign and may represent atelectasis. Patchy groundglass densities within the base of the right lower lobe. Small right pleural effusion has increased in size. There is a trace left pleural effusion. Trace pericardial effusion is again noted. There are a few mildly enlarged right anterior diaphragmatic lymph nodes which have increased in size. Dominant lymph node measures 17 x 9 mm. Prior midline abdominal incision. Skin thickening and subcutaneous edema within the lower anterior abdominal wall. Stable fluid collection lateral to the right greater trochanter which measures 4.5 cm. No suspicious lytic are blastic osseous lesions. Posterior decompression fusion from L2 through S1 with pedicle screws and rods. Stimulator device is seen within the left lumbar region with 2 leads extending to the L2 pedicle screws. The unenhanced liver, spleen, adrenal glands unremarkable. The unenhanced pancreas appears within normal limits. Bilateral renal hypodense lesions are incompletely characters on this noncontrast study but statistically represent cysts. No renal or ureteral stones. No hydronephrosis. No retroperitoneal lymphadenopathy. Old small gallstones. The gallbladder is decompressed and not well visualized. Normal caliber abdominal aorta. No retroperitoneal lymphadenopathy. No bladder wall thickening. Small amount of gas within the bladder lumen. Suboptimal evaluation for bowel pathology due to the lack of intravenous and oral contrast. However, there is no definite bowel wall thickening or obstruction. The visualized appendix is unremarkable. Small amount of ascites is present. Mildly enlarged prostate gland is again noted. Prior anastomotic suture material within the small bowel. IMPRESSION: 1. Small right pleural effusion. This is increased in size. Patchy right basilar densities favor atelectasis. A pneumonia could also have a similar appearance. 2. Slight increase in size in the right anterior diaphragmatic lymph nodes. This may be reactive. 3. A 9 mm nodule within the right lower lobe which is new from the prior study. Therefore, this is likely benign and may represent atelectasis. 4. Small amount of ascites which has progressed. 5. No definite bowel wall thickening or obstruction. 6. Normal appendix. 7. Small amount of gas within the bladder lumen. This is likely due to recent catheterization. Recommend correlation with urinalysis to exclude an infectious process. 8. Cholelithiasis. 9. Additional findings as described above. Discharge Plan Visit Data Chief Complaint: Vomiting Stated Complaint: FEVER,COUGH,THROWING UP ED Provider: Dillon Zarco Discharge Problem: Febrile illness, acute, Vomiting Forms Stand Alone Forms: [facility] Prescriptions Prescriptions: No Action multivitamin Tablet 1 tab PO QAM RF: 0 hydrocodone-acetaminophen 10-325 mg tablet 1 tab PO Q8 PRN (Reason: Pain) RF: 0 econazole 1 % cream 1 applic TOPICAL UD PRN (Reason: FLARE UPS) RF: 0 nystatin 100,000 unit/gram powder 1 applic TOPICAL TID PRN (Reason: IRRITATION) RF: 0 omeprazole 20 mg Tablet,Delayed Release (Dr/Ec) 20 mg PO DAILY PRN (Reason: Acid Reflux) RF: 0 lidocaine HCl 2 % jelly in applicator 2 ml TOP TID PRN (Reason: pain) Qty: 60 RF: 0 nystatin 100,000 unit/gram cream 1 appln TOP TID Qty: 15 RF: 0 potassium chloride 10 mEq tablet,ER particles/crystals 10 meq PO DAILY RF: 0
[2019-09-05 14:33] LABS: Basophils # (auto) 0.02 K/uL (0-0.2); Basophils % (auto) 0.1 %; Hematocrit (blood only) 35.3 % (42-52); Hemoglobin 11.4 g/dL (14.0-18.0); Immature Granulocytes # (auto) 0.03 K/uL (0.00-0.02); Immature Granulocytes % (auto) 0.2 %; Lymphocytes # (auto) 0.42 K/uL (1.2-3.4); Mean Corpuscular Hemoglobin 29.3 pg (25-34); Mean Corpuscular Hgb Conc 32.3 g/dL (32-36); Mean Corpuscular Volume 90.7 fL (80-100); Mean Platelet Volume 9.5 fL (7.4-10.4); Monocytes # (auto) 0.89 K/uL (0.11-0.59); Monocytes % (auto) 6.4 %; Neutrophils # (auto) 12.65 K/uL (1.4-6.5); Neutrophils % (auto) 90.3 %; Platelet Count 236 K/uL (130-400); RDW Coefficient of Variation 16.1 % (11.5-14.5); RDW Standard Deviation 53.3 fL (36.4-46.3); Red Blood Count 3.89 M/uL (4.7-6.1); White Blood Count 14.01 K/uL (4.8-10.8)
[2019-09-05 14:49] LABS: Albumin Level 2.8 gm/dl (3.4-5.0); BUN Creatinine Ratio 21.5 (10-20); Calcium 9.1 mg/dl (8.5-10.1); Creatinine Clr Calc Pharmacy 53.1 ml/min; Est GFR (African American) 70.6; Potassium 3.8 mmol/L (3.5-5.1)
[2019-09-05 14:54] LABS: Albumin Globulin Ratio 0.6 (0.9-2); Bilirubin,Total 0.5 mg/dl (0.2-1); Globulin 4.9 gm/dl (2.5-4.0); Total Protein 7.7 gm/dl (6.4-8.2); Troponin I 0.018 ng/ml (0-0.045)
--- NOTE | 2019-09-05 15:19 | CT Scan Report ---
ABDOMEN AND PELVIS CT WITHOUT CONTRAST CT DOSE: 969.49 mGy.cm HISTORY: vomiting, fever TECHNIQUE: Multiaxial CT images of the abdomen and pelvis were performed without contrast. A dose lo wering technique was utilized adhering to the principles of ALARA. COMPARISON STUDY: Abdomen and pelvis CT 06/28/2019. FINDINGS: There is 9 mm nodule within the base of the right lower lobe on image 18. This was not pres ent on the prior study and is therefore likely benign and may represent atelectasis. Patchy groundgla ss densities within the base of the right lower lobe. Small right pleural effusion has increased in s ize. There is a trace left pleural effusion. Trace pericardial effusion is again noted. There are a f ew mildly enlarged right anterior diaphragmatic lymph nodes which have increased in size. Dominant ly mph node measures 17 x 9 mm. Prior midline abdominal incision. Skin thickening and subcutaneous edema within the lower anterior abdominal wall. Stable fluid collection lateral to the right greater troch anter which measures 4.5 cm. No suspicious lytic are blastic osseous lesions. Posterior decompression fusion from L2 through S1 with pedicle screws and rods. Stimulator device is seen within the left rod mbar region with 2 leads extending to the L2 pedicle screws. The unenhanced liver, spleen, adrenal gl ands unremarkable. The unenhanced pancreas appears within normal limits. Bilateral renal hypodense le sions are incompletely characters on this noncontrast study but statistically represent cysts. No giovanni al or ureteral stones. No hydronephrosis. No retroperitoneal lymphadenopathy. Old small gallstones. T he gallbladder is decompressed and not well visualized. Normal caliber abdominal aorta. No retroperit leon lymphadenopathy. No bladder wall thickening. Small amount of gas within the bladder lumen. Subo ptimal evaluation for bowel pathology due to the lack of intravenous and oral contrast. However, ther e is no definite bowel wall thickening or obstruction. The visualized appendix is unremarkable. Small amount of ascites is present. Mildly enlarged prostate gland is again noted. Prior anastomotic sutur e material within the small bowel. IMPRESSION: 1. Small right pleural effusion. This is increased in size. Patchy right basilar densities favor atel ectasis. A pneumonia could also have a similar appearance. 2. Slight increase in size in the right anterior diaphragmatic lymph nodes. This may be reactive. 3. A 9 mm nodule within the right lower lobe which is new from the prior study. Therefore, this is li erik benign and may represent atelectasis. 4. Small amount of ascites which has progressed. 5. No definite bowel wall thickening or obstruction. 6. Normal appendix. 7. Small amount of gas within the bladder lumen. This is likely due to recent catheterization. Recomm end correlation with urinalysis to exclude an infectious process. 8. Cholelithiasis. 9. Additional findings as described above. ACT 112: Negative or not required by law. Electronically signed by: Santos Barkley M.D. 09/05/2019 3:17 PM
[2019-09-05 15:32] LABS: Influenza A virus by PCR Neg for Influ A (Neg); Influenza B virus by PCR Neg for Influ B (Neg)
--- NOTE | 2019-09-05 15:46 | XRay Report ---
XR chest 1V portable CLINICAL HISTORY: fever, vomiting COMPARISON STUDY: 06/28/2019 FINDINGS: The heart is mildly enlarged. There is no failure. There are mild right basilar airspace op acities, atelectatic versus infectious/inflammatory. There is nonspecific left hilar prominence. Ther e is a suspected small right pleural effusion. There are postsurgical changes of a reverse left shoul sun arthroplasty. 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 Mild right basilar airspace opacities, atelectatic versus infectious/inflammatory 2. Nonspecific left hilar prominence. Short-term radiographic follow-up is recommended. 3. Suspected small right pleural effusion ACT 112: Negative or not required by law. Electronically signed by: Catarino Blanchard M.D. 09/05/2019 3:45 PM
[2019-09-05 15:51] LABS: Appearance Urine Clear (Clear); Bacteria Urine Automated Negative (Negative); Bilirubin Urine Negative (Negative); Blood Urine 3+ (Negative); Color Urine Dark Yellow; Glucose Urine UA Negative (Negative); Ketones Urine Negative (Negative); Leukocyte Esterase Urine Trace (Negative); Nitrite Urine Negative (Negative); Protein Urine Trace (Negative); RBC Urine Automated >30 /hpf (0-4); Urobilinogen Urine Negative (Negative)
--- NOTE | 2019-09-05 15:54 | Electrocardiogram Report ---
Test Reason : Blood Pressure : / mmHG Vent. Rate : 090 BPM Atrial Rate : 090 BPM P-R Int : 164 ms QRS Dur : 090 ms QT Int : 350 ms P-R-T Axes : 048 -01 021 degrees QTc Int : 428 ms Sinus rhythm with Premature atrial complexes Otherwise normal ECG When compared with ECG of 28-JUN-2019 18:06, Premature atrial complexes are now Present Confirmed by Frankie Avilez ([id number]) on 09/05/2019 3:54:44 PM Referred By: ER Confirmed By:Frankie Avilez
[2019-09-05] MEDS ORDERED: cefTRIAXone SODIUM 1,000 MG/50 ML BAG IV STA ×2 (16:13→19:23)
--- NOTE | 2019-09-05 17:33 | History & Physical Report ---
Date of Service September 05, 2019 Assessment & Plan (1) Pneumonia: Clinical picture is most consistent with community-acquired pneumonia. Procalcitonin is pending. Fever improved after Tylenol in ER. Giving an additional gram of Rocephin now based on weight, and continue 2 grams daily with Doxycycline 100 q12H pending clinical improvement and culture results. Sputum and blood culture pending. Flu and [employer] respiratory panels are negative. COVID-19 testing panel is pending. Pt is not septic. DDx includes but not limited to volume overload 2/2 intermittent Lasix use recently. He also has fever without another clear source, however, and although his legs are swollen, there is no pitting edema and these changes are chronic per his report. BNP is pending. Prior echo in 2019 revealing moderate valvulopathy and normal EF with LVH and pulmonary HTN. 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 Procalcitonin may help guide antibiotic therapy. (2) Vomiting: Uncertain cause, intermittently tolerating PO so doubt GI infection. Prior notes indicate vomiting also occurred related to [facility] ER visit for acute urinary retention, so may be a manifestation of stress. CT a/p clear of obstruction. Supportive care. Reg diet. (3) Diarrhea: Regularly occurring since small bowel resection in Jul, although history i s limited here. Will ensure no infection, but likely some short gut syndrome and will just need supportive care. (4) Acute urinary retention: Storey placed in the ER for questionable retention. Pt states that he voided his urine this morning after TOV in the Urology office yesterday that was successful. He feels he cannot void completely, however, this is nothing new for him. He has seen the Urologist in the past two months for a dorsal slit procedure for acquired phimosis, followed by a normal cystoscopy for LUTS. He then had AUR at the ER and was sent home with an indwelling storey for a week with a successful TOV yesterday as noted. Although gross hematuria present, this is likely related to urologic instrumentation, and no evidence of infection is present. Would recommend TOV in am. (5) Weakness: Acute on chronic since hospitalization in early 2019 at [facility]. PT/OT to evaluate. ? need for SNF at this point. Family is very involved. May need to just get through this acute illness first. 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 Surgical bowel resection after recurrent SBO and currently expectant management with no plans for chemotherapy at this time. Three month follow-up planned to decide direction. (7) CKD (chronic kidney disease) stage 3, GFR 30-59 ml/min: chronic, stable. Cont to avoid nephrotoxic agents and renally dose meds as needed. (8) DVT prophylaxis: lovenox DNR as confirmed with family on admission Dispo-to med/tele overnight. Likely will be hospitalized for 2-3 days for clinicial monitoring and testing. Needs PT/OT evaluation. Also, patient was a member of [facility], however, he states they kicked him out after they found out he is living in [place] and this is out of their area. Needs an outpatient correctional counselor/case manager at a minimum and DALE who is an RN, will be managing his medications moving forward. Katarina Pratt DO [facility] and Anticipated Discharge Date Anticipated date of discharge: 09/08/19 History of Present Illness Chief Complaint: respiratory symptoms and fever x 24 hours Primary Care Provider: Tani Duval MD 88 yo M with a h/o recent dx of adenocarcinoma of the small intestine s/p surgery who presents with new respiratory symptoms, fever and weakness in the last 24 hours. Per the patient he is feeling well and doesn't know why he is here. He states he feels well and wants to go home. He also tells me that he went to the Urologist 3 days ago, when he actually went for the storey removal yesterday. He also told me that he never went to the [facility] when he actually did go and was referred to the ER. The point is that he looks reliable, but is clearly getting some facts confused. Per his DILCiara, with whom he lives with his son and who is also an RN, he developed a temp and malaise last night at 7:30pm. She checked a TM temp and it was 103F. HE had some vomiting and weakness, and she gave APAP 500mg PO which he kept down. He slept all night and awoke without issue eating all his breakfast. In the late morning, however, he looked poorly and was weak and unable to get up out of his chair well. Once up he began vomiting again and was found to have a temp of 102F. Ciara notes that he has had new productive coughing of yellow phlegm, which is seen in the sick sack he is holding. She reports him having shortness of breath that is new. The patient states that he urinated this morning after the Storey removal yesterday and denies any blood. He doesn't feel like he u rinated completely but also doesn't feel he has an infection, denying dysuria or urinary urgency. He reports compliance with Flomax sand Proscar although says he self-administers his own meds and gets confused. Per Ciara he takes Lasix 40mg BID but stopped 3 weeks ago citing he was urinating too much, then restarting one week ago when he went to live with Ciara and his son. (Pt's broke hip and is living with her daughter after recent discharge from rehab). The patient otherwise denies chest pain, headache, sinus congestion, sore throat, nausea, pain or any other acute symptom of concern. He does report explosive diarrhea since his bowel surgery in Jul which has reportedly not been checked for infection. Ciara corroborates this. Regarding travel history, this is not clear but not relevant at this point as he has multiple reasons to be screened for COVID-19. His DIL is a home health nurse and is still working. She is not sick and there are no know sick contacts at this point. He has been in and out of [facility] in Jul, [facility] in August for an ER visit for acute urinary retention, [facility] Urology office multiple times for a phimosis surgery followed by a cystoscopy, then back again for a storey TOV recently. He has multiple comorbidities which make him potential to develop severe manifestations of COVID-19 from what is known. Therefore, with his history of respiratory symptoms and fever, he was placed on airborne and contact precautions in the ER and COVID-19 testing was performed. Of note, flu PCR and [employer] fire respiratory panels are negative. Additionally, the CXR reveals ? multifocal pneumonia with changes since CXR in Jun. This in addition to symptoms are concerning for an acute respiratory pneumonia and he will be admitted. Per his DIL (who is speaking on behalf of her and the patient's ), the patient is a DNR. Ceftriaxone was given in the ER. Will add doxycycline and place on telemetry to monitor for a response. The patient is not septic at this time. Allergies Allergy/AdvReac Type Severity Reaction Status Date / Time No Known Allergies Allergy Verified 09/05/19 14:12 Home Medications Home Medications Medication Instructions Recorded Confirmed Type econazole 1 applic TOPICAL UD PRN 06/15/19 09/05/19 History hydrocodone-acetaminophen 1 tab PO Q8 PRN 06/15/19 09/05/19 History multivitamin 1 tab PO QAM 06/15/19 09/05/19 History nystatin 1 applic TOPICAL TID PRN 06/15/19 09/05/19 History omeprazole 20 mg PO DAILY PRN 06/15/19 09/05/19 History lidocaine HCl 2 ml TOP TID PRN #60 ml 07/09/19 09/05/19 Rx nystatin 1 appln TOP TID #15 gm 07/09/19 09/05/19 Rx finasteride 5 mg PO DAILY 09/05/19 09/05/19 History furosemide 40 mg PO BID 09/05/19 09/05/19 History potassium chloride 20 meq PO DAILY 09/05/19 09/05/19 History tamsulosin 0.8 mg PO HS 09/05/19 09/05/19 History Past Med/Surg History Medical History BPH (benign prostatic hyperplasia) (Chronic) Chronic pain syndrome (Chronic) CKD (chronic kidney disease) stage 3, GFR 30-59 ml/min GERD (gastroesophageal reflux disease) (Chronic) History of prostate cancer (Chronic) Status post radiation and hormone therapy Hypertension (Chronic) Refusal of blood transfusions as patient is Jehovah's witness Urinary problem (Resolved) Surgical History History of back surgery History of dilation of urethra (Chronic) History of inguinal hernia repair (Chronic) History of left shoulder replacement (Chronic) History of prostate biopsy (Chronic) History of spinal fusion (Chronic) Hx of hernia repair S/P small bowel resection Family History Mother Diabetes Brother Coronary heart disease Prostate cancer Social History Preferred Language: Indonesian Communication Ability: Effective Shank Faker Required: No Beliefs That Will Affect Care: Oriental Orthodox Oriental Orthodox Beliefs: Jehovah Witness marital status: Current Living Situation: Spouse current occupational status: retired Feels Safe at Home: Yes Smoking Status: Former smoker Second Hand Exposure: No ; Hx Alcohol Use: Yes Alcohol type: beer Alcohol Intake Frequency: Rarely Hx Substance Use: No Review of Systems Review of Systems: All systems reviewed & are unremarkable except as noted in Subjective Physical Exam Physical Exam: CONSTITUTIONAL: WNWD, vitals as above, generally well- appearing EYES: PERRL, normal conjunctivae, no scleral icterus ENT: external ear and nose normal, oropharynx clear, MMM NECK: trachea midline RESPIRATORY: fine crackles on left base, otherwise good air movement and clear to auscultation without wheezing or rales. Normal respiratory effort CARDIOVASCULAR: regular rate and rhythm, S1 and 2 heard without murmurs, gallops or rubs, no JVD, no peripheral edema but some LE swelling bilaterally is present. CHEST: inspection of chest was normal GASTROINTESTINAL: soft, nontender, nondistended, well healed infraumbilical incision. MUSCULOSKELETAL: strength 5/5 throughout, head is normocephalic and atraumatic SKIN: warm and dry NEUROLOGIC: No facial palsy, no dysarthria. CN 2-12 grossly intact, no sensory deficit, normal cognition, normal speech, no tremor. No gross focal neuro deficits. PSYCHIATRIC: alert cooperative and oriented to person, place and time. Results & Data Results & Data ([facility]) Vital Signs (Past 12 Hours) Vital Signs Temp Pulse Pulse Resp BP BP Pulse Ox 09/05/19 17:03 67 21 109/51 L 94 09/05/19 17:01 67 21 93 09/05/19 17:00 67 21 109/51 L 94 09/05/19 16:30 79 20 117/64 94 09/05/19 16:01 77 22 94 09/05/19 16:00 78 18 116/61 95 09/05/19 15:45 85 20 106/62 96 09/05/19 15:30 105 H 22 106/62 95 09/05/19 15:04 37.4 C 09/05/19 15:03 86 24 126/48 L 94 09/05/19 15:01 80 22 95 09/05/19 15:00 83 22 126/48 L 97 09/05/19 14:30 85 18 09/05/19 14:01 87 22 09/05/19 13:47 39.5 C H 103 H 20 118/55 L 95 Laboratory Results Short CBC 09/05/19 Range/Units 14:12 WBC 14.01 H (4.8-10.8) K/uL Hgb 11.4 L (14.0-18.0) g/dL Hct 35.3 L (42-52) % Plt Count 236 (130-400) K/uL BMP 09/05/19 14:12 Sodium 135 L Potassium 3.8 Chloride 105 Carbon Dioxide 24 BUN 23 H Creatinine 1.08 Glucose 113 H Calcium 9.1 Cardiac Enzymes 09/05/19 Range/Units 14:12 Troponin I 0.018 (0-0.045) ng/ml Liver Function 09/05/19 Range/Units 14:12 Total Bilirubin 0.5 (0.2-1) mg/dl AST 17 (15-37) U/L ALT 15 (12-78) U/L Alkaline Phosphatase 79 (45-117) U/L Albumin 2.8 L (3.4-5.0) gm/dl Urine 09/05/19 Range/Units 15:31 Urine Color Dark Yellow Urine Appearance Clear (Clear) Urine pH 5.0 (4.5-7.5) Ur Specific [place] 1.020 (1.000-1.030) Urine Protein Trace H (Negative) Urine Glucose (UA) Negative (Negative)
[2019-09-05 17:58] LABS: Adenovirus PCR Not Detected (NotDetected); Coronavirus 229E PCR Not Detected (NotDetected); Coronavirus HKU1 PCR Not Detected (NotDetected); Coronavirus NL63 PCR Not Detected (NotDetected); Coronavirus OC43PCR Not Detected (NotDetected); Human Metapneumovirus PCR Not Detected (NotDetected); Influenza A PCR Not Detected (NotDetected); Influenza B PCR Not Detected (NotDetected); Rhinovirus/Enterovirus PCR Not Detected (NotDetected)
[2019-09-05 17:59] LABS: Bordetella parapertussis PCR Not Detected (NotDetected); Bordetella pertussis PCR Not Detected (NotDetected); Chlamydia pneumoniae PCR Not Detected (NotDetected); Mycoplasma pneumoniae PCR Not Detected (NotDetected); Parainfluenza Virus 1 PCR Not Detected (NotDetected); Parainfluenza Virus 2 PCR Not Detected (NotDetected); Parainfluenza Virus 3 PCR Not Detected (NotDetected); Parainfluenza Virus 4 PCR Not Detected (NotDetected); Respiratory Syncytial VirusPCR Not Detected (NotDetected)
[2019-09-05] MEDS ORDERED: PROMETHAZINE HCL 25 MG SUPP PR PRN (20:22)
[2019-09-05] MEDS: DOXYCYCLINE HYCLATE 100 MG in DEXTROSE 5% 100 ML IV SCH (20:58)
[2019-09-05] MEDS: NYSTATIN POWDER 15GM BTL EXT SCH (20:59)
[2019-09-05] MEDS: TAMSULOSIN HCL 0.4 MG CAP PO SCH (20:59)
[2019-09-05] MEDS ORDERED: LORazepam 0.5 MG TAB PO STA (23:54)
[2019-09-06] MEDS: ACETAMINOPHEN 325 MG TAB PO PRN ×2 (03:03→15:47)
[2019-09-06 07:26] LABS: Basophils # (auto) 0.02 K/uL (0-0.2); Basophils % (auto) 0.2 %; Hematocrit (blood only) 31.2 % (42-52); Hemoglobin 10.1 g/dL (14.0-18.0); Immature Granulocytes # (auto) 0.03 K/uL (0.00-0.02); Immature Granulocytes % (auto) 0.3 %; Lymphocytes # (auto) 0.97 K/uL (1.2-3.4); Lymphocytes % (auto) 9.1 %; Mean Corpuscular Hemoglobin 29.4 pg (25-34); Mean Corpuscular Hgb Conc 32.4 g/dL (32-36); Mean Corpuscular Volume 90.7 fL (80-100); Mean Platelet Volume 9.9 fL (7.4-10.4); Monocytes # (auto) 0.79 K/uL (0.11-0.59); Monocytes % (auto) 7.4 %; Platelet Count 199 K/uL (130-400); RDW Standard Deviation 53.5 fL (36.4-46.3); Red Blood Count 3.44 M/uL (4.7-6.1); White Blood Count 10.71 K/uL (4.8-10.8)
[2019-09-06 07:54] LABS: BUN Creatinine Ratio 22.3 (10-20); Calcium 8.6 mg/dl (8.5-10.1); Est GFR (African American) 79.5; Est GFR (Non-African American) 68.6; Potassium 3.6 mmol/L (3.5-5.1)
[2019-09-06] MEDS: FUROSEMIDE 20 MG TAB PO SCH ×2 (08:01→15:39)
[2019-09-06] MEDS: FINASTERIDE 5 MG TAB PO SCH (08:01)
[2019-09-06] MEDS: MULTIVITAMIN TAB PO SCH (08:01)
[2019-09-06] MEDS: POTASSIUM CHLORIDE 20 MEQ TABCR PO SCH (08:02)
[2019-09-06] MEDS: NYSTATIN POWDER 15GM BTL EXT SCH ×3 (08:02→20:40)
[2019-09-06] MEDS: DOXYCYCLINE HYCLATE 100 MG in DEXTROSE 5% 100 ML IV SCH ×2 (08:46→20:41)
[2019-09-06] MEDS: cefTRIAXone SODIUM 2,000 MG in DEXTROSE 5% 50 ML/50 ML BAG IV SCH (15:39)
[2019-09-06] MEDS ORDERED: cefTRIAXone SODIUM 2,000 MG/70 ML BAG IV SCH (16:00)
--- NOTE | 2019-09-06 19:32 | Hospitalist Progress Note ---
Date of Service September 06, 2019 Assessment & Plan (1) Febrile illness: Temp as high as 39.5 in ED. Congested cough. Chest x-ray showed infiltrate vs atelectasis RLL. Similarly, CT of abdomen showed infiltrate vs atelectasis RLL. Had some nausea and vomiting, but seemed like fever & cough preceded emesis. CT demonstrated cholelithiasis without apparent cholecystitis. Having problems with urinary retention, but urine did not appear to be infected. Currently receiving doxycycline + ceftriaxone for possible community acquired infection. Being tested for SARS-CoV2 in light of fever + pulmonary symptoms- results pending. (2) Vomiting: Resolved. (3) Acute urinary retention: Recent problems with urinary retention. Followed by Dr. Diego. Failed voiding trial 09/04/19. Continue Alvares for now. (4) CKD (chronic kidney disease) stage 3, GFR 30-59 ml/min: Serum creatinine today = 0.98. Follow. 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 Path demonstrated adenocarcinoma. Follow-up with Medical Oncology. (6) DVT prophylaxis: SCD's ordered. Add SQ enoxaparin. Ambulate as able. (7) Discharge planning issues: Discharge disposition to be determined. May need skilled care. Family Medicine follow-up with Dr. Duval. Spouse and [id number] Ciara given update by phone. Ciara is a nurse and is currently caring for the patient in her home; her phone #: [phone] She expressed concerns about his functional status and feels that skilled care may be necessary. Admission and Anticipated Discharge Date Admission Date: September 05, 2019 Anticipated date of discharge: 09/08/19 Subjective Recheck for multiple problems. Patient seen in their room around 1410. Overall, feels better. Feels weak. Temp down. Occasional nonproductive cough. No SOB. No further nausea or vomiting. No abdominal pain. Recent problems with urinary retention. Alvares cath removed 2 days ago, but had to be reinserted. Patient prefers not to try another voiding trial yet. Review of Systems: Constitutional- as noted above. Cardiac- no chest pain. Pulmonary- as noted above. GI- no diarrhea, melena, hematochezia. - as noted above. Otherwise, as noted above. Physical Exam Constitutional: no acute distress Respiratory: no respiratory distress Auscultation: lungs clear to auscultation bilaterally Cardiovascular: Rate/Rhythm: regular rate and regular rhythm Vessels: no JVD Extremities: + edema (2+ ankle); no calf tenderness Gastrointestinal (Abdomen): normal bowel sounds, soft, nontender, no hepatosplenomegaly Skin: no rashes, warm and dry Psychiatric: Orientation: alert; + not oriented x 3 (mild confusion, oriented to person, hospital, year but not day of week) Results & Data Results & Data ([facility]) Vital Signs (Past 12 Hours) Vital Signs Temp Pulse Pulse Pulse Resp BP BP 09/06/19 16:46 37.9 C H 09/06/19 16:08 82 09/06/19 15:42 38.1 C H 82 18 133/68 09/06/19 11:00 37.1 C 82 82 18 116/60 09/06/19 08:00 37.3 C 77 18 120/72 Pulse Ox 09/06/19 16:46 09/06/19 16:08 09/06/19 15:42 94 09/06/19 11:00 93 09/06/19 08:00 92 Laboratory Results 09/06/19 07:05 09/06/19 07:05 Microbiology 09/05/19 14:12 Blood Aerobic Blood Culture - Preliminary No growth in Aerobic bottle after 24 hours. 09/05/19 14:12 Blood Anaerobic Blood Culture - Preliminary No growth in Anaerobic bottle after 24 hours. 09/05/19 14:12 Blood Aerobic Blood Culture - Preliminary No growth in Aerobic bottle after 24 hours. 09/05/19 23:30 Sputum, Expectorated Gram Stain - Final
[2019-09-06] MEDS: ENOXAPARIN INJ 40 MG/0.4 ML SYR SQ SCH (20:40)
[2019-09-06] MEDS: TAMSULOSIN HCL 0.4 MG CAP PO SCH (20:40)
[2019-09-07] MEDS: ACETAMINOPHEN 325 MG TAB PO PRN ×2 (04:41→17:06)
[2019-09-07 07:34] LABS: Hematocrit (blood only) 29.4 % (42-52); Hemoglobin 9.6 g/dL (14.0-18.0); Mean Corpuscular Hemoglobin 29.4 pg (25-34); Mean Corpuscular Hgb Conc 32.7 g/dL (32-36); Mean Corpuscular Volume 89.9 fL (80-100); Mean Platelet Volume 10.1 fL (7.4-10.4); Platelet Count 225 K/uL (130-400); RDW Coefficient of Variation 15.8 % (11.5-14.5); RDW Standard Deviation 52.5 fL (36.4-46.3); Red Blood Count 3.27 M/uL (4.7-6.1); White Blood Count 7.47 K/uL (4.8-10.8)
[2019-09-07 07:49] LABS: COVID-19 Patient Symptomatic? YES; PAN-SARS Coronavirus RNA NEGATIVE (NEGATIVE); SARS CoV2 RNA (COVID-19) NEGATIVE (NEGATIVE); SARS Coronavirus RNA Source NASOPHARYNGEAL
[2019-09-07 07:51] LABS: Alanine Aminotransferase 20 U/L (12-78); Albumin Level 2.1 gm/dl (3.4-5.0); Aspartate Aminotransferase 29 U/L (15-37); BUN Creatinine Ratio 22.7 (10-20); Blood Urea Nitrogen 23 mg/dl (7-18); Calcium 8.5 mg/dl (8.5-10.1); Carbon Dioxide 25 mmol/L (21-32); Chloride 106 mmol/L (98-107); Creatinine Clr Calc Pharmacy 55.7 ml/min; Est GFR (African American) 75.7; Est GFR (Non-African American) 65.3; Glucose 100 mg/dl (70-99); Potassium 3.8 mmol/L (3.5-5.1); Sodium 136 mmol/L (136-145)
[2019-09-07 08:01] LABS: Albumin Globulin Ratio 0.5 (0.9-2); Alkaline Phosphatase 74 U/L (45-117); Bilirubin Direct < 0.1 mg/dl (0-0.2); Bilirubin,Total 0.3 mg/dl (0.2-1); Globulin 4.2 gm/dl (2.5-4.0); Total Protein 6.3 gm/dl (6.4-8.2)
[2019-09-07] MEDS: DOXYCYCLINE HYCLATE 100 MG in DEXTROSE 5% 100 ML IV SCH ×2 (08:52→20:38)
[2019-09-07] MEDS: FUROSEMIDE 20 MG TAB PO SCH ×2 (08:53→17:06)
[2019-09-07] MEDS: FINASTERIDE 5 MG TAB PO SCH (08:53)
[2019-09-07] MEDS: POTASSIUM CHLORIDE 20 MEQ TABCR PO SCH (08:53)
[2019-09-07] MEDS: MULTIVITAMIN TAB PO SCH (08:53)
[2019-09-07] MEDS: NYSTATIN POWDER 15GM BTL EXT SCH ×3 (08:54→20:36)
[2019-09-07] MEDS: cefTRIAXone SODIUM 2,000 MG in DEXTROSE 5% 50 ML/50 ML BAG IV SCH (16:18)
[2019-09-07] MEDS: PANTOprazole 40 MG TAB PO PRN (19:01)
--- NOTE | 2019-09-07 19:43 | Hospitalist Progress Note ---
Date of Service September 07, 2019 Assessment & Plan (1) Febrile illness: Temp as high as 39.5 in ED. Congested cough. Chest x-ray showed infiltrate vs atelectasis RLL. Similarly, CT of abdomen showed infiltrate vs atelectasis RLL. Had some nausea and vomiting, but seemed like fever & cough preceded emesis. CT demonstrated cholelithiasis without apparent cholecystitis. Having problems with urinary retention, but urine did not appear to be infected. Currently receiving doxycycline + ceftriaxone for possible community acquired infection. Blood cultures negative. Sputum culture pending. C diff PCR negative. Stool culture negative so far. WBC 14,010 --> 7470. Still having intermittent fevers. Continue current antibiotics. Being tested for SARS-CoV-2 in light of fever + pulmonary symptoms- results pending. (2) Vomiting: Resolved. (3) Acute urinary retention: Recent problems with urinary retention. Followed by Dr. Diego. Failed voiding trial 09/04/19. Continue Alvares for now. Discuss management with Dr. Diego. (4) CKD (chronic kidney disease) stage 3, GFR 30-59 ml/min: Serum creatinine today = 1.02. Follow. 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 Path demonstrated adenocarcinoma. Follow-up with Medical Oncology. (6) Abnormal chest x-ray: Chest x-ray demonstrated left hilar prominence. Will need follow-up imaging, especially in light of adenocarcinoma of small intestine. (7) Abnormal CT of the abdomen: Incidental findings on CT of abdomen & pelvis: increased size of right anterior diaphragmatic lymph nodes 9 mm nodule RLL small amount of ascites Will need close follow-up in light of adenocarcinoma of small intestine. (8) DVT prophylaxis: SCD's ordered. Add SQ enoxaparin. Ambulate as able. (9) Discharge planning issues: Discharge disposition to be determined. Anticipate need for skilled care. PT / OT evals once COVID-19 ruled out. Family Medicine follow-up with Dr. Duval. Admission and Anticipated Discharge Date Admission Date: September 05, 2019 Anticipated date of discharge: 09/08/19 Subjective Recheck for multiple problems. Patient seen in their room around 1110. Feels better. Intermittent fevers. Occasional nonproductive cough. No SOB. No further nausea or vomiting. No abdominal pain. Review of Systems: Constitutional- as noted above. Cardiac- no chest pain. Pulmonary- as noted above. GI- no diarrhea, melena, hematochezia. - Alvares cath. Otherwise, as noted above. Physical Exam Constitutional: no acute distress Respiratory: no respiratory distress Auscultation: lungs clear to auscultation bilaterally Cardiovascular: Rate/Rhythm: regular rate and regular rhythm Vessels: no JVD Extremities: + edema (2+ ankle); no calf tenderness Gastrointestinal (Abdomen): normal bowel sounds, soft, nontender, no hepatospl enomegaly Skin: no rashes, warm and dry Psychiatric: Orientation: alert; + not oriented x 3 (oriented to person, hos pital (but not its name), year, not day of week) Results & Data Results & Data ([facility]) Vital Signs (Past 12 Hours) Vital Signs Temp Pulse Pulse Pulse Resp BP BP 09/07/19 17:51 37.5 C 09/07/19 16:30 82 09/07/19 16:12 37.9 C H 80 16 135/66 09/07/19 12:00 36.7 C 82 20 148/80 H 09/07/19 09:01 36.6 C 77 18 153/90 H Pulse Ox 09/07/19 17:51 09/07/19 16:30 09/07/19 16:12 92 09/07/19 12:00 95 09/07/19 09:01 95 Laboratory Results 09/07/19 06:57 09/07/19 06:57 Microbiology 09/05/19 14:12 Blood Aerobic Blood Culture - Preliminary No growth in Aerobic bottle after 48 hours. 09/05/19 14:12 Blood Anaerobic Blood Culture - Preliminary No growth in Anaerobic bottle after 48 hours. 09/05/19 14:12 Blood Aerobic Blood Culture - Preliminary No growth in Aerobic bottle after 48 hours. 09/05/19 14:12 Blood Anaerobic Blood Culture - Final 09/06/19 19:30 Stool Escherichia coli Shiga Toxins Test - Preliminary 09/06/19 19:30 Stool Stool Culture - Preliminary No Salmonella isolated to date, No Shigella isolated to date, No Campylobacter jejuni isolated to date. 09/05/19 23:30 Sputum, Expectorated Gram Stain - Final 09/05/19 23:30 Sputum, Expectorated Sputum Culture - Preliminary Moderate normal casa present, final report to follow.
[2019-09-07] MEDS: TAMSULOSIN HCL 0.4 MG CAP PO SCH (20:36)
[2019-09-07] MEDS: ENOXAPARIN INJ 40 MG/0.4 ML SYR SQ SCH (20:37)
[2019-09-08] MEDS: ZOLPIDEM TARTRATE 5 MG TAB PO PRN ×2 (00:21→20:48)
[2019-09-08] MEDS: FUROSEMIDE 20 MG TAB PO SCH ×2 (08:23→16:47)
[2019-09-08] MEDS: MULTIVITAMIN TAB PO SCH (08:27)
[2019-09-08] MEDS: FINASTERIDE 5 MG TAB PO SCH (08:27)
[2019-09-08] MEDS: POTASSIUM CHLORIDE 20 MEQ TABCR PO SCH (08:27)
[2019-09-08] MEDS: NYSTATIN POWDER 15GM BTL EXT SCH ×3 (08:29→20:48)
[2019-09-08] MEDS: DOXYCYCLINE HYCLATE 100 MG in DEXTROSE 5% 100 ML IV SCH (09:44)
[2019-09-08] MEDS: cefTRIAXone SODIUM 2,000 MG in DEXTROSE 5% 50 ML/50 ML BAG IV SCH (16:07)
--- NOTE | 2019-09-08 17:37 | Hospitalist Progress Note ---
Date of Service September 08, 2019 Assessment & Plan (1) Pneumonia: Temp as high as 39.5 in ED. Congested cough. Chest x-ray showed infiltrate vs atelectasis RLL. Similarly, CT of abdomen showed infiltrate vs atelectasis RLL. Had some nausea and vomiting, but seemed like fever & cough preceded emesis. CT demonstrated cholelithiasis without apparent cholecystitis. Having problems with urinary retention, but urine did not appear to be infected. Probable RLL community acquired pneumonia, present on admission. Currently receiving doxycycline + ceftriaxone. Blood cultures negative. Sputum culture grew normal casa. [employer] resp panel negative. SARS-CoV-2 PCR negative. C diff PCR negative. Stool culture negative so far. WBC 14,010 --> 7470. Still having intermittent low-grade fevers, but clinically improved. Transition to oral antibiotic therapy with amoxicillin / clavulanic acid + doxycycline. (2) Vomiting: Resolved. (3) Acute urinary retention: Recent problems with urinary retention. Followed by Dr. Diego. Failed voiding trial 09/04/19. Continue Alvares for now. Continue tamsulosin + finasteride. Coordinate care with Urology. (4) CKD (chronic kidney disease) stage 3, GFR 30-59 ml/min: Serum creatinine yesterday = 1.02. Follow. 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 Path demonstrated adenocarcinoma. Follow-up with Medical Oncology. (6) Abnormal chest x-ray: Chest x-ray demonstrated left hilar prominence. Will need follow-up imaging, especially in light of adenocarcinoma of small intestine. (7) Abnormal CT of the abdomen: Incidental findings on CT of abdomen & pelvis: increased size of right anterior diaphragmatic lymph nodes 9 mm nodule RLL small amount of ascites Will need close follow-up in light of adenocarcinoma of small intestine. (8) DVT prophylaxis: SCD's & SQ enoxaparin ordered. Ambulate as able. (9) Discharge planning issues: Evaluated by PT and OT. Needs skilled care or inpatient rehab. Case Management following. Family Medicine follow-up with Dr. Duval. Hematology / Medical Oncology follow-up with Dr. Castaneda. Family (Ciara and Angelina) given update by phone this afternoon. Admission and Anticipated Discharge Date Admission Date: September 05, 2019 Anticipated date of discharge: 09/08/19 Subjective Recheck for multiple problems. Patient seen in their room around 1000. Doing well. Low grade temp yesterday afternoon, none since. Occasional nonproductive cough. No SOB. No further nausea or vomiting. No diarrhea. Short run of asymptomatic PAT noted on telemetry this morning. Review of Systems: Constitutional- as noted above. Cardiac- no chest pain. Pulmonary- as noted above. GI- as noted above. - Alvares cath. Otherwise, as noted above. Physical Exam Constitutional: no acute distress Respiratory: no respiratory distress Auscultation: lungs clear to auscultation bilaterally Cardiovascular: Rate/Rhythm: regular rate and regular rhythm Vessels: no JVD Extremities: + edema (2+ ankle); no calf tenderness Gastrointestinal (Abdomen): normal bowel sounds, soft, nontender, no hepatosplenomegaly Skin: no rashes, warm and dry Psychiatric: Orientation: alert and oriented x 3 (mild confusion, but essentially oriented x 3) Results & Data Results & Data ([facility]) Vital Signs (Past 12 Hours) Vital Signs Temp Pulse Pulse Resp BP Pulse Ox Pulse Ox 09/08/19 16:17 80 09/08/19 15:09 36.9 C 84 18 155/63 H 94 09/08/19 14:19 95 09/08/19 11:48 36.9 C 82 18 123/75 95 09/08/19 09:48 93 09/08/19 07:34 84 09/08/19 07:33 37.3 C 77 18 130/66 92
[2019-09-08] MEDS: DOXYCYCLINE HYCLATE 100 MG CAP PO SCH (20:47)
[2019-09-08] MEDS: TAMSULOSIN HCL 0.4 MG CAP PO SCH (20:47)
[2019-09-08] MEDS: ENOXAPARIN INJ 40 MG/0.4 ML SYR SQ SCH (20:47)
[2019-09-09] MEDS: HYDROCODONE/ACETAMINOPHEN 10/325 TAB PO PRN (02:08)
[2019-09-09 07:36] LABS: Hematocrit (blood only) 29.3 % (42-52); Hemoglobin 9.6 g/dL (14.0-18.0); Mean Corpuscular Hemoglobin 29.2 pg (25-34); Mean Corpuscular Hgb Conc 32.8 g/dL (32-36); Mean Corpuscular Volume 89.1 fL (80-100); Mean Platelet Volume 9.7 fL (7.4-10.4); Platelet Count 207 K/uL (130-400); RDW Coefficient of Variation 15.7 % (11.5-14.5); RDW Standard Deviation 51.3 fL (36.4-46.3); Red Blood Count 3.29 M/uL (4.7-6.1); White Blood Count 4.95 K/uL (4.8-10.8)
[2019-09-09] MEDS: DOXYCYCLINE HYCLATE 100 MG CAP PO SCH ×2 (07:38→20:48)
[2019-09-09] MEDS: AMOXICILLIN/CLAVULANATE 875 MG TAB PO SCH ×2 (07:38→17:34)
[2019-09-09] MEDS: POTASSIUM CHLORIDE 20 MEQ TABCR PO SCH (07:39)
[2019-09-09] MEDS: FUROSEMIDE 20 MG TAB PO SCH ×2 (07:39→17:34)
[2019-09-09] MEDS: MULTIVITAMIN TAB PO SCH (07:39)
[2019-09-09] MEDS: FINASTERIDE 5 MG TAB PO SCH (07:39)
[2019-09-09] MEDS: NYSTATIN POWDER 15GM BTL EXT SCH ×3 (07:40→20:48)
[2019-09-09 08:07] LABS: BUN Creatinine Ratio 22.7 (10-20); Calcium 8.6 mg/dl (8.5-10.1); Est GFR (African American) 89.3; Est GFR (Non-African American) 77.1; Magnesium 1.9 mg/dl (1.8-2.4); Potassium 3.8 mmol/L (3.5-5.1)
--- NOTE | 2019-09-09 10:45 | Hospitalist Progress Note ---
Date of Service September 09, 2019 Assessment & Plan (1) Pneumonia: Temp as high as 39.5 in ED. Had a congested cough. Chest x-ray showed infiltrate vs atelectasis RLL. CT of abdomen also showed infiltrate vs atelectasis RLL. Had some nausea and vomiting, but seemed like fever & cough preceded emesis. CT demonstrated cholelithiasis without apparent cholecystitis. Having problems with urinary retention, but urine did not appear to be infected. C diff PCR negative. Stool culture negative so far. Probable RLL community acquired pneumonia, present on admission. Received IV doxycycline + ceftriaxone. Blood cultures negative. Sputum culture grew normal casa. BioFire resp panel negative. SARS-CoV-2 PCR negative. WBC 14,010 --> --> 4950. Now afebrile. Transitioned to oral antibiotic therapy with amoxicillin / clavulanic acid + doxycycline. (2) Vomiting: Resolved. (3) Acute urinary retention: Recent problems with urinary retention. Followed by Dr. Diego. Failed voiding trial 09/04/19. Continue Alvares for now. Continue tamsulosin + finasteride. Coordinate care with Urology. (4) CKD (chronic kidney disease) stage 3, GFR 30-59 ml/min: Serum creatinine today = 0.87. Follow. 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 Path demonstrated adenocarcinoma. Follow-up with Medical Oncology. (6) Abnormal chest x-ray: Chest x-ray demonstrated left hilar prominence. Will need follow-up imaging, especially in light of adenocarcinoma of small intestine. (7) Abnormal CT of the abdomen: Incidental findings on CT of abdomen & pelvis: increased size of right anterior diaphragmatic lymph nodes 9 mm nodule RLL small amount of ascites Will need close follow-up in light of adenocarcinoma of small intestine. (8) Anemia: Hgb 11.4 on admission. Fell to 9.6 by 09/06. Hgb today = 9.6. MCV 89. RDW 16. Anemia may be multifactorial: metastatic Ca, infection, etc. No gross GI bleeding. Check Fe, B12, folate, fecal OB. No need for transfusion at this time. Follow. (9) Paroxysmal atrial tachycardia: Short runs of symptomatic PAT noted on cardiac monitoring. K 3.8. Mg 1.9. Continue to monitor. (10) DVT prophylaxis: SCD's & SQ enoxaparin ordered. Ambulate as able. (11) Discharge planning issues: Evaluated by PT and OT. Needs skilled care or inpatient rehab. Case Management following. Family Medicine follow-up with Dr. Duval. Hematology / Medical Oncology follow-up with Dr. Castaneda. Family (Ciara and Angelina) given update by phone yesterday. Admission and Anticipated Discharge Date Admission Date: September 05, 2019 Anticipated date of discharge: 09/08/19 Subjective Recheck for multiple problems. Patient seen in their room around 0920. Doing well. No recorded fever since 09/06 @ 1612. Occasional nonproductive cough. No SOB. No further nausea or vomiting. 1 loose stool yesterday, none today. Short runs of asymptomatic PAT noted on telemetry. Review of Systems: Constitutional- as noted above. Cardiac- no chest pain. Pulmonary- as noted above. GI- as noted above. - Alvares cath. Otherwise, as noted above. Physical Exam Constitutional: no acute distress Respiratory: no respiratory distress Auscultation: lungs clear to auscultation bilaterally Cardiovascular: Rate/Rhythm: regular rate and regular rhythm Vessels: no JVD Extremities: + edema (2+ ankle); no calf tenderness Gastrointestinal (Abdomen): normal bowel sounds, soft, nontender, no hepatosplenomegaly Skin: no rashes, warm and dry Psychiatric: Orientation: alert and oriented x 3 Results & Data Results & Data ([facility]) Vital Signs (Past 12 Hours) Vital Signs Temp Pulse Pulse Resp BP Pulse Ox 09/09/19 08:00 73 09/09/19 07:12 36.8 C 72 18 149/72 H 93 09/08/19 23:54 87 Laboratory Results 09/09/19 07:23 09/09/19 07:23
[2019-09-09] MEDS: TAMSULOSIN HCL 0.4 MG CAP PO SCH (20:48)
[2019-09-09] MEDS: ZOLPIDEM TARTRATE 5 MG TAB PO PRN (20:48)
[2019-09-09] MEDS: ENOXAPARIN INJ 40 MG/0.4 ML SYR SQ SCH (20:48)
[2019-09-10 05:46] LABS: Hematocrit (blood only) 30.1 % (42-52); Hemoglobin 9.7 g/dL (14.0-18.0)
[2019-09-10 06:20] LABS: Ferritin 399.3 ng/ml (8-388)
[2019-09-10] MEDS: DOXYCYCLINE HYCLATE 100 MG CAP PO SCH ×2 (08:00→20:09)
[2019-09-10] MEDS: FUROSEMIDE 20 MG TAB PO SCH ×2 (08:00→17:31)
[2019-09-10] MEDS: POTASSIUM CHLORIDE 20 MEQ TABCR PO SCH (08:00)
[2019-09-10] MEDS: MULTIVITAMIN TAB PO SCH (08:01)
[2019-09-10] MEDS: AMOXICILLIN/CLAVULANATE 875 MG TAB PO SCH ×2 (08:01→17:31)
[2019-09-10] MEDS: NYSTATIN POWDER 15GM BTL EXT SCH ×3 (08:01→20:08)
[2019-09-10] MEDS: FINASTERIDE 5 MG TAB PO SCH (08:01)
[2019-09-10 09:54] LABS: Folate (Folic Acid) 16.4 ng/ml (>5.38)
--- NOTE | 2019-09-10 11:06 | Hospitalist Progress Note ---
Date of Service September 10, 2019 Assessment & Plan (1) Pneumonia: Temp as high as 39.5 in ED. Had a congested cough. Chest x-ray showed infiltrate vs atelectasis RLL. CT of abdomen also showed infiltrate vs atelectasis RLL. Had some nausea and vomiting, but seemed like fever & cough preceded emesis. CT demonstrated cholelithiasis without apparent cholecystitis. Having problems with urinary retention, but urine did not appear to be infected. C diff PCR negative. Stool culture negative so far. Probable RLL community acquired pneumonia, present on admission. Received IV doxycycline + ceftriaxone. Blood cultures negative. Sputum culture grew normal casa. BioFire resp panel negative. SARS-CoV-2 PCR negative. WBC 14,010 --> --> 4950. Now afebrile. Transitioned to oral antibiotic therapy with amoxicillin / clavulanic acid + doxycycline. (2) Vomiting: Resolved. (3) Acute urinary retention: Recent problems with urinary retention. Followed by Dr. Diego. Failed voiding trial 09/04/19. Continue Alvares for now. Continue tamsulosin + finasteride. Coordinate care with Urology. (4) CKD (chronic kidney disease) stage 3, GFR 30-59 ml/min: Serum creatinine yesterday = 0.87. Follow. 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 Path demonstrated adenocarcinoma. Follow-up with Medical Oncology. (6) Abnormal chest x-ray: Chest x-ray demonstrated left hilar prominence. Will need follow-up imaging, especially in light of adenocarcinoma of small intestine. (7) Abnormal CT of the abdomen: Incidental findings on CT of abdomen & pelvis: increased size of right anterior diaphragmatic lymph nodes 9 mm nodule RLL small amount of ascites Will need close follow-up in light of adenocarcinoma of small intestine. (8) Anemia: Hgb 11.4 on admission. Fell to 9.6 by 09/06. Hgb today = 9.7. MCV 89. RDW 16. Anemia may be multifactorial: metastatic Ca, infection, etc. No gross GI bleeding. Laboratory Tests 09/10/19 09/10/19 05:34 05:34 Iron 17 L Transferrin 119 L Transferrin % Sat 10 L Ferritin 399.3 H Vitamin B12 867 Folate 16.40 Elevated ferritin could be related to acute illness. Start FeSO4. ? need for eventual colonoscopy for Fe deficiency. Already known to have adenocarcinoma of small intestine, recently resected. No need for transfusion at this time. Follow. (9) Paroxysmal atrial tachycardia: Short runs of symptomatic PAT noted on cardiac monitoring. K 3.8. Mg 1.9 on 09/08. Continue to monitor. (10) DVT prophylaxis: SCD's & SQ enoxaparin ordered. Ambulate as able. (11) Discharge planning issues: Evaluated by PT and OT. Needs skilled care or inpatient rehab. Case Management following. Family Medicine follow-up with Dr. Duval. Hematology / Medical Oncology follow-up with Dr. Castaneda. Admission and Anticipated Discharge Date Admission Date: September 05, 2019 Anticipated date of discharge: 09/08/19 Subjective Recheck for multiple problems. Patient seen in their room around 1020. Doing well. No recorded fever since 09/06 @ 1612. Occasional cough. No SOB. Has chronic lower extremity edema. Tried RAQUEL stockings, but they were uncomfortable. Short run of asymptomatic nonsustained VT noted on telemetry. Review of Systems: Constitutional- as noted above. Cardiac- no chest pain; chronic dependent edema. Pulmonary- as noted above. GI- as noted above. - Alvares cath. Otherwise, as noted above. Physical Exam Constitutional: no acute distress Respiratory: no respiratory distress Auscultation: lungs clear to auscultation bilaterally Cardiovascular: Rate/Rhythm: regular rate and regular rhythm Vessels: no JVD Extremities: + edema (2+ ankle); no calf tenderness Gastrointestinal (Abdomen): normal bowel sounds, soft, nontender, no hepatosplenomegaly Skin: no rashes, warm and dry Psychiatric: Orientation: alert and oriented x 3 Results & Data Results & Data ([facility]) Vital Signs (Past 12 Hours) Vital Signs Temp Pulse Pulse Resp BP Pulse Ox 09/10/19 08:00 73 09/10/19 07:58 36.5 C 81 18 138/72 95 09/10/19 03:58 36.8 C 70 18 136/68 93 09/10/19 03:03 77 09/09/19 23:08 36.9 C 71 18 144/71 H 94 Laboratory Results Laboratory Results - last 24 hr 09/09/19 09/10/19 09/10/19 Unknown 05:34 05:34 Hgb 9.7 L Hct 30.1 L Iron 17 L Transferrin 119 L Transferrin % Sat 10 L Ferritin 399.3 H Vitamin B12 Folate Stool Occult Bld Scrn Negative 09/10/19 05:34 Hgb Hct Iron Transferrin Transferrin % Sat Ferritin Vitamin B12 867 Folate 16.40 Stool Occult Bld Scrn
[2019-09-10] MEDS: CLOTRIMAZOLE 1% CR 15 GM TUBE EXT PRN (16:12)
[2019-09-10] MEDS: HYDROCODONE/ACETAMINOPHEN 10/325 TAB PO PRN (20:04)
[2019-09-10] MEDS: ZOLPIDEM TARTRATE 5 MG TAB PO PRN (20:04)
[2019-09-10] MEDS: ENOXAPARIN INJ 40 MG/0.4 ML SYR SQ SCH (20:07)
[2019-09-10] MEDS: TAMSULOSIN HCL 0.4 MG CAP PO SCH (20:09)
[2019-09-11] MEDS: FUROSEMIDE 20 MG TAB PO SCH ×2 (09:08→18:02)
[2019-09-11] MEDS: NYSTATIN POWDER 15GM BTL EXT SCH ×3 (09:08→21:58)
[2019-09-11] MEDS: AMOXICILLIN/CLAVULANATE 875 MG TAB PO SCH ×2 (09:08→18:02)
[2019-09-11] MEDS: POTASSIUM CHLORIDE 20 MEQ TABCR PO SCH (09:09)
[2019-09-11] MEDS: FINASTERIDE 5 MG TAB PO SCH (09:09)
[2019-09-11] MEDS: MULTIVITAMIN TAB PO SCH (09:09)
[2019-09-11] MEDS: CLOTRIMAZOLE 1% CR 15 GM TUBE EXT PRN (09:09)
[2019-09-11] MEDS: DOXYCYCLINE HYCLATE 100 MG CAP PO SCH ×2 (09:09→21:58)
--- NOTE | 2019-09-11 13:46 | Hospitalist Progress Note ---
Date of Service September 11, 2019 Assessment & Plan (1) Pneumonia: Temp as high as 39.5 in ED. Had a congested cough. Chest x-ray showed infiltrate vs atelectasis RLL. CT of abdomen also showed infiltrate vs atelectasis RLL. Had some nausea and vomiting, but seemed like fever & cough preceded emesis. CT demonstrated cholelithiasis without apparent cholecystitis. Having problems with urinary retention, but urine did not appear to be infected. C diff PCR negative. Stool culture negative so far. Probable RLL community acquired pneumonia, present on admission. Received IV doxycycline + ceftriaxone. Blood cultures negative. Sputum culture grew normal casa. BioFire resp panel negative. SARS-CoV-2 PCR negative. WBC 14,010 --> --> 4950. Now afebrile. Transitioned to oral antibiotic therapy with amoxicillin / clavulanic acid + doxycycline. (2) Vomiting: Resolved. (3) Acute urinary retention: Recent problems with urinary retention. Followed by Dr. Diego. Failed voiding trial 09/04/19. Continue Alvares for now. Continue tamsulosin + finasteride. Coordinating care with Urology- voiding trial recommended after 7-10 days. (4) CKD (chronic kidney disease) stage 3, GFR 30-59 ml/min: Serum creatinine 09/08 = 0.87. Follow. 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 Path demonstrated adenocarcinoma. Follow-up with Medical Oncology. (6) Abnormal chest x-ray: Chest x-ray demonstrated left hilar prominence. Will need follow-up imaging, especially in light of adenocarcinoma of small intestine. (7) Abnormal CT of the abdomen: Incidental findings on CT of abdomen & pelvis: increased size of right anterior diaphragmatic lymph nodes 9 mm nodule RLL small amount of ascites Will need close follow-up in light of adenocarcinoma of small intestine. (8) Anemia: Hgb 11.4 on admission. Fell to 9.6 by 09/06. Hgb 09/08 = 9.7. MCV 89. RDW 16. Anemia may be multifactorial: metastatic Ca, infection, etc. No gross GI bleeding. Laboratory Tests 09/10/19 09/10/19 05:34 05:34 Iron 17 L Transferrin 119 L Transferrin % Sat 10 L Ferritin 399.3 H Vitamin B12 867 Folate 16.40 Elevated ferritin could be related to acute illness. Start FeSO4. ? need for eventual colonoscopy for Fe deficiency. Already known to have adenocarcinoma of small intestine, recently resected. No need for transfusion at this time. Follow. (9) Paroxysmal atrial tachycardia: Short runs of symptomatic PAT noted on cardiac monitoring. K 3.8. Mg 1.9 on 09/08. Continue to monitor. (10) Diarrhea: Recheck stool for C diff. (11) DVT prophylaxis: SCD's & SQ enoxaparin ordered. Ambulate as able. (12) Discharge planning issues: Evaluated by PT and OT. Needs skilled care or inpatient rehab. Case Management following. Family Medicine follow-up with Dr. Duval. Hematology / Medical Oncology follow-up with Dr. Castaneda. Admission and Anticipated Discharge Date Admission Date: September 05, 2019 Anticipated date of discharge: 09/08/19 Subjective Recheck for multiple problems. Patient seen in their room around 1010. Doing well. No recorded fever since 09/06 @ 1612. Rare cough. No SOB. Having some loose stools. Participating in PT / OT. Short run of asymptomatic PAT noted on telemetry. Review of Systems: Constitutional- as noted above. Cardiac- no chest pain; chronic dependent edema. Pulmonary- as noted above. GI- as noted above. - Alvares cath. Otherwise, as noted above. Physical Exam Constitutional: no acute distress Respiratory: no respiratory distress Auscultation: lungs clear to auscultation bilaterally Cardiovascular: Rate/Rhythm: regular rate and regular rhythm Vessels: no JVD Extremities: + edema (2+ ankle); no calf tenderness Gastrointestinal (Abdomen): normal bowel sounds, soft, nontender, no hepatosplenomegaly Skin: no rashes, warm and dry Psychiatric: Orientation: alert and oriented x 3 Results & Data Results & Data ([facility]) Vital Signs (Past 12 Hours) Vital Signs Temp Pulse Pulse Resp BP Pulse Ox 09/11/19 11:46 36.7 C 74 20 132/60 97 09/11/19 08:00 67 09/11/19 07:37 36.8 C 68 20 130/56 L 95 09/11/19 02:03 82
[2019-09-11] MEDS: ZOLPIDEM TARTRATE 5 MG TAB PO PRN (21:57)
[2019-09-11] MEDS: TAMSULOSIN HCL 0.4 MG CAP PO SCH (21:58)
[2019-09-12 06:46] LABS: Creatinine Clr Calc Pharmacy 69.7 ml/min; Est GFR (Non-African American) 79.4
[2019-09-12] MEDS: FINASTERIDE 5 MG TAB PO SCH (08:53)
[2019-09-12] MEDS: MULTIVITAMIN TAB PO SCH (08:53)
[2019-09-12] MEDS: DOXYCYCLINE HYCLATE 100 MG CAP PO SCH (08:53)
[2019-09-12] MEDS: AMOXICILLIN/CLAVULANATE 875 MG TAB PO SCH (08:53)
[2019-09-12] MEDS: FUROSEMIDE 20 MG TAB PO SCH (08:53)
[2019-09-12] MEDS: POTASSIUM CHLORIDE 20 MEQ TABCR PO SCH (08:53)
[2019-09-12] MEDS: NYSTATIN POWDER 15GM BTL EXT SCH (08:54)
[2019-09-12] MEDS: PANTOprazole 40 MG TAB PO PRN (09:41)
--- NOTE | 2019-09-12 10:27 | Hospitalist Progress Note ---
Date of Service September 12, 2019 Assessment & Plan (1) Pneumonia: Temp as high as 39.5 in ED. Had a congested cough. Chest x-ray showed infiltrate vs atelectasis RLL. CT of abdomen also showed infiltrate vs atelectasis RLL. Had some nausea and vomiting, but seemed like fever & cough preceded emesis. CT demonstrated cholelithiasis without apparent cholecystitis. Having problems with urinary retention, but urine did not appear to be infected. C diff PCR negative. Stool culture negative. Probable RLL community acquired pneumonia, present on admission. Received IV doxycycline + ceftriaxone. Blood cultures negative. Sputum culture grew normal casa. BioFire resp panel negative. SARS-CoV-2 PCR negative. WBC 14,010 --> --> 4950. Defervesced. Transitioned to oral antibiotic therapy with amoxicillin / clavulanic acid + doxycycline and completed 7 day course of therapy. (2) Vomiting: Present on admission. No acute findings on imaging. Resolved. (3) Acute urinary retention: Recent worsening problems with urinary retention. Followed by Dr. Diego. Had Alvares catheter placed recently. Failed voiding trial 09/04/19 and Alvares had to be reinserted on 09/05/19. Coordinating care with Urology- voiding trial recommended after 7-10 days. Continue Alvares until 09/14, then repeat voiding trial. Continue tamsulosin + finasteride. (4) CKD (chronic kidney disease) stage 3, GFR 30-59 ml/min: Serum creatinine today = 0.81. Follow. 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 Path demonstrated adenocarcinoma. Follow-up with Medical Oncology (scheduled for November). (6) Abnormal chest x-ray: Chest x-ray demonstrated left hilar prominence. Will need follow-up imaging, especially in light of adenocarcinoma of small intestine. (7) Abnormal CT of the abdomen: Incidental findings on CT of abdomen & pelvis: increased size of right anterior diaphragmatic lymph nodes 9 mm nodule RLL small amount of ascites Will need close follow-up in light of adenocarcinoma of small intestine. (8) Anemia: Hgb 11.4 on admission. Fell to 9.6 by 4/2. Hgb 4/4 = 9.7. MCV 89. RDW 16. Anemia may be multifactorial: metastatic Ca, infection, etc. No gross GI bleeding. Laboratory Tests 09/10/19 09/10/19 05:34 05:34 Iron 17 L Transferrin 119 L Transferrin % Sat 10 L Ferritin 399.3 H Vitamin B12 867 Folate 16.40 Elevated ferritin could be related to acute illness. Start FeSO4. ? need for eventual colonoscopy for Fe deficiency. Already known to have adenocarcinoma of small intestine, recently resected. No need for transfusion at this time. Follow. (9) Paroxysmal atrial tachycardia: Short runs of symptomatic PAT noted on cardiac monitoring. K 3.8. Mg 1.9 on 09/08. Continue to monitor. (10) Diarrhea: Stools negative for C diff x 2. (11) Edema: Chronic dependent edema. No signs of CHF per exam or chest x-rays. Continue furosemide. Elevate legs as able. RAQUEL stockings as tolerated during day (with monitoring for proper placement and good circulation). (12) DVT prophylaxis: SCD's & SQ enoxaparin ordered. Enoxaparin held because of mild hematuria with Alvares cath. Continue SCD's until ambulatory. Ambulate as able. (13) Discharge planning issues: Evaluated by PT and OT. Needs skilled care or inpatient rehab. Case Management following and arrangements being made [facility] at [facility]. Family Medicine follow-up with Dr. Duval. Hematology / Medical Oncology follow-up with Dr. Castaneda. Urology follow-up with Dr. Diego. Admission and Anticipated Discharge Date Admission Date: September 05, 2019 Anticipated date of discharge: 09/08/19 Subjective Recheck for multiple problems. Patient seen in their room around 0950. Doing well. No recorded fever since 09/06 @ 1612. Rare cough. No SOB. Still having some loose stools, but C diff PCR negative x 2. Participating in PT / OT. Review of Systems: Constitutional- as noted above. Cardiac- no chest pain; chronic dependent edema. Pulmonary- as noted above. GI- as noted above. - Alvares cath. Otherwise, as noted above. Physical Exam Constitutional: no acute distress Respiratory: no respiratory distress Auscultation: lungs clear to auscultation bilaterally Cardiovascular: Rate/Rhythm: regular rate and regular rhythm Vessels: no JVD Extremities: + edema (2+ ankle); no calf tenderness Gastrointestinal (Abdomen): normal bowel sounds, soft, nontender, no hepatosplenomegaly Skin: no rashes, warm and dry Psychiatric: Orientation: alert and oriented x 3 Genitourinary: Alvares cath draining clear urine. Results & Data Results & Data ([facility]) Vital Signs (Past 12 Hours) Vital Signs Temp Pulse Pulse Resp BP BP Pulse Ox 09/12/19 07:02 36.8 C 71 19 132/56 L 93 09/12/19 03:12 36.6 C 70 20 153/66 H 92 09/12/19 01:31 71 09/11/19 23:16 37.0 C 75 18 132/72 94 Laboratory Results Laboratory Results - last 24 hr 09/11/19 09/12/19 10:15 05:27 Creatinine 0.81 Est Cr Clr Drug Dosing 69.7 Est GFR ( Amer) 92.0 Est GFR (Non-Af Amer) 79.4 Stl C. diff Tox B Gene Negative Cdiff Gene
--- NOTE | 2019-09-12 10:48 | Discharge Summary ---
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 Per the patient he is feeling well and doesn't know why he is here. He states he feels well and wants to go home. He also tells me that he went to the Urologist 3 days ago, when he actually went for the storey removal yesterday. He also told me that he never went to the [facility] when he actually did go and was referred to the ER. The point is that he looks reliable, but is clearly getting some facts confused. Per his DIL, Ciara, with whom he lives with his son and who is also an RN, he developed a temp and malaise last night at 7:30pm. She checked a TM temp and it was 103F. HE had some vomiting and weakness, and she gave APAP 500mg PO which he kept down. He slept all night and awoke without issue eating all his breakfast. In the late morning, however, he looked poorly and was weak and unable to get up out of his chair well. Once up he began vomiting again and was found to have a temp of 102F. Ciara notes that he has had new productive coughing of yellow phlegm, which is seen in the sick sack he is holding. She reports him having shortness of breath that is new. The patient states that he urinated this morning after the Storey removal yesterday and denies any blood. He doesn't feel like he urinated completely but also doesn't feel he has an infection, denying dysuria or urinary urgency. He reports compliance with Flomax sand Proscar although says he self-administers his own meds and gets confused. Per Ciara he takes Lasix 40mg BID but stopped 3 weeks ago citing he was urinating too much, then restarting one week ago when he went to live with Ciara and his son. (Pt's broke hip and is living with her daughter after recent discharge from rehab). The patient otherwise denies chest pain, headache, sinus congestion, sore throat, nausea, pain or any other acute symptom of concern. He does report explosive diarrhea since his bowel surgery in Jul which has reportedly not been checked for infection. Ciara corroborates this. Regarding travel history, this is not clear but not relevant at this point as he has multiple reasons to be screened for COVID-19. His DIL is a home health nurse and is still working. She is not sick and there are no know sick contacts at this point. He has been in and out of [facility] in Jul, [facility] in August for an ER visit for acute urinary retention, [facility] [place] multiple times for a phimosis surgery followed by a cystoscopy, then back again for a storey TOV recently. He has multiple comorbidities which make him potential to develop severe manifestations of COVID-19 from what is known. Therefore, with his hist ory of respiratory symptoms and fever, he was placed on airborne and contact precautions in the ER and COVID-19 testing was performed. Of note, flu PCR and [employer] respiratory panels are negative. Additionally, the CXR reveals ? multifocal pneumonia with changes since CXR in Jun. This in addition to symptoms are concerning for an acute respiratory pneumonia and he will be admitted. Per his DIL (who is speaking on behalf of her and the patient's ), the patient is a DNR. Ceftriaxone was given in the ER. Will add doxycycline and place on telemetry to monitor for a response. The patient is not septic at this time. Principal Diagnosis community acquired pneumonia Discharge Data Allergies Allergy/AdvReac Type Severity Reaction Status Date / Time No Known Allergies Allergy Verified 09/05/19 14:12 Consultations 09/05/19 16:25 ED Decision to Admit Stat 09/05/19 20:22 Consult Case Management - Discharge Planning Routine Ordered Studies 09/05/19 14:00 CT abd pelvis wo con Stat Hospital Course (1) Pneumonia: Temp as high as 39.5 in ED. Had a congested cough. Chest x-ray showed infiltrate vs atelectasis RLL. CT of abdomen also showed infiltrate vs atelectasis RLL. Had some nausea and vomiting, but seemed like fever & cough preceded emesis. CT demonstrated cholelithiasis without apparent cholecystitis. Having problems with urinary retention, but urine did not appear to be infected. C diff PCR negative. Stool culture negative. Probable RLL community acquired pneumonia, present on admission. Received IV doxycycline + ceftriaxone. Blood cultures negative. Sputum culture grew normal casa. [employer] resp panel negative. SARS-CoV-2 PCR negative. WBC 14,010 --> --> 4950. Defervesced. Transitioned to oral antibiotic therapy with amoxicillin / clavulanic acid + doxycycline and completed 7 day course of therapy. (2) Vomiting: Present on admission. No acute findings on imaging. Resolved. (3) Acute urinary retention: Recent worsening problems with urinary retention. Followed by Dr. Diego. Had Storey catheter placed recently. Failed voiding trial 09/04/19 and Storey had to be reinserted on 09/05/19. Coordinating care with Urology- voiding trial recommended after 7-10 days. Continue Storey until 09/14, then repeat voiding trial. Continue tamsulosin + finasteride. (4) CKD (chronic kidney disease) stage 3, GFR 30-59 ml/min: Serum creatinine 09/11 = 0.81. Follow. 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 Path demonstrated adenocarcinoma. Follow-up with Medical Oncology (scheduled for November). (6) Abnormal chest x-ray: Chest x-ray demonstrated left hilar prominence. Will need follow-up imaging, especially in light of adenocarcinoma of small intestine. (7) Abnormal CT of the abdomen: Incidental findings on CT of abdomen & pelvis: increased size of right anterior diaphragmatic lymph nodes 9 mm nodule RLL small amount of ascites Will need close follow-up in light of adenocarcinoma of small intestine. (8) Anemia: Hgb 11.4 on admission. Fell to 9.6 by 09/06. Hgb 09/08 = 9.7. MCV 89. RDW 16. Anemia may be multifactorial: metastatic Ca, infection, etc. No gross GI bleeding. Stool heme negaive. Laboratory Tests 09/10/19 09/10/19 05:34 05:34 Iron 17 L Transferrin 119 L Transferrin % Sat 10 L Ferritin 399.3 H Vitamin B12 867 Folate 16.40 Elevated ferritin could be related to acute illness. Start FeSO4. ? need for eventual colonoscopy for Fe deficiency. Already known to have adenocarcinoma of small intestine, recently resected. No need for transfusion at this time. Follow. (9) Diarrhea: Stools negative for C diff x 2. (10) Paroxysmal atrial tachycardia: Short runs of symptomatic PAT noted on cardiac monitoring. K 3.8. Mg 1.9 on 09/08. (11) Edema: Chronic dependent edema. No signs of CHF per exam or chest x-rays. Continue furosemide. Elevate legs as able. RAQUEL stockings as tolerated during day (with monitoring for proper placement and good circulation). (12) DVT prophylaxis: SCD's & SQ enoxaparin ordered. Enoxaparin held because of mild hematuria with Stoery cath. Continue SCD's until ambulatory. Ambulate as able. (13) Discharge planning issues: Evaluated by PT and OT. Needs skilled care or inpatient rehab. Case Management following and arrangements being made for skilled care at [facility]. Family Medicine follow-up with Dr. Duval. Hematology / Medical Oncology follow-up with Dr. Castaneda. Urology follow-up with Dr. Diego. Total Time Total Time Spent Total Time Spent (In Minutes): 45 Discharge Plan Discharge Items Patient Disposition: Transfer Longterm Fac Reason For Visit: fever, nausea, vomiting, cough Discharge Diagnosis: pneumonia Activity: As commented below Activity Comment: Ambulate as tolerated with walker and assistance. Non-emergency contact: Primary Care Provider, Hospitalist, Oncologist and Urologist Call non-emergency contact if: you have any medication questions, your symptoms worsen and your temperature is above 101 Follow-up/Referrals: Mohsen Diego MD [Physician] - Tani Duval MD [Primary Care Provider] - (Please contact office and schedule follow-up appointment at time of discharge from your facility.) Mary Castaneda MD [Hospitalist] - Diet: Heart Healthy Addtl Attending Provider Instructions: Fall precautions. Skin precautions. VTE prophylaxis: SCD's until ambulatory Knee-high TEDS for dependent edema. Apply each morning, remove HS. Monitor q 4 hours for proper placement, comfort, circulation. Elevate lower extremities when possible. Routine Storey care. Voiding trial around 09/14. Reinsert Storey if necessary for failed trial. Thank you for receiving this patient in transfer. Please call if you have any questions. Dillon Rowley Pending Studies at Discharge: No Stand-Alone Forms: My [facility] Skilled Items Patient informed of condition?: Yes DNR: Yes Discharge Level of Care: Skilled Communicable Disease: No Discharge Prognosis: Improving Lines: None Urinary Catheter: Yes Medications and DC Order Prescriptions: New ferrous sulfate 325 mg (65 mg iron) tablet,delayed release (DR/EC) 325 mg PO DAILY 30 Days Qty: 30 RF: 0 ascorbic acid (vitamin C) 500 mg tablet 500 mg PO DAILY 30 Days Qty: 30 RF: 0 Continued multivitamin Tablet 1 tab PO QAM RF: 0 econazole 1 % cream 1 applic TOPICAL UD PRN (Reason: FLARE UPS) RF: 0 nystatin 100,000 unit/gram powder 1 applic TOPICAL TID PRN (Reason: IRRITATION) RF: 0 omeprazole 20 mg Tablet,Delayed Release (Dr/Ec) 20 mg PO DAILY PRN (Reason: Acid Reflux) RF: 0 lidocaine HCl 2 % jelly in applicator 2 ml TOP TID PRN (Reason: pain) Qty: 60 RF: 0 nystatin 100,000 unit/gram cream 1 appln TOP TID Qty: 15 RF: 0 potassium chloride 10 mEq tablet,ER particles/crystals 20 meq PO DAILY RF: 0 furosemide 40 mg tablet 40 mg PO BID RF: 0 tamsulosin 0.4 mg capsule 0.8 mg PO HS RF: 0 finasteride 5 mg Tablet 5 mg PO DAILY RF: 0 hydrocodone-acetaminophen 10-325 mg tablet 1 tab PO Q8 PRN (Reason: Pain) Qty: 6 RF: 0 Admission Data Admit Date/Time: 09/05/19 18:45 Attending Provider: Dillon Rowley Admit Provider: Katarina Pratt Primary Care Provider: Tani Duval Other Providers: Katarina Pratt ; [facility]
== END 2019-09-12 11:50 | DRG 194 ==
LOC: ED 13:27 → SUATTDRO 18:45 → 2N 18:45

== ENCOUNTER 2019-10-11 16:37 | Inpatient (IN) ==
[2019-10-11] MEDS ORDERED: FUROSEMIDE 40 MG/4 ML VIAL IV STA (16:54)
--- NOTE | 2019-10-11 16:54 | Emergency Department Note ---
Impression & Plan Anasarca, KHANG (acute kidney injury), CHF (congestive heart failure), Nausea & vomiting ED Provider Note NAME: MARIO GIL AGE: 88 SEX: M : 1930 ARRIVES VIA: Ambulance INFORMANT: Patient, ED PROVIDER(S): Festus Landis MD Chief Complaint: Shortness of breath, abdominal and leg swelling HPI: Patient does present with abdominal discomfort swelling and shortness of breath. Patient did have a recent admission and was discharged on September 11. 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 The patient had been admitted due to concern for respiratory symptoms. Patient is DNR. Patient did have concern for pneumonia during this time and had a right lower lobe atelectasis versus infiltrate. Bio fire and COVID testing was negative at that time. Patient had been transitioned to Augmentin therapy. The patient was subsequently sent to [facility] and then was discharged from [facility] approximately 3 days ago. Patient has had a productive clear cough. No fever no travel. Patient is mainly complaining of shortness of breath related to abdominal distention and associated swelling. He has noticed this is gotten worse over the last 3 to 4 days. The patient does take Lasix twice daily. This is not proved to symptoms. Patient does have difficulty with breathing due to this. The patient denies any alcohol or tobacco use. ROS: See HPI for pertinent positives and negatives. A total of 10 systems were reviewed and otherwise negative. Past medical history: See below Surgical history: See below Social history: See below Physical Exam: GENERAL: Mild distress, wearing a mask and glasses. EYE EXAM: Normal conjunctiva. PERRL, no anisocoria and EOM's grossly intact w/o pain. NECK: Supple, no nuchal rigidity, no adenopathy, non-tender. No signs of meningismus. LUNGS: Clear to auscultation. Normal chest wall mechanics. HEART: NSR, no MRG. ABDOMEN: Abdominal distention noted, no masses, no rebound or guarding. BACK: No CVA TTP. SKIN: No rashes and no bruising. UPPER EXTREMITIES: Upper extremities are grossly normal. LOWER EXTREMITIES: 3-4+ bilateral lower extremity edema without erythema. NEURO EXAM: A&O x3, cranial nerves II-XII grossly intact, normal speech, moves all 4 extremities on command w/o issue. Differential diagnoses: Reactive airway disease, pneumonia, pneumothorax, COPD, CHF, infections, cardiac ischemia, pulmonary embolism, musculoskeletal, gastrointestinal, as well as other pathologies. Course: Patient was seen in [facility] at the bedside. A full history and physical exam was performed. EKG: Indication: Shortness of breath A. fib with RVR, rate of 136, normal QRS duration, normal axis, no obvious ST changes. The A. fib is new compared to a comparison EKG on September 05, 2019. Imaging Studies: Radiology results as stated below per my review in the radiologist's interpretation: XR chest 1V portable CLINICAL HISTORY: Dyspnea dyspnea COMPARISON STUDY: 09/05/2019 FINDINGS: Mild cardiomegaly. Prominent pulmonary vasculature. Small bilateral pleural effusions. IMPRESSION: Congestive heart failure ACT 112: Negative or not required by law. The above report was generated using voice recognition software. It may contain grammatical, syntax or spelling errors. Electronically signed by: Tani Qiu M.D. 10/11/2019 7:38 PM Dictated: 10/11/191936 Transcribed: 10/11/191936 CT chest wo con CT DOSE: 1709.98 mGycm HISTORY: Dyspnea cough; h/o PNA TECHNIQUE: Multiaxial CT images of the chest were performed without contrast. A dose lowering technique was utilized adhering to the principles of ALARA. COMPARISON: 09/21/2018 FINDINGS: Moderate right pleural effusion. Right basilar parenchymal infiltrate. Small left effusion. Patchy left basilar and left perihilar parenchymal infiltrate. Moderately distended esophagus. Upper abdomen confirms presence of ascites, fluid-filled gastric distention, and hepatic cirrhosis. IMPRESSION: 1. Components of congestive heart failure. 2. Bibasilar parenchymal infiltrative and/or atelectatic change. 3. Right and to a lesser extent left basilar pleural effusions. 4. Upper abdominal hepatic cirrhosis as well as ascites. 5. Fluid-filled gastric distention. ACT 112: Negative or not required by law. The above report was generated using voice recognition software. It may contain grammatical, syntax or spelling errors. Electronically signed by: Tani Qiu M.D. 10/11/2019 8:13 PM Dictated: 10/11/192009 Transcribed: 10/11/192009 CT abd pelvis wo con CT DOSE: HISTORY: Ascites ascites, decreased UOP, KHANG, h/o intest cancer TECHNIQUE: Multiaxial CT images of the abdomen and pelvis were performed without contrast. A dose lowering technique was utilized adhering to the principles of ALARA. COMPARISON STUDY: 09/05/2019 FINDINGS: Bilateral pleural effusions slightly increased in volume from the prior study. Small pericardial effusion. Findings of hepatic cirrhosis. Upper abdominal ascites. Moderate fluid-filled gastric distention. Collapsed gallbladder containing gallstones. Abdominal and pelvic ascites. Alvares catheter within a collapsed bladder. Nonobstructive bowel pattern. Moderate reactive ileus. IMPRESSION: 1. Hepatic cirrhosis with moderate abdominal and pelvic ascites. 2. Moderate fluid-filled gastric distention. 3. Contracted gallbladder containing multiple small gallstones. This is unchanged from the prior study. 4. Mild nonobstructive ileus. 5. Mild body wall anasarca. ACT 112: Negative or not required by law. The above report was generated using voice recognition software. It may contain grammatical, syntax or spelling errors. Electronically signed by: Tani Qiu M.D. 10/11/2019 8:22 PM Dictated: 10/11/192018 Transcribed: 10/11/192018 Cardiac monitoring: An order was placed for continuous cardiac monitoring. The monitor shows a rate of 105 with sinus tachycardia rhythm. MDM: Patient did present with concern for shortness of breath and abdominal swelling. The patient does have some noted pitting edema. The patient did have blood work completed. This did take a fair amount of time in order to obtain. The patient given his associated fluid retention empiric Lasix was ordered as the patient does take 40 mg twice daily. The patient has not taken it in the evening. The patient did have some blood work that returned which showed the patient does have some mild KHANG and associated leukocytosis of 16,000. The patient's urinal ysis did show concern for infection. I did review prior urine culture which showed virtually pansensitive to Pseudomonas. The patient did have a large episode of dark emesis. The patient was ordered a Protonix bolus and drip as well as a type and screen. Patient's lactate was elevated at 4. I did perform a bedside ultrasound. Cardizem was held at this time. The patient's EKG does show A. fib with RVR which is new finding. Of note the patient is willing to be intubated but does not want to be resuscitated if he has a cardiac arrest. Alvares was replaced without any urine output. The patient was ordered for CT of the abdomen pelvis given the patient's abdominal distention. I did perform a bedside [id number] ultrasound. This was a technically difficult study to perform. The patient does have a trace pericardial effusion but I was unable to assess the patient's IVC. There was diffuse ascites within the abdomen. Bladder was not readily visible on this bedside ultrasound. Also of note the patient is Jain and does not want any blood products. Type and screen was canceled. Patient denies a history of alcoholism or drinking. Patient CTs do show nonobstructive ileus as well as hepatic cirrhosis and abdominal and pelvic ascites. CT of the chest shows findings consistent potentially of heart failure. I did speak with the family several times related that the patient is DNR/DNI and they did discuss that we are considering comfort care measures. Patient was subsequently admitted to the medicine service. I did speak with Dr. Koenig of the [facility] hospitalist team. Past Med/Surg History Medical History Adenocarcinoma of small intestine BPH (benign prostatic hyperplasia) (Chronic) Chronic pain syndrome (Chronic) CKD (chronic kidney disease) stage 3, GFR 30-59 ml/min Edema GERD (gastroesophageal reflux disease) (Chronic) History of prostate cancer (Chronic) Status post radiation and hormone therapy Hypertension (Chronic) Refusal of blood transfusions as patient is Jain Urinary problem (Resolved) Surgical History History of back surgery History of dilation of urethra (Chronic) History of inguinal hernia repair (Chronic) History of left shoulder replacement (Chronic) History of prostate biopsy (Chronic) History of spinal fusion (Chronic) Hx of hernia repair S/P small bowel resection Family History Mother Diabetes Brother Coronary heart disease Prostate cancer Social History Preferred Language: Gambian Communication Ability: Effective 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 Beliefs That Will Affect Care: Yazdanism Yazdanism Beliefs: Christianity marital status: Current Living Situation: Family Current Living Situation Comment: Lives with son current occupational status: retired Feels Safe at Home: Yes Smoking Status: Former smoker Second Hand Exposure: No ; Hx Alcohol Use: No Hx Substance Use: No Allergies Allergies Allergy/AdvReac Type Severity Reaction Status Date / Time No Known Allergies Allergy Verified 10/11/19 18:30 Home Meds Home Medications Medication Instructions Recorded Confirmed econazole 1 applic TOPICAL DIRECTED PRN 06/15/19 10/11/19 multivitamin 1 tab PO QAM 06/15/19 10/11/19 omeprazole 20 mg PO DAILY 06/15/19 10/11/19 finasteride 5 mg PO QAM 09/05/19 10/11/19 furosemide 40 mg PO BID 09/05/19 10/11/19 potassium chloride 10 meq PO QAM 09/05/19 10/11/19 tamsulosin 0.8 mg PO HS 09/05/19 10/11/19 ascorbic acid (vitamin C) 1,000 mg PO DAILY 10/11/19 10/11/19 hydrocodone-acetaminophen 1 tab PO Q8H PRN 10/11/19 10/11/19 sennosides-docusate sodium [Senna 1 tab-cap PO BID 10/11/19 10/11/19 with Docusate Sodium] Previous Rx's Medication Instructions Recorded ferrous sulfate 325 mg PO DAILY 30 Days #30 tab 09/12/19 Results & Data (ED) Vital Signs Vital Signs - 24 hr 10/11/19 16:45 10/11/19 16:46 10/11/19 16:51 Temperature 36.7 C Temperature Source Oral Pulse Rate 121 H 111 H 99 H Pulse Rate [Right Radial] Pulse Rate from SpO2 Sensor Respiratory Rate 16 28 H Respiratory Effort / Characteristics Blood Pressure 133/71 133/71 Blood Pressure Mean 102 91 Pulse Oximetry 96 95 95 Oxygen Delivery Method Room Air Room Air Room Air Oxygen Flow Rate Sepsis Recent Fever Within 48 Hours No Sepsis New/Unexplained Change in Mental Status No Sepsis Action Taken by Nursing No Action Required 10/11/19 17:00 10/11/19 17:10 10/11/19 17:30 Temperature Temperature Source Pulse Rate 118 H 109 H Pulse Rate [Right Radial] Pulse Rate from SpO2 Sensor Respiratory Rate 20 24 Respiratory Effort / Characteristics Blood Pressure 112/73 132/67 Blood Pressure Mean 97 107 Pulse Oximetry 95 95 95 Oxygen Delivery Method Room Air Room Air Room Air Oxygen Flow Rate Sepsis Recent Fever Within 48 Hours Sepsis New/Unexplained Change in Mental Status Sepsis Action Taken by Nursing 10/11/19 18:04 10/11/19 18:10 10/11/19 18:21 Temperature Temperature Source Pulse Rate 122 H 115 H 119 H Pulse Rate [Right Radial] Pulse Rate from SpO2 Sensor Respiratory Rate 23 23 Respiratory Effort / Characteristics Blood Pressure 138/69 137/68 120/62 Blood Pressure Mean 102 106 74 Pulse Oximetry 94 96 95 Oxygen Delivery Method Room Air Oxygen Flow Rate Sepsis Recent Fever Within 48 Hours Sepsis New/Unexplained Change in Mental Status Sepsis Action Taken by Nursing 10/11/19 18:30 10/11/19 19:00 10/11/19 19:16 Temperature Temperature Source Pulse Rate 129 H 122 H 132 H Pulse Rate [Right Radial] Pulse Rate from SpO2 Sensor Respiratory Rate 19 23 Respiratory Effort / Characteristics Blood Pressure 119/56 L Blood Pressure Mean 74 Pulse Oximetry 93 93 92 Oxygen Delivery Method Room Air Room Air Room Air Oxygen Flow Rate Sepsis Recent Fever Within 48 Hours Sepsis New/Unexplained Change in Mental Status Sepsis Action Taken by Nursing 10/11/19 19:21 10/11/19 20:13 10/11/19 20:20 Temperature Temperature Source Pulse Rate 114 H 113 H 110 H Pulse Rate [Right Radial] Pulse Rate from SpO2 Sensor 82 Respiratory Rate 22 23 23 Respiratory Effort / Characteristics Blood Pressure 105/55 L 120/57 L 118/88 Blood Pressure Mean 79 72 93 Pulse Oximetry 91 94 93 Oxygen Delivery Method Room Air Nasal Cannula Nasal Cannula Oxygen Flow Rate 2 2 Sepsis Recent Fever Within 48 Hours Sepsis New/Unexplained Change in Mental Status Sepsis Action Taken by Nursing 10/11/19 20:31 10/11/19 21:10 10/11/19 21:30 Temperature Temperature Source Pulse Rate 109 H 105 H 106 H Pulse Rate [Right Radial] Pulse Rate from SpO2 Sensor Respiratory Rate 23 24 24 Respiratory Effort / Characteristics Blood Pressure 119/61 98/72 L 135/85 Blood Pressure Mean 66 88 100 Pulse Oximetry 92 93 91 Oxygen Delivery Method Nasal Cannula Nasal Cannula Nasal Cannula Oxygen Flow Rate 2 2 2 Sepsis Recent Fever Within 48 Hours Sepsis New/Unexplained Change in Mental Status Sepsis Action Taken by Nursing 10/11/19 21:41 10/11/19 21:50 10/11/19 21:59 Temperature Temperature Source Pulse Rate 115 H 107 H Pulse Rate [Right Radial] 117 H Pulse Rate from SpO2 Sensor Respiratory Rate 28 H 27 H 26 H Respiratory Effort / Characteristics Spontaneous Blood Pressure 122/71 112/65 Blood Pressure Mean 85 75 Pulse Oximetry 91 92 92 Oxygen Delivery Method Nasal Cannula Nasal Cannula Nasal Cannula Oxygen Flow Rate 2 2 2 Sepsis Recent Fever Within 48 Hours Sepsis New/Unexplained Change in Mental Status Sepsis Action Taken by Nursing 10/11/19 22:00 Temperature Temperature Source Pulse Rate 105 H Pulse Rate [Right Radial] Pulse Rate from SpO2 Sensor Respiratory Rate 27 H Respiratory Effort / Characteristics Blood Pressure 124/87 Blood Pressure Mean 103 Pulse Oximetry 94 Oxygen Delivery Method Nasal Cannula Oxygen Flow Rate 2 Sepsis Recent Fever Within 48 Hours Sepsis New/Unexplained Change in Mental Status Sepsis Action Taken by Assisted Medications Current Medication List: was personally reviewed by me Laboratory Data Attestation: I reviewed the patient's lab results. Result diagrams: 10/11/19 17:54 10/11/19 17:54 Lab Results 10/11/19 10/11/19 10/11/19 Range/Units 17:11 17:54 17:54 WBC (4.8-10.8) K/uL RBC (4.7-6.1) M/uL Hgb (14.0-18.0) g/dL Hct (42-52) % MCV (80-100) fL MCH (25-34) pg MCHC (32-36) g/dL RDW Std Deviation (36.4-46.3) fL RDW Coeff of Maxim (11.5-14.5) % Plt Count (130-400) K/uL MPV (7.4-10.4) fL Immature Gran % (Auto) % Neut % (Auto) % Lymph % (Auto) % Davidson % (Auto) % Eos % (Auto) % Baso % (Auto) % Immature Gran # (Auto) (0.00-0.02) K/uL Neut # (Auto) (1.4-6.5) K/uL Lymph # (Auto) (1.2-3.4) K/uL Davidson # (Auto) (0.11-0.59) K/uL Eos # (Auto) (0-0.5) K/uL Baso # (Auto) (0-0.2) K/uL Echinocytes PT INR APTT PTT Ratio Sodium 136 (136-145) mmol/L Potassium 3.7 (3.5-5.1) mmol/L Chloride 107 (98-107) mmol/L Carbon Dioxide 18 L (21-32) mmol/L Anion Gap 11.0 (3-11) BUN 51 H (7-18) mg/dl Creatinine 1.79 H (0.6-1.4) mg/dl Est Cr Clr Drug Dosing 34.0 ml/min Est GFR ( Amer) 38.4 Est GFR (Non-Af Amer) 33.1 BUN/Creatinine Ratio 28.6 H (10-20) Glucose 145 H (70-99) mg/dl Lactate 4.1 H* (0.4-2.0) mmol/L Calcium 9.4 (8.5-10.1) mg/dl Total Bilirubin 0.6 (0.2-1) mg/dl AST 17 (15-37) U/L ALT 14 (12-78) U/L Alkaline Phosphatase 107 (45-117) U/L Troponin I 0.024 (0-0.045) ng/ml NT-Pro-B Natriuret Pep 2230 H (0-1800) pg/ml Total Protein 7.7 (6.4-8.2) gm/dl Albumin 2.4 L (3.4-5.0) gm/dl Globulin 5.3 H (2.5-4.0) gm/dl Albumin/Globulin Ratio 0.5 L (0.9-2) Lipase 95 (73-393) U/L Urine Color Dark Yellow Urine Appearance Turbid A (Clear) Urine pH 5.0 (4.5-7.5) Ur Specific [place] 1.026 (1.000-1.030) Urine Protein 2+ H (Negative) Urine Glucose (UA) Negative (Negative) Urine Ketones Trace H (Negative) Urine Blood 3+ H (Negative) Urine Nitrite Positive A (Negative) Urine Bilirubin Negative (Negative) Urine Urobilinogen Negative (Negative) Ur Leukocyte Esterase 2+ H (Negative) Urine WBC (Auto) >30 H (0-5) /hpf Urine RBC (Auto) >30 H (0-4) /hpf U Hyaline Cast (Auto) 5-10 H (0-5) /lpf U Epithel Cells (Auto) 0-5 (0-5) /lpf Urine Bacteria (Auto) 4+ H (Negative) 10/11/19 10/11/19 10/11/19 Range/Units 17:54 17:54 19:00 WBC 16.40 H (4.8-10.8) K/uL RBC 4.40 L (4.7-6.1) M/uL Hgb 12.8 L (14.0-18.0) g/dL Hct 38.3 L (42-52) % MCV 87.0 (80-100) fL MCH 29.1 (25-34) pg MCHC 33.4 (32-36) g/dL RDW Std Deviation 51.3 H (36.4-46.3) fL RDW Coeff of Maxim 16.0 H (11.5-14.5) % Plt Count 283 (130-400) K/uL MPV 9.9 (7.4-10.4) fL Immature Gran % (Auto) 0.4 % Neut % (Auto) 91.4 % Lymph % (Auto) 2.7 % Davidson % (Auto) 5.3 % Eos % (Auto) 0.1 % Baso % (Auto) 0.1 % Immature Gran # (Auto) 0.07 H (0.00-0.02) K/uL Neut # (Auto) 15.00 H (1.4-6.5) K/uL Lymph # (Auto) 0.44 L (1.2-3.4) K/uL Davidson # (Auto) 0.87 H (0.11-0.59) K/uL Eos # (Auto) 0.01 (0-0.5) K/uL Baso # (Auto) 0.01 (0-0.2) K/uL Echinocytes 2+ PT Cancelled 12.3 H INR Cancelled 1.2 H APTT Cancelled 25.6 PTT Ratio Cancelled 0.9 Sodium (136-145) mmol/L Potassium (3.5-5.1) mmol/L Chloride (98-107) mmol/L Carbon Dioxide (21-32) mmol/L Anion Gap (3-11) BUN (7-18) mg/dl Creatinine (0.6-1.4) mg/dl Est Cr Clr Drug Dosing ml/min Est GFR ( Amer) Est GFR (Non-Af Amer) BUN/Creatinine Ratio (10-20) Glucose (70-99) mg/dl Lactate (0.4-2.0) mmol/L Calcium (8.5-10.1) mg/dl Total Bilirubin (0.2-1) mg/dl AST (15-37) U/L ALT (12-78) U/L Alkaline Phosphatase (45-117) U/L Troponin I (0-0.045) ng/ml NT-Pro-B Natriuret Pep (0-1800) pg/ml Total Protein (6.4-8.2) gm/dl Albumin (3.4-5.0) gm/dl Globulin (2.5-4.0) gm/dl Albumin/Globulin Ratio (0.9-2) Lipase (73-393) U/L Urine Color Urine Appearance (Clear) Urine pH (4.5-7.5) Ur Specific [place] (1.000-1.030) Urine Protein (Negative) Urine Glucose (UA) (Negative) Urine Ketones (Negative) Urine Blood (Negative) Urine Nitrite (Negative) Urine Bilirubin (Negative) Urine Urobilinogen (Negative) Ur Leukocyte Esterase (Negative) Urine WBC (Auto) (0-5) /hpf Urine RBC (Auto) (0-4) /hpf U Hyaline Cast (Auto) (0-5) /lpf U Epithel Cells (Auto) (0-5) /lpf Urine Bacteria (Auto) (Negative) 10/11/19 Range/Units 20:54 WBC (4.8-10.8) K/uL RBC (4.7-6.1) M/uL Hgb (14.0-18.0) g/dL Hct (42-52) % MCV (80-100) fL MCH (25-34) pg MCHC (32-36) g/dL RDW Std Deviation (36.4-46.3) fL RDW Coeff of Maxim (11.5-14.5) % Plt Count (130-400) K/uL MPV (7.4-10.4) fL Immature Gran % (Auto) % Neut % (Auto) % Lymph % (Auto) % Davidson % (Auto) % Eos % (Auto) % Baso % (Auto) % Immature Gran # (Auto) (0.00-0.02) K/uL Neut # (Auto) (1.4-6.5) K/uL Lymph # (Auto) (1.2-3.4) K/uL Davidson # (Auto) (0.11-0.59) K/uL Eos # (Auto) (0-0.5) K/uL Baso # (Auto) (0-0.2) K/uL Echinocytes PT INR APTT PTT Ratio Sodium (136-145) mmol/L Potassium (3.5-5.1) mmol/L Chloride (98-107) mmol/L Carbon Dioxide (21-32) mmol/L Anion Gap (3-11) BUN (7-18) mg/dl Creatinine (0.6-1.4) mg/dl Est Cr Clr Drug Dosing ml/min Est GFR ( Amer) Est GFR (Non-Af Amer) BUN/Creatinine Ratio (10-20) Glucose (70-99) mg/dl Lactate 5.5 H* (0.4-2.0) mmol/L Calcium (8.5-10.1) mg/dl Total Bilirubin (0.2-1) mg/dl AST (15-37) U/L ALT (12-78) U/L Alkaline Phosphatase (45-117) U/L Troponin I (0-0.045) ng/ml NT-Pro-B Natriuret Pep (0-1800) pg/ml Total Protein (6.4-8.2) gm/dl Albumin (3.4-5.0) gm/dl Globulin (2.5-4.0) gm/dl Albumin/Globulin Ratio (0.9-2) Lipase (73-393) U/L Urine Color Urine Appearance (Clear) Urine pH (4.5-7.5) Ur Specific [place] (1.000-1.030) Urine Protein (Negative) Urine Glucose (UA) (Negative) Urine Ketones (Negative) Urine Blood (Negative) Urine Nitrite (Negative) Urine Bilirubin (Negative) Urine Urobilinogen (Negative) Ur Leukocyte Esterase (Negative) Urine WBC (Auto) (0-5) /hpf Urine RBC (Auto) (0-4) /hpf U Hyaline Cast (Auto) (0-5) /lpf U Epithel Cells (Auto) (0-5) /lpf Urine Bacteria (Auto) (Negative) Administered Medications Pantoprazole Sodium 40 mg/ (Dextrose) 100 mls @ 20 mls/hr IV Q5H PRADIP Stop: 11/10/19 18:29 Last Admin: 10/11/19 19:40 Dose: 20 mls/hr Documented by: [id number] Discontinued Medications Diltiazem HCl (Cardizem) 10 mg IV NOW STA Stop: 10/11/19 17:28 Last Admin: 10/11/19 18:55 Dose: Not Given Documented by: [id number] Furosemide (Lasix) 80 mg IV NOW STA Stop: 10/11/19 16:55 Last Admin: 10/11/19 18:01 Dose: 80 mg Documented by: [id number] Cefepime HCl (Maxipime) 2,000 mg in 20 mls @ 5 mls/min IV NOW STA; Protocol Stop: 10/11/19 18:07 Last Admin: 10/11/19 19:13 Dose: 5 mls/min Documented by: [id number] Pantoprazole Sodium (Protonix Bolus/Drip) 0 mls @ 1 mls/hr IV ONE STA Stop: 10/11/19 18:30 Last Admin: 10/11/19 19:20 Dose: Not Given Documented by: [id number] Pantoprazole Sodium 80 mg/ (Dextrose) 120 mls @ 400 mls/hr IV NOW ONE Stop: 10/11/19 18:46 Last Infusion: 10/11/19 19:40 Dose: 0 mls/hr Documented by: [id number] Admin: 10/11/19 19:13 Dose: 400 mls/hr Documented by: [id number] Albumin Human (Albumin 25%) 50 mls @ 50 mls/hr IV ONE ONE Stop: 10/11/19 22:14 Last Infusion: 10/11/19 22:01 Dose: 0 mls/hr Documented by: [id number] Admin: 10/11/19 21:09 Dose: 50 mls/hr Documented by: [id number] Piperacillin Sod/Tazobactam Sod (Zosyn) 4.5 gm in 120 mls @ 240 mls/hr IV NOW ONE Stop: 10/11/19 21:34 Last Infusion: 10/11/19 22:38 Dose: 0 mls/hr Documented by: [id number] Admin: 05/06/20 22:09 Dose: 240 mls/hr Documented by: [id number] Ipratropium [place] (Atrovent 0.02% 0.5mg/2.5ml) 0.5 mg INH NOW STA Stop: 10/11/19 21:45 Last Admin: 10/11/19 21:59 Dose: 0.5 mg Documented by: [id number] Levalbuterol HCl (Xopenex 1.25mg/0.5ml Neb) 1.25 mg INH NOW STA Stop: 10/11/19 21:45 Last Admin: 10/11/19 21:59 Dose: 1.25 mg Documented by: [id number] Metoclopramide HCl (Reglan) 10 mg IV NOW STA Stop: 10/11/19 18:24 Last Admin: 10/11/19 18:27 Dose: 10 mg Documented by: [id number] Discharge Plan Visit Data Chief Complaint: Abdominal Pain ED Provider: Festus Landis Discharge Problem: Anasarca, KHANG (acute kidney injury), CHF (congestive heart failure), Nausea & vomiting Forms Stand Alone Forms: [facility] Prescriptions Prescriptions: No Action multivitamin Tablet 1 tab PO QAM RF: 0 econazole 1 % cream 1 applic TOPICAL DIRECTED PRN (Reason: FLARE UPS) RF: 0 omeprazole 20 mg Tablet,Delayed Release (Dr/Ec) 20 mg PO DAILY RF: 0 potassium chloride 10 mEq tablet,ER particles/crystals 10 meq PO QAM RF: 0 furosemide 40 mg tablet 40 mg PO BID RF: 0 tamsulosin 0.4 mg capsule 0.8 mg PO HS RF: 0 finasteride 5 mg Tablet 5 mg PO QAM RF: 0 ferrous sulfate 325 mg (65 mg iron) tablet,delayed release (DR/EC) 325 mg PO DAILY 30 Days Qty: 30 RF: 0 ascorbic acid (vitamin C) 1,000 mg Tablet 1,000 mg PO DAILY RF: 0 sennosides-docusate sodium [Senna with Docusate Sodium] 8.6-50 mg Tablet 1 tab-cap PO BID RF: 0 hydrocodone-acetaminophen 10-325 mg tablet 1 tab PO Q8H PRN (Reason: Pain) RF: 0 Discharge Problem: CHF (congestive heart failure) Qualifiers: Heart failure type: unspecified Heart failure chronicity: acute Qualified Code( s): I50.9 - Heart failure, unspecified Nausea & vomiting Qualifiers: Vomiting type: unspecified Vomiting Intractability: non-intractable Qualified Code(s): R11.2 - Nausea with vomiting, unspecified
[2019-10-11 17:25] LABS: Appearance Urine Turbid (Clear); Bacteria Urine Automated 4+ (Negative); Blood Urine 3+ (Negative); Color Urine Dark Yellow; Epithelial Cell Urine Auto 0-5 /lpf (0-5); Glucose Urine UA Negative (Negative); Ketones Urine Trace (Negative); Leukocyte Esterase Urine 2+ (Negative); Nitrite Urine Positive (Negative); Protein Urine 2+ (Negative); RBC Urine Automated >30 /hpf (0-4); Specific Gravity Urine 1.026 (1.000-1.030); Urobilinogen Urine Negative (Negative); WBC Urine Automated >30 /hpf (0-5)
[2019-10-11 17:37] LABS: Bilirubin Urine Negative (Negative); Ictotest Urine Negative (Negative)
[2019-10-11] MEDS: dilTIAZem HCl 5 MG/ML 5 ML VIAL IV STA ×2 (18:00→18:55)
[2019-10-11] MEDS ORDERED: CEFEPIME 2,000 MG/20 ML VIAL IV STA (18:04)
[2019-10-11 18:10] LABS: Hematocrit (blood only) 38.3 % (42-52); Hemoglobin 12.8 g/dL (14.0-18.0); Mean Corpuscular Hemoglobin 29.1 pg (25-34); Mean Corpuscular Hgb Conc 33.4 g/dL (32-36); Mean Platelet Volume 9.9 fL (7.4-10.4); Platelet Count 283 K/uL (130-400); RDW Standard Deviation 51.3 fL (36.4-46.3)
[2019-10-11] MEDS ORDERED: METOCLOPRAMIDE HCL INJ 5 MG/ML 2 ML VIAL IV STA (18:23)
[2019-10-11 18:26] LABS: Albumin Level 2.4 gm/dl (3.4-5.0); BUN Creatinine Ratio 28.6 (10-20); Calcium 9.4 mg/dl (8.5-10.1); Est GFR (African American) 38.4; Est GFR (Non-African American) 33.1; Potassium 3.7 mmol/L (3.5-5.1)
[2019-10-11] MEDS ORDERED: PANTOprazole 80 MG in DEXTROSE 5% 100 ML IV ONE (18:29)
[2019-10-11] MEDS ORDERED: PANTOPRAZOLE BOLUS/DRIP 1 EA IV STA (18:29)
[2019-10-11 18:31] LABS: Albumin Globulin Ratio 0.5 (0.9-2); Bilirubin,Total 0.6 mg/dl (0.2-1); Globulin 5.3 gm/dl (2.5-4.0); Total Protein 7.7 gm/dl (6.4-8.2); Troponin I 0.024 ng/ml (0-0.045)
[2019-10-11 18:33] LABS: Basophils # (auto) 0.01 K/uL (0-0.2); Basophils % (auto) 0.1 %; Echinocytes 2+; Eosinophils # (auto) 0.01 K/uL (0-0.5); Eosinophils % (auto) 0.1 %; Immature Granulocytes # (auto) 0.07 K/uL (0.00-0.02); Immature Granulocytes % (auto) 0.4 %; Lymphocytes # (auto) 0.44 K/uL (1.2-3.4); Lymphocytes % (auto) 2.7 %; Monocytes # (auto) 0.87 K/uL (0.11-0.59); Monocytes % (auto) 5.3 %; Neutrophils % (auto) 91.4 %
[2019-10-11 19:34] LABS: INR 1.2 (0.9-1.1); Partial Thromboplastin Ratio 0.9; Partial Thromboplastin Time 25.6 Seconds (21.0-31.0); Prothrombin Time 12.3 Seconds (9.0-12.0)
--- NOTE | 2019-10-11 19:39 | XRay Report ---
XR chest 1V portable CLINICAL HISTORY: Dyspnea dyspnea COMPARISON STUDY: 09/05/2019 FINDINGS: Mild cardiomegaly. Prominent pulmonary vasculature. Small bilateral pleural effusions. IMPRESSION: Congestive heart failure ACT 112: Negative or not required by law. The above report was generated using voice recognition software. It may contain grammatical, syntax or spelling errors. Electronically signed by: Tani Qiu M.D. 10/11/2019 7:38 PM
[2019-10-11] MEDS: PANTOprazole 40 MG in DEXTROSE 5% 100 ML IV SCH (19:40)
--- NOTE | 2019-10-11 20:14 | CT Scan Report ---
CT chest wo con CT DOSE: 1709.98 mGycm HISTORY: Dyspnea cough; h/o PNA TECHNIQUE: Multiaxial CT images of the chest were performed without contrast. A dose lowering techni que was utilized adhering to the principles of ALARA. COMPARISON: 09/21/2018 FINDINGS: Moderate right pleural effusion. Right basilar parenchymal infiltrate. Small left effusion. Patchy left basilar and left perihilar parenchymal infiltrate. Moderately distended esophagus. Upper abdomen confirms presence of ascites, fluid-filled gastric dist ention, and hepatic cirrhosis. IMPRESSION: 1. Components of congestive heart failure. 2. Bibasilar parenchymal infiltrative and/or atelectatic change. 3. Right and to a lesser extent left basilar pleural effusions. 4. Upper abdominal hepatic cirrhosis as well as ascites. 5. Fluid-filled gastric distention. ACT 112: Negative or not required by law. The above report was generated using voice recognition software. It may contain grammatical, syntax or spelling errors. Electronically signed by: Tani Qiu M.D. 10/11/2019 8:13 PM
--- NOTE | 2019-10-11 20:24 | CT Scan Report ---
CT abd pelvis wo con CT DOSE: HISTORY: Ascites ascites, decreased UOP, KHANG, h/o intest cancer TECHNIQUE: Multiaxial CT images of the abdomen and pelvis were performed without contrast. A dose lo wering technique was utilized adhering to the principles of ALARA. COMPARISON STUDY: 09/05/2019 FINDINGS: Bilateral pleural effusions slightly increased in volume from the prior study. Small perica rdial effusion. Findings of hepatic cirrhosis. Upper abdominal ascites. Moderate fluid-filled gastric distention. Collapsed gallbladder containing gallstones. Abdominal and pelvic ascites. Alvares catheter within a collapsed bladder. Nonobstructive bowel pattern . Moderate reactive ileus. IMPRESSION: 1. Hepatic cirrhosis with moderate abdominal and pelvic ascites. 2. Moderate fluid-filled gastric distention. 3. Contracted gallbladder containing multiple small gallstones. This is unchanged from the prior stud y. 4. Mild nonobstructive ileus. 5. Mild body wall anasarca. ACT 112: Negative or not required by law. The above report was generated using voice recognition software. It may contain grammatical, syntax or spelling errors. Electronically signed by: Tani Qiu M.D. 10/11/2019 8:22 PM
[2019-10-11] MEDS ORDERED: PIPERACILLIN/TAZOBACTAM 4.5 GM/120 ML BAG IV ONE (21:05)
[2019-10-11] MEDS ORDERED: PIPERACILL/TAZOBAC CONSULT ACTIVE PRN ×2 (21:05→21:26)
[2019-10-11] MEDS ORDERED: ALBUMIN 25% 50 ML IV ONE (21:15)
[2019-10-11] MEDS ORDERED: XOPENEX/ATROVENT 1.25mg/0.5MG NEB COMBO NEB STA (21:42)
[2019-10-11] MEDS ORDERED: IPRATROPIUM BROMIDE NEB SOLN 0.02% 2.5 ML VIAL INH STA (21:44)
[2019-10-11] MEDS ORDERED: LEVALBUTEROL 1.25MG/0.5ML NEB INH STA (21:44)
--- NOTE | 2019-10-11 22:40 | History & Physical Report ---
Date of Service October 11, 2019 Assessment & Plan (1) Acute hypoxemic respiratory failure: Possible cardiorenal syndrome New onset cirrhosis Severe sepsis SIRS plus ARF plus lactic acidosis Secondary to complicated UTI hx prostate cancer status post radiation, phimosis status post surgery indwe lling Alvares catheter, (hx Enterococcus, Pseudomonas on prior urine CS) New onset A. 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 chronic anemia, hemoglobin better than baseline, hemoglobin better than baseline Hyperglycemia rule out DM past tobacco abuse PCU Supplemental O2 Baseline ABG Lasix albumin strict I/Os, daily weights, CHF education Initiate beta-estefany for A. fib rate control IV PPI for UGI bleed Monitor renal function Nephrology consult RE ARF on CKD with pulmonary congestion TTE, Cardiology consult RE new onset A. fib, CHF GI consult RE new onset cirrhosis, UGIB Cultures, follow lactic acid, Zosyn for now Check hemoglobin A1c DVT prophylaxis. SCDs RE U GIB DNR Case discussed with Dr. 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 He recommends additional Lasix albumin, try Lasix infusion if without improvement in urine output. Patient's requesting updates from providers. Ms. Farzaneh Solomon, contact #[phone]. Text document was generated using [employer] voice recognition software. It may contain grammatical or spelling errors. Kindly contact undersigned for clarification of any documentation item in question. History of Present Illness Chief Complaint: Shortness of breath, increased fluid retention, emesis Primary Care Provider: Tani Duval MD History obtained from patient, family, and records. Medical history significant for CAD as per records, paroxysmal atrial tachycardia as per records, hypertension, VHD (mild aortic valve regurgitation, moderate MR, moderate TR, TTE 2019), pulmonary hypertension as per records, prostate cancer status post radiation, phimosis status post surgery indwelling Alvares catheter, small bowel adenocarcinoma status post surgery, chronic anemia (baseline hemoglobin 9-10), dependent edema on chronic diuretic Rx, past tobacco abuse. Recent confinement last month for community-acquired pneumonia. COVID testing was negative. Patient discharged to [facility] for rehab. Patient discharged home from rehab a few days ago. Patient not feeling well the last few days. Increased abdominal distention and bilateral swelling despite home diuretic Rx. Mild lower abdominal discomfort with temperature elevation of 103 at home. Poor appetite. Worsening shortness of breath without chest pain, cough symptoms. Not peeing as much as per patient. Patient had dark emesis tonight after consumption of chocolate drink in the afternoon. Patient denies dark stools. At the ER, patient given cefepime for sepsis, Lasix given for pulmonary congestion, IV PPI started for UGI B. Cardizem bolus given for rapid A. fib. Medical History as above Surgical History : ear surgery. Spine surgery. Shoulder surgery. Hernia surgery. Cataract surgery. Urologic procedures, bowel surgery. FAMILY HISTORY: There is a family history of heart disease. Diabetes, prostate cancer PERSONAL SOCIAL HISTORY: Past tobacco abuse. 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 [employer]. Allergies Allergy/AdvReac Type Severity Reaction Status Date / Time No Known Allergies Allergy Verified 10/11/19 18:30 Home Medications Home Medications Medication Instructions Recorded Confirmed Type econazole 1 applic TOPICAL DIRECTED PRN 06/15/19 10/11/19 History multivitamin 1 tab PO QAM 06/15/19 10/11/19 History omeprazole 20 mg PO DAILY 06/15/19 10/11/19 History finasteride 5 mg PO QAM 09/05/19 10/11/19 History furosemide 40 mg PO BID 09/05/19 10/11/19 History potassium chloride 10 meq PO QAM 09/05/19 10/11/19 History tamsulosin 0.8 mg PO HS 09/05/19 10/11/19 History ferrous sulfate 325 mg PO DAILY 30 Days #30 tab 09/12/19 10/11/19 Rx ascorbic acid (vitamin C) 1,000 mg PO DAILY 10/11/19 10/11/19 History hydrocodone-acetaminophen 1 tab PO Q8H PRN 10/11/19 10/11/19 History sennosides-docusate sodium [Senna 1 tab-cap PO BID 10/11/19 10/11/19 History with Docusate Sodium] Past Med/Surg History Medical History Adenocarcinoma of small intestine BPH (benign prostatic hyperplasia) (Chronic) Chronic pain syndrome (Chronic) CKD (chronic kidney disease) stage 3, GFR 30-59 ml/min Edema GERD (gastroesophageal reflux disease) (Chronic) History of prostate cancer (Chronic) Status post radiation and hormone therapy Hypertension (Chronic) Refusal of blood transfusions as patient is Mandaeism Urinary problem (Resolved) Surgical History History of back surgery History of dilation of urethra (Chronic) History of inguinal hernia repair (Chronic) History of left shoulder replacement (Chronic) History of prostate biopsy (Chronic) History of spinal fusion (Chronic) Hx of hernia repair S/P small bowel resection Family History Mother Diabetes Brother Coronary heart disease Prostate cancer Social History Preferred Language: Setswana Communication Ability: Effective [place] 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: No Beliefs That Will Affect Care: Latter-Day Latter-Day Beliefs: Mandaeism marital status: Current Living Situation: Family Current Living Situation Comment: lives with son current occupational status: retired Other Information That Helps Us Care for You: No Feels Safe at Home: Yes Safety Concerns: Feels Safe At This Time Smoking Status: Former smoker Do You Dip or Chew Tobacco: No ; Second Hand Exposure: No ; Hx Alcohol Use: No Hx Substance Use: No Review of Systems Review of Systems: As per HPI, all 10 systems reviewed, all other ROS negative Physical Exam Physical Exam: GENERAL: uncomfortable, respiratory distress, mild hearing impairment SKIN: Pallor , warm HEENT: Pale palpebral conjunctivae, no ptosis, dry buccal mucosa NECK : Supple, no tenderness CHEST : Decreased breath sounds, scattered crackles , no tenderness HEART : Irregular, tachycardic, systolic murmur ABDOMEN: distention, fluid wave, minimal hypogastric tenderness RECTAL : Intact sphincter, yellow stool (FOBT positive) EXTREMITIES : Bilateral LE swelling, no LE tenderness, no other conspicuous deformities noted NEUROLOGIC : Coherent, no facial asymmetry, mild hearing impairment, no other gross focality Results & Data Results & Data ([facility]) Vital Signs (Past 12 Hours) Vital Signs Temp Pulse Pulse Resp BP Pulse Ox 10/11/19 22:00 105 H 27 H 124/87 94 10/11/19 21:59 117 H 26 H 92 10/11/19 21:50 107 H 27 H 112/65 92 10/11/19 21:41 115 H 28 H 122/71 91 10/11/19 21:30 106 H 24 135/85 91 10/11/19 21:10 105 H 24 98/72 L 93 10/11/19 20:31 109 H 23 119/61 92 10/11/19 20:20 110 H 23 118/88 93 10/11/19 20:13 113 H 23 120/57 L 94 10/11/19 19:21 114 H 22 105/55 L 91 10/11/19 19:16 132 H 119/56 L 92 10/11/19 19:00 122 H 23 93 10/11/19 18:30 129 H 19 93 10/11/19 18:21 119 H 23 120/62 95 10/11/19 18:10 115 H 23 137/68 96 10/11/19 18:04 122 H 138/69 94 10/11/19 17:30 109 H 24 132/67 95 10/11/19 17:10 95 10/11/19 17:00 118 H 20 112/73 95 10/11/19 16:51 99 H 95 10/11/19 16:46 36.7 C 111 H 28 H 133/71 95 10/11/19 16:45 121 H 16 133/71 96 Laboratory Results Laboratory Results WBC 16.40 K/uL (4.8-10.8) H 10/11/19 17:54 RBC 4.40 M/uL (4.7-6.1) L 10/11/19 17:54 Hgb 12.8 g/dL (14.0-18.0) L 10/11/19 17:54 Hct 38.3 % (42-52) L 10/11/19 17:54 MCV 87.0 fL (80-100) 10/11/19 17:54 MCH 29.1 pg (25-34) 10/11/19 17:54 MCHC 33.4 g/dL (32-36) 10/11/19 17:54 RDW Std Deviation 51.3 fL (36.4-46.3) H 10/11/19 17:54 RDW Coeff of Maxim 16.0 % (11.5-14.5) H 10/11/19 17:54 Plt Count 283 K/uL (130-400) 10/11/19 17:54 MPV 9.9 fL (7.4-10.4) 10/11/19 17:54 Immature Gran % (Auto) 0.4 % 10/11/19 17:54 Neut % (Auto) 91.4 % 10/11/19 17:54 Lymph % (Auto) 2.7 % 10/11/19 17:54 [place] % (Auto) 5.3 % 10/11/19 17:54 Eos % (Auto) 0.1 % 10/11/19 17:54 Baso % (Auto) 0.1 % 10/11/19 17:54 Immature Gran # (Auto) 0.07 K/uL (0.00-0.02) H 10/11/19 17:54 Neut # (Auto) 15.00 K/uL (1.4-6.5) H 10/11/19 17:54 Lymph # (Auto) 0.44 K/uL (1.2-3.4) L 10/11/19 17:54 [place] # (Auto) 0.87 K/uL (0.11-0.59) H 10/11/19 17:54 Eos # (Auto) 0.01 K/uL (0-0.5) 10/11/19 17:54 Baso # (Auto) 0.01 K/uL (0-0.2) 10/11/19 17:54 Echinocytes 2+ 10/11/19 17:54 PT 12.3 Seconds (9.0-12.0) H 10/11/19 19:00 INR 1.2 (0.9-1.1) H 10/11/19 19:00 APTT 25.6 Seconds (21.0-31.0) 10/11/19 19:00 PTT Ratio 0.9 10/11/19 19:00 Sodium 136 mmol/L (136-145) 10/11/19 17:54 Potassium 3.7 mmol/L (3.5-5.1) 10/11/19 17:54 Chloride 107 mmol/L (98-107) 10/11/19 17:54 Carbon Dioxide 18 mmol/L (21-32) L 10/11/19 17:54 Anion Gap 11.0 (3-11) 10/11/19 17:54 BUN 51 mg/dl (7-18) H 10/11/19 17:54 Creatinine 1.79 mg/dl (0.6-1.4) H 10/11/19 17:54 Est Cr Clr Drug Dosing 34.0 ml/min 10/11/19 17:54 Est GFR ( Amer) 38.4 10/11/19 17:54 Est GFR (Non-Af Amer) 33.1 10/11/19 17:54 BUN/Creatinine Ratio 28.6 (10-20) H 10/11/19 17:54 Glucose 145 mg/dl (70-99) H 10/11/19 17:54 Lactate 5.5 mmol/L (0.4-2.0) H* 10/11/19 20:54 Calcium 9.4 mg/dl (8.5-10.1) 10/11/19 17:54 Total Bilirubin 0.6 mg/dl (0.2-1) 10/11/19 17:54 AST 17 U/L (15-37) 10/11/19 17:54 ALT 14 U/L (12-78) 10/11/19 17:54 Alkaline Phosphatase 107 U/L (45-117) 10/11/19 17:54 Troponin I 0.024 ng/ml (0-0.045) 10/11/19 17:54 NT-Pro-B Natriuret Pep 2230 pg/ml (0-1800) H 10/11/19 17:54 Total Protein 7.7 gm/dl (6.4-8.2) 10/11/19 17:54 Albumin 2.4 gm/dl (3.4-5.0) L 10/11/19 17:54 Globulin 5.3 gm/dl (2.5-4.0) H 10/11/19 17:54 Albumin/Globulin Ratio 0.5 (0.9-2) L 10/11/19 17:54 Lipase 95 U/L (73-393) 10/11/19 17:54 Urine Color Dark Yellow 10/11/19 17:11 Urine Appearance Turbid (Clear) A 10/11/19 17:11 Urine pH 5.0 (4.5-7.5) 10/11/19 17:11 Ur Specific Shelly 1.026 (1.000-1.030) 10/11/19 17:11 Urine Protein 2+ (Negative) H 10/11/19 17:11 Urine Glucose (UA) Negative (Negative) 10/11/19 17:11 Urine Ketones Trace (Negative) H 10/11/19 17:11 Urine Blood 3+ (Negative) H 10/11/19 17:11 Urine Nitrite Positive (Negative) A 10/11/19 17:11 Urine Bilirubin Negative (Negative) 10/11/19 17:11 Urine Urobilinogen Negative (Negative) 10/11/19 17:11 Ur Leukocyte Esterase 2+ (Negative) H 10/11/19 17:11 Urine WBC (Auto) >30 /hpf (0-5) H 10/11/19 17:11 Urine RBC (Auto) >30 /hpf (0-4) H 10/11/19 17:11 U Hyaline Cast (Auto) 5-10 /lpf (0-5) H 10/11/19 17:11 U Epithel Cells (Auto) 0-5 /lpf (0-5) 10/11/19 17:11 Urine Bacteria (Auto) 4+ (Negative) H 10/11/19 17:[address] chest: 1. Components of congestive heart failure. 2. Bibasilar parenchymal infiltrative and/or atelectatic change. 3. Right and to a lesser extent left basilar pleural effusions. 4. Upper abdominal hepatic cirrhosis as well as ascites. 5. Fluid-filled gastric distention. CT abdomen pelvis: 1. Hepatic cirrhosis with moderate abdominal and pelvic ascites. 2. Moderate fluid-filled gastric distention. 3. Contracted gallbladder containing multiple small gallstones. This is unchanged from the prior study. 4. Mild nonobstructive ileus. 5. Mild body wall anasarca. EKG as per my interpretation: Rate 140, A. fib, LAD, LAFB, diffuse T wave flattening over the limb leads
[2019-10-11] MEDS ORDERED: METOPROLOL TARTRATE 50 MG TAB PO STA (22:41)
[2019-10-11] MEDS ORDERED: ALBUMIN 25% IV STA (22:48)
[2019-10-11] MEDS ORDERED: FUROSEMIDE IV STA (22:48)
[2019-10-11] MEDS ORDERED: MAGNESIUM SULFATE / D5W 1 GM/100 ML BAG IV STA (23:25)
[2019-10-12] MEDS ORDERED: TRAMADOL HCL 50 MG TABLET PO PRN (00:23)
[2019-10-12] MEDS ORDERED: HYDROmorphone INJ 0.5 MG/0.5 ML SYR IV PRN (00:23)
[2019-10-12] MEDS ORDERED: NITROGLYCERIN SL 0.4 MG/TAB TAB SL PRN (00:23)
[2019-10-12] MEDS: PANTOprazole 40 MG in DEXTROSE 5% 100 ML IV SCH ×3 (00:34→11:47)
[2019-10-12] MEDS ORDERED: POTASSIUM CHLORIDE 20 MEQ TABCR PO STA (00:36)
[2019-10-12 01:05] LABS: Thyroid Stimulating Hormone 0.48 uIu/ml (0.300-4.500)
[2019-10-12] MEDS: PIPERACILLIN/TAZOBACTAM 3.375 GM in DEXTROSE 5% 100 ML IV SCH ×2 (01:42→11:39)
[2019-10-12] MEDS ORDERED: METOPROLOL TARTRATE 25 MG TAB PO STA (01:46)
[2019-10-12] MEDS ORDERED: ALBUT/IPRATROP 3MG/0.5MG NEB 3 ML VIAL NEB STA (03:47)
[2019-10-12] MEDS ORDERED: PANTOprazole 40 MG in SYRINGE 0 ML IV SCH ×2 (04:00→09:00)
[2019-10-12] MEDS ORDERED: ALBUMIN 25% 50 ML with FUROSEMIDE 80 MG IV SCH ×2 (04:00→09:00)
[2019-10-12 04:40] LABS: Allen Test POS (Pos); Base Excess ABG -7.8 mEq/L (-9-1.8); HCO3 ABG 16 mmol/L (19-24); Oxygen Saturation ABG 90.6 % (90-95); PCO2 ABG 27 mmHg (35-46); PO2 ABG 63 mmHg (80-95)
[2019-10-12 04:48] LABS: Hematocrit (blood only) 29.5 % (42-52); Hemoglobin 9.7 g/dL (14.0-18.0); Mean Corpuscular Hemoglobin 28.6 pg (25-34); Mean Corpuscular Hgb Conc 32.9 g/dL (32-36); Mean Platelet Volume 9.6 fL (7.4-10.4); Platelet Count 250 K/uL (130-400); RDW Coefficient of Variation 15.9 % (11.5-14.5); RDW Standard Deviation 51.4 fL (36.4-46.3); Red Blood Count 3.39 M/uL (4.7-6.1); White Blood Count 13.78 K/uL (4.8-10.8)
[2019-10-12 04:57] LABS: BUN Creatinine Ratio 28.9 (10-20); Calcium 8.4 mg/dl (8.5-10.1); Creatinine Clr Calc Pharmacy 26.1 ml/min; Est GFR (African American) 28.8; Est GFR (Non-African American) 24.8; Potassium 3.9 mmol/L (3.5-5.1)
[2019-10-12 05:44] LABS: Immature Granulocytes # (auto) 0.02 K/uL (0.00-0.02); Immature Granulocytes % (auto) 0.1 %; Lymphocytes # (auto) 0.76 K/uL (1.2-3.4); Lymphocytes % (auto) 5.5 %; Monocytes # (auto) 0.29 K/uL (0.11-0.59); Monocytes % (auto) 2.1 %; Neutrophils # (auto) 12.71 K/uL (1.4-6.5); Neutrophils % (auto) 92.3 %
[2019-10-12] MEDS: ALBUMIN 25% 50 ML IV SCH ×2 (05:52→11:43)
[2019-10-12] MEDS ORDERED: FUROSEMIDE 100 MG in DEXTROSE 5% 90 ML IV SCH (06:00)
[2019-10-12 06:06] LABS: Estimated Average Glucose 123 mg/dl; Hemoglobin A1C 5.9 % (4.5-5.6)
[2019-10-12] MEDS ORDERED: ALBUT/IPRATROP 3MG/0.5MG NEB 3 ML VIAL NEB PRN (07:59)
--- NOTE | 2019-10-12 08:25 | Electrocardiogram Report ---
Test Reason : Blood Pressure : / mmHG Vent. Rate : 136 BPM Atrial Rate : 144 BPM P-R Int : 000 ms QRS Dur : 084 ms QT Int : 320 ms P-R-T Axes : 000 000 052 degrees QTc Int : 481 ms Poor data quality, interpretation may be adversely affected Atrial fibrillation with rapid ventricular response Abnormal ECG When compared with ECG of 05-SEP-2019 14:12, Atrial fibrillation has replaced Sinus rhythm Vent. rate has increased BY 46 BPM Confirmed by Morris Mcdowell ([id number]) on 10/12/2019 8:24:33 AM Referred By: REFERRED SELF Confirmed By:Morris Mcdowell
[2019-10-12] MEDS ORDERED: MULTIVITAMIN TAB PO SCH (09:00)
[2019-10-12] MEDS ORDERED: POTASSIUM CHLORIDE 20 MEQ TABCR PO SCH (09:00)
[2019-10-12] MEDS ORDERED: PANTOprazole 40 MG TAB PO SCH (09:00)
[2019-10-12] MEDS ORDERED: METOPROLOL TARTRATE 25 MG TAB PO SCH (09:00)
[2019-10-12] MEDS ORDERED: FINASTERIDE 5 MG TAB PO SCH (09:00)
[2019-10-12] MEDS ORDERED: DOCUSATE SODIUM/SENNA 50/8.6MG TAB PO SCH (09:00)
--- NOTE | 2019-10-12 09:58 | Communication Note ---
Date of Service: October 12, 2019 GI note: Received a consult to evaluate pt for cirrhosis. Pt's chart reviewed. He is a 88 y/o male who presented w acute respiratory failure. He was recently DC'd from [facility] rehab. Admission H&P noted increased abd distension, swelling on LE, poor appetite, low OUP, SOB, dark emesis after chocolate drink symptoms. Chest imaging studies showed signs of CHF. CT abd/pelvis w/o contrast showed signs of hepatic cirrhosis w ascites, fluid filled stomach w ileus. He likely have gastric outlet obstruction causing the n/v. Pt did have negative COVID 19 testing months ago, though recently admitted at [facility], where an employee had reportedly tested positive for COVID 19. Pt currently on BiPAP, Lasix gtt but not producing urine per RN. RN noted he did have coffee ground appearing emesis. I did not complete a physical examination of this pt. I had a discussion w pt's RN and hospitalist (Dr. Terry Alford). Recommend repeat COVID 19 testing given + symptoms and possible exposure from [facility]. I would not recommend endoscopic workup for possible GI bleed nor for the cirrhosis. For comfort, if pt continues to have n/v, would recommend NGT placement if possible. PPI gtt can be continued. He is currently DNR/DNI status and with his current presentation, Dr. Alford will have a discussion with pt's family about palliative measures and if they are agreeable Dr. Alford will cancel GI consult. I discussed this case with my attending physician Dr. Davion Coleman who is in agreement with the above assessment and plan. attnd addm: GI called in regards to patient, Covid Pending, but per primary team family considering comfort measures No signs of GI bleeding other than one "dark emesis" but Hb is stable New signs of concern of cirrhosis, but is massively volume overloaded right now with pleural effusions, anasarca, ascites. 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 Consider sbo/goo given CT findings, but would recommend NGT and IV PPI if comfort measures not pursued. Agree with very poor prognosis, given age, significant comorbidities, palliation seems appropriate. Call with questions or concerns
[2019-10-12 10:27] LABS: Hematocrit (blood only) 29.6 % (42-52); Hemoglobin 9.6 g/dL (14.0-18.0)
--- NOTE | 2019-10-12 10:50 | Consultation Report ---
DATE OF CONSULTATION: 10/12/2019 REASON FOR CONSULT: Severe anasarca, oliguria and acute renal failure. HISTORY OF PRESENT ILLNESS: The patient is an 88-year-old male with a complicated medical history who was sent over from [facility] where he is recuperating after his recent bout with community-acquired pneumonia. The patient has not been feeling very well for the last few days. He was having increasing abdominal distention as well as increasing lower extremity edema bilaterally as well as shortness of breath despite home diuretic treatment. He was also having some lower abdominal discomfort with temperature elevation as high as 103 degrees Fahrenheit at home. The patient is extremely hard of hearing and at this time he is in ICU under the COVID rule out protocol which makes physical exam very difficult. History was mainly constructed from the chart. The patient is not urinating much. Overnight, he did get IV Lasix as well as IV Lasix drip, but despite that, urine output is very minimal. Creatinine is rising and is up to 2.27. He did have lactic acidosis with a level of 5.5 on admission. He was hypotensive. In the Emergency Department, the patient was given broad-spectrum antibiotic for sepsis as well as IV Lasix as well as IV PPI for upper GI bleeding. PAST MEDICAL AND SURGICAL HISTORY: Includes coronary artery disease, paroxysmal atrial tachycardia, hypertension, valvular heart disease, pulmonary hypertension, prostate cancer status post radiation, small bowel adenocarcinoma status post surgery, ear surgery, spine surgery, shoulder surgery, hernia surgery, cataract surgery and bowel surgery for cancer. FAMILY HISTORY: Negative for renal disease or dialysis. PERSONAL AND SOCIAL HISTORY: Prior history of tobacco. 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 He is a Rastafari. Occasional alcohol. ALLERGIES: None, reviewed. HOME MEDICATIONS: List was reviewed in detail and includes Lasix 40 twice daily, potassium chloride, tamsulosin, iron sulfate, vitamin C, multivitamin. REVIEW OF SYSTEMS: Very hard to obtain as the patient is extremely hard of hearing and is in ICU and is very sick. PHYSICAL EXAMINATION: GENERAL: Elderly white male who appears to be chronically ill and appears very sick at this time. He does have respiratory distress and he is on a nonrebreather mask. HEENT: Mucous membranes moist. NECK: Supple. CHEST: Diminished breath sounds, scattered crackles. CARDIOVASCULAR: Irregular, tachycardic, systolic murmur heard. ABDOMEN: Distended with abdominal wall edema as well as ascites. EXTREMITIES: Bilateral lower extremity edema, 3-4+ pitting edema. NEUROLOGIC: Somewhat coherent, not following command. VITAL SIGNS: Includes most recent blood pressure 116/67, pulse rate 80, temperature 36.4, 94% on BiPAP. LABORATORY TESTS: Reviewed. CT scan of his chest, abdomen and pelvis shows hepatic cirrhosis with abdominal and pelvic ascites, moderate fluid filled gastric distention, nonobstructive ileus as well as whole body anasarca. There is also a component of congestive heart failure. Kidneys was not reported as abnormal. Laboratory tests from this morning shows hemoglobin 9.6, WBC count 13.7, platelet count 250, creatinine is 2.27, BUN 66 on admission, yesterday was 1.79. Lactic acid was 5.5 yesterday. It is slightly less today. BNP 2230. Urine dipstick showed active urine sediment. Blood cultures pending. Urine cultures are pending. ASSESSMENT AND PLAN: An 88-year-old male with extensive comorbid disease presenting with increasing lower extremity edema, shortness of breath as well as acute renal failure. 1. Acute renal failure. There is no question patient is massively fluid overloaded and has effusion, ascites, anasarca as well as some pleural effusion. Even though he did not have a formal diagnosis of liver cirrhosis it appears obvious from the physical exam as well as CT scan finding that he does have cirrhosis. For the time being, I would increase the Lasix drip to 20 mL per hour, but if he does not respond, he really is not a candidate for dialysis given his extensive comorbid disease, namely cirrhosis, cardiopulmonary history, and advanced age. This has been communicated very clearly to hospitalist service. Consider doing 2-D echocardiogram to reassess his cardiac status given severe increasing fluid retention. [facility]
[2019-10-12] MEDS ORDERED: MoRPHine SULFATE 2 MG/ML CARP IV PRN (12:40)
--- NOTE | 2019-10-12 13:53 | Palliative Care Consultation ---
Date of Consultation October 12, 2019 Assessment & Plan (1) Goals of care, counseling/discussion: -88 year old male patient with PMH CAD, paroxysmal atrial tachycardia, htn, valvular heart disease (mild aortic valve regurgitation, moderate MR, moderate TR, TTE 2019), pulmonary hypertension, prostate cancer status post radiation, phimosis status post surgery and indwelling Alvares catheter, small bowel adenocarcinoma status post surgery, chronic anemia (baseline hemoglobin 9- 10), dependent edema on chronic diuretic, and others, presented to the ED last evening with SOB and increased fluid retention. Patient was recently admitted to the hospital about a month ago for community-acquired pneumonia, COVID testing was negative at that time. Patient then went to [facility] for rehab and was discharged home just a few days ago. Patient not feeling well for a few days--increased abdominal distention, BLE edema, fever of 103 at home (reported), SOB, cough, dark emesis once after drinking chocolate drink. In ED, patient was given abx and lasix, IV PPI started for possible UGIB, cardizem bolus given for afib with RVR. WBC elevated at 16k, down to 13k today. Hgb was 12, down to 9.7 today. Creatinine 1.79 on admission, is 2.27 today. Albumin 2.4, BNP slightly elevated ~2200, ALT/AST and Tbili normal. CT chest shows congestive failure, CT abd/pelvis shows new onset liver cirrhosis with moderate amount of ascites. Lactic acid 5. Admitted with sepsis/SIRS, GI consulted. HPI notes that patient has recently refused chemotherapy when he met with heme/onc a few months ago for his small bowel adenocarcinoma. Early this morning, patient apparently having more difficulty breathing, hypoxic. Was placed on bipap, but then patient requested to have bipap and nonrebreather mask removed. He was sent to ICU until COVID was ruled out. COVID 19 negative. Patient reports coffee ground emesis. Palliative care is consulted to discuss goals of care with patient. -Patient seen by palliative MD this afternoon. He is still SOB. Does not want to wear bipap, but is okay with high-flow oxygen. Patient told palliative MD that he knows he is not doing well, and he was able to speak with his this morning-- she also knows patient is not doing well. -Patient is okay with continuing current medical management in hopes that he may improve acutely. However, still need to have discussion about long-term goals of care since patient multiple significant comorbidities. He confirmed his DNR status. Living will on file and reviewed. -Attending physician updated. WE will continue to follow closely. (2) Acute hypoxemic respiratory failure: (3) CHF (congestive heart failure): Heart failure chronicity: acute Heart failure type: unspecified Qualified Code(s): I50.9 - Heart failure, unspecified (4) KHANG (acute kidney injury): Supervising Physician Co-Signing Physician Notes Chart reviewed, patient seen and examined. Patient awake and alert, complaining of feeling short of breath. Patient did not tolerate BiPAP or oxygen mask. Patient currently on O2 at 6 L nasal cannula with sats of 87%. Patient has been on a Lasix drip-has put out approximately 5 to 10 cc of urine in the past 6 hours. Patient's creatinine continues to increase. Discussed with patient that things were not going well-he replied "I know". Patient aware that he may not survive. Patient continues to cough up coffee grounds. Patient's hemoglobin was 12.8 on admission this a.m. was 9.6. Patient is a Orthodoxy and does not want any blood products, he has a detailed Advanced directives. PE: Patient awake and alert, short of breath at rest on O2 HEENT: EOMI, hearing within normal limits. Respiratory: Short of breath at rest, on O2 at 6 L nasal cannula, complains of increased shortness of breath with minimal movement CV: Regular rate, 1+ lower extremity edema Abdomen: Distended, positive ascites, nontender Neuro: Awake, alert and oriented-aware of his current situation. Agree with above note, assessment and plan as per ERIK Sharma Addendum: Went to reassess patient with Dr. Alford, Patient had another emesis of coffee grounds-he is now unresponsive, patient shortly after our arrival. History of Present Illness Attending Physician: Terry Alford MD History of Present Illness This 88 year old male patient with PMH CAD, paroxysmal atrial tachycardia, htn, valvular heart disease (mild aortic valve regurgitation, moderate MR, moderate TR, TTE 2019), pulmonary hypertension, prostate cancer status post radiation, phimosis status post surgery and indwelling Alvares catheter, small bowel adenocarcinoma status post surgery, chronic anemia (baseline hemoglobin 9-10), dependent edema on chronic diuretic, and others, presented to the ED last evening with SOB and increased fluid retention. Patient was recently admitted to the hospital about a month ago for community-acquired pneumonia, COVID testing was negative at that time. Patient then went to [facility] for rehab and was discharged home just a few days ago. Patient not feeling well for a few days--increased abdominal distention, BLE edema, fever of 103 at home (reported), SOB, cough, dark emesis once after drinking chocolate drink. In ED, patient was given abx and lasix, IV PPI started for possible UGIB, cardizem bolus given for afib with RVR. WBC elevated at 16k, down to 13k today. Hgb was 12, down to 9.7 today. Creatinine 1.79 on admission, is 2.27 today. Albumin 2.4, BNP slightly elevated ~2200, ALT/AST and Tbili normal. CT chest shows congestive failure, CT abd/pelvis shows new onset liver cirrhosis with moderate amount of ascites. Lactic acid 5. Admitted with sepsis/SIRS, GI consulted. HPI notes that patient has recently refused chemotherapy when he met with heme/onc a few months ago for his small bowel adenocarcinoma. Early this morning, patient apparently having more difficulty breathing, hypoxic. Was placed on bipap, but then patient requested to have bipap and nonrebreather mask removed. He was sent to ICU until COVID was ruled out. COVID 19 negative. Patient reports coffee ground emesis. Palliative care is consulted to discuss goals of care with patient. Thank you kindly for this consult. Palliative care team will follow as needed. Allergies Allergy/AdvReac Type Severity Reaction Status Date / Time No Known Allergies Allergy Verified 10/11/19 18:30 Home Medications Home Medications Medication Instructions Recorded Confirmed Type econazole 1 applic TOPICAL DIRECTED PRN 06/15/19 10/11/19 History multivitamin 1 tab PO QAM 06/15/19 10/11/19 History omeprazole 20 mg PO DAILY 06/15/19 10/11/19 History finasteride 5 mg PO QAM 09/05/19 10/11/19 History furosemide 40 mg PO BID 09/05/19 10/11/19 History potassium chloride 10 meq PO QAM 09/05/19 10/11/19 History tamsulosin 0.8 mg PO HS 09/05/19 10/11/19 History ferrous sulfate 325 mg PO DAILY 30 Days #30 tab 09/12/19 10/11/19 Rx ascorbic acid (vitamin C) 1,000 mg PO DAILY 10/11/19 10/11/19 History hydrocodone-acetaminophen 1 tab PO Q8H PRN 10/11/19 10/11/19 History sennosides-docusate sodium [Senna 1 tab-cap PO BID 10/11/19 10/11/19 History with Docusate Sodium] Patient History Medical History Adenocarcinoma of small intestine BPH (benign prostatic hyperplasia) (Chronic) Chronic pain syndrome (Chronic) CKD (chronic kidney disease) stage 3, GFR 30-59 ml/min Edema GERD (gastroesophageal reflux disease) (Chronic) History of prostate cancer (Chronic) Status post radiation and hormone therapy Hypertension (Chronic) Refusal of blood transfusions as patient is Orthodoxy Urinary problem (Resolved) Surgical History History of back surgery History of dilation of urethra (Chronic) History of inguinal hernia repair (Chronic) History of left shoulder replacement (Chronic) History of prostate biopsy (Chronic) History of spinal fusion (Chronic) Hx of hernia repair S/P small bowel resection Family History Mother Diabetes Brother Coronary heart disease Prostate cancer Social History Preferred Language: Slovenian Communication Ability: Impaired Block 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: No Beliefs That Will Affect Care: Cheondoism Cheondoism Beliefs: Orthodoxy marital status: Current Living Situation: Family Current Living Situation Comment: lives with son current occupational status: retired Other Information That Helps Us Care for You: No Feels Safe at Home: Yes Safety Concerns: Feels Safe At This Time Smoking Status: Former smoker Do You Dip or Chew Tobacco: No ; Second Hand Exposure: No ; Hx Alcohol Use: No Hx Substance Use: No Results & Data Vital Signs (Past 12 Hours) Vital Signs Temp Pulse Pulse Resp BP Pulse Ox 10/12/19 13:07 77 25 H 90 10/12/19 08:20 80 24 116/67 94 10/12/19 08:11 82 25 H 93 10/12/19 08:10 76 24 111/64 94 10/12/19 08:00 36.4 C L 83 24 106/65 88 L 10/12/19 07:40 36.4 C L 81 24 108/65 89 L 10/12/19 07:30 36.4 C L 81 24 103/62 86 L 10/12/19 07:15 84 24 97/60 L 86 L 10/12/19 03:57 83 26 H 85 L 10/12/19 03:36 36.4 C L 90 20 101/54 L 91 Coding Level of Care Code 99732 Inpt Consult Level 3 Diagnoses Goals of care, counseling/discussion Z71.89 Acute hypoxemic respiratory failure J96.01 CHF (congestive heart failure) I50.9 Heart failure chronicity: acute Heart failure type: unspecified KHANG (acute kidney injury) N17.9 Time Spent (min) 85 Time Spent Midlevel A total of 50 minutes spent by this TABULATING CLERK in reviewing chart, speaking with attending and palliative MDs regarding patient's condition, goals of care and plan of care. Attending Spent 35 minutes in addition to the 50 minutes spent by ERIK Sharma for a total of 85 minutes with greater than 50% of the time spent at bedside assessing patient's current condition, and discussing his prognosis
--- NOTE | 2019-10-12 14:11 | Discharge Summary ---
Date of Service October 12, 2019 Admission HPI Per Admitting Provider History obtained from patient, family, and records. Medical history significant for CAD as per records, paroxysmal atrial tachycardia as per records, hypertension, VHD (mild aortic valve regurgitation, moderate MR, moderate TR, TTE 2018), pulmonary hypertension as per records, prostate cancer status post radiation, phimosis status post surgery indwelling Alvares catheter, small bowel adenocarcinoma status post surgery, chronic anemia (baseline hemoglobin 9-10), dependent edema on chronic diuretic Rx, past tobacco abuse. Recent confinement last month for community-acquired pneumonia. COVID testing was negative. Patient discharged to [facility] for rehab. Patient discharged home from rehab a few days ago. Patient not feeling well the last few days. Increased abdominal distention and bilateral swelling despite home diuretic Rx. Mild lower abdominal discomfort with temperature elevation of 103 at home. Poor appetite. Worsening shortness of breath without chest pain, cough symptoms. Not peeing as much as per patient. Patient had dark emesis tonight after consumption of chocolate drink in the afternoon. Patient denies dark stools. At the ER, patient given cefepime for sepsis, Lasix given for pulmonary c ongestion, IV PPI started for UGI B. Cardizem bolus given for rapid A. fib. Medical History as above Surgical History : ear surgery. Spine surgery. Shoulder surgery. Hernia surgery. Cataract surgery. Urologic procedures, bowel surgery. FAMILY HISTORY: There is a family history of heart disease. Diabetes, prostate cancer PERSONAL SOCIAL HISTORY: Past tobacco abuse. 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 [employer]. Admission Exam Per Admitting Provider Physical Exam Physical Exam: GENERAL: uncomfortable, respiratory distress, mild hearing impairment SKIN: Pallor , warm HEENT: Pale palpebral conjunctivae, no ptosis, dry buccal mucosa NECK : Supple, no tenderness CHEST : Decreased breath sounds, scattered crackles , no tenderness HEART : Irregular, tachycardic, systolic murmur ABDOMEN: distention, fluid wave, minimal hypogastric tenderness RECTAL : Intact sphincter, yellow stool (FOBT positive) EXTREMITIES : Bilateral LE swelling, no LE tenderness, no other conspicuous deformities noted NEUROLOGIC : Coherent, no facial asymmetry, mild hearing impairment, no other gross focality Principal Diagnosis Acute hypoxemic respiratory failure Possible cardiorenal syndrome Acute GI bleeding Severe Sepsis Acute renal Failure Anasarca Metabolic Acidosis Afib RVR--New Onset Possible Cirrhosis Lactic Acidosis Discharge Data Allergies Allergy/AdvReac Type Severity Reaction Status Date / Time No Known Allergies Allergy Verified 10/11/19 18:30 Consultations 10/11/19 20:51 ED Decision to Admit Stat 10/12/19 00:23 Consult Cardiology Routine Consult Gastroenterology Routine Consult Nephrology Routine 10/12/19 08:06 Consult Palliative Care Routine Procedures Performed Chest CT: 1. Components of congestive heart failure. 2. Bibasilar parenchymal infiltrative and/or atelectatic change. 3. Right and to a lesser extent left basilar pleural effusions. 4. Upper abdominal hepatic cirrhosis as well as ascites. 5. Fluid-filled gastric distention. ABD CT: 1. Hepatic cirrhosis with moderate abdominal and pelvic ascites. 2. Moderate fluid-filled gastric distention. 3. Contracted gallbladder containing multiple small gallstones. This is unchanged from the prior study. 4. Mild nonobstructive ileus. 5. Mild body wall anasarca. Ordered Studies 10/11/19 18:50 CT abd pelvis wo con Stat 10/11/19 18:58 CT chest wo con Stat Hospital Course (1) Acute hypoxemic respiratory failure: As per H&P Possible cardiorenal syndrome New onset cirrhosis Severe sepsis SIRS plus ARF plus lactic acidosis Secondary to complicated UTI hx prostate cancer status post radiation, phimosis status post surgery in dwelling Alvares catheter, (hx Enterococcus, Pseudomonas on prior urine CS) New onset A. fib secondary to illness hx CAD as per records (no details found on outpatient records) UGIB hypertension, stable VHD (mild aortic valve regurgitation, moderate MR, moderate TR), pulmonary hypertension from 2019 TTE small bowel adenocarcinoma status post surgery, patient refused chemotherapy after outpatient discussion with [facility] a few months ago. chronic anemia, hemoglobin better than baseline, hemoglobin better than baseline Hyperglycemia rule out DM past tobacco abuse PCU Supplemental O2 Baseline ABG Lasix albumin strict I/Os, daily weights, CHF education Initiate beta-estefany for A. fib rate control IV PPI for UGI bleed Monitor renal function Nephrology consult RE ARF on CKD with pulmonary congestion TTE, Cardiology consult RE new onset A. fib, CHF GI consult RE new onset cirrhosis, UGIB Cultures, follow lactic acid, Zosyn for now Check hemoglobin A1c DVT prophylaxis. SCDs RE U GIB DNR Case discussed with Dr. 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 He recommends additional Lasix albumin, try Lasix infusion if without improvement in urine output. Patient's requesting updates from providers. Ms. Farzaneh Solomon, contact #[phone]. Text document was generated using [employer] voice recognition software. It may contain grammatical or spelling errors. Kindly contact undersigned for clarification of any documentation item in question. Hospital Course: Patient is an 80 eight-year old male with multiple comorbidities was admitted with symptoms of not feeling well for the last few days. It was also noted that his abdomen has been slowly getting more distended and he developed significant bilateral lower extremity swelling despite using his home diuretics. He also complained of mild abdominal discomfort and developed fever associated with poor oral intake. He states having significant shortness of breath associated with inability to urinate. He was noted to have dark emesis after consuming chocolate drink. CT chest suggestive of CHF, bilateral parenchymal infiltrates and overall atelectatic change. CT also showed bilateral pleural effusion. Patient developed acute hypoxic respiratory failure secondary to volume overload. Patient was started on IV Lasix drip and albumin was given as well. Patient had poor urinary output. Patient preferred to be DNI DNR and preferred no aggressive management. Nephrology was consulted for possible dialysis but patient was thought to be not an ideal candidate for dialysis given his age and comorbidities. He developed acute renal failure. Patient did not tolerate BiPAP, nonrebreather. He was started on IV Protonix drip for possible GI bleed. His COVID screen was negative. Patient was started on broad-spectrum antibiotics for sepsis likely secondary to UTI. His CT scan suggestive of hepatic cirrhosis with moderate abdominal and pelvic ascites. Also suggested mild nonobstructive ileus and mild body wall anasarca. Multiple subspecialists were consulted including cardiology, nephrology, gastroenterology and palliative care. Patient and his family are aware of the patient's condition and agrees with current management. Lactate levels trended down. Patient developed multiorgan failure. Patient's respiratory status gradually worsened and patient had an episode of emesis and at 1357. Family was made aware. Total Time Total Time Spent Total Time Spent (In Minutes): 50 minutes Total Time Includes: Examination of the Patient, Discharge Planning, Medication Reconciliation, Communication With Other Providers and Other Discharge Plan Discharge Items Patient Disposition: Reason For Visit: ANEMIA, GI BLEED Discharge Diagnosis: Acute hypoxemic respiratory failure Possible cardiorenal syndrome Acute GI bleeding Severe Sepsis Acute renal Failure Anasarca Metabolic Acidosis Afib RVR Possible Cirrhosis Lactic Acidosis Follow-up/Referrals: Tani Duval MD [Primary Care Provider] - Addtl Attending Provider Instructions: Patient's Family aware Admission Data Admit Date/Time: 10/11/19 22:43 Other DC Date/Time DO NOT enter until pt leaves facility: 10/12/19 13:57
--- NOTE | 2019-10-12 15:51 | Cardiology Consultation ---
Date of Consultation October 12, 2019 History of Present Illness Reason for Consultation: Respiratory failure Attending Physician: Terry Alford MD History of Present Illness Patient is an 88-year-old male seen and examined earlier today. He presented with worsening respiratory failure anasarca diffuse edema and cough. At the time of examination patient declined any further investigations and treatments including BiPAP and oxygen supplementation. No further cardiac interventions performed Allergies Allergy/AdvReac Type Severity Reaction Status Date / Time No Known Allergies Allergy Verified 10/11/19 18:30 Home Medications Home Medications Medication Instructions Recorded Confirmed Type econazole 1 applic TOPICAL DIRECTED PRN 06/15/19 10/11/19 History multivitamin 1 tab PO QAM 06/15/19 10/11/19 History omeprazole 20 mg PO DAILY 06/15/19 10/11/19 History finasteride 5 mg PO QAM 09/05/19 10/11/19 History furosemide 40 mg PO BID 09/05/19 10/11/19 History potassium chloride 10 meq PO QAM 09/05/19 10/11/19 History tamsulosin 0.8 mg PO HS 09/05/19 10/11/19 History ferrous sulfate 325 mg PO DAILY 30 Days #30 tab 09/12/19 10/11/19 Rx ascorbic acid (vitamin C) 1,000 mg PO DAILY 10/11/19 10/11/19 History hydrocodone-acetaminophen 1 tab PO Q8H PRN 10/11/19 10/11/19 History sennosides-docusate sodium [Senna 1 tab-cap PO BID 10/11/19 10/11/19 History with Docusate Sodium] Patient History Medical History Adenocarcinoma of small intestine BPH (benign prostatic hyperplasia) (Chronic) Chronic pain syndrome (Chronic) CKD (chronic kidney disease) stage 3, GFR 30-59 ml/min Edema GERD (gastroesophageal reflux disease) (Chronic) History of prostate cancer (Chronic) Status post radiation and hormone therapy Hypertension (Chronic) Refusal of blood transfusions as patient is Rastafarian Urinary problem (Resolved) Surgical History History of back surgery History of dilation of urethra (Chronic) History of inguinal hernia repair (Chronic) History of left shoulder replacement (Chronic) History of prostate biopsy (Chronic) History of spinal fusion (Chronic) Hx of hernia repair S/P small bowel resection Family History Mother Diabetes Brother Coronary heart disease Prostate cancer Social History Preferred Language: Khmer Communication Ability: Impaired 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 Required: No Beliefs That Will Affect Care: Faith Faith Beliefs: Rastafarian marital status: Current Living Situation: Family Current Living Situation Comment: lives with son current occupational status: retired Feels Safe at Home: Yes Smoking Status: Former smoker Second Hand Exposure: No ; Hx Alcohol Use: No Hx Substance Use: No Results & Data ([facility]) Vital Signs (Past 12 Hours) Vital Signs Temp Pulse Pulse Resp BP BP Pulse Ox 10/12/19 13:07 77 25 H 90 10/12/19 13:02 75 25 H 111/56 L 89 L 10/12/19 12:00 83 25 H 87 L 10/12/19 11:28 81 29 H 112/61 90 10/12/19 10:41 79 24 108/58 L 10/12/19 08:20 80 24 116/67 94 10/12/19 08:11 82 25 H 93 10/12/19 08:10 76 24 111/64 94 10/12/19 08:00 36.4 C L 83 24 106/65 88 L 10/12/19 07:40 36.4 C L 81 24 108/65 89 L 10/12/19 07:30 36.4 C L 81 24 103/62 86 L 10/12/19 07:15 84 24 97/60 L 86 L 10/12/19 03:57 83 26 H 85 L
[2019-10-12] MEDS ORDERED: ALBUMIN 25% 50 ML IV SCH (20:00)
[2019-10-12] MEDS ORDERED: TAMSULOSIN HCL 0.4 MG CAP PO SCH (21:00)
[2019-10-12] MEDS ORDERED: PIPERACILLIN/TAZOBACTAM 3.375 GM in DEXTROSE 5% 100 ML IV SCH (23:00)
== END 2019-10-12 13:57 | disposition expired | DRG 871 ==
LOC: ED 16:37 → SUATTDRO 22:43 → 2S 22:43 → 1E 10-12 09:31